=== PATIENT | male | born 1935 | race African-American/Black ===

== ENCOUNTER → 2016-12-06 | Outpatient (CLI) | payer MEDICARE, OTHER ==
[2016-12-06 08:50] LABS: CHOLESTEROL 160.69 mg/dL (0-200); Direct HDL 58 mg/dL (>40); TRIGLYCERIDES 170 mg/dL (<150)
[2016-12-06 08:51] LABS: BILIRUBIN,TOTAL 0.5 mg/dL (0.2-1.3); TOTAL PROTEIN 7.7 g/dL (6.3-8.2)
[2016-12-06 09:01] LABS: DIRECT LDL 70 mg/dL (<100)
== END ==
LOC: OD 07:18
PROVIDERS: ATTEND Urology
DX: Z79.899 Other long term (current) drug therapy (principal); C61 Malignant neoplasm of prostate
CPT/HCPCS: 36415; 80061; 80076; 84153

== ENCOUNTER 2016-12-17 10:16 | Emergency (ER) | payer MEDICARE, OTHER ==
--- NOTE | 2016-12-17 11:17 | ER Document Report ---
ED Medical Screen (RME) - General Stated Complaint: HEADACHE Notes: Was at HD this Am (Friday, , Friday). Headache started on/off for the past months Patient states that he has had intermittent headaches for about 10 months after a visit to the dentist. PCP: Dr Blair DM, HTN, h/o migraine headaches Patient has been evaluated and I have completed a rapid medical examination. A complete history and physical examination along with evaluation of workup will be completed by the provider once a bed is assigned TRAVEL OUTSIDE OF THE [place] IN LAST 30 DAYS: No - Related Data Allergies/Adverse Reactions: PPD Converter Allergy (Uncoded 10/01/16 07:24) Past Medical History - Past Medical History Cardiac Medical History: Reports: Hx Heart Attack - PT STATES " NOT SURE, MAY HAVE BEEN A STROKE", Hx Hypercholesterolemia, Hx Hypertension Denies: Hx Coronary Artery Disease Pulmonary Medical History: Denies: Hx Asthma, Hx Bronchitis, Hx COPD, Hx Pneumonia Neurological Medical History: Denies: Hx Cerebrovascular Accident - "unsure", Hx Seizures Endocrine Medical History: Reports: Hx Diabetes Mellitus Type 2, Hx Hypothyroidism Renal/ Medical History: Reports: Hx End Stage Renal Disease GI Medical History: Reports: Hx Gastroesophageal Reflux Disease Musculoskeltal Medical History: Reports Hx Arthritis - Legs and right shoulder, Reports Hx Gout Past Surgical History: Reports: Hx Abdominal Surgery - hernia repair, Hx Cardiac Surgery - pacemaker, Hx Oral Surgery, Hx Pacemaker, Hx Vascular Surgery - PermCath insertion. Right radiocephalic fistula insertion. Fistula an - Immunizations Hx Diphtheria, Pertussis, Tetanus Vaccination: Yes Physical Exam - Vital signs Vitals: Temp Pulse Resp BP Pulse Ox 97.6 F 60 20 143/110 H 97 12/17/16 10:59 12/17/16 10:59 12/17/16 10:59 12/17/16 10:59 12/17/16 10:59 Course - Vital Signs Vital signs: Temp Pulse Resp BP Pulse Ox 97.6 F 60 20 143/110 H 97 12/17/16 10:59 12/17/16 10:59 12/17/16 10:59 12/17/16 10:59 12/17/16 10:59
[2016-12-17] MEDS ORDERED: DIPHENHYDRAMINE HCL 25 MG CAPSULE PO ONE (11:18)
[2016-12-17] MEDS ORDERED: ACETAMINOPHEN 325 MG TABLET PO ONE (11:18)
[2016-12-17] MEDS ORDERED: PROCHLORPERAZINE EDISYLATE INJ 10 MG/2 ML VIAL IM ONE (11:18)
[2016-12-17 12:06] LABS: ABSOLUTE BASOPHILS # (AUTO) 0.1 10^3/uL (0.0-0.2); ABSOLUTE EOSINOPHILS # (AUTO) 0.1 10^3/uL (0.0-0.6); ABSOLUTE LYMPHOCYTES (AUTO) 1.1 10^3/uL (0.5-4.7); ABSOLUTE MONOCYTES (AUTO) 0.7 10^3/uL (0.1-1.4); ABSOLUTE NEUT (AUTO) 6.4 10^3/uL (1.7-8.2); BASOPHILS % (AUTO) 0.6 % (0-2); EOSINOPHILS % (AUTO) 1.7 % (0-6); LYMPHOCYTES % (AUTO) 13.1 % (13-45); MEAN CORPUSCULAR HEMOGLOBIN 30.5 pg (27.0-33.4); MEAN CORPUSCULAR HGB CONC 32.5 g/dL (32.0-36.0); MEAN CORPUSCULAR VOLUME 94 fl (80-97); MONOCYTES % (AUTO) 8.6 % (3-13); RED BLOOD COUNT 4.59 10^6/uL (4.35-5.55); RED CELL DISTRIBUTION WIDTH 16.1 % (11.5-14.0); WHITE BLOOD COUNT 8.4 10^3/uL (4.0-10.5)
[2016-12-17 12:28] LABS: ALANINE AMINOTRANSFERASE 25 U/L (21-72); ALBUMIN 4.7 g/dL (3.5-5.0); ALKALINE PHOSPHATASE 200 U/L (38-126); ASPARTATE AMINO TRANSFERASE 31 U/L (17-59); BILIRUBIN,TOTAL 0.7 mg/dL (0.2-1.3); BLOOD UREA NITROGEN 49 mg/dL (7-20); CARBON DIOXIDE 24 mmol/L (22-30); CHLORIDE 100 mmol/L (98-107); CREATININE RESULT 7.93 mg/dL (0.52-1.25); GLUCOSE 123 mg/dL (75-110); POTASSIUM 4.9 mmol/L (3.6-5.0); SODIUM 145.3 mmol/L (137-145); TOTAL PROTEIN 8.3 g/dL (6.3-8.2)
[2016-12-17 12:29] LABS: ANION GAP 21 (5-19)
--- NOTE | 2016-12-17 14:04 | ER Document Report ---
ED Headache - General Mode of Arrival: Medic Information source: Patient TRAVEL OUTSIDE OF THE [place] IN LAST 30 DAYS: No - HPI Patient complains to provider of: Headache Onset: Just prior to arrival <ERLINDA CANTU - Last Filed: 12/17/16 14:06> <FANY PHAN - Last Filed: 12/17/16 14:28> - General Chief Complaint: Headache >24 hrs old Stated Complaint: HEADACHE Notes: Patient is an 81-year-old male that presents to emergency department today with complaints of a headache. Patient states he has frequent headaches and usually takes Tylenol for his headaches. Patient states he believes he is prescribed something stronger but he can not remember the name of the medication. Patient states he has also noticed that he has had neck pain as well. (ERLINDA CANTU) This 81-year-old male patient comes emergency room for a right-sided posterior cervical headache. The headache is in the top of the head and the right posterior neck. He has been here in the past a few times for the same problem. He is currently receiving a prescription for Adrian from Dr. Blair, most recently filled 30 tablets on 11/22/2016. He states he has not run out of his medication, but the medicine does help but then the headaches come back. There is no nausea vomiting diarrhea. There is no visual disturbance. There is no mental status changes. There are no balance problems. The patient does go to dialysis on Friday and he did go this morning. (FANY PHAN) - Related Data Allergies/Adverse Reactions: PPD Converter Allergy (Uncoded 12/17/16 11:13) Past Medical History - General Information source: Patient - Social History Smoking Status: Never Smoker Cigarette use (# per day): No Chew tobacco use (# tins/day): No Frequency of alcohol use: None Drug Abuse: None Lives with: Family Family History: Reviewed & Not Pertinent Patient has suicidal ideation: No Patient has homicidal ideation: No - Past Medical History Cardiac Medical History: Reports: Hx Heart Attack - PT STATES " NOT SURE, MAY HAVE BEEN A STROKE", Hx Hypercholesterolemia, Hx Hypertension Endocrine Medical History: Reports: Hx Diabetes Mellitus Type 2, Hx Hypothyroidism Renal/ Medical History: Reports: Hx End Stage Renal Disease GI Medical History: Reports: Hx Gastroesophageal Reflux Disease Musculoskeltal Medical History: Reports Hx Arthritis - Legs and right shoulder, Reports Hx Gout Past Surgical History: Reports: Hx Abdominal Surgery - hernia repair, Hx Cardiac Surgery - pacemaker, Hx Oral Surgery, Hx Pacemaker, Hx Vascular Surgery - PermCath insertion. Right radiocephalic fistula insertion. Fistula an - Immunizations Hx Diphtheria, Pertussis, Tetanus Vaccination: Yes Hx Pneumococcal Vaccination: 11/10/12 <ERLINDA CANTU - Last Filed: 12/17/16 14:06> Review of Systems - Review of Systems Constitutional: No symptoms reported EENT: No symptoms reported Cardiovascular: No symptoms reported Respiratory: No symptoms reported Gastrointestinal: No symptoms reported Genitourinary: No symptoms reported Male Genitourinary: No symptoms reported Musculoskeletal: See HPI, Neck pain Skin: No symptoms reported Hematologic/Lymphatic: No symptoms reported Neurological/Psychological: See HPI, Headaches -: Yes All other systems reviewed and negative <ERLINDA CANTU - Last Filed: 12/17/16 14:06> Physical Exam - General General appearance: Appears well, Alert In distress: None - HEENT Head: Normocephalic, Atraumatic Eyes: Normal Extraocular movements intact: Yes Neck: Other - Right-sided posterior cervical musculature tenderness with palpation - Respiratory Respiratory status: No respiratory distress - Cardiovascular Rhythm: Regular Heart sounds: Normal auscultation Murmur: No - Abdominal Inspection: Normal Distension: No distension - Extremities General upper extremity: Normal inspection, Normal ROM. No: Edema General lower extremity: Normal inspection, Normal ROM. No: Edema - Neurological Neuro grossly intact: Yes Cognition: Normal Speech: Normal - Psychological Associated symptoms: Normal affect, Normal mood - Skin Skin Temperature: Warm Skin Moisture: Dry Skin Color: Normal <ERLINDA CANTU - Last Filed: 12/17/16 14:06> Course - Laboratory Result Diagrams: 12/17/16 11:50 12/17/16 11:50 <ERLINDA CANTU - Last Filed: 12/17/16 14:06> - Laboratory Result Diagrams: 12/17/16 11:50 12/17/16 11:50 <FANY PHAN - Last Filed: 12/17/16 14:28> - Re-evaluation Re-evalutation: 12/17/16 14:22 Review of the [place] database shows the patient has received prescriptions for 30 Adrian in the middle of October and the middle of November. He states he has not run out of medication, but when he takes the medicine the headache improved and then it comes back. 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 He understands this and is agreeable to continuing his present management regimen and to follow up with his primary care provider. (FANY PHAN) - Vital Signs Vital signs: Temp Pulse Resp BP Pulse Ox 97.6 F 60 20 143/110 H 97 12/17/16 10:59 12/17/16 10:59 12/17/16 10:59 12/17/16 10:59 12/17/16 10:59 (ERLINDA CANTU) (FANY PHAN) - Laboratory Laboratory results interpreted by me: 12/17/16 12/17/16 11:50 11:50 RDW 16.1 H Sodium 145.3 H Anion Gap 21 H BUN 49 H Creatinine 7.93 H Est GFR ( Amer) 8 L Est GFR (Non-Af Amer) 7 L Glucose 123 H Alkaline Phosphatase 200 H Total Protein 8.3 H (ERLINDA CANTU) (FANY PHAN) Discharge <ERLINDA CANTU - Last Filed: 12/17/16 14:06> <FANY PHAN - Last Filed: 12/17/16 14:28> - Discharge Clinical Impression: Chronic tension headache Qualifiers: Intractability: not intractable Qualified Code(s): G44.229 - Chronic tension- type headache, not intractable Condition: Stable Disposition: HOME, SELF-CARE Additional Instructions: Tension Headache: Your problem has been diagnosed as muscle tension headache. This very common type of headache occurs because of tightness in the muscles of the head and neck. The cause may be neck or jaw joint problems, and may be due to arthritis in the neck. The headache may last hours or days. The treatment of uncomplicated tension headaches is rest and pain medication. Often, the newer antiinflammatory pain medications are prescribed, as these also decrease the irritability of the painful tissues. Muscle relaxers , cold packs, or warm packs are sometimes helpful. Anti-anxiety medication or narcotics are sometimes needed temporarily, but are best avoided in the long run. Your doctor has evaluated your headache problem, and finds no evidence of a serious health problem as a cause for the headache. If your headache becomes more severe, or if new symptoms develop (such as fever, stiff neck, vomiting, or decreasing alertness) you should be re-examined by the physician. Continue your present medications. Try moist heat to the painful neck areas. Follow-up with Dr. Blair this week if not improving. RETURN TO THE EMERGENCY ROOM IF ANY NEW OR WORSENING SYMPTOMS. Referrals: MO BLAIR MD [ACTIVE STAFF] - Follow up as needed Scribe Attestation: 12/17/16 14:28 I personally performed the services described in the documentation, reviewed and edited the documentation which was dictated to the scribe in my presence, and it accurately records my words and actions. (FANY PHAN) Scribe Documentation - Scribe Written by Parish:: Parish Abreu, [id number] 12/17/2016 acting as scribe for :: Bashir <ERLINDA CANTU - Last Filed: 12/17/16 14:06>
[2016-12-17 15:12] VITALS: BP 148/80
== END 2016-12-17 14:47 | disposition home or self-care (01) ==
LOC: ER 10:16
DX: G44.229 Chronic tension-type headache, not intractable (principal)
CPT/HCPCS: 99284; 36415; 85025; 80053; A9270 ×2

== ENCOUNTER 2016-12-30 08:08 | Day surgery (SDC) | payer MEDICARE, OTHER ==
[2016-12-30] MEDS ORDERED: HEPARIN SOD (PORCINE) 5,000 UNIT/ML 1 ML SYRINGE ONE (09:04)
[2016-12-30] MEDS ORDERED: FENTANYL CITRATE INJ/PF 100 MCG/2 ML AMPUL ONE (09:04)
[2016-12-30] MEDS ORDERED: MIDAZOLAM 2 MG/2 ML INJ ONE (09:04)
[2016-12-30 09:09] LABS: ABSOLUTE BASOPHILS # (AUTO) 0.1 10^3/uL (0.0-0.2); ABSOLUTE EOSINOPHILS # (AUTO) 0.1 10^3/uL (0.0-0.6); ABSOLUTE LYMPHOCYTES (AUTO) 1.1 10^3/uL (0.5-4.7); ABSOLUTE MONOCYTES (AUTO) 0.7 10^3/uL (0.1-1.4); ABSOLUTE NEUT (AUTO) 5.3 10^3/uL (1.7-8.2); BASOPHILS % (AUTO) 1.2 % (0-2); EOSINOPHILS % (AUTO) 1.6 % (0-6); HEMATOCRIT 40.8 % (37.9-51.0); HGB HCT DIFFERENCE -1.8; LYMPHOCYTES % (AUTO) 14.6 % (13-45); MEAN CORPUSCULAR HEMOGLOBIN 30.2 pg (27.0-33.4); MEAN CORPUSCULAR HGB CONC 31.9 g/dL (32.0-36.0); MEAN CORPUSCULAR VOLUME 95 fl (80-97); MONOCYTES % (AUTO) 9.3 % (3-13); RED CELL DISTRIBUTION WIDTH 15.7 % (11.5-14.0); SEGMENTED NEUTROPHILS % (AUTO) 73.3 % (42-78); WHITE BLOOD COUNT 7.3 10^3/uL (4.0-10.5)
[2016-12-30] MEDS ORDERED: LIDOCAINE 0.5% INJ-PF (5 MG/ML) 50 ML SDV ONE (09:17)
[2016-12-30 09:19] LABS: PROTHROMBIN TIME 13.1 SEC (11.4-15.4)
[2016-12-30 09:20] LABS: PARTIAL THROMBOPLASTIN TIME 36.9 SEC (23.5-35.8)
[2016-12-30 09:33] LABS: ANION GAP 17 (5-19); BLOOD UREA NITROGEN 70 mg/dL (7-20); CALCIUM 10.2 mg/dL (8.4-10.2); CARBON DIOXIDE 24 mmol/L (22-30); CHLORIDE 96 mmol/L (98-107); CREATININE RESULT 10.97 mg/dL (0.52-1.25); GLUCOSE 110 mg/dL (75-110); POTASSIUM 5.9 mmol/L (3.6-5.0); SODIUM 136.6 mmol/L (137-145)
--- NOTE | 2016-12-30 10:35 | PDOC DISCHARGE SUMMARY ---
Discharge Summary (SDC) - Discharge Final Diagnosis: #1 malfunctioning AV fistula, right radiocephalic. #2 end-stage renal disease on hemodialysis. #3 history of permanent pacemaker. #4 diabetes mellitus type II. #5 coronary artery disease. #6 hypertension. Date of Surgery: 12/30/16 Discharge Date: 12/30/16 Condition: Fair Treatment or Instructions: #1 discharge patient home after achieving ASU criteria. Give Kayexalate 15 g by mouth before discharge. #2 continue medications per medication reconciliation sheet. #3 follow-up in office by appointment in about 1 week, call for appointment. #4 dressing to be left on until removed and hemodialysis.. #5 continue scheduled hemodialysis. #6 may shower starting in 48 hours. Important to keep dressings clean and dry Discharge Diet: Other (Comments) - Renal Respiratory Treatments at Home: Deep Breathing/Coughing Discharge Activity: Activity As Tolerated Report the Following to Your Physician Immediately: Unusual Bleeding
--- NOTE | 2016-12-30 10:39 | PDOC H&P ---
General Chief Complaint: Reduced flow in AV fistula noted and hemodialysis. Increased pressures also. These suggest fistula malfunction. - Diagnosis (1) Coronary artery disease Is this a Current Diagnosis?: Yes (2) Diabetes mellitus type II, controlled Is this a Current Diagnosis?: Yes (3) ESRD needing dialysis Is this a Current Diagnosis?: Yes (4) History of permanent cardiac pacemaker placement Is this a Current Diagnosis?: Yes (5) Hypertension Is this a Current Diagnosis?: Yes (6) Malfunction of arteriovenous dialysis fistula Is this a Current Diagnosis?: Yes - Current Medications/Allergies Home Medications: Allopurinol [Zyloprim 100 mg Tablet] 100 mg PO DAILY 12/25/11 Aspirin [Aspirin 81 mg Chewable Tablet] 81 mg PO DAILY 12/25/11 Hydralazine HCl [Apresoline 50 mg Tablet] 50 mg PO BID 12/25/11 Levothyroxine Sodium [Synthroid 0.112 mg Tablet] 112 mcg PO DAILY 12/25/11 Simvastatin [Zocor 5 mg Tablet] 5 mg PO QHS 12/25/11 Bicalutamide [Casodex 50 mg Tablet] 50 mg PO DAILY 04/25/14 Nitroglycerin 4.1 gm TL PRN PRN 04/25/14 Esomeprazole Magnesium [Nexium] 40 mg PO DAILY 03/06/16 Colchicine [Colchicine 0.6 mg Tablet] 0.6 mg PO [id number] 03/09/16 Insulin Glargine,Hum.rec.anlog [Lantus Insulin 100 Unit/1 ml 10 ml] 5 units SQ HSP PRN 03/09/16 Linaclotide [Linzess] 290 mcg PO DAILY 10/01/16 Gabapentin 100 mg PO DAILY 10/16/16 Sevelamer HCl [Renagel] 1,600 mg PO 5XD 10/16/16 Allergies/Adverse Reactions: PPD Converter Allergy (Uncoded 12/17/16 11:13) Past Medical History Cardiac Medical History: Reports: Myocardial Infarction - PT STATES " NOT SURE, MAY HAVE BEEN A STROKE", Hyperlipidema, Hypertension Denies: Coronary Artery Disease Pulmonary Medical History: Denies: Asthma, Bronchitis, Chronic Obstructive Pulmonary Disease (COPD), Pneumonia Neurological Medical History: Denies: Seizures Endocrine Medical History: Reports: Diabetes Mellitus Type 2, Hypothyroidism Renal/ Medical History: Reports: End Stage Renal Disease GI Medical History: Reports: Gastroesophageal Reflux Disease Musculoskeltal Medical History: Reports: Arthritis - Legs and right shoulder, Gout Hematology: Denies: Anemia Past Surgical History Past Surgical History: Reports: Pacemaker, Vascular Surgery - PermCath insertion. Right radiocephalic fistula insertion. Fistula an Family History Family History: Reviewed & Not Pertinent Parental Family History Reviewed: No Children Family History Reviewed: No Sibling(s) Family History Reviewed.: No Social History Smoking Status: Former Smoker Physical Exam Vital Signs: Temp Pulse Resp BP Pulse Ox 98.2 F 66 16 124/69 100 12/30/16 08:25 12/30/16 09:49 12/30/16 08:25 12/30/16 08:25 12/30/16 08:25 Intake & Output 12/29/16 12/30/16 12/31/16 06:59 06:59 06:59 Weight 105.687 kg Additional comments: Constitutional: A well-developed well-nourished -[place] gentleman. No acute distress. Eyes: Mucous membranes pink and moist, sclerae anicteric, pupils react normally. Respiratory: No shortness of breath or wheezing. Breath sounds are normal and equal. Cardiac: Heart sounds normal, no murmurs, no increased JVP. Permanent pacemaker in place. Extremities: Upper extremities shows normal range of movement and pulses. The right arm has a transposed radial to cephalic fistula . Bruit normal. Firm to palpation. Psychiatric: judgment, memory, insight seem normal. Mood is normal, appropriate and pleasant. Impression/Plan Impression: #1 malfunctioning AV fistula, right radiocephalic. #2 end-stage renal disease on hemodialysis. #3 history of permanent pacemaker. #4 diabetes mellitus type II. #5 coronary artery disease. #6 hypertension. Plan: In this patient, dependent on his right arm AV fistula for hemodialysis, intervention is warranted. The hope is to improve fistula function so as to prolong its functional life. The procedure of angioplasty, its risks, benefits , expected outcome and alternatives are for Ca to the patient. He wishes to proceed.
[2016-12-30] MEDS ORDERED: SODIUM POLYSTYRENE SULFONATE 15 GM/60 ML ONE (10:45)
[2016-12-30 12:53] VITALS: BP 153/72
--- NOTE | 2016-12-31 14:53 | Operative Report ---
Operative Report DATE OF SURGERY: 12/30/16 PREOPERATIVE DIAGNOSIS: #1 malfunctioning AV fistula, right radiocephalic. #2 end-stage renal disease on hemodialysis. #3 history of permanent pacemaker. # 4 diabetes mellitus type II. #5 coronary artery disease. #6 hypertension. POSTOPERATIVE DIAGNOSIS: #1 malfunctioning AV fistula, right radiocephalic. #2 end-stage renal disease on hemodialysis. #3 history of permanent pacemaker. # 4 diabetes mellitus type II. #5 coronary artery disease. #6 hypertension. OPERATION: #1 needle introduction into fistula. #2 angioplasty in the central subclavian vein. #3 angioplasty in the peripheral arteriovenous fistula. #4 angiogram and interpretation. SURGEON: DANYA GARCIA EMERGENCY COMMUNICATIONS DISPATCHER: none ANESTHESIA: Moderate Sedation TISSUE REMOVED OR ALTERED: Not applicable. COMPLICATIONS: None ESTIMATED BLOOD LOSS: 2 mL. INTRAOPERATIVE FINDINGS: Upper well-founded right radial to cephalic fistula. Rather firm and his first 10 cm. Relatively soft cephalad. Angiogram demonstrated a stenosis at the subclavian innominate junction. Estimated to be about 50% of the adjacent lumen. Not well seen on angiogram but much better demonstrated with a demonstrable waist. This was really nicely corrected with angioplasty up to a 9 mm balloon. A second stenosis noted at about 12 cm from the anastomosis this represents about a 80% stenosis. This was also resolved by angioplasty. The fistula, initially very firm suggestive of cephalad stenosis was quite appropriately softer at the end of the procedure. PROCEDURE: PROCEDURE: After verifying the procedure and having obtained informed consent, the patient's right forearm was prepared with Chlorhexidine and draped out with sterile linen. Local anesthesia infiltrated. Percutaneous access into the fistula ,[ antegrade], obtained about [2 cm] from the arteriovenous anastomosis using a 18-gauge needle. Angiogram demonstrated the aforementioned findings. Angioplasty was elected. A 0.035 [place] wire was inserted, and over this, a 7 Hungarian short introducer was placed, this was followed by a [8] angioplasty balloon . Angioplasty was done at the subclavian innominate junction using an 8 mm balloon. Pressure up to 12 arjun for 2 minutes. Completion angiogram demonstrated improvement. Angioplasty was now done up to 14 arjun for 2 minutes at the 12 cm segment. And then down to the introducer. Completion angiogram satisfactory. A 9 mm balloon was now inserted and the balloon positioned at the subclavian T innominate junction. Inflation now done up to 12 atmospheres for 2 minutes.]. Completion angiogram demonstrated [satisfactory result]. The instrumentation was now withdrawn over pressure for 10 minutes dressings applied, procedure concluded. Exposure time: 0.9 minutes. Radiation: 59 dat per centimeters squared. Contrast: 25 mL of Isovue-M 300, low osmolality. DICTATING PHYSICIAN: DANYA MEDELLIN M.D. cc: DANYA MEDELLIN M.D. ([id number]) >>
== END 2016-12-30 12:00 | disposition home or self-care (01) ==
LOC: CCL 08:08
PROVIDERS: ATTEND Surgery
PROC: 057D3DZ Dilation of Right Cephalic Vein with Intraluminal Device, Percutaneous Approach (ICD-10-PCS; principal; 2016-12-30)
DX: T82.858A Stenosis of other vascular prosthetic devices, implants and grafts, initial encounter (principal); Y83.2 Surgical operation with anastomosis, bypass or graft as the cause of abnormal reaction of the patient, or of later complication, without mention of misadventure at the time of the procedure; I12.0 Hypertensive chronic kidney disease with stage 5 chronic kidney disease or end stage renal disease; N18.6 End stage renal disease; E11.22 Type 2 diabetes mellitus with diabetic chronic kidney disease; I25.10 Atherosclerotic heart disease of native coronary artery without angina pectoris; E03.9 Hypothyroidism, unspecified; E78.5 Hyperlipidemia, unspecified; K21.9 Gastro-esophageal reflux disease without esophagitis; M10.9 Gout, unspecified; M19.011 Primary osteoarthritis, right shoulder; Z99.2 Dependence on renal dialysis; Z79.01 Long term (current) use of anticoagulants; Z79.82 Long term (current) use of aspirin; Z79.899 Other long term (current) drug therapy; Z79.4 Long term (current) use of insulin; I25.2 Old myocardial infarction; Z95.0 Presence of cardiac pacemaker; Z87.891 Personal history of nicotine dependence
CPT/HCPCS: 36415; 85025; 85610; 85730; 80048; 36902; 71010; C1725; C1894; Q9967; C1769; J2250; J1644 ×2; J3010; J3490

== ENCOUNTER → 2017-01-28 | Outpatient (CLI) | payer MEDICARE, OTHER ==
[2017-01-28 12:11] LABS: ABSOLUTE BASOPHILS # (AUTO) 0.1 10^3/uL (0.0-0.2); ABSOLUTE EOSINOPHILS # (AUTO) 0.2 10^3/uL (0.0-0.6); ABSOLUTE LYMPHOCYTES (AUTO) 1.1 10^3/uL (0.5-4.7); ABSOLUTE MONOCYTES (AUTO) 0.8 10^3/uL (0.1-1.4); ABSOLUTE NEUT (AUTO) 6.3 10^3/uL (1.7-8.2); BASOPHILS % (AUTO) 0.7 % (0-2); EOSINOPHILS % (AUTO) 2.2 % (0-6); HEMATOCRIT 42.1 % (37.9-51.0); HEMOGLOBIN 13.6 g/dL (13.5-17.0); HGB HCT DIFFERENCE -1.3; LYMPHOCYTES % (AUTO) 12.9 % (13-45); MEAN CORPUSCULAR HEMOGLOBIN 30.5 pg (27.0-33.4); MEAN CORPUSCULAR HGB CONC 32.4 g/dL (32.0-36.0); MEAN CORPUSCULAR VOLUME 94 fl (80-97); RED BLOOD COUNT 4.46 10^6/uL (4.35-5.55); RED CELL DISTRIBUTION WIDTH 15.2 % (11.5-14.0); SEGMENTED NEUTROPHILS % (AUTO) 75.2 % (42-78); WHITE BLOOD COUNT 8.4 10^3/uL (4.0-10.5)
== END ==
LOC: OD 10:46
PROVIDERS: ATTEND Internal Medicine Cardiovascular Disease
DX: R00.0 Tachycardia, unspecified (principal); E03.9 Hypothyroidism, unspecified; R63.4 Abnormal weight loss
CPT/HCPCS: 36415; 84443; 85025

== ENCOUNTER 2017-03-04 02:45 | Emergency (ER) | payer MEDICARE, OTHER ==
--- NOTE | 2017-03-04 06:04 | ER Document Report ---
ED Medical Screen (RME) - General Chief Complaint: Abdominal Pain Stated Complaint: SHORTNESS OF BREATH,ABDOMINAL PAIN Notes: Patient is an 82-year-old male presents emergency Department complaining of chest pain, shortness of breath and abdominal pain that started last evening. Patient states that he got a coronary stent 1 about 7 days ago. Past medical history significant for end-stage renal disease on dialysis Friday and Friday, diabetes type II, hypertension, gout, hyperlipidemia. TRAVEL OUTSIDE OF THE [place] 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 Denies: Hx Seizures Endocrine Medical History: Reports: Hx Diabetes Mellitus Type 2, Hx Hypothyroidism Renal/ Medical History: Reports: Hx End Stage Renal Disease. Denies: Hx Peritoneal Dialysis GI Medical History: Reports: Hx Gastroesophageal Reflux Disease Musculoskeltal Medical History: Reports Hx Arthritis - Legs and right shoulder, Reports Hx Gout Past Surgical History: Reports: Hx Abdominal Surgery - Hernia, Hx Cardiac Catheterization - Stent placed 02/24/2017 @[facility], Hx Cardiac Surgery - pacemaker , Hx Oral Surgery, Hx Pacemaker, Hx Vascular Surgery - PermCath insertion. Right radiocephalic fistula insertion. Fistula an - Immunizations Hx Diphtheria, Pertussis, Tetanus Vaccination: Yes Physical Exam - Vital signs Vitals: Temp Pulse Resp BP Pulse Ox 98.1 F 66 21 H 167/70 H 95 03/04/17 02:52 03/04/17 02:52 03/04/17 02:52 03/04/17 02:52 03/04/17 02:52 Course - Vital Signs Vital signs: Temp Pulse Resp BP Pulse Ox 98.1 F 66 21 H 167/70 H 95 03/04/17 02:52 03/04/17 02:52 03/04/17 02:52 03/04/17 02:52 03/04/17 02:52
--- NOTE | 2017-03-04 06:37 | ER Document Report ---
ED General - General Mode of Arrival: Ambulatory Information source: Patient TRAVEL OUTSIDE OF THE [place] IN LAST 30 DAYS: No - HPI Patient complains to provider of: Difficulty Breathing Onset: This morning - 0130 Onset/Duration: Sudden, Better Associated symptoms: Other - Abdominal pain, constipation <BLAS LOPEZ - Last Filed: 03/04/17 06:37> <FANY PHAN - Last Filed: 03/04/17 09:30> - General Chief Complaint: Abdominal Pain Stated Complaint: SHORTNESS OF BREATH,ABDOMINAL PAIN Notes: Patient is an 82-year-old male presenting to the emergency department concerned of difficulty breathing onset at approximately 0130 this morning when he woke up. Patient states that he got up to get ready for his dialysis like he normally does, nose to is short of breath. She states his breathing has improved since coming to the emergency department. Patient also is concerned that he may be constipated. Patient states that he is not able to get all of his fecal matter out, and he is experiencing some abdominal cramping. Patient also recently had a stent placed approximately 7 days ago. Patient has end- stage kidney disease and is on dialysis every Friday, , Friday. Patient reports making very little urine. (BLAS LOPEZ) - Related Data Allergies/Adverse Reactions: PPD Converter Allergy (Uncoded 12/17/16 11:13) Past Medical History - General Information source: Patient, [facility] Records - Social History Smoking Status: Unknown if Ever Smoked Chew tobacco use (# tins/day): No Frequency of alcohol use: None Drug Abuse: None Family History: Reviewed & Not Pertinent - Past Medical History Cardiac Medical History: Reports: Hx Heart Attack - PT STATES " NOT SURE, MAY HAVE BEEN A STROKE", Hx Hypercholesterolemia, Hx Hypertension Pulmonary Medical History: Denies: Hx Asthma, Hx Bronchitis, Hx COPD, Hx Pneumonia Neurological Medical History: Reports: Hx Cerebrovascular Accident - LEFT WEAKER THAN RIGHT. Denies: Hx Seizures Endocrine Medical History: Reports: Hx Diabetes Mellitus Type 2, Hx Hypothyroidism Renal/ Medical History: Reports: Hx End Stage Renal Disease, Hx Hemodialysis GI Medical History: Reports: Hx Gastroesophageal Reflux Disease Musculoskeltal Medical History: Reports Hx Arthritis - Legs and right shoulder, Reports Hx Gout Past Surgical History: Reports: Hx Abdominal Surgery - Hernia, Hx Cardiac Catheterization - Stent placed 02/24/2017 @[facility], Hx Cardiac Surgery - pacemaker , Stent, Hx Oral Surgery, Hx Pacemaker, Hx Vascular Surgery - PermCath insertion. Right radiocephalic fistula insertion. - Immunizations Hx Diphtheria, Pertussis, Tetanus Vaccination: Yes Hx Pneumococcal Vaccination: 11/10/12 <BLAS LOPEZ - Last Filed: 03/04/17 06:37> Review of Systems - Review of Systems Constitutional: No symptoms reported EENT: No symptoms reported Cardiovascular: No symptoms reported Respiratory: See HPI, Short of breath Gastrointestinal: See HPI, Abdominal pain, Constipation Genitourinary: No symptoms reported Male Genitourinary: No symptoms reported Musculoskeletal: No symptoms reported Skin: No symptoms reported Hematologic/Lymphatic: No symptoms reported Neurological/Psychological: No symptoms reported -: Yes All other systems reviewed and negative <BLAS LOPEZ - Last Filed: 03/04/17 06:37> Physical Exam - Vital signs Interpretation: Hypertensive - General General appearance: Alert - HEENT Head: Normocephalic, Atraumatic Eyes: Normal Pupils: PERRL - Respiratory Respiratory status: No respiratory distress Chest status: Nontender Breath sounds: Normal Chest palpation: Normal - Cardiovascular Rhythm: Regular Heart sounds: Normal auscultation Murmur: No - Abdominal Inspection: Obese, Other - Umbilical hernia Bowel sounds: Normal - Back Back: Normal, Nontender - Extremities General upper extremity: Nontender, Other - Shunt right forearm General lower extremity: Normal inspection, Nontender, Other - No peripheral edema - Neurological Neuro grossly intact: Yes Cognition: Normal Orientation: AAOx4 Jacque Coma Scale Eye Opening: Spontaneous [place] Coma Scale Verbal: Oriented [place] Coma Scale Motor: Obeys Commands Jacque Coma Scale Total: 15 Speech: Normal - Psychological Associated symptoms: Normal affect, Normal mood - Skin Skin Temperature: Warm Skin Moisture: Dry Skin Color: Normal <BLAS LOPEZ - Last Filed: 03/04/17 06:37> Course <BLAS LOPEZ - Last Filed: 03/04/17 06:37> - Laboratory Result Diagrams: 03/04/17 07:13 03/04/17 07:13 - Diagnostic Test Radiology reviewed: Image reviewed, Reports reviewed - Chest x-ray does not show failure. KUB shows a moderate fecal load. - EKG Interpretation by Pa EKG shows normal: Sinus rhythm, [place], Intervals, ST-T Waves. abnormal: QRS Complexes - Old anterior and inferior MIs Rate: Normal - 60 Rhythm: NSR [place]/QRS: IVCD Voltage: Consistant with LVH <FANY PHAN - Last Filed: 03/04/17 09:30> - Re-evaluation Re-evalutation: 03/04/17 09:28 Patient had a large bowel movement after the enema and feels better. He is complaining about his legs being weak and not sure if he can stand to go to dialysis. The leg weakness is a chronic problem and he is supposed to be having therapist come out to his house to help him with that. We will get transport to take him to dialysis (FANY PHAN) - Vital Signs Vital signs: Temp Pulse Resp BP Pulse Ox 98.1 F 66 18 168/77 H 96 03/04/17 02:52 03/04/17 02:52 03/04/17 06:33 03/04/17 06:33 03/04/17 06:33 - Laboratory Laboratory results interpreted by me: 03/04/17 03/04/17 03/04/17 07:13 07:13 07:13 RBC 4.02 L Hgb 12.5 L Hct 37.7 L RDW 14.3 H Seg Neutrophils % 79.5 H Lymphocytes % 10.0 L Sodium 147.6 H Potassium 6.5 H* Anion Gap 22 H BUN 84 H Creatinine 11.64 H Est GFR ( Amer) 5 L Est GFR (Non-Af Amer) 4 L Glucose 121 H Direct Bilirubin 0.7 H Alkaline Phosphatase 156 H NT-Pro-B Natriuret Pep 31913 H Discharge <BLAS LOPEZ - Last Filed: 03/04/17 06:37> <FANY PHAN - Last Filed: 03/04/17 09:30> - Discharge Clinical Impression: Hyperkalemia Constipation Qualifiers: Constipation type: unspecified constipation type Qualified Code(s): K59.00 - Constipation, unspecified Chronic renal failure Qualifiers: Chronic kidney disease stage: stage 5 Qualified Code(s): N18.5 - Chronic kidney disease, stage 5 Condition: Stable Disposition: DAVITA Additional Instructions: Go to dialysis now. Follow-up with your kidney doctor today if your weakness does not improve. Return to the emergency room if any new or worsening symptoms. Referrals: MO SOUZA MD [Primary Care Provider] - Follow up as needed Scribe Attestation: 03/04/17 09:30 I personally performed the services described in the documentation, reviewed and edited the documentation which was dictated to the scribe in my presence, and it accurately records my words and actions. (FANY PHAN) Scribe Documentation - Scribe Written by Scribe:: Blas Lopez 03/04/2017 0637 acting as scribe for :: Bashir <BLAS LOPEZ - Last Filed: 03/04/17 06:37>
[2017-03-04 07:25] LABS: ABSOLUTE BASOPHILS # (AUTO) 0.1 10^3/uL (0.0-0.2); ABSOLUTE MONOCYTES (AUTO) 0.9 10^3/uL (0.1-1.4); ABSOLUTE NEUT (AUTO) 7.6 10^3/uL (1.7-8.2); BASOPHILS % (AUTO) 0.9 % (0-2); EOSINOPHILS % (AUTO) 0.5 % (0-6); HEMATOCRIT 37.7 % (37.9-51.0); HEMOGLOBIN 12.5 g/dL (13.5-17.0); HGB HCT DIFFERENCE -0.2; MEAN CORPUSCULAR HEMOGLOBIN 31.1 pg (27.0-33.4); MEAN CORPUSCULAR HGB CONC 33.2 g/dL (32.0-36.0); MEAN CORPUSCULAR VOLUME 94 fl (80-97); MONOCYTES % (AUTO) 9.1 % (3-13); RED BLOOD COUNT 4.02 10^6/uL (4.35-5.55); RED CELL DISTRIBUTION WIDTH 14.3 % (11.5-14.0); SEGMENTED NEUTROPHILS % (AUTO) 79.5 % (42-78); WHITE BLOOD COUNT 9.6 10^3/uL (4.0-10.5)
[2017-03-04 07:42] LABS: ALANINE AMINOTRANSFERASE 28 U/L (21-72); ALBUMIN 4.4 g/dL (3.5-5.0); ALKALINE PHOSPHATASE 156 U/L (38-126); ASPARTATE AMINO TRANSFERASE 24 U/L (17-59); BILIRUBIN,DIRECT 0.7 mg/dL (0.0-0.4); BILIRUBIN,TOTAL 0.9 mg/dL (0.2-1.3); BLOOD UREA NITROGEN 84 mg/dL (7-20); CALCIUM 9.9 mg/dL (8.4-10.2); CARBON DIOXIDE 25 mmol/L (22-30); CHLORIDE 101 mmol/L (98-107); CREATINE KINASE 76 U/L (55-170); CREATININE RESULT 11.64 mg/dL (0.52-1.25); GLUCOSE 121 mg/dL (75-110); LIPASE 77.3 U/L (23-300); TOTAL PROTEIN 7.9 g/dL (6.3-8.2)
[2017-03-04] MEDS ORDERED: MINERAL OIL 30 ML UDCUP PR ONE (07:44)
[2017-03-04 07:52] LABS: SODIUM 147.6 mmol/L (137-145)
[2017-03-04 07:54] LABS: CREATINE KINASE MB 1.49 ng/mL (<4.55)
[2017-03-04 07:57] LABS: ANION GAP 22 (5-19)
[2017-03-04 07:58] LABS: POTASSIUM 6.5 mmol/L (3.6-5.0)
[2017-03-04 07:59] LABS: TROPONIN I 0.039 ng/mL
[2017-03-04] MEDS ORDERED: SODIUM POLYSTYRENE SULFONATE 15 GM/60 ML PO ONE (08:04)
[2017-03-04 10:19] VITALS: BP 157/70
--- NOTE | 2017-03-04 11:15 | EKG REPORT ---
SEVERITY:- ABNORMAL ECG - V PACED RHYTHM : Confirmed by: Roz Cantu 04-Mar-2017 11:14:58
== END 2017-03-04 10:11 | disposition home health service (06) ==
LOC: ER 02:45
DX: I12.0 Hypertensive chronic kidney disease with stage 5 chronic kidney disease or end stage renal disease (principal); E11.22 Type 2 diabetes mellitus with diabetic chronic kidney disease; N18.6 End stage renal disease; Z99.2 Dependence on renal dialysis; K59.00 Constipation, unspecified; R53.1 Weakness; E87.5 Hyperkalemia; R06.02 Shortness of breath; Z98.890 Other specified postprocedural states; Z88.7 Allergy status to serum and vaccine; Z98.61 Coronary angioplasty status; Z95.810 Presence of automatic (implantable) cardiac defibrillator
CPT/HCPCS: 93005; 99284; 36415; 82553; 82550; 83690; 85025; 80053; 84484; 83880; 71010; 74000; 93010; J3490

== ENCOUNTER → 2017-03-17 | Outpatient (CLI) | payer MEDICARE, OTHER | LOC: RAD 10:33 | PROVIDERS: ATTEND Urology | DX: N18.6 End stage renal disease (principal); Z99.2 Dependence on renal dialysis | CPT/HCPCS: 76770 ==

== ENCOUNTER 2017-03-24 09:17 | Day surgery (SDC) | payer MEDICARE, OTHER ==
[2017-03-24 10:03] LABS: HEMATOCRIT 34.2 % (37.9-51.0); HEMOGLOBIN 11.1 g/dL (13.5-17.0); HGB HCT DIFFERENCE -0.9; MEAN CORPUSCULAR HEMOGLOBIN 30.4 pg (27.0-33.4); MEAN CORPUSCULAR HGB CONC 32.5 g/dL (32.0-36.0); MEAN CORPUSCULAR VOLUME 93 fl (80-97); RED BLOOD COUNT 3.66 10^6/uL (4.35-5.55); RED CELL DISTRIBUTION WIDTH 13.9 % (11.5-14.0)
[2017-03-24] MEDS ORDERED: LIDOCAINE 0.5% INJ-PF (5 MG/ML) 50 ML SDV ONE (10:20)
[2017-03-24] MEDS ORDERED: HEPARIN SOD (PORCINE) 5,000 UNIT/ML 1 ML SYRINGE ONE (10:20)
[2017-03-24] MEDS ORDERED: FENTANYL CITRATE INJ/PF 100 MCG/2 ML AMPUL ONE (10:20)
[2017-03-24] MEDS ORDERED: MIDAZOLAM 2 MG/2 ML INJ ONE (10:20)
[2017-03-24 10:27] LABS: ANION GAP 15 (5-19); BLOOD UREA NITROGEN 74 mg/dL (7-20); CALCIUM 9.8 mg/dL (8.4-10.2); CARBON DIOXIDE 24 mmol/L (22-30); CHLORIDE 102 mmol/L (98-107); GLUCOSE 89 mg/dL (75-110); POTASSIUM 5.8 mmol/L (3.6-5.0); SODIUM 141.3 mmol/L (137-145)
--- NOTE | 2017-03-24 10:48 | PDOC H&P ---
General Chief Complaint: The patient was referred across from dialysis because of diminished flows detected on evaluation. - Current Medications/Allergies Home Medications: Allopurinol [Zyloprim 100 mg Tablet] 100 mg PO DAILY 03/24/17 Aspirin [Ecotrin 81 mg EC Tablet] 81 mg PO DAILY 03/24/17 Clopidogrel Bisulfate [Clopidogrel] 75 mg PO DAILY 03/24/17 Epoetin Clive [Epogen] 20,000 unit IJ 03/24/17 Ergocalciferol (Vitamin D2) [Vitamin D] 400 unit PO DAILY 03/24/17 Folic Acid/Vitamin B Comp W-C [Renavit Tablet] 0.8 mg PO DAILY 03/24/17 Hydralazine HCl 50 mg PO BID 03/24/17 Insulin Glargine,Hum.rec.anlog [Lantus] 5 units QHS 03/24/17 Leuprolide Acetate [Lupron Depot Inj 7.5 mg Kit] 7.5 mg PO 03/24/17 Metoprolol Succinate 25 mg PO DAILY 03/24/17 Pantoprazole Sodium 40 mg PO DAILY 03/24/17 Vit/Iron Fumarate/FA [ Tablet] 1 tab DAILY 03/24/17 Sevelamer HCl [Renagel] 800 mg PO TID 03/24/17 Simvastatin 20 mg PO QHS 03/24/17 Allergies/Adverse Reactions: PPD Converter Allergy (Uncoded 12/17/16 11:13) Past Medical History Cardiac Medical History: Reports: Myocardial Infarction - PT STATES " NOT SURE, MAY HAVE BEEN A STROKE", Hyperlipidema, Hypertension Denies: Coronary Artery Disease Pulmonary Medical History: Denies: Asthma, Bronchitis, Chronic Obstructive Pulmonary Disease (COPD), Pneumonia Neurological Medical History: Denies: Seizures Endocrine Medical History: Reports: Diabetes Mellitus Type 2, Hypothyroidism Renal/ Medical History: Reports: End Stage Renal Disease GI Medical History: Reports: Gastroesophageal Reflux Disease Musculoskeltal Medical History: Reports: Arthritis - Legs and right shoulder, Gout Hematology: Denies: Anemia Past Surgical History Past Surgical History: Reports: Cardiac Catheterization - Stent placed 2016 @[facility], Pacemaker, Vascular Surgery - PermCath insertion. Right radiocephalic fistula insertion. Family History Family History: Reviewed & Not Pertinent Parental Family History Reviewed: No Children Family History Reviewed: No Sibling(s) Family History Reviewed.: No Social History Smoking Status: Former Smoker Physical Exam Vital Signs: Temp Pulse Resp BP Pulse Ox 98.3 F 62 16 156/89 H 100 03/24/17 10:11 03/24/17 10:11 03/24/17 10:11 03/24/17 10:11 03/24/17 10:11 Intake & Output 03/23/17 03/24/17 03/25/17 06:59 06:59 06:59 Weight 105.687 kg Additional comments: A well-developed well-nourished male. Mildly increased body habitus. No acute distress. Eyes membranes is pink and moist, sclerae anicteric. Respiratory no shortness of breath. Breath sounds are normal and equal bilaterally. Cardiac: Heart sounds 1 and 2 heard, no murmurs. Chest:: PPM in place. Upper extremities show normal range of movement and pulsatile to the radials. Normal capillary refill. A cephalic to radial fistula is appreciated. In therightupper extremity. Somewhat firm, suggesting cephalad stenosis. Psychiatric the patient is alert, oriented, judgment, memory, insight normal Impression/Plan Impression: #1 malfunctioning arteriovenous fistula, right radiocephalic. #2 end-stage renal disease on hemodialysis. #3 diabetes mellitus type II. #[address] #5 history of prostate cancer. #6 hypertension. Plan: The plan is to try to improve fistula function, angiographically.
--- NOTE | 2017-03-24 11:49 | Operative Report ---
Operative Report DATE OF SURGERY: 03/24/17 PREOPERATIVE DIAGNOSIS: #1 malfunctioning AV fistula, right radiocephalic. #2 end-stage renal disease on hemodialysis. #[address] #4 history of prostate cancer. #5 diabetes mellitus type II. #6 hypertension POSTOPERATIVE DIAGNOSIS: #1 malfunctioning AV fistula, right radiocephalic. Post angioplasty. #2 end-stage renal disease on hemodialysis. #[address] #4 history of prostate cancer. #5 diabetes mellitus type II. #6 hypertension OPERATION: #1 needle introduction into fistula. #2 AV fistula angioplasty. #3 angiogram and interpretation. SURGEON: DANYA GARCIA CUSTODIAL FOREMAN: none ANESTHESIA: Moderate Sedation TISSUE REMOVED OR ALTERED: Not applicable. COMPLICATIONS: None ESTIMATED BLOOD LOSS: 5 mL. INTRAOPERATIVE FINDINGS: Of a well-founded right forearm radiocephalic fistula. Hyper pulsatile in the first 3 cm and somewhat softer cephalad. This is concordant with the angiographic findings of essentially normal cephalad flow up to the central vessels. A stenosis estimated to be 70% of the adjacent lumen about 3 cm away from the arteriovenous anastomosis. This waist almost entirely eliminated with a residual about 10%. At about 8 cm a vague area of stenosis. This seems soft and easily accommodated a 6 mm balloon. After angioplasty of the fistula much better, good thrill, somewhat firmer, appropriately than before. Suggesting satisfactory outcome. PROCEDURE: PROCEDURE: After verifying the procedure and having obtained informed consent, the patient's right arm and forearm were prepared with Chlorhexidine and draped out with sterile linen. Local anesthesia infiltrated. Percutaneous access into the fistula ,[retrograde], obtained about [20 cm] from the arteriovenous anastomosis using a micro puncture needle followed by micro puncture wire and then a micro puncture catheter. Cephalad angiograms done up to the heart. The inner micropuncture catheter and cannula replaced with the wire and then the full catheter. A 0.035 [place] wire was inserted, and over this, a 6 Yoruba short introducer was placed, this was followed by a [place] catheter which was used to do antegrade angiogram. Based on the findings angioplasty was elected. A 6 mm angioplasty balloon inserted . Angioplasty was now done using a 3 mL syringe with hand injection. For 1 minute. Completion angiogram demonstrated [satisfactory result]. The instrumentation was now withdrawn over hand-held pressure for 10 minutes.. Dressings applied, procedure concluded. Exposure time: 0.2 minutes Radiation: 25 dat per centimeter squared Contrast: 25 mL of Isovue-M 300 low osmolality. DICTATING PHYSICIAN: DANYA MEDELLIN M.D. cc: DANYA MEDELLIN M.D. ([id number]) >>
--- NOTE | 2017-03-24 11:57 | PDOC DISCHARGE SUMMARY ---
Discharge Summary (SDC) - Discharge Final Diagnosis: #1 malfunctioning AV fistula, right radiocephalic. #2 end-stage renal disease on hemodialysis. #[address] #4 history of prostate cancer. #5 diabetes mellitus type II. #6 hypertension Date of Surgery: 03/24/17 Discharge Date: 03/24/17 Treatment or Instructions: #1 activities within moderation encouraged. #2 follow up in my office by appointment in about 1 month. Call for appointment. #3 the wounds covered clean and dry until office visit. #4 hold off on school/work until evaluation in office. #5 may shower in 48 hours, keep operated area as dry as possible. #6 discharge from ambulatory when ASU criteria met. #7 medications per medication reconciliation sheet. Referrals: MO SOUZA MD [Primary Care Provider] - Discharge Diet: Other (Comments) - ADA Respiratory Treatments at Home: Deep Breathing/Coughing Discharge Activity: Activity As Tolerated Report the Following to Your Physician Immediately: Shortness of Breath, Unusual Bleeding
[2017-03-24 13:18] VITALS: BP 147/87
== END 2017-03-24 13:17 | disposition home or self-care (01) ==
LOC: CCL 09:17
PROVIDERS: ATTEND Surgery
PROC: 057D3DZ Dilation of Right Cephalic Vein with Intraluminal Device, Percutaneous Approach (ICD-10-PCS; principal; 2017-03-24)
DX: T82.858A Stenosis of other vascular prosthetic devices, implants and grafts, initial encounter (principal); Y83.2 Surgical operation with anastomosis, bypass or graft as the cause of abnormal reaction of the patient, or of later complication, without mention of misadventure at the time of the procedure; E11.22 Type 2 diabetes mellitus with diabetic chronic kidney disease; I12.0 Hypertensive chronic kidney disease with stage 5 chronic kidney disease or end stage renal disease; N18.6 End stage renal disease; Z99.2 Dependence on renal dialysis; E03.9 Hypothyroidism, unspecified; K21.9 Gastro-esophageal reflux disease without esophagitis; M10.9 Gout, unspecified; M19.011 Primary osteoarthritis, right shoulder; M19.90 Unspecified osteoarthritis, unspecified site; I25.2 Old myocardial infarction; Z98.61 Coronary angioplasty status; Z95.0 Presence of cardiac pacemaker; Z88.7 Allergy status to serum and vaccine; Z79.82 Long term (current) use of aspirin; Z85.46 Personal history of malignant neoplasm of prostate; Z79.4 Long term (current) use of insulin; Z79.899 Other long term (current) drug therapy
CPT/HCPCS: 36415; 85027; 80048; 36902; C1725; C1887; Q9967; C1769; J2250; J1644 ×2; J3010; J3490

== ENCOUNTER 2017-05-12 10:43 | Day surgery (SDC) | payer MEDICARE, OTHER ==
[~2017-05-12 10:43] MED LIST: LIDOCAINE 2% INJ-PF (20 MG/ML) 10 ML AMPUL ONE
[2017-05-12 11:19] LABS: HEMATOCRIT 36.6 % (37.9-51.0); HEMOGLOBIN 11.5 g/dL (13.5-17.0); HGB HCT DIFFERENCE -2.1; MEAN CORPUSCULAR HEMOGLOBIN 30.1 pg (27.0-33.4); MEAN CORPUSCULAR HGB CONC 31.5 g/dL (32.0-36.0); MEAN CORPUSCULAR VOLUME 96 fl (80-97); RED BLOOD COUNT 3.83 10^6/uL (4.35-5.55); WHITE BLOOD COUNT 6.1 10^3/uL (4.0-10.5)
[2017-05-12 11:38] LABS: ANION GAP 18 (5-19); BLOOD UREA NITROGEN 72 mg/dL (7-20); CALCIUM 9.7 mg/dL (8.4-10.2); CARBON DIOXIDE 24 mmol/L (22-30); CHLORIDE 100 mmol/L (98-107); CREATININE RESULT 10.96 mg/dL (0.52-1.25); GLUCOSE 127 mg/dL (75-110); POTASSIUM 4.8 mmol/L (3.6-5.0); SODIUM 141.7 mmol/L (137-145)
--- NOTE | 2017-05-12 12:34 | PDOC H&P ---
General Chief Complaint: The patient is referred across for evaluation and improvement of fistula. Decreased the flows have been noted. - Current Medications/Allergies Home Medications: Allopurinol [Zyloprim 100 mg Tablet] 100 mg PO DAILY 03/24/17 Aspirin [Ecotrin 81 mg EC Tablet] 81 mg PO DAILY 03/24/17 Clopidogrel Bisulfate [Clopidogrel] 75 mg PO DAILY 03/24/17 Epoetin Clive [Epogen] 20,000 unit IJ 03/24/17 Ergocalciferol (Vitamin D2) [Vitamin D] 400 unit PO DAILY 03/24/17 Folic Acid/Vitamin B Comp W-C [Renavit Tablet] 0.8 mg PO DAILY 03/24/17 Hydralazine HCl 50 mg PO BID 03/24/17 Insulin Glargine,Hum.rec.anlog [Lantus] 5 units QHS 03/24/17 Leuprolide Acetate [Lupron Depot Inj 7.5 mg Kit] 7.5 mg INJ ASDIR 03/24/17 Metoprolol Succinate 25 mg PO DAILY 03/24/17 Pantoprazole Sodium 40 mg PO DAILY 03/24/17 Vit/Iron Fumarate/FA [ Tablet] 1 tab DAILY 03/24/17 Sevelamer HCl [Renagel] 800 mg PO TID 03/24/17 Simvastatin 20 mg PO QHS 03/24/17 Bicalutamide [Casodex 50 mg Tablet] 1 tab PO DAILY 05/12/17 Allergies/Adverse Reactions: PPD Converter Allergy (Uncoded 05/12/17 10:49) Past Medical History Cardiac Medical History: Reports: Myocardial Infarction - PT STATES " NOT SURE, MAY HAVE BEEN A STROKE", Hyperlipidema, Hypertension Denies: Coronary Artery Disease Pulmonary Medical History: Denies: Asthma, Bronchitis, Chronic Obstructive Pulmonary Disease (COPD), Pneumonia Neurological Medical History: Denies: Seizures Endocrine Medical History: Reports: Diabetes Mellitus Type 2, Hypothyroidism Renal/ Medical History: Reports: End Stage Renal Disease GI Medical History: Reports: Gastroesophageal Reflux Disease Musculoskeltal Medical History: Reports: Arthritis - Legs and right shoulder, Gout Hematology: Denies: Anemia Past Surgical History Past Surgical History: Reports: Cardiac Catheterization - Stent placed 2016 @[facility], Pacemaker, Vascular Surgery - PermCath insertion. Right radiocephalic fistula insertion. Family History Family History: Reviewed & Not Pertinent Parental Family History Reviewed: No Children Family History Reviewed: No Sibling(s) Family History Reviewed.: No Social History Smoking Status: Never Smoker Physical Exam Vital Signs: Temp Pulse Resp BP Pulse Ox 98.5 F 71 16 152/80 H 100 05/12/17 10:50 05/12/17 10:50 05/12/17 10:50 05/12/17 10:50 05/12/17 10:50 Intake & Output 05/11/17 05/12/17 05/13/17 06:59 06:59 06:59 Intake Total 1000 Balance 1000 Weight 107.95 kg Additional comments: Constitutional: Well-developed well-nourished -Green[place]ic gentleman. No apparent acute distress. Eyes: Mucous membranes pink and moist, pupils equal and reactive to light. Conjunctiva normal. l. ENT: Hearing grossly normal. External pinna normal to inspection. Teeth mostly intact. Tongue normal to inspection. Cardiac: Heart sounds 1 and 2 normal, no murmurs. Pacemaker in place Respiratory breath sounds are present bilaterally, normal. Normal respiratory effort. Skin: Normal to inspection. No ulcers, normal turgor. Psychiatric: Judgment, memory, insight seem normal. Mood is pleasant and appropriate. Extremities: Upper extremities show normal range of movement. Pulses present noted to the radial arteries. Capillary refill normal. No cyanosis noted. No muscle wasting noted. Right arm radiocephalic fistula noted. Actively firm, suggestive of cephalad stenosis. Impression/Plan Impression: #1 malfunctioning arteriovenous fistula, left radiocephalic. 2. End-stage renal disease on hemodialysis. 3. COPD. 4. Atrial fibrillation. 5. Hypertension. Plan: Angiogram possible angioplasty suggested. The goal is maintaining adequate fistula function.
[2017-05-12] MEDS ORDERED: HEPARIN SOD (PORCINE) 1,000 UNIT/ML 10 ML VIAL ONE (12:44)
[2017-05-12] MEDS ORDERED: BUPIVACAINE HCL 0.25 % INJ/PF (2.5 MG/1 ML) 30 ML VIAL ONE (12:45)
[2017-05-12] MEDS ORDERED: MIDAZOLAM 2 MG/2 ML INJ ONE (12:46)
[2017-05-12] MEDS ORDERED: PROPOFOL INJ 200 MG/20 ML VIAL IV ONE (12:46)
[2017-05-12] MEDS ORDERED: LIDOCAINE 0.5% INJ-PF (5 MG/ML) 50 ML SDV ONE (12:47)
--- NOTE | 2017-05-12 14:30 | PDOC DISCHARGE SUMMARY ---
Discharge Summary (SDC) - Discharge Final Diagnosis: #1 malfunctioning arteriovenous fistula, left radiocephalic. 2. End-stage renal disease on hemodialysis. 3. COPD. 4. Atrial fibrillation. 5. Hypertension. Date of Surgery: 05/12/17 Discharge Date: 05/12/17 Condition: Fair Treatment or Instructions: Discharge home [after recovery per ASU criteria]. Diet , [renal],as tolerated, when fully awake advance as tolerated. Activities within moderation encouraged. Follow up in my office by appointment in about [1 month]. Call for appointment. Leave wounds [covered], [keep clean and dry, until hemodialysis . Hold of on school/work [until evaluation in office]. May shower [in 48 hrs], [try to keep operated area as dry as possible] Medications per medication reconciliation sheet. Referrals: MO SOUZA MD [Primary Care Provider] - Discharge Diet: Other (Comments) - Renal Respiratory Treatments at Home: Deep Breathing/Coughing Discharge Activity: Activity As Tolerated Report the Following to Your Physician Immediately: Shortness of Breath, Unusual Bleeding
--- NOTE | 2017-05-12 14:35 | Operative Report ---
Operative Report DATE OF SURGERY: 05/12/17 PREOPERATIVE DIAGNOSIS: #1 malfunctioning arteriovenous fistula, left radiocephalic. 2. End-stage renal disease on hemodialysis. 3. COPD. 4. Atrial fibrillation. 5. Hypertension. POSTOPERATIVE DIAGNOSIS: #1 malfunctioning arteriovenous fistula, left radiocephalic. 2. End-stage renal disease on hemodialysis. 3. COPD. 4. Atrial fibrillation. 5. Hypertension. OPERATION: 1 needle access in the fistula. 2. Angioplasty. 3. Angiogram interpretation. SURGEON: DANYA MEDELLIN 1ST FEEDER/FOLDER: None ANESTHESIA: LMAC TISSUE REMOVED OR ALTERED: Not applicable COMPLICATIONS: None ESTIMATED BLOOD LOSS: 5 mL. INTRAOPERATIVE FINDINGS: A well founded right arm radiocephalic fistula in this patient with a left-sided pacemaker. The fistula somewhat firm. Angiogram showed multiple areas of stenoses in the fistula from forearm to chest which avoid 30-70% adjacent lumen. Resolved by angioplasty. An area in the superior vena cava which seemed to be stenotic with actually quite widely open PROCEDURE: PROCEDURE: After verifying the procedure and having obtained informed consent, the patient's left arm was prepared with Chlorhexidine and draped out with sterile linen. Local anesthesia infiltrated. Percutaneous access into the fistula ,[ antegrade], obtained about [4 cm] from the arteriovenous anastomosis using a micro puncture needle followed by micro puncture wire and then a micro puncture catheter. Angiogram demonstrated the aforementioned findings. Angioplasty was elected. A 0.035 [place] wire was inserted, and over this, a 7 Lao short introducer was placed, this was followed by a [7-mm ] angioplasty balloon . Angioplasty was serially done centrally then from the upper fistula down to the introducer. Inflating up to 18 atmospheres for a minute at a time.]. Completion angiogram demonstrated [satisfactory result]. The instrumentation was now withdrawn over time the pressure for 3 minutes . Dressings applied, procedure concluded. Exposure time:4.4 Radiation: 8 8 mcg/cm Contrast: [place] of Isovue-300, low osmolality. DICTATING PHYSICIAN: DANYA MEDELLIN M.D. cc: DANYA MEDELLIN M.D. ([id number]) >>
--- NOTE | 2017-05-12 14:47 | RADIOLOGY REPORT (SQ) ---
EXAM DESCRIPTION: NO CHG FLUORO; FOREARM LEFT COMPLETED DATE/TIME: 05/12/2017 2:37 pm REASON FOR STUDY: T82.858A T82.858A STENOSIS OF OTHER VASCULAR PROSTH DEV/GRFT, INIT COMPARISON: None. FLUOROSCOPY TIME: 4.4 minutes 22 images saved to PACS. TECHNIQUE: Intra-operative images acquired during surgical procedure to evaluate progress. NUMBER OF IMAGES: 22 LIMITATIONS: None. FINDINGS: Angioplasty intervention of upper extremity dialysis graft. IMPRESSION: IMAGE(S) OBTAINED DURING PROCEDURE. COMMENT: Quality ID [id number]: Final reports for procedures using fluoroscopy that document radiation exp osure indices, or exposure time and number of fluorographic images (if radiation exposure indices are not available) Please consult full operative report of the attending physician for description of the procedure. TECHNICAL DOCUMENTATION: JOB ID: [id number] [employer]- All Rights Reserved
--- NOTE | 2017-05-12 14:47 | RADIOLOGY REPORT (SQ) ---
EXAM DESCRIPTION: NO CHG FLUORO; FOREARM LEFT COMPLETED DATE/TIME: 05/12/2017 2:37 pm REASON FOR STUDY: T82.858A T82.858A STENOSIS OF OTHER VASCULAR PROSTH DEV/GRFT, INIT COMPARISON: None. FLUOROSCOPY TIME: 4.4 minutes 22 images saved to PACS. TECHNIQUE: Intra-operative images acquired during surgical procedure to evaluate progress. NUMBER OF IMAGES: 22 LIMITATIONS: None. FINDINGS: Angioplasty intervention of upper extremity dialysis graft. IMPRESSION: IMAGE(S) OBTAINED DURING PROCEDURE. COMMENT: Quality ID [id number]: Final reports for procedures using fluoroscopy that document radiation exp osure indices, or exposure time and number of fluorographic images (if radiation exposure indices are not available) Please consult full operative report of the attending physician for description of the procedure. TECHNICAL DOCUMENTATION: JOB ID: [id number] [employer]- All Rights Reserved
[2017-05-12 15:39] VITALS: BP 138/84
== END 2017-05-12 16:05 | disposition home or self-care (01) ==
LOC: OROUT 10:43
PROVIDERS: ATTEND Surgery
PROC: 057D3DZ Dilation of Right Cephalic Vein with Intraluminal Device, Percutaneous Approach (ICD-10-PCS; principal; 2017-05-12 12:30)
DX: T82.858A Stenosis of other vascular prosthetic devices, implants and grafts, initial encounter (principal); Y83.2 Surgical operation with anastomosis, bypass or graft as the cause of abnormal reaction of the patient, or of later complication, without mention of misadventure at the time of the procedure; I12.0 Hypertensive chronic kidney disease with stage 5 chronic kidney disease or end stage renal disease; E11.22 Type 2 diabetes mellitus with diabetic chronic kidney disease; N18.6 End stage renal disease; Z99.2 Dependence on renal dialysis; J44.9 Chronic obstructive pulmonary disease, unspecified; I48.91 Unspecified atrial fibrillation; E78.5 Hyperlipidemia, unspecified; E03.9 Hypothyroidism, unspecified; K21.9 Gastro-esophageal reflux disease without esophagitis; M10.9 Gout, unspecified; M19.011 Primary osteoarthritis, right shoulder; Z79.82 Long term (current) use of aspirin; Z79.899 Other long term (current) drug therapy; Z79.4 Long term (current) use of insulin
CPT/HCPCS: 36415; 85027; 80048; 73090; 36902; C1725; C1752; C1894; Q9967; C1769; J2250; J1644 ×2; J3490 ×2; J2704; 01844

== ENCOUNTER 2017-05-13 19:07 | Emergency (ER) | payer MEDICARE, OTHER ==
[2017-05-13] MEDS ORDERED: ACETAMINOPHEN 325 MG TABLET PO ONE (19:37)
--- NOTE | 2017-05-13 19:41 | ER Document Report ---
ED Head/Face/Scalp Injury - General Chief Complaint: Head Injury Stated Complaint: FALL/HEAD INJURY Time Seen by Provider: 05/13/17 19:37 Notes: The patient is an 82-year-old male, past medical history ESRD (MWF), CAD s/p stents (on ASA and Plavix), OA, presents with posterior head pain and left shoulder pain after he slipped off one step and landed backwards 7 days ago. He is having a mild headache at the site where he landed. He denies LOC, syncope, chest pain, shortness of breath, nausea, vomiting, neck pain, numbness , tingling, blurry vision or increased difficulty walking. TRAVEL OUTSIDE OF THE [place] IN LAST 30 DAYS: No - Related Data Allergies/Adverse Reactions: PPD Converter Allergy (Uncoded 05/12/17 10:49) Past Medical History - General Information source: Patient - Social History Smoking Status: Unknown if Ever Smoked Family History: Reviewed & Not Pertinent Patient has suicidal ideation: No Patient has homicidal ideation: No - Past Medical History Cardiac Medical History: Reports: Hx Heart Attack - PT STATES " NOT SURE, MAY HAVE BEEN A STROKE", Hx Hypercholesterolemia, Hx Hypertension Denies: Hx Coronary Artery Disease Pulmonary Medical History: Denies: Hx Asthma, Hx Bronchitis, Hx COPD, Hx Pneumonia Neurological Medical History: Reports: Hx Cerebrovascular Accident - LEFT WEAKER THAN RIGHT. Denies: Hx Seizures Endocrine Medical History: Reports: Hx Diabetes Mellitus Type 2, Hx Hypothyroidism Renal/ Medical History: Reports: Hx End Stage Renal Disease, Hx Hemodialysis. Denies: Hx Peritoneal Dialysis GI Medical History: Reports: Hx Gastroesophageal Reflux Disease Musculoskeltal Medical History: Reports Hx Arthritis - Legs and right shoulder, Reports Hx Gout Past Surgical History: Reports: Hx Abdominal Surgery - Hernia, Hx Cardiac Catheterization - Stent placed 02/24/2017 @[facility], Hx Cardiac Surgery - pacemaker , Stent, Hx Oral Surgery, Hx Pacemaker, Hx Vascular Surgery - PermCath insertion. Right radiocephalic fistula insertion. - Immunizations Hx Diphtheria, Pertussis, Tetanus Vaccination: Yes Hx Pneumococcal Vaccination: 11/10/12 Review of Systems - Review of Systems Notes: REVIEW OF SYSTEMS: CONSTITUTIONAL: -fevers, -chills EENT: -eye pain, -difficulty swallowing, -nasal congestion CARDIOVASCULAR:-chest pain, -syncope. RESPIRATORY: -cough, -SOB GASTROINTESTINAL: -abdominal pain, - nausea, -vomiting, -diarrhea GENITOURINARY: -dysuria, -hematuria MUSCULOSKELETAL: +left shoulder pain, -back pain, -neck pain SKIN: -rash or skin lesions. HEMATOLOGIC: -easy bruising or bleeding. LYMPHATIC: -swollen, enlarged glands. NEUROLOGICAL: -altered mental status or loss of consciousness, +headache, - neurologic symptoms PSYCHIATRIC: -anxiety, -depression. ALL OTHER SYSTEMS REVIEWED AND NEGATIVE. Physical Exam - Notes Notes: PHYSICAL EXAMINATION: GENERAL: Well-appearing, well-nourished and in no acute distress. HEAD: Atraumatic, normocephalic. Mild tenderness over posterior scalp. EYES: Pupils equal round and reactive to light, extraocular movements intact, sclera anicteric, conjunctiva are normal. ENT: nares patent, oropharynx clear without exudates. Moist mucous membranes. NECK: Normal range of motion, supple without lymphadenopathy LUNGS: Breath sounds clear to auscultation bilaterally and equal. No wheezes rales or rhonchi. HEART: Regular rate and rhythm without murmurs ABDOMEN: Soft, nontender, normoactive bowel sounds. No guarding, no rebound. No masses appreciated. EXTREMITIES: Left shoulder tenderness and painful ROM. No pitting or edema. No cyanosis. NEUROLOGICAL: Cranial nerves grossly intact. Normal speech, normal gait. Normal sensory and motor exams. PSYCH: Normal mood, normal affect. SKIN: Warm, Dry, normal turgor, no rashes or lesions noted. Course - Re-evaluation Re-evalutation: Patient's fall was strictly mechanical in nature and occurred 7 days ago. His head CT does not show any bleeds or fractures and his left shoulder x-ray does not show any acute fractures or dislocations. Will instructed him to continue Tylenol and ice packs for any pain control. Discharge - Discharge Clinical Impression: Contusion of head Qualifiers: Encounter type: initial encounter Contusion of head detail: scalp Qualified Code(s): S00.03XA - Contusion of scalp, initial encounter Shoulder pain, left Qualifiers: Chronicity: unspecified Qualified Code(s): M25.512 - Pain in left shoulder Condition: Stable Disposition: HOME, SELF-CARE Additional Instructions: Tylenol and ice packs for pain control. Contusion Your injury has resulted in a contusion -- a crushing of the deep tissues. No injury to important structures was detected during the physician's exam. Contusions vary in the amount of pain they cause, and in the length of time required for healing. Typically, the area will become bruised, and will remain painful to touch for two or three weeks. However, most patients are back to working and playing within a few days. After the initial period of rest and cold-packs, your symptoms (together with the doctor's recommendations) will determine how rapidly you can get back to full activity. Usually this means "do what feels okay, but don't do things that hurt." If re-examination was recommended, it's important to follow up as instructed. Call the doctor or return any time if pain increases, if swelling becomes severe, if you develop numbness or weakness in an injured extremity, or if any other alarming symptoms occur.
--- NOTE | 2017-05-13 20:03 | RADIOLOGY REPORT (SQ) ---
EXAM DESCRIPTION: CT HEAD WITHOUT COMPLETED DATE/TIME: 05/13/2017 7:53 pm REASON FOR STUDY: head injury COMPARISON: June 2016 TECHNIQUE: Axial images acquired through the brain without intravenous contrast. Images reviewed wi th bone, brain and subdural windows. Images stored on PACS. All CT scanners at this facility use dose modulation, iterative reconstruction, and/or weight based d osing when appropriate to reduce radiation dose to as low as reasonably achievable (ALARA). [facility]: Dose Right [facility]: CareDose [facility]: Dose Right [facility]: Teradose 4D [facility]: [employer] RADIATION DOSE: Up-to-date CT equipment and radiation dose reduction techniques were employed. CTDIv ol: 64.6 mGy. DLP: 1034 mGy-cm. mGy. LIMITATIONS: None. FINDINGS: VENTRICLES: Prominent. CEREBRUM: No masses. No hemorrhage. No midline shift. Areas of low density in the white matter mos t likely due to chronic micro-vascular ischemic change. No evidence for acute infarction. CEREBELLUM: No masses. No hemorrhage. No alteration of density. No evidence for acute infarction. EXTRAAXIAL SPACES: Mild age-related involutional change. No fluid collections. No masses. ORBITS AND GLOBE: No intra- or extraconal masses. Normal contour of globe without masses. CALVARIUM: No fracture. PARANASAL SINUSES: No fluid or mucosal thickening. SOFT TISSUES: No mass or hematoma. OTHER: No other significant finding. IMPRESSION: MILD CHRONIC CHANGES OF ATROPHY AND MICROVASCULAR ISCHEMIA. NO ACUTE PROCESS. TECHNICAL DOCUMENTATION: JOB ID: [id number] Quality ID # [id number]: Final reports with documentation of one or more dose reduction techniques (e.g., Au tomated exposure control, adjustment of the mA and/or kV according to patient size, use of iterative reconstruction technique) 2010 [employer]- All Rights Reserved
--- NOTE | 2017-05-13 20:23 | RADIOLOGY REPORT (SQ) ---
EXAM DESCRIPTION: SHOULDER LEFT 2 OR MORE VIEWS COMPLETED DATE/TIME: 05/13/2017 8:12 pm REASON FOR STUDY: left shoulder pain COMPARISON: None. NUMBER OF VIEWS: Three views. TECHNIQUE: Internal rotation, external rotation, and Y view images acquired of the left shoulder. LIMITATIONS: None. FINDINGS: MINERALIZATION: Normal. BONES: No acute fracture dislocation is seen. There is bony deformity of the humeral head with scler otic and cystic changes being identified. The appearance is consistent with extensive degenerative c hanges. I cannot exclude a component of avascular necrosis. JOINTS: Extensive degenerative changes are identified at the level of the glenohumeral joint. VISUALIZED LUNGS AND RIBS: No pneumothorax. No rib fracture. SOFT TISSUES: No radiopaque foreign body. OTHER: No other significant finding. IMPRESSION: Extensive degenerative changes at the level of the glenohumeral joint as noted above. N o acute fractures. TECHNICAL DOCUMENTATION: JOB ID: [id number]- All Rights Reserved
[2017-05-13 20:25] VITALS: BP 117/52
== END 2017-05-13 20:30 | disposition home or self-care (01) ==
LOC: ER 19:07
DX: S00.03XA Contusion of scalp, initial encounter (principal); M25.512 Pain in left shoulder; R51 Headache; W10.9XXA Fall (on) (from) unspecified stairs and steps, initial encounter; I12.0 Hypertensive chronic kidney disease with stage 5 chronic kidney disease or end stage renal disease; E11.22 Type 2 diabetes mellitus with diabetic chronic kidney disease; N18.6 End stage renal disease; Z99.2 Dependence on renal dialysis; Z88.7 Allergy status to serum and vaccine; Z86.73 Personal history of transient ischemic attack (TIA), and cerebral infarction without residual deficits; Z98.61 Coronary angioplasty status
CPT/HCPCS: 99284; 73030; 70450; A9270

== ENCOUNTER 2017-05-27 09:50 | Emergency (ER) | payer MEDICARE, OTHER ==
--- NOTE | 2017-05-27 10:24 | ER Document Report ---
ED Neuro Symptoms/Deficit - General Chief Complaint: Altered Mental Status Stated Complaint: ALTERED MENTAL STATUS Time Seen by Provider: 05/27/17 10:01 Mode of Arrival: Stretcher Information source: Patient Notes: 82-year-old male history of end-stage renal dialysis, distant CVA, cardiac disease including pacemaker presents with 2 episodes of aphasia today lasting approximately 3 minutes. This occurred at the initiation of dialysis resolved after about 3 minutes. Patient deferred transfer at that point. Another episode happened about assisted through his dialysis and he was sent for further evaluation and treatment. Again this lasted 2-3 minutes. There was no associated hypotension with it. He denies any pain. Specifically no current chest pain but does have intermittent angina. He had no focal weakness numbness or tingling. He states he had no difficulty understanding but was unable to get his words out but knew what he wanted to say. Patient denies any purulent cough but has had some dry cough for a couple of weeks today slightly white and frothy. No specific orthopnea. No visual changes. TRAVEL OUTSIDE OF THE [place] IN LAST 30 DAYS: No - Related Data Allergies/Adverse Reactions: PPD Converter Allergy (Uncoded 05/12/17 10:49) Past Medical History - Social History Smoking Status: Never Smoker Chew tobacco use (# tins/day): No Frequency of alcohol use: None Drug Abuse: None Family History: Reviewed & Not Pertinent - Past Medical History Cardiac Medical History: Reports: Hx Heart Attack - PT STATES " NOT SURE, MAY HAVE BEEN A STROKE", Hx Hypercholesterolemia, Hx Hypertension Denies: Hx Coronary Artery Disease Pulmonary Medical History: Denies: Hx Asthma, Hx Bronchitis, Hx COPD, Hx Pneumonia Neurological Medical History: Reports: Hx Cerebrovascular Accident - LEFT WEAKER THAN RIGHT. Denies: Hx Seizures Endocrine Medical History: Reports: Hx Diabetes Mellitus Type 2, Hx Hypothyroidism Renal/ Medical History: Reports: Hx End Stage Renal Disease, Hx Hemodialysis. Denies: Hx Peritoneal Dialysis GI Medical History: Reports: Hx Gastroesophageal Reflux Disease Musculoskeltal Medical History: Reports Hx Arthritis - Legs and right shoulder, Reports Hx Gout Past Surgical History: Reports: Hx Abdominal Surgery - Hernia, Hx Cardiac Catheterization - Stent placed 02/24/2017 @[facility], Hx Cardiac Surgery - pacemaker , Stent, Hx Oral Surgery, Hx Pacemaker, Hx Vascular Surgery - PermCath insertion. Right radiocephalic fistula insertion. - Immunizations Hx Diphtheria, Pertussis, Tetanus Vaccination: Yes Hx Pneumococcal Vaccination: 11/10/12 Review of Systems - Review of Systems -: Yes All other systems reviewed and negative Physical Exam - Vital signs Vitals: Resp Pulse Ox 15 100 05/27/17 10:02 05/27/17 10:02 - Notes Notes: GENERAL: VS as per nursing doc., chronically ill appearing, well-nourished and in no acute distress. HEAD: Atraumatic, normocephalic. EYES: Pupils equal round and reactive to light, extraocular movements intact, sclera anicteric slightly cloudy, minimal conjunctival injection but no discharge. ENT: Nares patent, oropharynx clear without exudates. Moist mucous membranes. NECK: Normal range of motion, supple, no carotid bruits. LUNGS: Breath sounds equal, slightly coarse bibasilar rales bilaterally HEART: Normal S1S2. Regular rate and rhythm without murmurs. Equal peripheral pulses. Right vascular access shows good thrill ABDOMEN: Soft, non-tender EXTREMITIES: Normal range of motion. NEUROLOGICAL: GCS 15, Cranial nerves II-XII intact. Normal visual coughlin. Normal speech without aphasia. No pronator drift. 5/5 RUE strength, 5/5 RLE strength, 5/5 LUE strength, 5/5 LLE strength. No cerebellar abnormalities including normal finger-nose testing. Negative Babinski, 2+= DTR refelexes. PSYCH: Normal mood, normal affect. SKIN: Warm, Dry, no cyanosis, Cap refill < 2 sec. Course - Re-evaluation Re-evalutation: 05/27/17 11:21 I spoke with the radiologist. The patient at this point does not want further inpatient evaluation. Unfortunately due to prior shrapnel as well as pacemaker , we are unable to perform a MRI. She recommended a carotid ultrasound. 05/27/17 14:02 Discussed findings with the patient and family. The carotid ultrasound showed no significant stenosis. Discussed with the patient seems consistent with TIAs and understand he will some point complete one. He will continue his Plavix which he reports he is on. Family is comfortable with the patient's request for discharge as well. - Vital Signs Vital signs: Temp Pulse Resp BP Pulse Ox 12 156/80 H 100 05/27/17 13:00 05/27/17 10:04 05/27/17 13:00 - Laboratory Result Diagrams: 05/27/17 11:01 05/27/17 11:01 Laboratory results interpreted by me: 05/27/17 05/27/17 11:01 11:01 RBC 4.10 L Hgb 12.5 L MCHC 31.9 L RDW 16.3 H Lymphocytes % 11.6 L BUN 55 H Creatinine 8.61 H Est GFR ( Amer) 7 L Est GFR (Non-Af Amer) 6 L Glucose 139 H Direct Bilirubin 0.6 H ALT 19 L Alkaline Phosphatase 259 H - EKG Interpretation by Me Rate: Normal - Rate 62, I suspect ventricular paced rhythm with PVC noted. No significant change compared to March 04, 2017. Discharge - Discharge Clinical Impression: TIA (transient ischemic attack) Condition: Fair Disposition: HOME, SELF-CARE Instructions: Transient Ischemic Attack ([facility]) Additional Instructions: Follow-up with your primary care physician or custom harvester in the next 48 hours. Continue your blood thinner. Return if you are worsening or for other concerns. Referrals: MO SOUZA MD [Primary Care Provider] - Follow up in 3-5 days
--- NOTE | 2017-05-27 11:08 | RADIOLOGY REPORT (SQ) ---
EXAM DESCRIPTION: CT HEAD WITHOUT COMPLETED DATE/TIME: 05/27/2017 10:42 am REASON FOR STUDY: Aphasia 2 episodes of transient aphasia within the last 24 hours COMPARISON: CT brain 05/13/2017, 06/18/2016, 03/09/2016, 08/23/2008 TECHNIQUE: Axial images acquired through the brain without intravenous contrast. Images reviewed wi th bone, brain and subdural windows. Images stored on PACS. All CT scanners at this facility use dose modulation, iterative reconstruction, and/or weight based d osing when appropriate to reduce radiation dose to as low as reasonably achievable (ALARA). [facility]: Dose Right [facility]: CareDose [facility]: Dose Right [facility]: Teradose 4D [facility]: [employer] RADIATION DOSE: Up-to-date CT equipment and radiation dose reduction techniques were employed. CTDIv ol: 64.6 mGy. DLP: 1163 mGy-cm. mGy. LIMITATIONS: Mild motion artifact FINDINGS: VENTRICLES: Normal size and contour. CEREBRUM: No CT evidence of acute large territory ischemic change, acute intracranial hemorrhage, mas s effect, or midline shift. Moderate chronic bifrontal and biparietal small vessel ischemic change with low attenuation in the he mispheric white matter. Old lacunar infarct left thalamus. CEREBELLUM: No masses. No hemorrhage. No alteration of density. No evidence for acute infarction. EXTRAAXIAL SPACES: No fluid collections. No masses. ORBITS AND GLOBE: No intra- or extraconal masses. Normal contour of globe without masses. CALVARIUM: No fracture. PARANASAL SINUSES: No fluid or mucosal thickening. SOFT TISSUES: Shrapnel in the right temporal soft tissues. OTHER: Report discussed with Dr. Sanders, 1050 hours 05/27/2017 IMPRESSION: Motion artifact. No acute findings. TECHNICAL DOCUMENTATION: JOB ID: [id number] Quality ID # [id number]: Final reports with documentation of one or more dose reduction techniques (e.g., Au tomated exposure control, adjustment of the mA and/or kV according to patient size, use of iterative reconstruction technique) 2010 [employer] All Rights Reserved
[2017-05-27 11:15] LABS: PROTHROMBIN TIME 12.7 SEC (11.4-15.4)
--- NOTE | 2017-05-27 11:20 | RADIOLOGY REPORT (SQ) ---
EXAM DESCRIPTION: CHEST SINGLE VIEW COMPLETED DATE/TIME: 05/27/2017 11:02 am REASON FOR STUDY: ESRD, Aphasia (CVA) COMPARISON: Chest films 07/20/2012, 10/16/2016, 01/07/2017, 03/04/2017 EXAM PARAMETERS: NUMBER OF VIEWS: One view. TECHNIQUE: Single frontal radiographic view of the chest acquired. RADIATION DOSE: NA LIMITATIONS: None. FINDINGS: LUNGS AND PLEURA: No opacities, masses or pneumothorax. No pleural effusion. MEDIASTINUM AND HILAR STRUCTURES: No masses. Contour normal. HEART AND VASCULAR STRUCTURES: Stable moderate cardiomegaly BONES: Advanced arthritis both shoulders HARDWARE: Left-sided dual lead pacemaker. Old shrapnel over the right clavicle OTHER: No other significant finding. IMPRESSION: NO ACUTE RADIOGRAPHIC FINDING IN THE CHEST. TECHNICAL DOCUMENTATION: JOB ID: [id number]
[2017-05-27 11:29] LABS: ABSOLUTE BASOPHILS # (AUTO) 0.1 10^3/uL (0.0-0.2); ABSOLUTE EOSINOPHILS # (AUTO) 0.2 10^3/uL (0.0-0.6); ABSOLUTE MONOCYTES (AUTO) 0.8 10^3/uL (0.1-1.4); ABSOLUTE NEUT (AUTO) 6.8 10^3/uL (1.7-8.2); BASOPHILS % (AUTO) 0.6 % (0-2); EOSINOPHILS % (AUTO) 1.9 % (0-6); HEMOGLOBIN 12.5 g/dL (13.5-17.0); HGB HCT DIFFERENCE -1.5; LYMPHOCYTES % (AUTO) 11.6 % (13-45); MEAN CORPUSCULAR HEMOGLOBIN 30.4 pg (27.0-33.4); MEAN CORPUSCULAR HGB CONC 31.9 g/dL (32.0-36.0); MEAN CORPUSCULAR VOLUME 95 fl (80-97); MONOCYTES % (AUTO) 8.7 % (3-13); RED CELL DISTRIBUTION WIDTH 16.3 % (11.5-14.0); SEGMENTED NEUTROPHILS % (AUTO) 77.2 % (42-78); WHITE BLOOD COUNT 8.8 10^3/uL (4.0-10.5)
[2017-05-27 11:34] LABS: ALANINE AMINOTRANSFERASE 19 U/L (21-72); ALBUMIN 4.1 g/dL (3.5-5.0); ALKALINE PHOSPHATASE 259 U/L (38-126); ANION GAP 18 (5-19); ASPARTATE AMINO TRANSFERASE 23 U/L (17-59); BILIRUBIN,DIRECT 0.6 mg/dL (0.0-0.4); BILIRUBIN,TOTAL 0.6 mg/dL (0.2-1.3); BLOOD UREA NITROGEN 55 mg/dL (7-20); CALCIUM 9.2 mg/dL (8.4-10.2); CARBON DIOXIDE 26 mmol/L (22-30); CHLORIDE 101 mmol/L (98-107); CREATININE RESULT 8.61 mg/dL (0.52-1.25); GLUCOSE 139 mg/dL (75-110); POTASSIUM 4.4 mmol/L (3.6-5.0); SODIUM 144.7 mmol/L (137-145); TOTAL PROTEIN 7.6 g/dL (6.3-8.2)
--- NOTE | 2017-05-27 13:18 | RADIOLOGY REPORT (SQ) ---
EXAM DESCRIPTION: CAROTID DOPPLER COMPLETED DATE/TIME: 05/27/2017 12:35 pm REASON FOR STUDY: er 8 COMPARISON: None. TECHNIQUE: Grayscale ultrasound, Doppler velocity and spectra, and color Doppler images acquired of the extra-cranial carotid and vertebral arteries. Images stored on PACS. LIMITATIONS: Technically difficult due to high bifurcations. FINDINGS: RIGHT CAROTID CCA Velocities: Within normal limits. ICA Velocities Peak systolic 0.74 m/s. End diastolic 0.15 m/s. Proximal ICA/CCA peak systolic ratio 1.4. Mild plaquing. No significant stenosis. LEFT CAROTID CCA Velocities: Within normal limits. ICA Velocities Peak systolic 0.78 m/s. End diastolic 0.15 m/s. Proximal ICA/CCA peak systolic ratio 1.4. Mild plaquing. No significant stenosis. VERTEBRAL ARTERIES: Antegrade flow. Normal waveforms. SUBCLAVIAN ARTERIES: No finding. OTHER: No other significant finding. IMPRESSION: NO HEMODYNAMICALLY SIGNIFICANT STENOSIS. COMMENT: Quality ID #[id number]: Velocity criteria are extrapolated from the diameter data as defined by t he Society of Radiologists in Ultrasound Consensus Conference. Radiology 2003: 229; 340-346. TECHNICAL DOCUMENTATION: JOB ID: [id number] [employer]- All Rights Reserved
[2017-05-27 14:41] VITALS: BP 161/79
--- NOTE | 2017-05-27 19:52 | EKG REPORT ---
SEVERITY:- ABNORMAL ECG - PROBABLE SINUS RHYTHM CAN NOT R/O ATRIAL FIBRILLATION VENTRICULAR PREMATURE COMPLEX NONSPECIFIC IVCD WITH LAD LVH WITH SECONDARY REPOLARIZATION ABNORMALITY : Confirmed by: Roz Cantu 27-May-2017 19:51:27
== END 2017-05-27 14:42 | disposition home or self-care (01) ==
LOC: ER 09:50
DX: G45.9 Transient cerebral ischemic attack, unspecified (principal); I12.0 Hypertensive chronic kidney disease with stage 5 chronic kidney disease or end stage renal disease; E11.22 Type 2 diabetes mellitus with diabetic chronic kidney disease; N18.6 End stage renal disease; Z99.2 Dependence on renal dialysis; Z86.73 Personal history of transient ischemic attack (TIA), and cerebral infarction without residual deficits; R05 Cough; Z95.0 Presence of cardiac pacemaker; Z98.61 Coronary angioplasty status; Z79.02 Long term (current) use of antithrombotics/antiplatelets
CPT/HCPCS: 36415; 70450; 71010; 80053; 85025; 85610; 93005; 93010; 93880; 99285

== ENCOUNTER → 2017-06-20 | Outpatient (CLI) | payer MEDICARE, OTHER ==
[2017-06-20 11:38] LABS: ALANINE AMINOTRANSFERASE 22 U/L (21-72); ALBUMIN 4.1 g/dL (3.5-5.0); ALKALINE PHOSPHATASE 197 U/L (38-126); ASPARTATE AMINO TRANSFERASE 21 U/L (17-59); BILIRUBIN,DIRECT 0.6 mg/dL (0.0-0.4); BILIRUBIN,TOTAL 0.6 mg/dL (0.2-1.3); CHOLESTEROL 140.54 mg/dL (0-200); Direct HDL 46 mg/dL (>40); TOTAL PROTEIN 7.3 g/dL (6.3-8.2); TRIGLYCERIDES 118 mg/dL (<150)
[2017-06-20 11:49] LABS: DIRECT LDL 57 mg/dL (<100)
== END ==
LOC: OD 09:30
PROVIDERS: ATTEND Internal Medicine Cardiovascular Disease
DX: E78.2 Mixed hyperlipidemia (principal); Z79.899 Other long term (current) drug therapy
CPT/HCPCS: 36415; 80061; 80076

== ENCOUNTER → 2017-07-23 | Outpatient (CLI) | payer MEDICARE, OTHER ==
--- NOTE | 2017-07-25 10:01 | XCELERA REPORT ---
[address] [address] Transthoracic Echocardiogram Report Name: DARIELA RILEY Age: 82 yrs Gender: Male : 1935 Patient Status: Outpatient Patient Location: Study Date: 07/23/2017 10:39 AM Height: 71 in Weight: 239 lb BSA: 2.3 m2 Reason For Study: AORTIC ECTASIA Ordering Physician: MONROE ANGLIN Performed By: Ssuy Chadwick Interpretation Summary ,Small post pericardial effusion. AV sclerosis, 3 cusps, no , mild/mod AR with PHT 786ms Mild mitral annular calcification, no MS, no mild MR with mod LA enlargement. LV shows multiple segmental disease with hypokinesis IVS, PW, inferior wall. with normal LVEF, LVEF 50-55% visual , and LV diastolic dysfunction stage I.and mild LV enlargement. RV normal, RV pacer lead in place. TR mild no pulm hypertension. MMode/2D Measurements & Calculations RVDd: 3.9 cm LVIDd: 5.7 cm FS: 29.2 % Ao root diam: 3.5 cm IVSd: 1.2 cm LVIDs: 4.0 cm EDV(Teich): 160.4 ml LVPWd: 1.2 cm ESV(Teich): 71.6 ml Ao root area: 9.4 cm2 EF(Teich): 55.4 % Doppler Measurements & Calculations MV E max aditya: MV dec slope: Ao V2 max: AI max aditya: 76.2 cm/sec 124.9 cm/sec 274.0 cm/sec MV A max aditya: 382.5 cm/sec2 Ao max PG: AI max P.1 cm/sec MV dec time: 6.2 mmHg 30.0 mmHg MV E/A: 0.78 0.20 sec AI dec slope: 101.1 cm/sec2 AI P1/2t: 793.6 msec LV V1 max PG: PA V2 max: PI end-d aditya: TR max aditya: 4.0 mmHg 96.5 cm/sec 134.4 cm/sec 168.6 cm/sec LV V1 max: PA max P.7 mmHg TR max P.6 cm/sec 11.4 mmHg Left Ventricle The left ventricle is mildly dilated. There is mild concentric left ventricular hypertrophy. The left ventricular ejection fraction is within normal limits. Doppler measurements suggest impaired left ventricular relaxation, which is associated with grade I/IV or mild diastolic dysfunction. There is septal wall moderate hypokinesis. There is posterior wall moderate hypokinesis. There is inferior wall moderate hypokinesis. There is no thrombus. Right Ventricle There is a pacemaker lead in the right ventricle. The right ventricle is normal size. Atria The right atrium is normal in size. The left atrium is moderately dilated. The interatrial septum is intact with no evidence for an atrial septal defect. Mitral Valve The mitral valve is normal in structure and function. There is no evidence of mitral valve prolapse. There is no mitral valve stenosis. There is a mild amount of mitral regurgitation. Aortic Valve The aortic valve opens well. The aortic valve is sclerotic and shows some degree of functional abnormality. The aortic valve is trileaflet. There is no aortic valvular vegetation. There is no aortic valve stenosis. There is a mild to moderate amount of aortic regurgitation. Tricuspid Valve The tricuspid valve is not well visualized secondary to technical limitations. There is a trace or physiologic amount of tricuspid regurgitation. Pulmonic Valve The pulmonic valve is not well visualized. There is a trace or physiologic amount of pulmonic regurgitation. Great Vessels The aortic root is normal size. Effusions Minimal pericardial effusion. I WMSI = 1.63 % Normal = 38 Segments Size X - Cannot 2 - 4 - 1-2 small Interpret 1 - Normal Hypokinetic 3 - AkineticDyskinetic 3-5 moderate 5 - 6-14 large Aneurysmal 15-16 diffuse : MONROE ANGLIN > Monroe Anglin
== END ==
LOC: SP 10:22
PROVIDERS: ATTEND Internal Medicine Cardiovascular Disease
DX: I77.819 Aortic ectasia, unspecified site (principal)
CPT/HCPCS: 93306

== ENCOUNTER 2017-08-04 08:48 | Day surgery (SDC) | payer MEDICARE, OTHER ==
[2017-08-04 08:46] LABS: HEMATOCRIT 42.4 % (37.9-51.0); HEMOGLOBIN 14.1 g/dL (13.5-17.0); HGB HCT DIFFERENCE -0.1; MEAN CORPUSCULAR HEMOGLOBIN 30.6 pg (27.0-33.4); MEAN CORPUSCULAR HGB CONC 33.1 g/dL (32.0-36.0); MEAN CORPUSCULAR VOLUME 92 fl (80-97); RED BLOOD COUNT 4.59 10^6/uL (4.35-5.55); RED CELL DISTRIBUTION WIDTH 15.5 % (11.5-14.0); WHITE BLOOD COUNT 9.1 10^3/uL (4.0-10.5)
[2017-08-04 09:07] LABS: BLOOD UREA NITROGEN 90 mg/dL (7-20); CARBON DIOXIDE 21 mmol/L (22-30); CHLORIDE 96 mmol/L (98-107); GLUCOSE 127 mg/dL (75-110); POTASSIUM 5.3 mmol/L (3.6-5.0)
[2017-08-04 09:21] LABS: SODIUM 139.9 mmol/L (137-145)
[2017-08-04 09:22] LABS: ANION GAP 23 (5-19)
[2017-08-04] MEDS ORDERED: OXYCODONE-ACETAMINOPHEN 5-325 MG TABLET ONE (09:43)
[2017-08-04] MEDS ORDERED: DIAZEPAM 5 MG TABLET ONE (09:43)
--- NOTE | 2017-08-04 10:42 | PDOC H&P ---
General Chief Complaint: The patient is referred across because of decreased flows in his arteriovenous fistula. We will do angioplasty today. The goal is seeking intervention that should increase the longevity of his fistula. - Current Medications/Allergies Home Medications: Allopurinol [Zyloprim 100 mg Tablet] 100 mg PO DAILY 03/24/17 Aspirin [Ecotrin 81 mg EC Tablet] 81 mg PO DAILY 03/24/17 Clopidogrel Bisulfate [Clopidogrel] 75 mg PO DAILY 03/24/17 Epoetin Clive [Epogen] 20,000 unit IJ 03/24/17 Ergocalciferol (Vitamin D2) [Vitamin D] 400 unit PO DAILY 03/24/17 Folic Acid/Vitamin B Comp W-C [Renavit Tablet] 0.8 mg PO DAILY 03/24/17 Hydralazine HCl 50 mg PO BID 03/24/17 Insulin Glargine,Hum.rec.anlog [Lantus] 5 units QHS 03/24/17 Leuprolide Acetate [Lupron Depot Inj 7.5 mg Kit] 7.5 mg INJ ASDIR 03/24/17 Metoprolol Succinate 25 mg PO DAILY 03/24/17 Pantoprazole Sodium 40 mg PO DAILY 03/24/17 Vit/Iron Fum/Folic AC [ Tablet] 1 tab DAILY 03/24/17 Sevelamer HCl [Renagel] 800 mg PO TID 03/24/17 Simvastatin 20 mg PO QHS 03/24/17 Bicalutamide [Casodex 50 mg Tablet] 1 tab PO DAILY 05/12/17 Ergocalciferol (Vitamin D2) [Drisdol 50,000 Unit (1.25MG) Capsule] 1 cap PO [id number] 08/04/17 Nitroglycerin 4.1 gm TL PRN PRN 08/04/17 Allergies/Adverse Reactions: PPD Converter Allergy (Uncoded 08/04/17 10:32) Past Medical History Cardiac Medical History: Reports: Myocardial Infarction - PT STATES " NOT SURE, MAY HAVE BEEN A STROKE", Hyperlipidema, Hypertension Denies: Coronary Artery Disease Pulmonary Medical History: Denies: Asthma, Bronchitis, Chronic Obstructive Pulmonary Disease (COPD), Pneumonia Neurological Medical History: Reports: Seizures - POSSIBLE TIA Endocrine Medical History: Reports: Diabetes Mellitus Type 2, Hypothyroidism Renal/ Medical History: Reports: End Stage Renal Disease GI Medical History: Reports: Gastroesophageal Reflux Disease Musculoskeltal Medical History: Reports: Arthritis - Legs and right shoulder, Gout Hematology: Denies: Anemia Past Surgical History Past Surgical History: Reports: Cardiac Catheterization - Stent placed 2016 @[facility], Pacemaker, Vascular Surgery - PermCath insertion. Right radiocephalic fistula insertion. Family History Family History: Reviewed & Not Pertinent Parental Family History Reviewed: No Children Family History Reviewed: No Sibling(s) Family History Reviewed.: No Social History Smoking Status: Never Smoker Physical Exam Vital Signs: Temp Pulse Resp BP Pulse Ox 97.7 F 64 20 138/63 H 100 08/04/17 10:26 08/04/17 10:26 08/04/17 10:26 08/04/17 10:26 08/04/17 10:26 Intake & Output 08/03/17 08/04/17 08/05/17 06:59 06:59 06:59 Weight 106.6 kg Additional comments: Constitutional: Well-developed well-nourished -[place] gentleman. No apparent acute distress. Eyes: Mucous membranes pink and moist, pupils equal and reactive to light. Conjunctiva normal. Arcus senilis noted. Wears spectacles ENT: Hearing grossly normal. External pinna normal to inspection. Teeth mostly intact. Tongue normal to inspection. Cardiac: Heart sounds 1 and 2 normal. Respiratory breath sounds are present bilaterally, normal. Normal respiratory effort. Psychiatric: Judgment, memory, insight seem normal. Mood is pleasant and appropriate. Extremities: Upper extremities show normal range of movement. Pulses present noted to the radial arteries. Capillary refill normal. No cyanosis noted. No muscle wasting noted. Right arm brachiocephalic fistula noted. Somewhat firm suggestive of cephalad stenosis. Impression/Plan Impression: In this patient who has required frequent interventions for a string of stenosis in the upper arm, angiogram angioplasty and possible use of a drug- eluting balloon is well indicated today. The procedure, its risks, benefits, expected outcome and alternatives are familiar to the patient and he wishes to proceed.
[2017-08-04] MEDS ORDERED: HEPARIN SOD (PORCINE) 5,000 UNIT/ML 1 ML SYRINGE ONE (11:41)
[2017-08-04] MEDS ORDERED: FENTANYL CITRATE INJ/PF 100 MCG/2 ML AMPUL ONE (11:41)
[2017-08-04] MEDS ORDERED: MIDAZOLAM 2 MG/2 ML INJ ONE (11:41)
[2017-08-04] MEDS ORDERED: LIDOCAINE 0.5% INJ-PF (5 MG/ML) 50 ML SDV ONE (11:41)
--- NOTE | 2017-08-04 13:01 | PDOC DISCHARGE SUMMARY ---
Discharge Summary (SDC) - Discharge Final Diagnosis: #1 malfunctioning AV fistula. 2. End-stage renal disease requiring hemodialysis. 3. Coronary artery disease. 4. Pacemaker in place. 5. Hypertension. Date of Surgery: 08/04/17 Discharge Date: 08/04/17 Condition: Good Treatment or Instructions: Discharge home [after recovery per ASU criteria]. Diet , [renal],as tolerated, when fully awake advance as tolerated. Activities within moderation encouraged. Follow up in my office by appointment in about 1 month. Call for appointment. Leave wounds [covered], [keep clean and dry, until hemodialysis. Meds per med rec May shower [in 48 hrs], [try to keep operated area as dry as possible]. Referrals: MO SOUZA MD [Primary Care Provider] - Discharge Diet: Other (Comments) - Renal Respiratory Treatments at Home: Deep Breathing/Coughing Discharge Activity: Activity As Tolerated Report the Following to Your Physician Immediately: Shortness of Breath, Unusual Bleeding
--- NOTE | 2017-08-04 13:43 | Operative Report ---
Operative Report DATE OF SURGERY: 08/04/17 PREOPERATIVE DIAGNOSIS: #1 malfunctioning AV fistula. 2. End-stage renal disease requiring hemodialysis. 3. Coronary artery disease. 4. Pacemaker in place. 5. Hypertension. POSTOPERATIVE DIAGNOSIS: #1 malfunctioning AV fistula. Post angioplasty and drug-eluting balloon. 2. End-stage renal disease requiring hemodialysis. 3. Coronary artery disease. 4. Pacemaker in place. 5. Hypertension. OPERATION: 1. Needle access into fistula. 2. Distal angioplasty. 3. Drug eluting balloon deployment. 4. Angiogram and interpretation. SURGEON: DANYA GARCIA CAMPAIGN FUNDRAISER: None. ANESTHESIA: Moderate Sedation TISSUE REMOVED OR ALTERED: Not applicable. COMPLICATIONS: None. ESTIMATED BLOOD LOSS: 5 mL. INTRAOPERATIVE FINDINGS: Well-established right forearm radiocephalic fistula. Hyper pulsatile segment of the first 3 cm. Angiogram demonstrates a 70-80% stenosis at about 11 cm 13 cm for about 2 cm. This was completely resolved by angioplasty and treated with a 8 mm drug-eluting balloon. This lesion has been recurrent. 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 Palpation of the fistula was much more normal at the end of the procedure with a good robust inflow. PROCEDURE: PROCEDURE: After verifying the procedure and having obtained informed consent, the patient's right arm was prepared with Chlorhexidine and draped out with sterile linen. Local anesthesia infiltrated. Percutaneous access into the fistula ,[ antegrade], obtained about [2 cm] from the arteriovenous anastomosis using a micro puncture needle followed by micro puncture wire and then a micro puncture catheter. Angiogram demonstrated the aforementioned findings. Angioplasty was elected. A 0.035 [place] wire was inserted, and over this, a 7 Japanese short introducer was placed, this was followed by a [8-mm ] angioplasty balloon . Angioplasty was serially done and the culprit area between 10 and 13 cm. Inflating up to 20 atmospheres for 2 minutes. Completion angiogram demonstrated resolution of the stenosis perhaps 5% remaining stenosis. A drug-eluting balloon was now inserted 8 mm in diameter and 6 mm long. It was centered over the segment. It was inserted per accounting tutor's instructions. It was inflated to 10 arjun just maintained for 3 minutes. It was then deflated. The segment immediately cephalad to the introducer was now addressed with an 8 mm balloon using a 3 mils syringe for installation. The results was of eradication of the area of stenosis there. Palpation of the fistula was quite normal after. It is to be noted that the patient received 2500 units of heparin on introduction of the introducer.]. Completion angiogram demonstrated [satisfactory result]. The instrumentation was now withdrawn over and pressure for 10 minutes. Dressings applied, procedure concluded. DICTATING PHYSICIAN: DANYA MEDELLIN M.D. cc: DANYA MEDELLIN M.D. ([id number]) >>
[2017-08-04 14:12] VITALS: BP 150/76
== END 2017-08-04 14:00 | disposition home or self-care (01) ==
LOC: SC 08:48
PROVIDERS: ATTEND Surgery
DX: T82.858A Stenosis of other vascular prosthetic devices, implants and grafts, initial encounter (principal); Y83.2 Surgical operation with anastomosis, bypass or graft as the cause of abnormal reaction of the patient, or of later complication, without mention of misadventure at the time of the procedure; I13.2 Hypertensive heart and chronic kidney disease with heart failure and with stage 5 chronic kidney disease, or end stage renal disease; E11.22 Type 2 diabetes mellitus with diabetic chronic kidney disease; I50.9 Heart failure, unspecified; N18.6 End stage renal disease; Z99.2 Dependence on renal dialysis; I25.10 Atherosclerotic heart disease of native coronary artery without angina pectoris; I25.2 Old myocardial infarction; Z79.899 Other long term (current) drug therapy; Z79.82 Long term (current) use of aspirin; Z95.0 Presence of cardiac pacemaker
CPT/HCPCS: 36415; 85027; 80048; J2250; J1644 ×2; A9270 ×2; J3010; J3490

== ENCOUNTER 2017-08-09 10:29 | Emergency (ER) | payer MEDICARE, OTHER ==
--- NOTE | 2017-08-09 10:48 | ER Document Report ---
ED Medical Screen (RME) - General Chief Complaint: Dizziness Stated Complaint: DIZZINESS Time Seen by Provider: 08/09/17 10:41 Mode of Arrival: Wheelchair Information source: Patient TRAVEL OUTSIDE OF THE [place] IN LAST 30 DAYS: No - HPI Patient complains to provider of: Dizziness, hypotension Notes: 08/09/17 10:47 Patient is an 82-year-old male presenting to the emergency room today complaining of dizziness, states he was at his dialysis treatment this morning, had an episode where his blood pressure dropped to 70 systolic, he completed his dialysis and was telling his friend that was giving him a ride home about his symptoms who recommended he come to the emergency room, he states he continues to have some dizziness, he denies any chest pain or shortness of breath, no headache, blood pressure is within normal limits in triage area - Related Data Allergies/Adverse Reactions: PPD Converter Allergy (Uncoded 08/04/17 10:32) Past Medical History - Past Medical History Cardiac Medical History: Reports: Hx Heart Attack - PT STATES " NOT SURE, MAY HAVE BEEN A STROKE", Hx Hypercholesterolemia, Hx Hypertension Denies: Hx Coronary Artery Disease Pulmonary Medical History: Denies: Hx Asthma, Hx Bronchitis, Hx COPD, Hx Pneumonia Neurological Medical History: Reports: Hx Cerebrovascular Accident - LEFT WEAKER THAN RIGHT, Hx Seizures - POSSIBLE TIA Endocrine Medical History: Reports: Hx Diabetes Mellitus Type 2, Hx Hypothyroidism Renal/ Medical History: Reports: Hx End Stage Renal Disease, Hx Hemodialysis. Denies: Hx Peritoneal Dialysis GI Medical History: Reports: Hx Gastroesophageal Reflux Disease Musculoskeltal Medical History: Reports Hx Arthritis - Legs and right shoulder, Reports Hx Gout Past Surgical History: Reports: Hx Abdominal Surgery - Hernia, Hx Cardiac Catheterization - Stent placed 02/24/2017 @[facility], Hx Cardiac Surgery - pacemaker , Stent, Hx Oral Surgery, Hx Pacemaker, Hx Vascular Surgery - PermCath insertion. Right radiocephalic fistula insertion. - Immunizations Hx Diphtheria, Pertussis, Tetanus Vaccination: Yes Physical Exam - Vital signs Vitals: Temp Pulse Resp BP Pulse Ox 97.6 F 61 18 117/54 L 100 08/09/17 10:36 08/09/17 10:36 08/09/17 10:36 08/09/17 10:36 08/09/17 10:36 Course - Vital Signs Vital signs: Temp Pulse Resp BP Pulse Ox 97.6 F 61 18 117/54 L 100 08/09/17 10:36 08/09/17 10:36 08/09/17 10:36 08/09/17 10:36 08/09/17 10:36
--- NOTE | 2017-08-09 11:49 | EKG REPORT ---
SEVERITY:- ABNORMAL ECG - A SENSE VENTRICULAR-PACED COMPLEXES : Confirmed by: Roz Cantu 09-Aug-2017 11:49:04
--- NOTE | 2017-08-09 12:08 | RADIOLOGY REPORT (SQ) ---
EXAM DESCRIPTION: CT HEAD WITHOUT COMPLETED DATE/TIME: 08/09/2017 11:10 am REASON FOR STUDY: dizziness COMPARISON: [address] brain exams since 2007, most recently 05/27/2017 TECHNIQUE: Axial images acquired through the brain without intravenous contrast. Images reviewed wi th bone, brain and subdural windows. Images stored on PACS. All CT scanners at this facility use dose modulation, iterative reconstruction, and/or weight based d osing when appropriate to reduce radiation dose to as low as reasonably achievable (ALARA). [facility]: Dose Right [facility]: CareDose [facility]: Dose Right [facility]: Teradose 4D [facility]: Smart Technologies RADIATION DOSE: Up-to-date CT equipment and radiation dose reduction techniques were employed. CTDIv ol: 64.6 mGy. DLP: 1163 mGy-cm. mGy. LIMITATIONS: None. FINDINGS: VENTRICLES: Normal size and contour. CEREBRUM: Bifrontal and biparietal small vessel ischemic change, chronic. Since prior scan 05/27/2017 , patient has developed a lacunar infarct in the left thalamus, chronic in appearance on today's stud y. No CT evidence of acute large territory ischemic change, acute intracranial hemorrhage, mass effec t, or midline shift CEREBELLUM: No masses. No hemorrhage. No alteration of density. No evidence for acute infarction. EXTRAAXIAL SPACES: No fluid collections. No masses. ORBITS AND GLOBE: No intra- or extraconal masses. Normal contour of globe without masses. CALVARIUM: No fracture. PARANASAL SINUSES: No fluid or mucosal thickening. SOFT TISSUES: No mass or hematoma. OTHER: No other significant finding. IMPRESSION: No acute findings. Chronic white matter disease, nonacute lacunar infarct left thalamus EVIDENCE OF ACUTE STROKE: NO. COMMENT: Quality ID # [id number]: Final reports with documentation of one or more dose reduction techniques (e.g., Automated exposure control, adjustment of the mA and/or kV according to patient size, use of iterative reconstruction technique) TECHNICAL DOCUMENTATION: JOB ID: [id number] All Rights Reserved
[2017-08-09 12:09] LABS: ABSOLUTE BASOPHILS # (AUTO) 0.1 10^3/uL (0.0-0.2); ABSOLUTE EOSINOPHILS # (AUTO) 0.2 10^3/uL (0.0-0.6); ABSOLUTE MONOCYTES (AUTO) 0.8 10^3/uL (0.1-1.4); ABSOLUTE NEUT (AUTO) 5.3 10^3/uL (1.7-8.2); BASOPHILS % (AUTO) 0.7 % (0-2); EOSINOPHILS % (AUTO) 2.6 % (0-6); HEMATOCRIT 37.4 % (37.9-51.0); HEMOGLOBIN 12.4 g/dL (13.5-17.0); HGB HCT DIFFERENCE -0.2; MEAN CORPUSCULAR HEMOGLOBIN 30.7 pg (27.0-33.4); MEAN CORPUSCULAR VOLUME 93 fl (80-97); MONOCYTES % (AUTO) 11.3 % (3-13); RED BLOOD COUNT 4.02 10^6/uL (4.35-5.55); RED CELL DISTRIBUTION WIDTH 15.9 % (11.5-14.0); SEGMENTED NEUTROPHILS % (AUTO) 71.4 % (42-78); WHITE BLOOD COUNT 7.5 10^3/uL (4.0-10.5)
--- NOTE | 2017-08-09 12:11 | ER Document Report ---
ED General - General Chief Complaint: Dizziness Stated Complaint: DIZZINESS Time Seen by Provider: 08/09/17 10:41 Mode of Arrival: Wheelchair Information source: Patient Notes: 82 yr old male who received dialysis this morning presents with complaints of dizzinyess and lightheadedness after having dialysis. Pt notes this happens often, he denies any chest pain, sob. Pt states the reason is that his blood pressure will drop and when he stands it goes lower. TRAVEL OUTSIDE OF THE [place] IN LAST 30 DAYS: No - HPI Onset: Just prior to arrival Onset/Duration: Sudden Quality of pain: No pain Severity: Mild Pain Level: Denies Associated symptoms: Weakness Exacerbated by: Standing Relieved by: Denies Similar symptoms previously: Yes Recently seen / treated by doctor: Yes - Related Data Allergies/Adverse Reactions: PPD Converter Allergy (Uncoded 08/04/17 10:32) Past Medical History - General Information source: Patient - Social History Smoking Status: Never Smoker Cigarette use (# per day): No Chew tobacco use (# tins/day): No Smoking Education Provided: No Frequency of alcohol use: None Drug Abuse: None Family History: Reviewed & Not Pertinent - Past Medical History Cardiac Medical History: Reports: Hx Heart Attack - PT STATES " NOT SURE, MAY HAVE BEEN A STROKE", Hx Hypercholesterolemia, Hx Hypertension Denies: Hx Coronary Artery Disease Pulmonary Medical History: Denies: Hx Asthma, Hx Bronchitis, Hx COPD, Hx Pneumonia Neurological Medical History: Reports: Hx Cerebrovascular Accident - LEFT WEAKER THAN RIGHT, Hx Seizures - POSSIBLE TIA Endocrine Medical History: Reports: Hx Diabetes Mellitus Type 2, Hx Hypothyroidism Renal/ Medical History: Reports: Hx End Stage Renal Disease, Hx Hemodialysis. Denies: Hx Peritoneal Dialysis GI Medical History: Reports: Hx Gastroesophageal Reflux Disease Musculoskeltal Medical History: Reports Hx Arthritis - Legs and right shoulder, Reports Hx Gout Past Surgical History: Reports: Hx Abdominal Surgery - Hernia, Hx Cardiac Catheterization - Stent placed 02/24/2017 @[facility], Hx Cardiac Surgery - pacemaker , Stent, Hx Oral Surgery, Hx Pacemaker, Hx Vascular Surgery - PermCath insertion. Right radiocephalic fistula insertion. - Immunizations Hx Diphtheria, Pertussis, Tetanus Vaccination: Yes Hx Pneumococcal Vaccination: 11/10/12 Review of Systems - Review of Systems Notes: REVIEW OF SYSTEMS: CONSTITUTIONAL : Denies fever, chills, or sweats. Denies recent illness. EENT: Denies eye, ear, throat, or mouth pain or symptoms. Denies nasal or sinus congestion or discharge. Denies throat, tongue, or mouth swelling or difficulty swallowing. CARDIOVASCULAR: Denies chest pain. Denies palpitations or racing or irregular heart beat. Denies ankle edema. RESPIRATORY: Denies cough, cold, or chest congestion. Denies shortness of breath, difficulty breathing, or wheezing. GASTROINTESTINAL: Denies abdominal pain or distention. Denies nausea, vomiting , or diarrhea. Denies blood in vomitus, stools, or per rectum. Denies black, tarry stools. Denies constipation. GENITOURINARY: Denies difficulty urinating, painful urination, burning, frequency, blood in urine, or discharge. MUSCULOSKELETAL: Denies back or neck pain or stiffness. Denies joint pain or swelling. SKIN: Denies rash, lesions or sores. HEMATOLOGIC : Denies easy bruising or bleeding. LYMPHATIC: Denies swollen, enlarged glands. NEUROLOGICAL: Admits to lightheadedness PSYCHIATRIC: Denies anxiety or stress. Denies depression, suicidal ideation, or homicidal ideation. ALL OTHER SYSTEMS REVIEWED AND NEGATIVE. Dictation was performed using [employer] voice recognition software PHYSICAL EXAMINATION: GENERAL: Well-appearing, well-nourished and in no acute distress. HEAD: Atraumatic, normocephalic. EYES: Pupils equal round and reactive to light, extraocular movements intact, sclera anicteric, conjunctiva are normal. ENT: Nares patent, oropharynx clear without exudates. Moist mucous membranes. NECK: Normal range of motion, supple without lymphadenopathy LUNGS: Breath sounds clear to auscultation bilaterally and equal. No wheezes rales or rhonchi. HEART: Regular rate and rhythm without murmurs ABDOMEN: Soft, nontender, nondistended abdomen. No guarding, no rebound. No masses appreciated. Musculoskeletal: Normal range of motion, no pitting or edema. No cyanosis. NEUROLOGICAL: Cranial nerves grossly intact. Normal speech, normal gait. Normal sensory, motor exams PSYCH: Normal mood, normal affect. SKIN: Dialysis access noted Physical Exam - Vital signs Vitals: Temp Pulse Resp BP Pulse Ox 97.6 F 61 18 117/54 L 100 08/09/17 10:36 08/09/17 10:36 08/09/17 10:36 08/09/17 10:36 08/09/17 10:36 Course - Re-evaluation Re-evalutation: 08/09/17 12:39 Patient's vital signs are stable, he is not lightheaded at this time he notes his symptoms have since resolved. Given that patient states he feels this way after dialysis often I have very low suspicion for any life-threatening issues After performing a Medical Screening Examination, I estimate there is LOW risk for INTRACRANIAL HEMORRHAGE, ISCHEMIC CVA, MALIGNANT DYSRHYTHMIA, ACUTE CORONARY SYNDROME, MENINGITIS, PULMONARY EMBOLISM, or SEPSIS thus I consider the discharge disposition reasonable. I have reevaluated this patient multiple times and no significant life threatening changes are noted. The patient and I have discussed the diagnosis and risks, and we agree with discharging home with close follow-up with the understanding that symptoms and presentations can change. We also discussed returning to the Emergency Department immediately if new or worsening symptoms occur. We have discussed the symptoms which are most concerning (e.g., changing or worsening pain, weakness, vomiting, fever) that necessitate immediate return. - Vital Signs Vital signs: Temp Pulse Resp BP Pulse Ox 97.6 F 61 21 H 119/63 100 08/09/17 10:36 08/09/17 10:36 08/09/17 11:42 08/09/17 11:42 08/09/17 11:42 - Laboratory Result Diagrams: 08/09/17 11:55 08/09/17 11:55 Laboratory results interpreted by me: 08/09/17 08/09/17 11:55 11:55 RBC 4.02 L Hgb 12.4 L Hct 37.4 L RDW 15.9 H Plt Count 139 L Chloride 97 L BUN 40 H Creatinine 7.75 H Est GFR ( Amer) 8 L Est GFR (Non-Af Amer) 7 L Glucose 158 H ALT 20 L Alkaline Phosphatase 207 H Discharge - Discharge Clinical Impression: Hypotension of hemodialysis, Dizzy Condition: Stable Disposition: HOME, SELF-CARE Instructions: Dizziness ([facility]) Referrals: MO SOUZA MD [Primary Care Provider] - Follow up tomorrow
[2017-08-09 12:29] LABS: ALANINE AMINOTRANSFERASE 20 U/L (21-72); ALBUMIN 4.2 g/dL (3.5-5.0); ALKALINE PHOSPHATASE 207 U/L (38-126); ANION GAP 15 (5-19); ASPARTATE AMINO TRANSFERASE 20 U/L (17-59); BILIRUBIN,DIRECT 0.4 mg/dL (0.0-0.4); BILIRUBIN,TOTAL 0.4 mg/dL (0.2-1.3); BLOOD UREA NITROGEN 40 mg/dL (7-20); CALCIUM 9.2 mg/dL (8.4-10.2); CARBON DIOXIDE 27 mmol/L (22-30); CHLORIDE 97 mmol/L (98-107); CREATININE RESULT 7.75 mg/dL (0.52-1.25); GLUCOSE 158 mg/dL (75-110); POTASSIUM 4.6 mmol/L (3.6-5.0); SODIUM 138.9 mmol/L (137-145); TOTAL PROTEIN 7.8 g/dL (6.3-8.2)
[2017-08-09 12:50] VITALS: BP 143/66
== END 2017-08-09 12:50 | disposition home or self-care (01) ==
LOC: ER 10:29
DX: I95.3 Hypotension of hemodialysis (principal); R42 Dizziness and giddiness; Z79.4 Long term (current) use of insulin; I25.2 Old myocardial infarction
CPT/HCPCS: 36415; 70450; 80053; 85025; 93005; 93010; 99284

== ENCOUNTER 2017-10-15 09:21 | Day surgery (SDC) | payer MEDICARE, OTHER ==
[2017-10-15 09:55] LABS: HEMATOCRIT 39.6 % (37.9-51.0); HEMOGLOBIN 12.9 g/dL (13.5-17.0); HGB HCT DIFFERENCE -0.9; MEAN CORPUSCULAR HEMOGLOBIN 30.8 pg (27.0-33.4); MEAN CORPUSCULAR HGB CONC 32.5 g/dL (32.0-36.0); MEAN CORPUSCULAR VOLUME 95 fl (80-97); RED BLOOD COUNT 4.18 10^6/uL (4.35-5.55); RED CELL DISTRIBUTION WIDTH 14.9 % (11.5-14.0); WHITE BLOOD COUNT 7.3 10^3/uL (4.0-10.5)
[2017-10-15 10:13] LABS: ANION GAP 19 (5-19); BLOOD UREA NITROGEN 68 mg/dL (7-20); CALCIUM 9.7 mg/dL (8.4-10.2); CARBON DIOXIDE 24 mmol/L (22-30); CHLORIDE 98 mmol/L (98-107); CREATININE RESULT 10.95 mg/dL (0.52-1.25); GLUCOSE 135 mg/dL (75-110); SODIUM 140.5 mmol/L (137-145)
--- NOTE | 2017-10-15 10:35 | PDOC H&P ---
General Chief Complaint: The patient is referred in by hemodialysis for angiogram evaluation of malfunctioning AV fistula. - Current Medications/Allergies Home Medications: Allopurinol [Zyloprim 100 mg Tablet] 100 mg PO DAILY 03/24/17 Clopidogrel Bisulfate [Clopidogrel] 75 mg PO DAILY 03/24/17 Folic Acid/Vitamin B Comp W-C [Renavit Tablet] 1 tab PO DAILY 03/24/17 Insulin Glargine,Hum.rec.anlog [Lantus] 5 units SUBCUT QHS 03/24/17 Metoprolol Succinate 25 mg PO DAILY 03/24/17 Pantoprazole Sodium 40 mg PO DAILY 03/24/17 Sevelamer HCl [Renagel] 800 mg PO TID 03/24/17 Simvastatin 20 mg PO QHS 03/24/17 Ergocalciferol (Vitamin D2) [Drisdol 50,000 unit (1.25MG) Capsule] 1 cap PO ASDIR PRN 08/04/17 Nitroglycerin 4.1 gm TL PRN PRN 08/04/17 Levothyroxine Sodium [Synthroid] 112 mcg PO DAILY 08/09/17 Ferric Citrate [Auryxia] 2 tab PO ASDIR PRN 10/15/17 Allergies/Adverse Reactions: PPD Converter Allergy (Uncoded 10/15/17 09:52) Past Medical History Cardiac Medical History: Reports: Coronary Artery Disease, Myocardial Infarction - PT STATES " NOT SURE, MAY HAVE BEEN A STROKE", Hyperlipidema, Hypertension Pulmonary Medical History: Denies: Asthma, Bronchitis, Chronic Obstructive Pulmonary Disease (COPD), Pneumonia Neurological Medical History: Denies: Seizures Endocrine Medical History: Reports: Diabetes Mellitus Type 2, Hypothyroidism Renal/ Medical History: Reports: End Stage Renal Disease GI Medical History: Reports: Gastroesophageal Reflux Disease Musculoskeltal Medical History: Reports: Arthritis - Legs and right shoulder, Gout Hematology: Denies: Anemia Past Surgical History Past Surgical History: Reports: Cardiac Catheterization - Stent placed 2016 @[facility], Pacemaker, Vascular Surgery - PermCath insertion. Right radiocephalic fistula insertion. Family History Family History: Reviewed & Not Pertinent Parental Family History Reviewed: No Children Family History Reviewed: No Sibling(s) Family History Reviewed.: No Social History Smoking Status: Never Smoker Physical Exam Vital Signs: Temp Pulse Resp BP Pulse Ox 98.1 F 65 16 158/78 H 100 10/15/17 10:14 10/15/17 10:14 10/15/17 10:14 10/15/17 10:14 10/15/17 10:14 Intake & Output 10/14/17 10/15/17 10/16/17 06:59 06:59 06:59 Weight 107.048 kg Additional comments: Constitutional: Well-developed well-nourished -[place] gentleman. No apparent acute distress. Eyes: Mucous membranes pink and moist, pupils equal and reactive to light. Conjunctiva normal. Cornea normal. ENT: Hearing grossly normal. External pinna normal to inspection. Teeth missing. Tongue normal to inspection. Cardiac: Heart sounds 1 and 2 normal. Respiratory breath sounds are present bilaterally, normal. Normal respiratory effort. Psychiatric: Judgment, memory, insight seem normal. Mood is pleasant and appropriate. Extremities: Upper extremities show normal range of movement. Pulses present noted to the radial arteries. Capillary refill normal. No cyanosis noted. No muscle wasting noted.Right upper extremity radiocephalic fistula in place. Firm proximally suggesting mid fistula stenosis. Impression/Plan Plan: Angiogram and possible angioplasty recommended in this patient with recurrent fistula malfunction. >>
[2017-10-15] MEDS ORDERED: LIDOCAINE 0.5% INJ-PF (5 MG/ML) 50 ML SDV ONE (10:43)
[2017-10-15] MEDS ORDERED: HEPARIN SOD (PORCINE) 5,000 UNIT/ML 1 ML SYRINGE ONE (10:44)
[2017-10-15] MEDS ORDERED: MIDAZOLAM 2 MG/2 ML INJ ONE (10:44)
[2017-10-15] MEDS ORDERED: FENTANYL CITRATE INJ/PF 100 MCG/2 ML AMPUL ONE (10:44)
[2017-10-15] MEDS ORDERED: DIAZEPAM 5 MG TABLET ONE (11:03)
[2017-10-15] MEDS ORDERED: OXYCODONE-ACETAMINOPHEN 5-325 MG TABLET ONE (11:03)
[2017-10-15] MEDS ORDERED: DIAZEPAM 5 MG TABLET PO ONE (11:15)
[2017-10-15] MEDS ORDERED: OXYCODONE-ACETAMINOPHEN 5-325 MG TABLET PO ONE (11:15)
--- NOTE | 2017-10-15 12:14 | PDOC DISCHARGE SUMMARY ---
Discharge Summary (SDC) - Discharge Final Diagnosis: #1 malfunctioning arteriovenous fistula, right radiocephalic. 2. End-stage renal disease on hemodialysis. 3. Diabetes mellitus type 2 4. Coronary artery disease. 5. Hypertension. Date of Surgery: 10/15/17 Discharge Date: 10/15/17 Condition: Good Treatment or Instructions: Discharge home [after recovery per ASU criteria]. Diet , [renal],as tolerated, when fully awake advance as tolerated. Activities within moderation encouraged. Follow up in my office by appointment in about 1 month. Call for appointment. Leave wounds [covered], [keep clean and dry, until hemodialysis]. Continue meds per med rec. Hold of on school/work [until evaluation in office]. May shower [in 48 hrs], [try to keep operated area as dry as possible]. Referrals: MO SOUZA MD [Primary Care Provider] - Discharge Diet: Other (Comments) - Renal Respiratory Treatments at Home: Deep Breathing/Coughing Report the Following to Your Physician Immediately: Shortness of Breath, Unusual Bleeding
--- NOTE | 2017-10-15 12:17 | Operative Report ---
Operative Report DATE OF SURGERY: 10/15/17 PREOPERATIVE DIAGNOSIS: #1 malfunctioning arteriovenous fistula, right radiocephalic. 2. End-stage renal disease on hemodialysis. 3. Diabetes mellitus type 2. 4. Coronary artery disease. 5. Hypertension. POSTOPERATIVE DIAGNOSIS: #1 malfunctioning arteriovenous fistula, right radiocephalic. 2. End-stage renal disease on hemodialysis. 3. Diabetes mellitus type 2. 4. Coronary artery disease. 5. Hypertension. OPERATION: 1. Needle access into arteriovenous fistula, right radiocephalic. 2. Angioplasty. 3. Angiogram and interpretation. SURGEON: DANYA AGRCIA SENIOR SVP: None ANESTHESIA: Moderate Sedation TISSUE REMOVED OR ALTERED: Not applicable. COMPLICATIONS: None ESTIMATED BLOOD LOSS: 2 mL. INTRAOPERATIVE FINDINGS: Of a relatively bounding pulse in the proximal 3 cm or so. Cephalad slightly left less so suggesting area of stenosis. This was seen on angiogram as an area of relative narrowing. No actual tight stenosis this is angioplasty with a 6 mm balloon with improvement in fistula quality. Outflow was excellent to both the cephalic and basilic distributions. PROCEDURE: PROCEDURE: After verifying the procedure and having obtained informed consent, the patient's left arm was prepared with Chlorhexidine and draped out with sterile linen. Local anesthesia infiltrated. Percutaneous access into the fistula ,[ antegrade], obtained about [2 cm] from the arteriovenous anastomosis using a micro puncture needle followed by micro puncture wire and then a micro puncture catheter. A 0.035 [place] wire was inserted, and over this, a 7 Croatian short introducer was placed, this was followed by a [6-mm ] angioplasty balloon . Angioplasty was Done in the culprit region using a 6 mm balloon . Inflating with a 3 mils syringe for 2 minutes .]. Completion angiogram demonstrated [satisfactory result]. The instrumentation was now withdrawn over hand pressure for 10 minutes. Dressings applied, procedure concluded. Exposure time: 0.2 minutes. Radiation: 4.89 fernandes per centimeter. Contrast: 25 mL. DICTATING PHYSICIAN: DANYA MEDELLIN M.D. cc: DANYA MEDELLIN M.D. ([id number]) >>
--- NOTE | 2017-10-15 13:48 | RADIOLOGY REPORT (SQ) ---
EXAM DESCRIPTION: FISTULAGRAM W/PLASTY COMPLETED DATE/TIME: 10/15/2017 12:37 pm REASON FOR STUDY: T82.858A STENOSIS OF OTHER VASCULAR PROSTH DEV/GRF T82.858A STENOSIS OF OTHER VAS CULAR PROSTH DEV/GRFT, INIT COMPARISON: None. FLUOROSCOPY TIME: 0.2 minutes. 14 images saved to PACS. TECHNIQUE: Intra-operative images acquired during surgical procedure to evaluate progress. NUMBER OF IMAGES: 14 LIMITATIONS: None. FINDINGS: Imaging in fluoroscopy during right upper extremity dialysis access evaluation and plasty by Dr. Tubbs . Please refer to the operative report for further details. IMPRESSION: INTRA PROCEDURAL IMAGING ABOVE . COMMENT: Quality ID 145: Final reports for procedures using fluoroscopy that document radiation exp osure indices, or exposure time and number of fluorographic images (if radiation exposure indices are not available) Please consult full operative report of the attending physician for description of the procedure. TECHNICAL DOCUMENTATION: JOB ID: [id number] [employer]- All Rights Reserved
[2017-10-15 14:30] VITALS: BP 132/66
== END 2017-10-15 13:55 | disposition home or self-care (01) ==
LOC: CCL 09:21
PROVIDERS: ATTEND Surgery
PROC: 057D3DZ Dilation of Right Cephalic Vein with Intraluminal Device, Percutaneous Approach (ICD-10-PCS; principal; 2017-10-15)
DX: T82.858A Stenosis of other vascular prosthetic devices, implants and grafts, initial encounter (principal); Y83.2 Surgical operation with anastomosis, bypass or graft as the cause of abnormal reaction of the patient, or of later complication, without mention of misadventure at the time of the procedure; I12.0 Hypertensive chronic kidney disease with stage 5 chronic kidney disease or end stage renal disease; N18.6 End stage renal disease; Z99.2 Dependence on renal dialysis; E11.22 Type 2 diabetes mellitus with diabetic chronic kidney disease; I25.10 Atherosclerotic heart disease of native coronary artery without angina pectoris; E78.5 Hyperlipidemia, unspecified; E03.9 Hypothyroidism, unspecified; K21.9 Gastro-esophageal reflux disease without esophagitis; M10.9 Gout, unspecified; M19.011 Primary osteoarthritis, right shoulder; Z79.899 Other long term (current) drug therapy; Z79.4 Long term (current) use of insulin; Z95.0 Presence of cardiac pacemaker
CPT/HCPCS: 36415; 85027; 80048; 36902; C1725; C1752; C1894; Q9967; C1769; J2250; J1644 ×2; A9270 ×2; J3010; J3490

== ENCOUNTER 2017-12-15 08:41 | Day surgery (SDC) | payer MEDICARE, OTHER ==
[2017-12-15] MEDS ORDERED: MIDAZOLAM 2 MG/2 ML INJ ONE (09:35)
[2017-12-15] MEDS ORDERED: HEPARIN SOD (PORCINE) 5,000 UNIT/ML 1 ML SYRINGE ONE (09:36)
[2017-12-15] MEDS ORDERED: FENTANYL CITRATE INJ/PF 100 MCG/2 ML AMPUL ONE (09:36)
[2017-12-15] MEDS ORDERED: LIDOCAINE 0.5% INJ-PF (5 MG/ML) 50 ML SDV ONE (09:56)
--- NOTE | 2017-12-15 10:59 | PDOC H&P ---
General Chief Complaint: The patient was referred because of malfunctioning AV fistula, decreased access flows. - Current Medications/Allergies Home Medications: Allopurinol [Zyloprim 100 mg Tablet] 100 mg PO DAILY 03/24/17 Clopidogrel Bisulfate [Clopidogrel] 75 mg PO DAILY 03/24/17 Folic Acid/Vitamin B Comp W-C [Renavit Tablet] 1 tab PO DAILY 03/24/17 Insulin Glargine,Hum.rec.anlog [Lantus] 5 units SUBCUT QHS 03/24/17 Metoprolol Succinate 25 mg PO DAILY 03/24/17 Pantoprazole Sodium 40 mg PO DAILY 03/24/17 Sevelamer HCl [Renagel] 800 mg PO TID 03/24/17 Simvastatin 20 mg PO QHS 03/24/17 Ergocalciferol (Vitamin D2) [Drisdol 50,000 unit (1.25MG) Capsule] 1 cap PO ASDIR PRN 08/04/17 Nitroglycerin 4.1 gm TL PRN PRN 08/04/17 Levothyroxine Sodium [Synthroid] 112 mcg PO DAILY 08/09/17 Ferric Citrate [Auryxia] 2 tab PO ASDIR PRN 10/15/17 Hydralazine HCl 50 mg PO BID 12/15/17 Linaclotide [Linzess] 290 mcg PO ASDIR PRN 12/15/17 Allergies/Adverse Reactions: PPD Converter Allergy (Uncoded 10/15/17 09:52) Past Medical History Cardiac Medical History: Reports: Coronary Artery Disease, Myocardial Infarction - PT STATES " NOT SURE, MAY HAVE BEEN A STROKE", Hyperlipidema, Hypertension Pulmonary Medical History: Denies: Asthma, Bronchitis, Chronic Obstructive Pulmonary Disease (COPD), Pneumonia Neurological Medical History: Denies: Seizures Endocrine Medical History: Reports: Diabetes Mellitus Type 2, Hypothyroidism Renal/ Medical History: Reports: End Stage Renal Disease GI Medical History: Reports: Gastroesophageal Reflux Disease Denies: Hepatitis, Hiatal Hernia Musculoskeltal Medical History: Reports: Arthritis - Legs and right shoulder, Gout Hematology: Denies: Anemia, Sickle Cell Disease Past Surgical History Past Surgical History: Reports: Cardiac Catheterization - Stent placed 2016 @[facility], Pacemaker - 3 YEARS AGO, Vascular Surgery - PermCath insertion. Right radiocephalic fistula insertion. Family History Family History: Reviewed & Not Pertinent Parental Family History Reviewed: No Children Family History Reviewed: No Sibling(s) Family History Reviewed.: No Social History Smoking Status: Never Smoker Physical Exam Additional comments: Constitutional: Well-developed well-nourished -Swedish gentleman. No apparent acute distress. Eyes: Mucous membranes pink and moist, pupils equal and reactive to light. Conjunctiva normal. Cornea normal. ENT: Hearing grossly normal. External pinna normal to inspection. Teeth mostly intact. Tongue normal to inspection. Cardiac: Heart sounds normal. Respiratory breath sounds are present bilaterally, normal. Normal respiratory effort. Psychiatric: Judgment, memory, insight seem normal. Mood is pleasant and appropriate. Extremities: Upper extremities show normal range of movement. Pulses present noted to the radial arteries. Capillary refill normal. No cyanosis noted. No muscle wasting noted. Right arm radiocephalic fistula noted. Somewhat hyper pulsatile in the first 6 cm. Relatively soft superior to that. Impression/Plan Plan: Fistula evaluation and history from dialysis suggests mid fistula stenosis. Angiogram and possible angioplasty recommended. The risks benefits expected outcome and alternatives are familiar to the patient and he wishes to proceed.
--- NOTE | 2017-12-15 11:04 | PDOC DISCHARGE SUMMARY ---
Discharge Summary (SDC) - Discharge Final Diagnosis: #1 malfunctioning arteriovenous fistula. 2. End-stage renal disease on hemodialysis. 3. Coronary artery disease. 4. Diabetes mellitus type 2. 5. Hypertension. Date of Surgery: 12/15/17 Discharge Date: 12/15/17 Condition: Fair Treatment or Instructions: Discharge home [after recovery per ASU criteria]. Diet , [renal],as tolerated, when fully awake advance as tolerated. Activities within moderation encouraged. Follow up in my office by appointment in about [1 week]. Call for appointment. Leave wounds [covered], [keep clean and dry, until hemodialysis]. Meds per med rec. Hold of on school/work [until evaluation in office]. May shower [in 48 hrs], [try to keep operated area as dry as possible]. Referrals: MO SOUZA MD [Primary Care Provider] - Discharge Diet: Other (Comments) - Renal, diabetic. Discharge Activity: Activity As Tolerated Report the Following to Your Physician Immediately: Shortness of Breath, Unusual Bleeding
--- NOTE | 2017-12-15 11:10 | Operative Report ---
Operative Report DATE OF SURGERY: 12/15/17 PREOPERATIVE DIAGNOSIS: #1 malfunctioning arteriovenous fistula. 2. End-stage renal disease on hemodialysis. 3. Coronary artery disease. 4. Diabetes mellitus type 2. 5. Hypertension. POSTOPERATIVE DIAGNOSIS: #1 malfunctioning arteriovenous fistula. 2. End- stage renal disease on hemodialysis. 3. Coronary artery disease. 4. Diabetes mellitus type 2. 5. Hypertension. OPERATION: 1. Needle introduction of the fistula. 2. Angioplasty. 3. Angiogram and interpretation. SURGEON: DANYA GARCIA GREEN CHAIN WORKER: None ANESTHESIA: Moderate Sedation TISSUE REMOVED OR ALTERED: None. COMPLICATIONS: None. ESTIMATED BLOOD LOSS: 2 mL. INTRAOPERATIVE FINDINGS: Of a well founded right forearm radiocephalic fistula. Relatively firm in the first 6 cm, relatively soft cephalad. With retrograde access and angiogram to distinct area of stenosis noted one between 4 and 6 cm the other centimeters. These are all within the frequently accessed zones. These represent 70% of the adjacent lumen. Angioplasty with a 7 mm balloon completely these stenoses. The patient will be given copies of the before and after. PROCEDURE: PROCEDURE: After verifying the procedure and having obtained informed consent, the patient's right arm and forearm were prepared with Chlorhexidine and draped out with sterile linen. Local anesthesia infiltrated. Percutaneous access into the fistula ,[retrograde], obtained about [20 cm] from the arteriovenous anastomosis using a micro puncture needle followed by micro puncture wire and then a micro puncture catheter. A 0.035 [place] wire was inserted, and over this, a 7 Occitan short introducer was placed, this was followed by a [place] catheter which showed low antegrade evaluation of just above the anastomosis. Angioplasty was now elected on a 7 mm balloon slumped over the Glidewire. Done at the distal radial artery just before the anastomosis. Inflated using 3 mils syringe at the culprit areas sustained for 2 minutes. Angiogram demonstrated successful outcome.. The instrumentation was now withdrawn over hand pressure. Dressings applied, procedure concluded. Exposure time: 0.4 minutes Radiation: 3 Graciela fernandes. Contrast: 25 mL of Isovue-M 300 low osmolality. DICTATING PHYSICIAN: DANYA MEDELLIN M.D. cc: DANYA MEDELLIN M.D. ([id number]) >>
--- NOTE | 2017-12-15 11:30 | RADIOLOGY REPORT (SQ) ---
EXAM DESCRIPTION: FISTULAGRAM W/PLASTY COMPLETED DATE/TIME: 12/15/2017 11:04 am REASON FOR STUDY: T82.858A T82.858A STENOSIS OF OTHER VASCULAR PROSTH DEV/GRFT, INIT COMPARISON: 10/15/2017 FLUOROSCOPY TIME: 0.4 minutes 10 series of digital images saved to PACS. TECHNIQUE: Intra-operative images acquired during surgical procedure to evaluate progress. NUMBER OF IMAGES: 10 series of digital images saved to pac's LIMITATIONS: None. FINDINGS: Imaging and fluoroscopy during right upper extremity dialysis access evaluation and plasty by Dr. Tubbs . Please refer to the operative report for further details. IMPRESSION: INTRA PROCEDURAL IMAGING AND FLUORO ABOVE . COMMENT: Quality ID 145: Final reports for procedures using fluoroscopy that document radiation exp osure indices, or exposure time and number of fluorographic images (if radiation exposure indices are not available) Please consult full operative report of the attending physician for description of the procedure. TECHNICAL DOCUMENTATION: JOB ID: [id number] [employer]- All Rights Reserved
[2017-12-15 12:14] VITALS: BP 144/79
== END 2017-12-15 12:00 | disposition home or self-care (01) ==
LOC: CCL 08:41
PROVIDERS: ATTEND Surgery
PROC: 057D3DZ Dilation of Right Cephalic Vein with Intraluminal Device, Percutaneous Approach (ICD-10-PCS; principal; 2017-12-15)
DX: T82.858A Stenosis of other vascular prosthetic devices, implants and grafts, initial encounter (principal); Y83.2 Surgical operation with anastomosis, bypass or graft as the cause of abnormal reaction of the patient, or of later complication, without mention of misadventure at the time of the procedure; I12.0 Hypertensive chronic kidney disease with stage 5 chronic kidney disease or end stage renal disease; E11.22 Type 2 diabetes mellitus with diabetic chronic kidney disease; N18.6 End stage renal disease; Z99.2 Dependence on renal dialysis; I25.10 Atherosclerotic heart disease of native coronary artery without angina pectoris; Z79.899 Other long term (current) drug therapy; Z79.4 Long term (current) use of insulin; Z88.8 Allergy status to other drugs, medicaments and biological substances; I25.2 Old myocardial infarction; E78.5 Hyperlipidemia, unspecified; E03.9 Hypothyroidism, unspecified; K21.9 Gastro-esophageal reflux disease without esophagitis; M19.90 Unspecified osteoarthritis, unspecified site; Z95.0 Presence of cardiac pacemaker; M10.9 Gout, unspecified
CPT/HCPCS: 36902; C1725; C1887; Q9967; J2250; J1644 ×2; J3010; J3490

== ENCOUNTER → 2018-01-11 | Outpatient (CLI) | payer MEDICARE, OTHER ==
--- NOTE | 2018-01-12 09:28 | RADIOLOGY REPORT (SQ) ---
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 RADIONUCLIDE AND DOSE: 10.0 mCi F18 FDG The route of agent administration: Intravenous FASTING BLOOD SUGAR: 94 mg/dl CONTRAST TYPE AND DOSE: No CT contrast given. TECHNIQUE: Blood glucose level was verified. Above dose of FDG was injected intravenously. 2-D seg mented attenuation correction images were obtained from the base of the skull to the midthighs. Nonc ontrast CT images were obtained for attenuation correction and fusion with emission images. CT image s were performed without oral or intravenous contrast and are not sensitive for parenchymal lesions. A series of overlapping emission PET images were obtained. Images reviewed and manipulated at indep [employer] work station by the radiologist. Images stored on PACS. LIMITATIONS: None. FINDINGS: HEAD AND NECK: No areas of abnormal metabolic activity in the soft tissues of the head and neck. There are areas of activity in the vocal cords related to speaking. CHEST: No areas of abnormal metabolic activity in the chest. ABDOMEN AND PELVIS: No areas of abnormal metabolic activity in the abdomen or pelvis. Expected physi ologic activity is present in the genitourinary system and bowel. PROXIMAL LOWER EXTREMITIES: No areas of abnormal metabolic activity in the soft tissues of the lower extremities. BONES: Activity in the right and left shoulder and right and left hip. Corresponding CT images demon strate typical degenerative changes, particularly in the shoulders. No worrisome bony lesions. Othe rwise no abnormal metabolic activity in the visualized skeleton. ADDITIONAL CT FINDINGS: Large mixed density lesion in the posterior soft tissues of the lower neck an d upper chest, left of midline. Mixed fatty and soft tissue density with a few calcifications. Maxi mum transverse measurement 6 x 10 cm. No abnormal activity on PET imaging. Bilateral gynecomastia. Umbilical hernia containing fat with no involvement of bowel. Atrophic kidneys with probable small cortical cysts. OTHER: No other significant findings. IMPRESSION: 1. ESSENTIALLY UNREMARKABLE PET SCAN. INCIDENTAL AREAS OF ACTIVITY DESCRIBED ABOVE. 2. LARGE MIXED SOFT TISSUE LESION IN THE POSTERIOR LOWER NECK/UPPER CHEST WITH MIXED SOFT TISSUE AND FATTY COMPONENTS. DIFFERENTIAL INCLUDES LIPOMA VERSUS LIPOSARCOMA. THE PATIENT HAS A PACEMAKER WHIC H WOULD PREVENT FURTHER EVALUATION WITH MRI. WOULD RECOMMEND CT OF THE SOFT TISSUES WITHOUT AND WITH IV CONTRAST. 3. OTHER INCIDENTAL CT FINDINGS ABOVE. TECHNICAL DOCUMENTATION: JOB ID: [id number] [employer]- All Rights Reserved Reading location - IP/workstation name: [email or web address]
== END ==
LOC: RAD 15:33
PROVIDERS: ATTEND Internal Medicine Medical Oncology
DX: C61 Malignant neoplasm of prostate (principal)
CPT/HCPCS: 78815; A9552

== ENCOUNTER → 2018-01-14 | Outpatient (CLI) | payer MEDICARE, OTHER ==
--- NOTE | 2018-01-14 15:23 | RADIOLOGY REPORT (SQ) ---
EXAM DESCRIPTION: NM WHOLE BODY BONE SCAN COMPLETED DATE/TIME: 01/14/2018 1:36 pm REASON FOR STUDY: PROSTATE CA (C61 C61 MALIGNANT NEOPLASM OF PROSTATE COMPARISON: 05/17/2013 PET-CT 01/11/2018 RADIONUCLIDE AND DOSE: 20 millicuries Tc99m HDP. The route of agent administration: Intravenous. ADDITIONAL DRUGS AND DOSES: None. TECHNIQUE: Routine delayed images at 3 hour post radionuclide injection acquired of the bony skeleto n including anterior and posterior whole-body projections and additional focused images as needed. LIMITATIONS: None. FINDINGS: BONES: There is what appears to be degenerative uptake in the shoulders, wrists, and right hip. There is focal uptake in the right side of the mandible near the midline. This is a new findi ng. KIDNEYS: Minimal renal uptake is seen. OTHER: No other significant finding. IMPRESSION: There is an area of focal uptake in the right side of the mandible. This may represent dental disease, but an isolated metastasis cannot be excluded. COMMENT: Quality measure 147: Current bone scan is compared with any available plain radiographs, p rior bone scans, and CT/MRI. TECHNICAL DOCUMENTATION: JOB ID: [id number] [employer]- All Rights Reserved Reading location - IP/workstation name: [email or web address]
== END ==
LOC: RAD 08:14
PROVIDERS: ATTEND Internal Medicine Medical Oncology
DX: C61 Malignant neoplasm of prostate (principal)
CPT/HCPCS: 78306; A9561; Q9969

== ENCOUNTER → 2018-01-19 | Outpatient (CLI) | payer MEDICARE, OTHER ==
--- NOTE | 2018-01-19 20:24 | XCELERA REPORT ---
[address] [address] Transthoracic Echocardiogram Report Name: DARIELA RILEY Age: 82 yrs Gender: Male : 1935 Patient Status: Outpatient Patient Location: Study Date: 01/19/2018 09:19 AM Height: 71 in Weight: 236 lb BSA: 2.3 m2 Reason For Study: HYPERTENSION Ordering Physician: MONROE ANGLIN Performed By: Alexandra Durbin Interpretation Summary Very poor study, very poor endocardial definition david in the apical views, R heart not well visualized. 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 3 cusps AV with AV sclerosis and no , no AR. No MS, MVP, no MR, normal LA size. LV very poorly visualised. LVEF is mild impaired, 47% with mild LV enlargement, with stage I LV diastolic dysfunction. Unable to visualise all the LV segments. RH poorly visualised RVSP not derived. non- cor sinus aneurysm MMode/2D Measurements & Calculations RVDd: 3.5 cm LVIDd: 5.5 cm FS: 26.0 % Ao root diam: IVSd: 1.2 cm LVIDs: 4.1 cm EDV(Teich): 3.2 cm LVPWd: 1.2 cm 149.5 ml Ao root area: ESV(Teich): 74.0 ml 7.8 cm2 EF(Teich): LA dimension: 50.5 % 4.3 cm LVLd ap4: 9.0 cm SV(MOD-sp4): 63.0 ml LA A2Cs: LA A4Cs: 21.3 cm2 EDV(MOD-sp4): 25.6 cm2 138.0 ml LVLs ap4: 7.9 cm ESV(MOD-sp4): 75.0 ml EF(MOD-sp4): 45.7 % LA length: 5.9 cm LA Vol Index (BP): LA Volume: 35.0 ml/m2 79.1 ml Doppler Measurements & Calculations MV E max aditya: MV P1/2t max aditya: Ao V2 max: LV V1 max P.5 cm/sec 81.7 cm/sec 114.7 cm/sec 3.9 mmHg MV A max aditya: MV P1/2t: 48.4 msec Ao max PG: LV V1 max: 89.4 cm/sec 5.3 mmHg 99.3 cm/sec MV E/A: 0.89 MVA(P1/2t): 4.5 cm2 MV dec slope: 494.3 cm/sec2 PA V2 max: 110.2 cm/sec PA max P.9 mmHg Left Ventricle The left ventricle is mildly to moderately dilated. LV EF is <50%. LV diastolic function not assessed. Regional wall motion abnormalities cannot be excluded due to limited visualization. Thrombus can not be excluded. Right Ventricle The right ventricle is not well visualized secondary to technical limitations. Atria Right atrium not well visualized secondary to technical limitations. The left atrial size is normal. ANTONIO 33ml/m2. The interatrial septum is intact with no evidence for an atrial septal defect. Mitral Valve The mitral valve is grossly normal. There is mild mitral annular calcification. There is no evidence of mitral valve prolapse. There is no mitral valve stenosis. There is no mitral regurgitation noted. Great Vessels The aortic root is normal size. Sinus of Valsalva aneurysm. Effusions Minimal pericardial effusion. I WMSI = 3.00 % Normal = 14 Segments Size X - Cannot 2 - 4 - 1-2 small Interpret 1 - Normal Hypokinetic 3 - AkineticDyskinetic 3-5 moderate 5 - 6-14 large Aneurysmal 15-16 diffuse : MONROE ANGLIN > Monroe Anglin
== END ==
LOC: SP 09:02
PROVIDERS: ATTEND Internal Medicine Cardiovascular Disease
DX: I25.10 Atherosclerotic heart disease of native coronary artery without angina pectoris (principal); I10 Essential (primary) hypertension
CPT/HCPCS: 93306

== ENCOUNTER → 2018-02-05 | Outpatient (CLI) | payer MEDICARE, OTHER ==
[2018-02-05 12:45] LABS: ALANINE AMINOTRANSFERASE 27 U/L (21-72); ALBUMIN 4.4 g/dL (3.5-5.0); ALKALINE PHOSPHATASE 255 U/L (38-126); ASPARTATE AMINO TRANSFERASE 25 U/L (17-59); BILIRUBIN,DIRECT 0.4 mg/dL (0.0-0.4); BILIRUBIN,TOTAL 0.5 mg/dL (0.2-1.3); CHOLESTEROL 144.74 mg/dL (0-200); TOTAL PROTEIN 7.7 g/dL (6.3-8.2); TRIGLYCERIDES 111 mg/dL (<150)
[2018-02-05 12:57] LABS: DIRECT LDL 60 mg/dL (<100)
== END ==
LOC: OD 10:33
PROVIDERS: ATTEND Internal Medicine Cardiovascular Disease
DX: E78.2 Mixed hyperlipidemia (principal); Z79.899 Other long term (current) drug therapy
CPT/HCPCS: 36415; 80061; 80076

== ENCOUNTER 2018-03-09 06:31 | Day surgery (SDC) | payer MEDICARE, OTHER ==
[2018-03-09 07:10] LABS: HEMATOCRIT 39.5 % (37.9-51.0); MEAN CORPUSCULAR HGB CONC 32.8 g/dL (32.0-36.0); MEAN CORPUSCULAR VOLUME 95 fl (80-97); PLATELET COUNT 137 10^3/uL (150-450); RED BLOOD COUNT 4.17 10^6/uL (4.35-5.55); RED CELL DISTRIBUTION WIDTH 14.3 % (11.5-14.0); WHITE BLOOD COUNT 7.2 10^3/uL (4.0-10.5)
[2018-03-09 07:27] LABS: ANION GAP 17 (5-19); BLOOD UREA NITROGEN 80 mg/dL (7-20); CALCIUM 9.8 mg/dL (8.4-10.2); CARBON DIOXIDE 28 mmol/L (22-30); CHLORIDE 102 mmol/L (98-107); GLUCOSE 109 mg/dL (75-110); POTASSIUM 4.7 mmol/L (3.6-5.0); SODIUM 147.2 mmol/L (137-145)
[2018-03-09 07:42] LABS: ABSOLUTE LYMPHOCYTES# (MANUAL) 1.7 10^3/uL (0.5-4.7); ABSOLUTE MONOCYTES # (MANUAL) 0.6 10^3/uL (0.1-1.4); ABSOLUTE NEUTROPHILS# (MANUAL) 4.5 10^3/uL (1.7-8.2); BASOPHILS % (MANUAL) 0 % (0-2); BURR CELLS SLIGHT; EOSINOPHILS % (MANUAL) 7 % (0-6); HYPOCHROMASIA 1+; LYMPHOCYTES % (MANUAL) 18 % (13-45); MONOCYTES % (MANUAL) 8 % (3-13); OVALOCYTES 1+; POIKILOCYTOSIS 1+; POLYCHROMASIA SLIGHT; SCHISTOCYTES SLIGHT; SEGMENTED NEUTROPHILS % (MAN) 62 % (42-78); TOTAL CELLS COUNTED 100; TOXIC GRANULATION SLIGHT
[2018-03-09] MEDS ORDERED: LIDOCAINE 0.5% INJ-PF (5 MG/ML) 50 ML SDV ONE (08:02)
[2018-03-09] MEDS ORDERED: HEPARIN SOD (PORCINE) 5,000 UNIT/ML 1 ML SYRINGE ONE (08:10)
[2018-03-09] MEDS ORDERED: MIDAZOLAM 2 MG/2 ML INJ ONE (08:10)
[2018-03-09] MEDS ORDERED: FENTANYL CITRATE INJ/PF 100 MCG/2 ML AMPUL ONE (08:10)
[2018-03-09 08:22] LABS: PLATELET COMMENT ADEQUATE
[2018-03-09 08:25] LABS: INTERNATIONAL RATION (INR) 1.11; PROTHROMBIN TIME 14.9 SEC (11.4-15.4)
--- NOTE | 2018-03-09 08:28 | RADIOLOGY REPORT (SQ) ---
EXAM DESCRIPTION: CHEST SINGLE VIEW COMPLETED DATE/TIME: 03/09/2018 7:19 am REASON FOR STUDY: surgery COMPARISON: 05/27/2017 EXAM PARAMETERS: NUMBER OF VIEWS: One view. TECHNIQUE: Single frontal radiographic view of the chest acquired. RADIATION DOSE: NA LIMITATIONS: None. FINDINGS: LUNGS AND PLEURA: Shrapnel overlying right apex. No evidence of pulmonary edema or pneumo alan. MEDIASTINUM AND HILAR STRUCTURES: Stable. HEART AND VASCULAR STRUCTURES: Stable heart size. BONES: No acute findings. HARDWARE: Stable position of pacemaker. OTHER: No other significant finding. IMPRESSION: NO ACUTE RADIOGRAPHIC FINDING IN THE CHEST. TECHNICAL DOCUMENTATION: JOB ID: [id number] [employer]- All Rights Reserved Reading location - IP/workstation name: [email or web address]
[2018-03-09 08:32] LABS: PARTIAL THROMBOPLASTIN TIME 37.9 SEC (23.5-35.8)
--- NOTE | 2018-03-09 09:25 | PDOC H&P ---
General Chief Complaint: Decreased access flows by up to 50% have been noticed recently. Apparently an ultrasound also showed a stenosis. The patient is referred across for angioplasty. - Current Medications/Allergies Home Medications: Allopurinol [Zyloprim 100 mg Tablet] 100 mg PO DAILY 03/24/17 Clopidogrel Bisulfate [Clopidogrel] 75 mg PO DAILY 03/24/17 Folic Acid/Vitamin B Comp W-C [Renavit Tablet] 1 tab PO DAILY 03/24/17 Insulin Glargine,Hum.rec.anlog [Lantus] 5 units SUBCUT QHS 03/24/17 Metoprolol Succinate 25 mg PO DAILY 03/24/17 Pantoprazole Sodium 40 mg PO DAILY 03/24/17 Sevelamer HCl [Renagel] 800 mg PO TID 03/24/17 Simvastatin 20 mg PO QHS 03/24/17 Ergocalciferol (Vitamin D2) [Drisdol 50,000 unit (1.25MG) Capsule] 1 cap PO ASDIR PRN 08/04/17 Nitroglycerin 4.1 gm TL PRN PRN 08/04/17 Levothyroxine Sodium [Synthroid] 112 mcg PO DAILY 08/09/17 Ferric Citrate [Auryxia] 2 tab PO ASDIR PRN 10/15/17 Hydralazine HCl 50 mg PO BID 12/15/17 Linaclotide [Linzess] 290 mcg PO ASDIR PRN 12/15/17 Allergies/Adverse Reactions: PPD Converter Allergy (Uncoded 03/06/18 10:48) Past Medical History Cardiac Medical History: Reports: Coronary Artery Disease - CARDIAC STENTS, Myocardial Infarction, Hyperlipidema, Hypertension Pulmonary Medical History: Denies: Asthma, Bronchitis, Chronic Obstructive Pulmonary Disease (COPD), Pneumonia Neurological Medical History: Denies: Seizures Endocrine Medical History: Reports: Diabetes Mellitus Type 2, Hypothyroidism Renal/ Medical History: Reports: End Stage Renal Disease GI Medical History: Reports: Gastroesophageal Reflux Disease Denies: Hepatitis, Hiatal Hernia Musculoskeltal Medical History: Reports: Gout Denies: Arthritis Hematology: Denies: Anemia, Sickle Cell Disease Past Surgical History Past Surgical History: Reports: Cardiac Catheterization - Stent placed 2016 @[facility], Pacemaker - 3 YEARS AGO, Vascular Surgery - PermCath insertion. Right radiocephalic fistula insertion. Family History Family History: Reviewed & Not Pertinent Parental Family History Reviewed: No Children Family History Reviewed: No Sibling(s) Family History Reviewed.: No Social History Smoking Status: Never Smoker Physical Exam Vital Signs: Temp Pulse Resp BP Pulse Ox 97.8 F 67 14 155/79 H 99 03/09/18 06:30 03/09/18 06:30 03/09/18 06:30 03/09/18 06:30 03/09/18 06:30 Intake & Output 03/08/18 03/09/18 03/10/18 06:59 06:59 06:59 Weight 106.594 kg Additional comments: Constitutional: Well-developed well-nourished -Swedish gentleman. No apparent acute distress. Eyes: Mucous membranes pink and moist, pupils equal and reactive to light. Conjunctiva normal. Cornea normal. ENT: Hearing grossly normal. External pinna normal to inspection. Teeth some intact. Tongue normal to inspection. Chest: Pacemaker in place. Cardiac: Heart sounds 1 and 2 normal. Respiratory breath sounds are present bilaterally, normal. Normal respiratory effort. Psychiatric: Judgment, memory, insight seem normal. Mood is pleasant and appropriate. Extremities: Upper extremities show normal range of movement. Pulses present noted to the radial arteries. Capillary refill normal. No cyanosis noted. No muscle wasting noted. Right-sided radiocephalic fistula noted. Softer after the first 7 cm Impression/Plan Plan: The patient is admitted for angiogram and possibly angioplasty in the right forearm AV fistula.
--- NOTE | 2018-03-09 09:27 | Discharge Summary ---
Discharge Summary (SDC) - Discharge Final Diagnosis: #1 malfunctioning AV fistula, right radiocephalic. 2. End-stage renal disease on hemodialysis. 3. Pacemaker in place. 4. Diabetes mellitus type 2. 5. Hypertension. Date of Surgery: 03/09/18 Discharge Date: 03/09/18 Condition: Fair Treatment or Instructions: Discharge home [after recovery per ASU criteria]. Diet , [renal],as tolerated, when fully awake advance as tolerated. Activities within moderation encouraged. Follow up in my office by appointment in about [1 week]. Call for appointment. Leave wounds [covered], [keep clean and dry, until office visit in 1 month]. Meds per med rec. Hold of on school/work [until evaluation in office]. May shower [in 48 hrs], [try to keep operated area as dry as possible]. Referrals: MO SOUZA MD [Primary Care Provider] - Discharge Diet: Other (Comments) - Renal. Respiratory Treatments at Home: Deep Breathing/Coughing Discharge Activity: Activity As Tolerated Report the Following to Your Physician Immediately: Shortness of Breath, Unusual Bleeding
--- NOTE | 2018-03-09 09:33 | Operative Report ---
Operative Report DATE OF SURGERY: 03/09/18 PREOPERATIVE DIAGNOSIS: #1 malfunctioning AV fistula, right radiocephalic. 2. End-stage renal disease on hemodialysis. 3. Pacemaker in place. 4. Diabetes mellitus type 2. 5. Hypertension. POSTOPERATIVE DIAGNOSIS: #1 malfunctioning AV fistula, right radiocephalic. 2. End-stage renal disease on hemodialysis. 3. Pacemaker in place. 4. Diabetes mellitus type 2. 5. Hypertension. OPERATION: 1. Needle access into arteriovenous fistula, right radiocephalic. 2. Angioplasty. 3. Angiogram and interpretation. SURGEON: DANYA GARCIA ELECTRIC CELL TENDER: None. ANESTHESIA: Moderate Sedation TISSUE REMOVED OR ALTERED: Not applicable. COMPLICATIONS: None. ESTIMATED BLOOD LOSS: 2 mL. INTRAOPERATIVE FINDINGS: Of a well founded and much used right arm radiocephalic fistula. Angiogram demonstrates tight stenosis approximately 70% of the adjacent lumen situated from about 7-10 cm for about 3 cm. There is another one at about 10 cm about a centimeter long for about 70%. Both of these stenoses were completely eliminated by angioplasty with a 7 mm balloon. Before and after pictures are given to the patient. The fistula hyper pulsatile proximally, softer distally, this was resolved by angioplasty. PROCEDURE: PROCEDURE: After verifying the procedure and having obtained informed consent, the patient's right forearm was prepared with Chlorhexidine and draped out with sterile linen. Local anesthesia infiltrated. Percutaneous access into the fistula ,[retrograde], obtained about [20 cm] from the arteriovenous anastomosis using a micro puncture needle followed by micro puncture wire and then a micro puncture catheter. Angioplasty was elected. A 0.035 [place] wire was inserted, and over this, a 6 Luxembourgish short introducer was placed, this was followed by a [ Kumpe catheter which allowed for appropriate angiogram. Culprit lesions were addressed. This was done using a 3 mils syringe and sustained for 2 minutes. The second culprit lesion was addressed identically. Angiogram demonstrated successful outcome. The instrumentation was now withdrawn over a short piece of catheter and Hand pressure for 10 minutes. Dressings applied, procedure concluded. Exposure time: 0.1 minutes Radiation: 1.68 Graciela fernandes. Contrast: 25 mL of Isovue-M 300 low osmolality. DICTATING PHYSICIAN: DANYA MEDELLIN M.D. cc: DANYA MEDELLIN M.D. ([id number]) >>
[2018-03-09 11:32] VITALS: BP 154/78
--- NOTE | 2018-03-09 12:59 | EKG REPORT ---
SEVERITY:- ABNORMAL ECG - ATRIAL-SENSED VENTRICULAR-PACED COMPLEXES : Confirmed by: Roz Cantu 09-Mar-2018 12:58:54
--- NOTE | 2018-03-10 15:49 | RADIOLOGY REPORT (SQ) ---
EXAM DESCRIPTION: FISTULAGRAM W/PLASTY COMPLETED DATE/TIME: 03/10/2018 1:53 pm REASON FOR STUDY: T82.858A T82.858A STENOSIS OF OTHER VASCULAR PROSTH DEV/GRFT, INIT Z79.01 LONG T ERM (CURRENT) USE OF ANTICOAGULANTS COMPARISON: 12/15/2017 FLUOROSCOPY TIME: 10 SECONDS TOTAL FLUORO TIME 24 series of digital images saved to PACS. TECHNIQUE: Intra-operative images acquired during surgical procedure to evaluate progress. NUMBER OF IMAGES: 24 series of digital images LIMITATIONS: None. FINDINGS: Intra procedural imaging and fluoro during evaluation and plasty of a upper extremity dial ysis access by Dr. Tubbs. Please see the operative report for further details IMPRESSION: Intra procedural imaging and fluoro COMMENT: Quality ID [id number]: Final reports for procedures using fluoroscopy that document radiation exp osure indices, or exposure time and number of fluorographic images (if radiation exposure indices are not available) Please consult full operative report of the attending physician for description of the procedure. TECHNICAL DOCUMENTATION: JOB ID: [id number] [employer]- All Rights Reserved Reading location - IP/workstation name: [email or web address]
== END 2018-03-09 10:30 | disposition home or self-care (01) ==
LOC: CCL 06:31
PROVIDERS: ATTEND Surgery
DX: T82.858A Stenosis of other vascular prosthetic devices, implants and grafts, initial encounter (principal); Y83.2 Surgical operation with anastomosis, bypass or graft as the cause of abnormal reaction of the patient, or of later complication, without mention of misadventure at the time of the procedure; I12.0 Hypertensive chronic kidney disease with stage 5 chronic kidney disease or end stage renal disease; N18.6 End stage renal disease; E11.22 Type 2 diabetes mellitus with diabetic chronic kidney disease; Z99.2 Dependence on renal dialysis; I25.10 Atherosclerotic heart disease of native coronary artery without angina pectoris; E78.5 Hyperlipidemia, unspecified; E03.9 Hypothyroidism, unspecified; K21.9 Gastro-esophageal reflux disease without esophagitis; M10.9 Gout, unspecified; Z79.899 Other long term (current) drug therapy; I25.2 Old myocardial infarction; Z79.4 Long term (current) use of insulin; Z85.46 Personal history of malignant neoplasm of prostate; Z79.02 Long term (current) use of antithrombotics/antiplatelets
CPT/HCPCS: 36415; 85025; 85610; 85730; 80048; 36902; 71045; 93005; 93010; C1752; C1725; C1887; Q9967; J2250; J1644 ×2; J3010; J3490

== ENCOUNTER 2018-03-13 10:45 | Emergency (ER) | payer MEDICARE, OTHER ==
[2018-03-13] MEDS ORDERED: ASPIRIN 81 MG TABLET, CHEWABLE PO ONE (11:27)
[2018-03-13 11:55] LABS: ABSOLUTE EOSINOPHILS # (AUTO) 0.1 10^3/uL (0.0-0.6); ABSOLUTE LYMPHOCYTES (AUTO) 1.1 10^3/uL (0.5-4.7); ABSOLUTE MONOCYTES (AUTO) 0.6 10^3/uL (0.1-1.4); ABSOLUTE NEUT (AUTO) 4.1 10^3/uL (1.7-8.2); BASOPHILS % (AUTO) 0.6 % (0-2); EOSINOPHILS % (AUTO) 2.1 % (0-6); HEMATOCRIT 36.7 % (37.9-51.0); HEMOGLOBIN 11.7 g/dL (13.5-17.0); LYMPHOCYTES % (AUTO) 18.7 % (13-45); MEAN CORPUSCULAR HEMOGLOBIN 30.7 pg (27.0-33.4); MEAN CORPUSCULAR VOLUME 96 fl (80-97); MONOCYTES % (AUTO) 10.2 % (3-13); PLATELET COUNT 142 10^3/uL (150-450); RED BLOOD COUNT 3.83 10^6/uL (4.35-5.55); RED CELL DISTRIBUTION WIDTH 14.2 % (11.5-14.0); SEGMENTED NEUTROPHILS % (AUTO) 68.4 % (42-78); TOTAL CELLS COUNTED % (AUTO) 100 %
--- NOTE | 2018-03-13 12:06 | RADIOLOGY REPORT (SQ) ---
EXAM DESCRIPTION: CHEST SINGLE VIEW COMPLETED DATE/TIME: 03/13/2018 11:48 am REASON FOR STUDY: chest pain COMPARISON: AP chest 03/09/2018, 05/27/2017 EXAM PARAMETERS: NUMBER OF VIEWS: One view. TECHNIQUE: Single frontal radiographic view of the chest acquired. RADIATION DOSE: NA LIMITATIONS: None. FINDINGS: LUNGS AND PLEURA: No opacities, masses or pneumothorax. No pleural effusion. MEDIASTINUM AND HILAR STRUCTURES: No masses. Contour normal. HEART AND VASCULAR STRUCTURES: Moderate stable cardiomegaly. Faintly radiopaque coronary stents. BONES: No acute findings. HARDWARE: Left-sided dual lead pacemaker OTHER: Shrapnel in the right upper chest near the right clavicular head IMPRESSION: Stable cardiomegaly. Coronary stents. Pacemaker TECHNICAL DOCUMENTATION: JOB ID: [id number] [employer]- All Rights Reserved Reading location - IP/workstation name: [email or web address]
[2018-03-13 12:24] LABS: CREATINE KINASE MB 1.07 ng/mL (<4.55)
[2018-03-13 12:27] LABS: ALANINE AMINOTRANSFERASE 19 U/L (21-72); ALBUMIN 4.1 g/dL (3.5-5.0); ALKALINE PHOSPHATASE 236 U/L (38-126); ANION GAP 16 (5-19); ASPARTATE AMINO TRANSFERASE 25 U/L (17-59); BILIRUBIN,TOTAL 0.5 mg/dL (0.2-1.3); BLOOD UREA NITROGEN 60 mg/dL (7-20); CALCIUM 9.5 mg/dL (8.4-10.2); CARBON DIOXIDE 28 mmol/L (22-30); CHLORIDE 100 mmol/L (98-107); CREATINE KINASE 74 U/L (55-170); GLUCOSE 182 mg/dL (75-110); POTASSIUM 4.6 mmol/L (3.6-5.0); SODIUM 144.4 mmol/L (137-145); TOTAL PROTEIN 7.6 g/dL (6.3-8.2); TROPONIN I 0.034 ng/mL
--- NOTE | 2018-03-13 14:43 | ER Document Report ---
ED General - General Chief Complaint: Chest Pain Stated Complaint: CHEST PAIN Time Seen by Provider: 03/13/18 11:01 Mode of Arrival: Ambulatory Information source: Patient, Relative Notes: 83-year-old male history of dialysis who had a heart catheterization last year with a stent placement presents with complaints of sudden right-sided sharp chest pain that lasts only a few seconds. Patient called his customer experience intern's office Dr. Khan and encouraged the patient to be seen in the emergency department. Patient notes the pain has been intermittent last only a few seconds at a time and is sharp lightninglike pain. He denies any left-sided pain denies any shortness of breath difficulty breathing, currently denies having any pain at all. Patient had dialysis performed yesterday TRAVEL OUTSIDE OF THE [place] IN LAST 30 DAYS: No - HPI Onset: Just prior to arrival Onset/Duration: Sudden Quality of pain: Sharp Severity: Mild Pain Level: 1 Associated symptoms: Chest pain Exacerbated by: Movement Relieved by: Denies, Other - Patient took a nitroglycerin with no improvement of symptoms Similar symptoms previously: No Recently seen / treated by doctor: Yes - Related Data Allergies/Adverse Reactions: PPD Converter Allergy (Uncoded 03/06/18 10:48) Past Medical History - Social History Smoking Status: Former Smoker Cigarette use (# per day): No Chew tobacco use (# tins/day): No Smoking Education Provided: No Family History: Reviewed & Not Pertinent Patient has suicidal ideation: No Patient has homicidal ideation: No - Past Medical History Cardiac Medical History: Reports: Hx Coronary Artery Disease - CARDIAC STENTS, Hx Heart Attack, Hx Hypercholesterolemia, Hx Hypertension Pulmonary Medical History: Denies: Hx Asthma, Hx Bronchitis, Hx COPD, Hx Pneumonia Neurological Medical History: Reports: Hx Cerebrovascular Accident. Denies: Hx Seizures Endocrine Medical History: Reports: Hx Diabetes Mellitus Type 2, Hx Hypothyroidism Renal/ Medical History: Reports: Hx End Stage Renal Disease, Hx Hemodialysis. Denies: Hx Peritoneal Dialysis GI Medical History: Reports: Hx Gastroesophageal Reflux Disease. Denies: Hx Hepatitis, Hx Hiatal Hernia, Hx Ulcer Musculoskeltal Medical History: Denies Hx Arthritis, Reports Hx Gout Infectious Medical History: Denies: Hx Hepatitis Past Surgical History: Reports: Hx Abdominal Surgery - Hernia, Hx Cardiac Catheterization - Stent placed 02/24/2017 @[facility], Hx Cardiac Surgery - pacemaker , Stent, Hx Oral Surgery, Hx Pacemaker - 3 YEARS AGO, Hx Vascular Surgery - PermCath insertion. Right radiocephalic fistula insertion.. Denies: Hx Open Heart Surgery - STENT LAST YEAR FEBRUARY - Immunizations Hx Diphtheria, Pertussis, Tetanus Vaccination: No Hx Pneumococcal Vaccination: 11/10/12 Review of Systems - Review of Systems Notes: REVIEW OF SYSTEMS: CONSTITUTIONAL : Denies fever, chills, or sweats. Denies recent illness. EENT: Denies eye, ear, throat, or mouth pain or symptoms. Denies nasal or sinus congestion or discharge. Denies throat, tongue, or mouth swelling or difficulty swallowing. CARDIOVASCULAR: Admits left-sided chest pain RESPIRATORY: Denies cough, cold, or chest congestion. Denies shortness of breath, difficulty breathing, or wheezing. GASTROINTESTINAL: Denies abdominal pain or distention. Denies nausea, vomiting , or diarrhea. Denies blood in vomitus, stools, or per rectum. Denies black, tarry stools. Denies constipation. GENITOURINARY: Denies difficulty urinating, painful urination, burning, frequency, blood in urine, or discharge. MUSCULOSKELETAL: Denies back or neck pain or stiffness. Denies joint pain or swelling. SKIN: Denies rash, lesions or sores. HEMATOLOGIC : Denies easy bruising or bleeding. LYMPHATIC: Denies swollen, enlarged glands. NEUROLOGICAL: Denies confusion or altered mental status. Denies passing out or loss of consciousness. Denies dizziness or lightheadedness. Denies headache. Denies weakness or paralysis or loss of use of either side. Denies problems with gait or speech. Denies sensory loss, numbness, or tingling. Denies seizures. PSYCHIATRIC: Denies anxiety or stress. Denies depression, suicidal ideation, or homicidal ideation. ALL OTHER SYSTEMS REVIEWED AND NEGATIVE. Dictation was performed using [employer] voice recognition software PHYSICAL EXAMINATION: GENERAL: Well-appearing, well-nourished and in no acute distress. HEAD: Atraumatic, normocephalic. EYES: Pupils equal round and reactive to light, extraocular movements intact, sclera anicteric, conjunctiva are normal. ENT: Nares patent, oropharynx clear without exudates. Moist mucous membranes. NECK: Normal range of motion, supple without lymphadenopathy LUNGS: Breath sounds clear to auscultation bilaterally and equal. No wheezes rales or rhonchi. HEART: Regular rate and rhythm without murmurs ABDOMEN: Large hernia noted Musculoskeletal: Normal range of motion, no pitting or edema. No cyanosis. NEUROLOGICAL: Cranial nerves grossly intact. Normal speech, normal gait. Normal sensory, motor exams PSYCH: Normal mood, normal affect. SKIN: Warm, Dry, normal turgor, no rashes or lesions noted. Physical Exam - Vital signs Vitals: Temp Pulse Resp BP Pulse Ox 98.3 F 78 20 120/53 L 98 03/13/18 10:52 03/13/18 10:52 03/13/18 10:52 03/13/18 10:52 03/13/18 10:52 Course - Re-evaluation Re-evalutation: 03/13/18 14:[address] i[address] Dr Abdi [place] Lad stent 2017 , notes no other obstruction, he wishes for patietn to be discharged cardiac workup was performed no acute abnormality was noted, I did offer the patient and family member admission, he preferred to be discharged, I explained to them that if symptoms do worsen that they must promise to come back immediately, they state they will do so. Otherwise since the patient looks well is in no distress has very atypical sounding chest pain I do believe he is stable for discharge 03/14/18 12:02 After performing a Medical Screening Examination, I estimate there is LOW risk for RUPTURED ESOPHAGUS, PNEUMOTHORAX, PULMONARY EMBOLISM, ACUTE CORONARY SYNDROME, OR THORACIC AORTIC DISSECTION, thus I consider the discharge disposition reasonable. I have reevaluated this patient multiple times and no significant life threatening changes are noted. The patient and I have discussed the diagnosis and risks, and we agree with discharging home with close follow-up. We also discussed returning to the Emergency Department immediately if new or worsening symptoms occur. We have discussed the symptoms which are most concerning (e.g., bloody sputum, worsening pain or shortness of breath) that necessitate immediate return. - Vital Signs Vital signs: Temp Pulse Resp BP Pulse Ox 98.3 F 78 19 143/68 H 98 03/13/18 10:52 03/13/18 10:52 03/13/18 15:00 03/13/18 15:00 03/13/18 15:00 - Laboratory Result Diagrams: 03/13/18 11:15 03/13/18 11:15 Laboratory results interpreted by me: 03/13/18 03/13/18 11:15 11:15 RBC 3.83 L Hgb 11.7 L Hct 36.7 L RDW 14.2 H Plt Count 142 L BUN 60 H Creatinine 8.96 H Est GFR ( Amer) 7 L Est GFR (Non-Af Amer) 6 L Glucose 182 H ALT 19 L Alkaline Phosphatase 236 H - Diagnostic Test Radiology reviewed: Image reviewed - Cardiomegaly, Reports reviewed - EKG Interpretation by Me EKG shows normal: Sinus rhythm, [place], Intervals, QRS Complexes Discharge - Discharge Clinical Impression: ESRD needing dialysis Chest pain Qualifiers: Chest pain type: unspecified Qualified Code(s): R07.9 - Chest pain, unspecified Condition: Stable Disposition: HOME, SELF-CARE Instructions: Chest Pain of Unclear Cause (OM) Referrals: MONROE ABDI MD [EMERITUS] - Follow up as needed
[2018-03-13 15:02] VITALS: BP 143/68
--- NOTE | 2018-03-13 21:22 | EKG REPORT ---
SEVERITY:- ABNORMAL ECG - A-V DUAL-PACED COMPLEXES W/ SOME INHIBITION VPC : Confirmed by: Roz Cantu 13-Mar-2018 21:21:54
== END 2018-03-13 15:12 | disposition home or self-care (01) ==
LOC: ER 10:45
DX: R07.9 Chest pain, unspecified (principal); I12.0 Hypertensive chronic kidney disease with stage 5 chronic kidney disease or end stage renal disease; E11.22 Type 2 diabetes mellitus with diabetic chronic kidney disease; N18.6 End stage renal disease; Z99.2 Dependence on renal dialysis; I51.7 Cardiomegaly; K46.9 Unspecified abdominal hernia without obstruction or gangrene; I25.10 Atherosclerotic heart disease of native coronary artery without angina pectoris; I25.2 Old myocardial infarction; Z95.5 Presence of coronary angioplasty implant and graft; Z87.891 Personal history of nicotine dependence
CPT/HCPCS: 36415; 71045; 80053; 82550; 82553; 84484; 85025; 93005; 93010; 99285

== ENCOUNTER 2018-07-06 06:37 | Day surgery (SDC) | payer MEDICARE, OTHER ==
--- NOTE | 2018-07-06 07:09 | RADIOLOGY REPORT (SQ) ---
EXAM DESCRIPTION: X-ray single view chest CLINICAL HISTORY: 83 years Male, preop COMPARISON: Prior portable chest performed on 03/13/2018. TECHNIQUE: Single portable view of the chest FINDINGS: The lungs are well expanded and are clear. There is no evidence of a pneumothorax. The cardiac silhouette is stable and mildly prominent. Coronary artery stents are again noted. The mediastinal contours are normal. No acute osseous abnormality is identified. There are advanced arthritic changes of the shoulders. No focal soft tissue abnormalities are seen. There is a stable left subclavian bipolar pacemaker. Shrapnel is again noted projecting over the right upper chest. IMPRESSION: No evidence of acute intrathoracic disease. No significant change when compared to the prior study.
[2018-07-06] MEDS ORDERED: LIDOCAINE 0.5% INJ-PF (5 MG/ML) 50 ML SDV ONE (07:38)
--- NOTE | 2018-07-06 07:50 | EKG REPORT ---
SEVERITY:- ABNORMAL ECG - AFIB/FLUTTER AND VENTRICULAR-PACED RHYTHM : Confirmed by: Santo Anglin MD 06-Jul-2018 07:50:06
[2018-07-06 07:52] LABS: ABSOLUTE BASOPHILS # (AUTO) 0.1 10^3/uL (0.0-0.2); ABSOLUTE EOSINOPHILS # (AUTO) 0.1 10^3/uL (0.0-0.6); ABSOLUTE LYMPHOCYTES (AUTO) 0.9 10^3/uL (0.5-4.7); ABSOLUTE MONOCYTES (AUTO) 0.7 10^3/uL (0.1-1.4); ABSOLUTE NEUT (AUTO) 4.5 10^3/uL (1.7-8.2); BASOPHILS % (AUTO) 0.9 % (0-2); HEMATOCRIT 36.2 % (37.9-51.0); HEMOGLOBIN 11.8 g/dL (13.5-17.0); LYMPHOCYTES % (AUTO) 14.2 % (13-45); MEAN CORPUSCULAR HEMOGLOBIN 32.7 pg (27.0-33.4); MEAN CORPUSCULAR HGB CONC 32.5 g/dL (32.0-36.0); MEAN CORPUSCULAR VOLUME 100 fl (80-97); MONOCYTES % (AUTO) 11.1 % (3-13); PLATELET COUNT 118 10^3/uL (150-450); RED BLOOD COUNT 3.61 10^6/uL (4.35-5.55); RED CELL DISTRIBUTION WIDTH 14.2 % (11.5-14.0); SEGMENTED NEUTROPHILS % (AUTO) 71.8 % (42-78); TOTAL CELLS COUNTED % (AUTO) 100 %; WHITE BLOOD COUNT 6.3 10^3/uL (4.0-10.5)
[2018-07-06] MEDS ORDERED: MIDAZOLAM 2 MG/2 ML INJ ONE (07:59)
[2018-07-06] MEDS ORDERED: FENTANYL CITRATE INJ/PF 100 MCG/2 ML AMPUL ONE (07:59)
[2018-07-06 08:00] LABS: PROTHROMBIN TIME 13.7 SEC (11.4-15.4)
[2018-07-06] MEDS ORDERED: HEPARIN SOD (PORCINE) 5,000 UNIT/ML 1 ML SYRINGE ONE (08:00)
[2018-07-06 08:01] LABS: PARTIAL THROMBOPLASTIN TIME 41.2 SEC (23.5-35.8)
[2018-07-06 08:15] LABS: ANION GAP 17 (5-19); BLOOD UREA NITROGEN 73 mg/dL (7-20); CALCIUM 9.7 mg/dL (8.4-10.2); CARBON DIOXIDE 26 mmol/L (22-30); CHLORIDE 105 mmol/L (98-107); GLUCOSE 114 mg/dL (75-110); POTASSIUM 4.8 mmol/L (3.6-5.0); SODIUM 148.2 mmol/L (137-145)
--- NOTE | 2018-07-06 10:04 | PDOC H&P ---
General Chief Complaint: The patient is admitted for evaluation and hopefully correction of malfunctioning AV fistula. - Current Medications/Allergies Home Medications: Allopurinol [Zyloprim 100 mg Tablet] 100 mg PO DAILY 03/24/17 Folic Acid/Vitamin B Comp W-C [Renavit Tablet] 1 tab PO DAILY 03/24/17 Insulin Glargine,Hum.rec.anlog [Lantus] 5 units SUBCUT QHS 03/24/17 Metoprolol Succinate 25 mg PO DAILY 03/24/17 Pantoprazole Sodium 40 mg PO DAILY 03/24/17 Sevelamer HCl [Renagel] 800 mg PO TID 03/24/17 Simvastatin 20 mg PO QHS 03/24/17 Ergocalciferol (Vitamin D2) [Drisdol 50,000 unit (1.25MG) Capsule] 1 cap PO ASDIR PRN 08/04/17 Nitroglycerin 4.1 gm TL PRN PRN 08/04/17 Levothyroxine Sodium [Synthroid] 112 mcg PO DAILY 08/09/17 Ferric Citrate [Auryxia] 2 tab PO ASDIR PRN 10/15/17 Hydralazine HCl 50 mg PO BID 12/15/17 Linaclotide [Linzess] 290 mcg PO ASDIR PRN 12/15/17 Allergies/Adverse Reactions: PPD Converter Allergy (Uncoded 07/06/18 07:21) Past Medical History Cardiac Medical History: Reports: Coronary Artery Disease - CARDIAC STENTS Pacer, Myocardial Infarction, Hyperlipidema, Hypertension Pulmonary Medical History: Denies: Asthma, Bronchitis, Chronic Obstructive Pulmonary Disease (COPD), Pneumonia Neurological Medical History: Denies: Seizures Endocrine Medical History: Reports: Diabetes Mellitus Type 2, Hypothyroidism Renal/ Medical History: Reports: End Stage Renal Disease GI Medical History: Reports: Gastroesophageal Reflux Disease Denies: Hepatitis, Hiatal Hernia Musculoskeltal Medical History: Reports: Gout Denies: Arthritis Hematology: Denies: Anemia, Sickle Cell Disease Past Surgical History Past Surgical History: Reports: Cardiac Catheterization - Stent placed 2016 @[facility], Pacemaker - 3 YEARS AGO, Vascular Surgery - PermCath insertion. Right radiocephalic fistula insertion. Family History Family History: Reviewed & Not Pertinent Parental Family History Reviewed: No Children Family History Reviewed: No Sibling(s) Family History Reviewed.: No Social History Smoking Status: Never Smoker Physical Exam Vital Signs: Temp Pulse Resp BP Pulse Ox 98.2 F 73 18 170/95 H 99 07/06/18 06:30 07/06/18 06:30 07/06/18 06:30 07/06/18 06:30 07/06/18 06:30 Intake & Output 07/05/18 07/06/18 07/07/18 06:59 06:59 06:59 Weight 106.5 kg Additional comments: Constitutional: Well-developed well-nourished -[place] gentleman. No apparent acute distress. Eyes: Mucous membranes pink and moist, pupils equal and reactive to light. Conjunctiva normal. Cornea normal. ENT: Hearing grossly normal. External pinna normal to inspection. Teeth mostly intact. Tongue normal to inspection. Cardiac: Heart sounds 1 and 2 normal. Respiratory breath sounds are present bilaterally, normal. Normal respiratory effort. T. Psychiatric: Judgment, memory, insight seem normal. Mood is pleasant and appropriate. Extremities: Upper extremities show normal range of movement. Pulses present noted to the radial arteries. Capillary refill normal. No cyanosis noted. No muscle wasting noted. Right forearm radiocephalic fistula present. Somewhat firm suggestive of cephalad stenosis . Impression/Plan Plan: The patient's malfunctioning AV fistula is to be addressed by angiogram and possibly angioplasty. The risks, benefits, expected outcome, and alternatives are familiar to the patient.
--- NOTE | 2018-07-06 10:06 | Discharge Summary ---
Discharge Summary (SDC) - Discharge Final Diagnosis: #1 malfunctioning AV fistula, right radiocephalic. 2. End-stage renal disease on hemodialysis. 3. Coronary artery disease. 4. Diabetes mellitus type 2. 5. Hypertension. Date of Surgery: 07/06/18 Discharge Date: 07/06/18 Condition: Fair Treatment or Instructions: Discharge home [after recovery per ASU criteria]. Diet , [renal],as tolerated, when fully awake advance as tolerated. Activities within moderation encouraged. Follow up in my office by appointment in about [1 month. Call for appointment. Leave wounds [covered], [keep clean and dry, until hemodialysis]. Hold of on school/work [until evaluation in office]. May shower [in 48 hrs], [try to keep operated area as dry as possible]. Referrals: MO SOUZA MD [Primary Care Provider] - Discharge Diet: Other (Comments) - Renal. Respiratory Treatments at Home: Deep Breathing/Coughing Discharge Activity: Activity As Tolerated Report the Following to Your Physician Immediately: Shortness of Breath, Unusual Bleeding
--- NOTE | 2018-07-06 10:11 | Operative Report ---
Operative Report DATE OF SURGERY: 07/06/18 PREOPERATIVE DIAGNOSIS: #1 malfunctioning AV fistula, right radiocephalic. 2. End-stage renal disease on hemodialysis. 3. Coronary artery disease. 4. Diabetes mellitus type 2. 5. Hypertension. POSTOPERATIVE DIAGNOSIS: #1 malfunctioning AV fistula, right radiocephalic. 2. End-stage renal disease on hemodialysis. 3. Coronary artery disease. 4. Diabetes mellitus type 2. 5. Hypertension. OPERATION: 1. Needle [place] and arteriovenous fistula. 2. Second needle access and arteriovenous fistula. 3. Multiple angioplasties and AV fistula. 4. Drug -eluting balloon angioplasty and AV fistula. 5. Angiogram and interpretation. SURGEON: DANYA GARCIA OFFICE RN: None. ANESTHESIA: Moderate Sedation TISSUE REMOVED OR ALTERED: Not applicable. COMPLICATIONS: None. ESTIMATED BLOOD LOSS: 2 mils. INTRAOPERATIVE FINDINGS: Of a well founded right radiocephalic fistula. Somewhat firm with an area of palpable deficiency at about 5-8 cm. Angiogram demonstrates the predictable area of stenosis between 5 and 8 cm and another at about 15-17 cm. Each estimated to be about 80% of the adjacent lumen. Completely corrected by angioplasty. PROCEDURE: PROCEDURE: After verifying the procedure and having obtained informed consent, the patient's l right forearm was prepared with Chlorhexidine and draped out with sterile linen. Local anesthesia infiltrated. Percutaneous access in the fistula was obtained at about 20 cm from the anastomosis using a micropuncture needle. The inner cannula of a micropuncture catheter was now introduced and used to perform angioplasty. The angioplasty demonstrated the aforementioned findings and therefore an antegrade approach was selected and done. Percutaneous access into the fistula ,[ antegrade], obtained about [2 cm] from the arteriovenous anastomosis using a micro puncture needle followed by micro puncture wire and then a micro puncture catheter. Angiogram demonstrated the aforementioned findings. Angioplasty was elected. A 0.035 [place] wire was inserted, and over this, a 7 Urdu short introducer was placed, this was followed by a [7-mm ] angioplasty balloon . Angioplasty was s at each of the 2 culprit.. Inflating up to 10 arjun for up to 3 minutes.]. Completion angiogram demonstrated [satisfactory result]. There was some residual stenosis at the 17 cm lesion. An 8 mm drug-eluting balloon was now inserted and inflated per commanding officer garage's instructions at the proximal that is 5-7 cm lesion. This was sustained 4 minutes. It was then deflated and it was advanced to the 17 cm lesion which was inflated up to 12 arjun for 2 minutes. Completion angiogram was very satisfactory. The instrumentation was now hand-held pressure for 10 minutes. Dressings applied, procedure concluded. Exposure time: 0.5 minutes Radiation: 6.93 Graciela fernandes. Contrast: 25 mils of Isovue-300, low osmolality. DICTATING PHYSICIAN: DANYA MEDELLIN M.D. cc: DANYA MEDELLIN M.D. ([id number]) >>
[2018-07-06 11:13] VITALS: BP 169/95
--- NOTE | 2018-07-06 12:16 | RADIOLOGY REPORT (SQ) ---
EXAM DESCRIPTION: FISTULAGRAM W/PLASTY COMPLETED DATE/TIME: 07/06/2018 9:36 am REASON FOR STUDY: T82.858A T82.858A STENOSIS OF OTHER VASCULAR PROSTH DEV/GRFT, INIT Z79.899 OTHER [facility] (CURRENT) DRUG THERAPY Z79.01 TECHNICAL STENOGRAPHER (CURRENT) USE OF ANTICOAGULANTS COMPARISON: None. FLUOROSCOPY TIME: 0.5 minutes 95 images saved to PACS. TECHNIQUE: Intra-operative images acquired during surgical procedure to evaluate progress. NUMBER OF IMAGES: 95 LIMITATIONS: None. FINDINGS: Selected images from arteriography and angioplasty of upper extremity graft performed by Yang Tubbs. IMPRESSION: IMAGE(S) OBTAINED DURING PROCEDURE. COMMENT: Quality ID [id number]: Final reports for procedures using fluoroscopy that document radiation exp osure indices, or exposure time and number of fluorographic images (if radiation exposure indices are not available) Please consult full operative report of the attending physician for description of the procedure. TECHNICAL DOCUMENTATION: JOB ID: [id number] [employer]- All Rights Reserved Reading location - IP/workstation name: [email or web address]
== END 2018-07-06 10:50 | disposition home or self-care (01) ==
LOC: CCL 06:37
PROVIDERS: ATTEND Surgery
DX: T82.858A Stenosis of other vascular prosthetic devices, implants and grafts, initial encounter (principal); Y83.2 Surgical operation with anastomosis, bypass or graft as the cause of abnormal reaction of the patient, or of later complication, without mention of misadventure at the time of the procedure; I12.0 Hypertensive chronic kidney disease with stage 5 chronic kidney disease or end stage renal disease; E11.22 Type 2 diabetes mellitus with diabetic chronic kidney disease; N18.6 End stage renal disease; Z99.2 Dependence on renal dialysis; I25.10 Atherosclerotic heart disease of native coronary artery without angina pectoris; E78.5 Hyperlipidemia, unspecified; I10 Essential (primary) hypertension; K21.9 Gastro-esophageal reflux disease without esophagitis; Z79.899 Other long term (current) drug therapy; Z79.4 Long term (current) use of insulin; Z79.82 Long term (current) use of aspirin; Z95.0 Presence of cardiac pacemaker
CPT/HCPCS: 36415; 85025; 85610; 85730; 80048; 36902; 71045; 93005; 93010; C2623; C1752; C1725; C1894; Q9967; C1769; J2250; J1644 ×2; J3010; J3490

== ENCOUNTER 2018-07-28 15:23 | Emergency (ER) | payer MEDICARE, OTHER ==
--- NOTE | 2018-07-28 17:31 | ER Document Report ---
ED Medical Screen (RME) - General Chief Complaint: Chest Pain Stated Complaint: CHEST/LEG PAIN Time Seen by Provider: 07/28/18 17:27 Mode of Arrival: Medic Information source: Patient Notes: Patient presents complaining of chest pain that started sometime after 1 PM today. Patient denies any nausea vomiting or shortness of breath. Patient does complain of lower extremity weakness. Patient also complains of increased lower extremity edema. Pt was given aspirin per EMS. hx: Diabetes, hypertension, CVA, hypothyroidism, dialysis Friday, last dialysis yesterday I have greeted and performed a rapid initial assessment of this patient. A comprehensive ED assessment and evaluation of the patient, analysis of test results and completion of the medical decision making process will be conducted by additional ED providers. TRAVEL OUTSIDE OF THE [place] IN LAST 30 DAYS: No - Related Data Allergies/Adverse Reactions: PPD Converter Allergy (Uncoded 07/28/18 15:35) Past Medical History - Past Medical History Cardiac Medical History: Reports: Hx Coronary Artery Disease - CARDIAC STENTS Pacer, Hx Heart Attack, Hx Hypercholesterolemia, Hx Hypertension Pulmonary Medical History: Denies: Hx Asthma, Hx Bronchitis, Hx COPD, Hx Pneumonia Neurological Medical History: Reports: Hx Cerebrovascular Accident. Denies: Hx Seizures Endocrine Medical History: Reports: Hx Diabetes Mellitus Type 2, Hx Hypothyroidism Renal/ Medical History: Reports: Hx End Stage Renal Disease, Hx Hemodialysis. Denies: Hx Peritoneal Dialysis GI Medical History: Reports: Hx Gastroesophageal Reflux Disease. Denies: Hx Hepatitis, Hx Hiatal Hernia, Hx Ulcer Musculoskeltal Medical History: Denies Hx Arthritis, Reports Hx Gout Infectious Medical History: Denies: Hx Hepatitis Past Surgical History: Reports: Hx Abdominal Surgery - Hernia, Hx Cardiac Catheterization - Stent placed 02/24/2017 @[facility], Hx Cardiac Surgery - pacemaker , Stent, Hx Oral Surgery, Hx Pacemaker - 3 YEARS AGO, Hx Vascular Surgery - PermCath insertion. Right radiocephalic fistula insertion.. Denies: Hx Open Heart Surgery - STENT LAST YEAR FEBRUARY - Immunizations Hx Diphtheria, Pertussis, Tetanus Vaccination: No History of Influenza Vaccine for 08/2017 - 01/2018 Season: Yes Influenza Administration Date for 08/2017 - 01/2018 Season: 07/11/17 Physical Exam - Vital signs Vitals: Temp Pulse Resp BP Pulse Ox 97.9 F 73 22 H 106/57 L 96 07/28/18 15:56 07/28/18 15:56 07/28/18 15:56 07/28/18 15:56 07/28/18 15:56 - Cardiovascular Rhythm: Regular Heart sounds: S1 appreciated, S2 appreciated Course - Vital Signs Vital signs: Temp Pulse Resp BP Pulse Ox 97.9 F 73 22 H 106/57 L 96 07/28/18 15:56 07/28/18 15:56 07/28/18 15:56 07/28/18 15:56 07/28/18 15:56 Doctor's Discharge - Discharge Referrals: MO SOUZA MD [Primary Care Provider] - Follow up as needed
[2018-07-28 18:32] LABS: ABSOLUTE EOSINOPHILS # (AUTO) 0.1 10^3/uL (0.0-0.6); ABSOLUTE LYMPHOCYTES (AUTO) 0.9 10^3/uL (0.5-4.7); ABSOLUTE MONOCYTES (AUTO) 0.6 10^3/uL (0.1-1.4); ABSOLUTE NEUT (AUTO) 4.7 10^3/uL (1.7-8.2); BASOPHILS % (AUTO) 0.7 % (0-2); EOSINOPHILS % (AUTO) 2.1 % (0-6); HEMATOCRIT 38.4 % (37.9-51.0); HEMOGLOBIN 12.5 g/dL (13.5-17.0); LYMPHOCYTES % (AUTO) 14.9 % (13-45); MEAN CORPUSCULAR HEMOGLOBIN 32.1 pg (27.0-33.4); MEAN CORPUSCULAR HGB CONC 32.5 g/dL (32.0-36.0); MEAN CORPUSCULAR VOLUME 99 fl (80-97); MONOCYTES % (AUTO) 9.5 % (3-13); PLATELET COUNT 114 10^3/uL (150-450); RED BLOOD COUNT 3.89 10^6/uL (4.35-5.55); RED CELL DISTRIBUTION WIDTH 14.6 % (11.5-14.0); SEGMENTED NEUTROPHILS % (AUTO) 72.8 % (42-78); TOTAL CELLS COUNTED % (AUTO) 100 %; WHITE BLOOD COUNT 6.4 10^3/uL (4.0-10.5)
--- NOTE | 2018-07-28 18:36 | RADIOLOGY REPORT (SQ) ---
EXAM DESCRIPTION: CHEST 2 VIEWS COMPLETED DATE/TIME: 07/28/2018 6:23 pm REASON FOR STUDY: cp COMPARISON: 10/16/2016 EXAM PARAMETERS: NUMBER OF VIEWS: two views TECHNIQUE: Digital Frontal and Lateral radiographic views of the chest acquired. RADIATION DOSE: NA LIMITATIONS: none FINDINGS: LUNGS AND PLEURA: No opacities, masses or pneumothorax. No pleural effusion. MEDIASTINUM AND HILAR STRUCTURES: No masses or contour abnormalities. HEART AND VASCULAR STRUCTURES: Cardiomegaly. No pulmonary edema. BONES: No acute findings. HARDWARE: Pacemaker. OTHER: No other significant finding. IMPRESSION: Cardiomegaly without CHF. TECHNICAL DOCUMENTATION: JOB ID: [id number] [employer]- All Rights Reserved Reading location - IP/workstation name: [email or web address]
[2018-07-28 18:53] LABS: ALANINE AMINOTRANSFERASE 27 U/L (21-72); ALBUMIN 4.2 g/dL (3.5-5.0); ALKALINE PHOSPHATASE 282 U/L (38-126); ANION GAP 16 (5-19); ASPARTATE AMINO TRANSFERASE 22 U/L (17-59); BLOOD UREA NITROGEN 89 mg/dL (7-20); CALCIUM 9.4 mg/dL (8.4-10.2); CARBON DIOXIDE 25 mmol/L (22-30); CHLORIDE 100 mmol/L (98-107); CREATINE KINASE 87 U/L (55-170); GLUCOSE 135 mg/dL (75-110); POTASSIUM 5.4 mmol/L (3.6-5.0); SODIUM 141.3 mmol/L (137-145); TOTAL PROTEIN 7.6 g/dL (6.3-8.2)
[2018-07-28 19:08] LABS: CREATINE KINASE MB 1.78 ng/mL (<4.55); TROPONIN I 0.028 ng/mL
[2018-07-28 19:38] LABS: BILIRUBIN,TOTAL 0.6 mg/dL (0.2-1.3)
[2018-07-28] MEDS ORDERED: SODIUM POLYSTYRENE SULFONATE 15 GM/60 ML PO ONE (20:01)
[2018-07-28] MEDS ORDERED: FUROSEMIDE INJ/PF 40 MG/4 ML SDV IV ONE (20:02)
--- NOTE | 2018-07-28 20:32 | ER Document Report ---
ED General - General Chief Complaint: Chest Pain Stated Complaint: chest pain leg pain Time Seen by Provider: 07/28/18 17:27 Mode of Arrival: Medic Notes: Patient is a pleasant 83-year-old male with history of end-stage renal disease on dialysis, and CAD that presents to the emergency department for chief complaint of chest pain earlier today. Patient reports that he had a brief episode of left-sided dull chest pain, that lasted only a minute, while he was sitting down, he did not have any further episodes since then. He denies noting any associated shortness of breath, diaphoresis, nausea or vomiting. He does have a history of CAD with a stent, he also has a pacemaker. He is on dialysis, and just resumed his sessions yesterday, he is on a Friday schedule. He is scheduled for an appointment at 11 AM tomorrow. His other concern today was that he had increased swelling in his left foot, which she always has chronic edema, but it seemed to be worse today so he went to have it evaluated. He states he was sitting on the toilet for an extended period of time today and thinks that may have contributed to it. At this time he denies having any chest pain. Past Medical History: Hypertension, CAD, end-stage renal disease on dialysis, Past Surgical History: Dialysis fistula, pacemaker, PCI with stenting remotely Social History: Denies tobacco, alcohol or drug use. Family History: Reviewed and noncontributory for presenting illness Allergies: Reviewed, see documented allergy list. REVIEW OF SYSTEMS: Unless otherwise stated in this report the patient's positive and negative responses for review of systems for constitutional, eyes, ENT, cardiovascular, respiratory, gastrointestinal, neurological, genitourinary, musculoskeletal, and integumentary systems and related systems to the presenting problem are either as stated in the HPI or were not pertinent or were negative for the symptoms and/or complaints related to the presenting medical problem. PHYSICAL EXAMINATION: Vital signs reviewed, nursing noted reviewed. GENERAL: Elderly male, well-appearing, well-nourished and in no acute distress. HEAD: Atraumatic, normocephalic. EYES: Eyes appear normal, extraocular movements intact, sclera anicteric, conjunctiva are normal. ENT: nares patent, oropharynx clear without exudates. Moist mucous membranes. NECK: Normal range of motion, supple without lymphadenopathy LUNGS: Breath sounds clear to auscultation bilaterally and equal. No wheezes rales or rhonchi. HEART: Regular rate and rhythm without murmurs ABDOMEN: Soft, nontender, normoactive bowel sounds. No rebound, guarding, or rigidity. No masses appreciated. EXTREMITIES: Bilateral lower extremity edema, appears to be the same bilaterally , no calf tenderness, no erythema, 3+ pitting edema to the proximal tibias. This is chronic per patient. Right forearm dialysis fistula present, positive bruit, positive thrill NEUROLOGICAL: No focal neurological deficits. Moves all extremities spontaneously Motor and sensory grossly intact on exam. PSYCH: Normal mood, normal affect. SKIN: Warm, Dry, normal turgor, no rashes or lesions noted on exposed skin TRAVEL OUTSIDE OF THE [place] IN LAST 30 DAYS: No - Related Data Allergies/Adverse Reactions: PPD Converter Allergy (Uncoded 07/28/18 15:35) Past Medical History - General Information source: Patient - Social History Smoking Status: Unknown if Ever Smoked Chew tobacco use (# tins/day): Yes Frequency of alcohol use: None Drug Abuse: None Family History: Reviewed & Not Pertinent Patient has suicidal ideation: No Patient has homicidal ideation: No - Past Medical History Cardiac Medical History: Reports: Hx Coronary Artery Disease - CARDIAC STENTS Pacer, Hx Heart Attack, Hx Hypercholesterolemia, Hx Hypertension Pulmonary Medical History: Denies: Hx Asthma, Hx Bronchitis, Hx COPD, Hx Pneumonia Neurological Medical History: Reports: Hx Cerebrovascular Accident. Denies: Hx Seizures Endocrine Medical History: Reports: Hx Diabetes Mellitus Type 2, Hx Hypothyroidism Renal/ Medical History: Reports: Hx End Stage Renal Disease, Hx Hemodialysis. Denies: Hx Peritoneal Dialysis - had dialysiis friday GI Medical History: Reports: Hx Gastroesophageal Reflux Disease. Denies: Hx Hepatitis, Hx Hiatal Hernia, Hx Ulcer Musculoskeletal Medical History: Denies Hx Arthritis, Reports Hx Gout Infectious Medical History: Denies: Hx Hepatitis Past Surgical History: Reports: Hx Abdominal Surgery - Hernia, Hx Cardiac Catheterization - Stent placed 02/24/2017 @[facility], Hx Cardiac Surgery - pacemaker , Stent, Hx Oral Surgery, Hx Pacemaker - 3 YEARS AGO, Hx Vascular Surgery - PermCath insertion. Right radiocephalic fistula insertion.. Denies: Hx Open Heart Surgery - STENT LAST YEAR FEBRUARY - Immunizations Hx Diphtheria, Pertussis, Tetanus Vaccination: No Hx Pneumococcal Vaccination: 11/10/12 Physical Exam - Vital signs Vitals: Temp Pulse Resp BP Pulse Ox 97.9 F 73 22 H 106/57 L 96 07/28/18 15:56 07/28/18 15:56 07/28/18 15:56 07/28/18 15:56 07/28/18 15:56 Course - Re-evaluation Re-evalutation: Patient seen and examined vital signs reviewed. Laboratory data and imaging were ordered as appropriate for the patient's presenting symptoms and complaint, with consideration of any critical or life threatening conditions that may be associated with their obtained history and exam as noted above. Patient was treated with aspirin Results were reviewed when available and demonstrated negative duplex imaging of the left lower extremity, patient noted to have elevated BUN/creatinine, however he has end-stage renal disease on dialysis, due for dialysis tomorrow, mild hyperkalemia 5.4, which was treated with Kayexalate, and IV Lasix The patient was re-evaluated and was stable, no complaints, will plan to do a total of 3 troponin sets, and if negative we will discharge the patient home so he will not miss his dialysis. He is agreeable to this plan of care. He does have a [employer] that he will call tomorrow as well, his daughter was at bedside, and will help follow-up with this. Patient had 2 negative troponins, and were unchanged, a third troponin was sent to the lab for analysis, however the machine went down and was not able to analyze his third troponin. I feel at this time it is more important for the patient be discharged to get to his dialysis appointment at 11 AM, then to wait for this third troponin which I anticipate will be negative, the patient has been chest pain-free this entire ED course, we will follow-up on the third troponin, and if it does change or elevate we will call and notify the patient, he is made aware of this, and understands and agrees with this plan of care. Evaluation was most consistent with nonspecific, and unlikely cardiac chest pain , left lower extremity edema Results were discussed with the patient at this point, after careful consideration I feel that that patient can be discharged from the emergency department, the patient was educated treatments and reasons to return to the emergency department based on their presumed diagnosis as noted above, they were advised to followup with a primary care physician in 2-3 days. Patient was agreeable to plan of care. *Note is created using voice recognition software and may contain spelling, syntax or grammatical errors. 07/29/18 03:00 - Vital Signs Vital signs: Temp Pulse Resp BP Pulse Ox 98 F 64 24 H 143/100 H 97 07/28/18 19:53 07/28/18 19:53 07/28/18 19:53 07/28/18 19:53 07/28/18 19:53 - Laboratory Result Diagrams: 07/28/18 18:20 07/28/18 18:20 Laboratory results interpreted by me: 07/28/18 07/28/18 18:20 18:20 RBC 3.89 L Hgb 12.5 L MCV 99 H RDW 14.6 H Plt Count 114 L Potassium 5.4 H BUN 89 H Creatinine 12.99 H Est GFR ( Amer) 4 L Est GFR (Non-Af Amer) 4 L Glucose 135 H Alkaline Phosphatase 282 H Discharge - Discharge Clinical Impression: Hyperkalemia, Lower extremity edema Chest pain Qualifiers: Chest pain type: unspecified Qualified Code(s): R07.9 - Chest pain, unspecified Condition: Stable Disposition: HOME, SELF-CARE Instructions: Chest Pain of Unclear Cause ([facility]), Edema, Peripheral ([facility]) Additional Instructions: Please return to the emergency department if you have any worsening, or concern of your symptoms. Please return to the emergency department if you develop chest pain, difficulty breathing, severe abdominal pain, or ongoing vomiting. Please follow-up with your primary care physician in 2-3 days and any other recommended physicians. If prescribed, take all medications as directed. If you have any questions or concerns do not hesitate to return the emergency department for evaluation. Please follow-up with your [employer], call for an appointment tomorrow or the following day, please go to your dialysis session today at 11 AM as scheduled. Referrals: MO SOUZA MD [Primary Care Provider] - Follow up in 3-5 days CHRISTINA ZAMORA MD [NO LOCAL MD] - Follow up as needed
--- NOTE | 2018-07-28 23:31 | EKG REPORT ---
SEVERITY:- ABNORMAL ECG - ATRIAL-SENSED VENTRICULAR-PACED COMPLEXES NONSPECIFIC IVCD WITH LAD LVH WITH SECONDARY REPOLARIZATION ABNORMALITY : Confirmed by: Urszula Sutton MD 28-Jul-2018 23:30:29
[2018-07-29 03:12] VITALS: BP 166/88
--- NOTE | 2018-07-29 08:05 | RADIOLOGY REPORT (SQ) ---
EXAM DESCRIPTION: VENOUS UNILATERAL LOWER COMPLETED DATE/TIME: 07/28/2018 9:26 pm REASON FOR STUDY: left lower extremity edema, worse than right COMPARISON: None. TECHNIQUE: Dynamic and static fernandes scale and color images acquired of the left leg venous system. Se lected spectral images acquired with additional compression and augmentation maneuvers. The contralat eral common femoral vein and saphenofemoral junction were also imaged. Images stored on PACS. LIMITATIONS: None. FINDINGS: COMMON FEMORAL: Normal phasicity, compression and augmentation. No visualized echogenic ma terial on fernandes scale. No defects on color images. FEMORAL: Normal compression and augmentation. No visualized echogenic material on fernandes scale. No defe cts on color images. POPLITEAL: Normal compression, augmentation. No visualized echogenic material on fernandes scale. No defec ts on color images. CALF VESSELS: Normal compression, augmentation. No visualized echogenic material on fernandes scale. No de fects on color images. GSV and SSV: Normal compression, augmentation. No visualized echogenic material on fernandes scale. No def ects on color images. ANY DEEP VENOUS INSUFFICIENCY: Not evaluated. ANY EVIDENCE OF POPLITEAL CYST: No. OTHER: No other significant finding. CONTRALATERAL COMMON FEMORAL VEIN AND SAPHENOFEMORAL JUNCTION: Normal phasicity, compression and augmentation. No visualized echogenic material on fernandes scale. No de fects on color images. IMPRESSION: NO EVIDENCE DVT OR SVT IN THE LEFT LEG. TECHNICAL DOCUMENTATION: JOB ID: [id number] [employer]- All Rights Reserved Reading location - IP/workstation name: [email or web address]
== END 2018-07-29 03:32 | disposition home or self-care (01) ==
LOC: ER 15:23
DX: R07.9 Chest pain, unspecified (principal); I12.0 Hypertensive chronic kidney disease with stage 5 chronic kidney disease or end stage renal disease; E11.22 Type 2 diabetes mellitus with diabetic chronic kidney disease; N18.6 End stage renal disease; Z99.2 Dependence on renal dialysis; E87.5 Hyperkalemia; R60.0 Localized edema; I25.10 Atherosclerotic heart disease of native coronary artery without angina pectoris; I25.2 Old myocardial infarction; Z95.5 Presence of coronary angioplasty implant and graft; Z72.0 Tobacco use; Z88.7 Allergy status to serum and vaccine
CPT/HCPCS: 93005; 99285; 96374; 36415; 82553; 82550; 83735; 85025; 80053; 84484; 93971; 71046; 93010; J1940

== ENCOUNTER 2018-08-03 16:27 | Emergency (ER) | payer MEDICARE, OTHER ==
--- NOTE | 2018-08-03 17:47 | ER Document Report ---
ED Medical Screen (RME) - General Chief Complaint: Abdominal Pain >50 Stated Complaint: ABDOMINAL PAIN Time Seen by Provider: 08/03/18 17:42 TRAVEL OUTSIDE OF THE [place] IN LAST 30 DAYS: No - HPI Notes: 08/03/18 17:46 Bilateral leg swelling shortness of breath ongoing for the last 24 hours hypertensive state is compliant with his hypertensive medication regimen - Related Data Allergies/Adverse Reactions: PPD Converter Allergy (Uncoded 08/03/18 16:29) Past Medical History - Social History Frequency of alcohol use: Quite 5 years ago Drug Abuse: None - Past Medical History Cardiac Medical History: Reports: Hx Coronary Artery Disease - CARDIAC STENTS Pacer, Hx Heart Attack, Hx Hypercholesterolemia, Hx Hypertension Pulmonary Medical History: Denies: Hx Asthma, Hx Bronchitis, Hx COPD, Hx Pneumonia Neurological Medical History: Reports: Hx Cerebrovascular Accident. Denies: Hx Seizures Endocrine Medical History: Reports: Hx Diabetes Mellitus Type 2, Hx Hypothyroidism Renal/ Medical History: Reports: Hx End Stage Renal Disease, Hx Hemodialysis. Denies: Hx Peritoneal Dialysis GI Medical History: Reports: Hx Gastroesophageal Reflux Disease. Denies: Hx Hepatitis, Hx Hiatal Hernia, Hx Ulcer Musculoskeltal Medical History: Denies Hx Arthritis, Reports Hx Gout Infectious Medical History: Denies: Hx Hepatitis Past Surgical History: Reports: Hx Abdominal Surgery - Hernia, Hx Cardiac Catheterization - Stent placed 02/24/2017 @[facility], Hx Cardiac Surgery - pacemaker , Stent, Hx Oral Surgery, Hx Pacemaker - 3 YEARS AGO, Hx Vascular Surgery - PermCath insertion. Right radiocephalic fistula insertion.. Denies: Hx Open Heart Surgery - STENT LAST YEAR FEBRUARY - Immunizations Hx Diphtheria, Pertussis, Tetanus Vaccination: No History of Influenza Vaccine for 08/2017 - 01/2018 Season: Yes Influenza Administration Date for 08/2017 - 01/2018 Season: 07/11/17 Review of Systems - Review of Systems Respiratory: Short of breath, Wheezing -: Yes All other systems reviewed and negative Physical Exam - Vital signs Vitals: Temp Pulse Resp BP Pulse Ox 98.1 F 65 14 129/59 H 95 08/03/18 16:38 08/03/18 16:38 08/03/18 16:38 08/03/18 16:38 08/03/18 16:38 - Extremities General lower extremity: Edema - 2+ pitting edema bilateral Course - Vital Signs Vital signs: Temp Pulse Resp BP Pulse Ox 98.1 F 65 14 129/59 H 95 08/03/18 16:38 08/03/18 16:38 08/03/18 16:38 08/03/18 16:38 08/03/18 16:38 Doctor's Discharge - Discharge Referrals: MO SOUZA MD [Primary Care Provider] - Follow up as needed
--- NOTE | 2018-08-03 18:09 | RADIOLOGY REPORT (SQ) ---
EXAM DESCRIPTION: ACUTE ABDOMEN SERIES COMPLETED DATE/TIME: 08/03/2018 5:59 pm REASON FOR STUDY: constipation COMPARISON: None. NUMBER OF VIEWS: Three views. TECHNIQUE: Frontal chest, supine abdomen and upright/decubitus abdomen radiographic images acquired. LIMITATIONS: None. FINDINGS: CHEST: Borderline heart size with no pulmonary edema. FREE AIR: None. No abnormal gas collections. BOWEL GAS PATTERN: Nonobstructive pattern. No dilated loops or air fluid levels. CALCIFICATIONS: No suspicious calcifications. HARDWARE: None in the abdomen. SOFT TISSUES: No gross mass or suggestion of organomegaly. BONES: No acute fracture. No worrisome bone lesions. OTHER: No other significant finding. IMPRESSION: Borderline heart size with no pulmonary edema. No significant findings in the abdomen. TECHNICAL DOCUMENTATION: JOB ID: [id number] [employer]- All Rights Reserved Reading location - IP/workstation name: [email or web address]
[2018-08-03] MEDS ORDERED: MAGNESIUM CITRATE 296 ML BOTTLE PO ONE (20:53)
--- NOTE | 2018-08-03 20:54 | ER Document Report ---
ED General - General Chief Complaint: Abdominal Pain >50 Stated Complaint: ABDOMINAL PAIN Time Seen by Provider: 08/03/18 17:42 Mode of Arrival: Ambulatory Information source: Patient Notes: This is an 83-year-old man with end-stage renal disease (on dialysis) that presents to the emergency room with constipation. Patient denies any abdominal pain, fever, nausea or vomiting. TRAVEL OUTSIDE OF THE [place] IN LAST 30 DAYS: No - HPI Onset: Last week Onset/Duration: Gradual Quality of pain: No pain Severity: None Pain Level: Denies Associated symptoms: denies: Chest pain, Nausea, Vomiting, Shortness of breath Exacerbated by: Denies Relieved by: Denies Similar symptoms previously: No Recently seen / treated by doctor: No - Related Data Allergies/Adverse Reactions: PPD Converter Allergy (Uncoded 08/03/18 16:29) Past Medical History - General Information source: Patient - Social History Smoking Status: Never Smoker Cigarette use (# per day): No Chew tobacco use (# tins/day): No Frequency of alcohol use: Quite 5 years ago Drug Abuse: None Lives with: Family Family History: Reviewed & Not Pertinent Patient has suicidal ideation: No Patient has homicidal ideation: No - Past Medical History Cardiac Medical History: Reports: Hx Coronary Artery Disease - CARDIAC STENTS Pacer, Hx Heart Attack, Hx Hypercholesterolemia, Hx Hypertension Pulmonary Medical History: Denies: Hx Asthma, Hx Bronchitis, Hx COPD, Hx Pneumonia Neurological Medical History: Reports: Hx Cerebrovascular Accident. Denies: Hx Seizures Endocrine Medical History: Reports: Hx Diabetes Mellitus Type 2, Hx Hypothyroidism Renal/ Medical History: Reports: Hx End Stage Renal Disease, Hx Hemodialysis. Denies: Hx Peritoneal Dialysis GI Medical History: Reports: Hx Gastroesophageal Reflux Disease. Denies: Hx Hepatitis, Hx Hiatal Hernia, Hx Ulcer Musculoskeletal Medical History: Denies Hx Arthritis, Reports Hx Gout Infectious Medical History: Denies: Hx Hepatitis Past Surgical History: Reports: Hx Abdominal Surgery - Hernia, Hx Cardiac Catheterization - Stent placed 02/24/2017 @[facility], Hx Cardiac Surgery - pacemaker , Stent, Hx Oral Surgery, Hx Pacemaker - 3 YEARS AGO, Hx Vascular Surgery - PermCath insertion. Right radiocephalic fistula insertion.. Denies: Hx Open Heart Surgery - STENT LAST YEAR FEBRUARY - Immunizations Hx Diphtheria, Pertussis, Tetanus Vaccination: No Hx Pneumococcal Vaccination: 01/01/13 Review of Systems - Review of Systems Constitutional: denies: Chills, Fever EENT: No symptoms reported Cardiovascular: No symptoms reported Respiratory: No symptoms reported Gastrointestinal: See HPI Genitourinary: No symptoms reported Male Genitourinary: No symptoms reported Musculoskeletal: No symptoms reported Skin: No symptoms reported Hematologic/Lymphatic: No symptoms reported Neurological/Psychological: No symptoms reported Physical Exam - Vital signs Vitals: Temp Pulse Resp BP Pulse Ox 98.1 F 65 14 129/59 H 95 08/03/18 16:38 08/03/18 16:38 08/03/18 16:38 08/03/18 16:38 08/03/18 16:38 Notes: Physical exam: GENERAL: A 3-year-old man, alert and oriented 3, no acute distress. HEAD: Atraumatic, normocephalic. EYES: Pupils equal round and reactive to light, extraocular movements intact, sclera anicteric, conjunctiva are normal. ENT: nares patent, oropharynx clear without exudates. Moist mucous membranes. NECK: Normal range of motion, supple without obvious mass. LUNGS: Breath sounds clear to auscultation bilaterally and equal. No wheezes rales or rhonchi. HEART: Regular rate and rhythm without murmurs, rubs or gallops. ABDOMEN: Soft, normoactive bowel sounds. No tenderness to palpation. No guarding, no rebound. No masses appreciated. Rectal: No hard stool in vault, no masses, stool brown. EXTREMITIES: Normal range of motion, no pitting or edema. No clubbing or cyanosis. NEUROLOGICAL: Cranial nerves II through XII grossly intact. Normal speech, moving all extremities. PSYCH: Normal mood, normal affect. SKIN: Warm, Dry, normal turgor, no rashes or lesions noted. Course - Vital Signs Vital signs: Temp Pulse Resp BP Pulse Ox 98.1 F 65 14 129/59 H 95 08/03/18 16:38 08/03/18 16:38 08/03/18 16:38 08/03/18 16:38 08/03/18 16:38 Discharge - Discharge Clinical Impression: Constipation Condition: Stable Disposition: HOME, SELF-CARE Additional Instructions: As we discussed: I would like you to drink the bottle of mag citrate at home slowly after dialysis. Continue current medicines. Follow-up with Dr. Souza. Start taking MiraLAX for the next week. Prescriptions: Polyethylene Glycol 3350 [Miralax Powder 17 gm/Packet] 1 packet PO DAILY 7 Days #1 pkg Referrals: MO SOUZA MD [Primary Care Provider] - Follow up in 3-5 days
[2018-08-03 21:23] VITALS: BP 158/75
== END 2018-08-03 21:27 | disposition home or self-care (01) ==
LOC: ER 16:27
DX: K59.00 Constipation, unspecified (principal); E11.22 Type 2 diabetes mellitus with diabetic chronic kidney disease; I12.0 Hypertensive chronic kidney disease with stage 5 chronic kidney disease or end stage renal disease; N18.6 End stage renal disease; Z99.2 Dependence on renal dialysis; I25.2 Old myocardial infarction; I25.10 Atherosclerotic heart disease of native coronary artery without angina pectoris; E78.00 Pure hypercholesterolemia, unspecified; Z86.73 Personal history of transient ischemic attack (TIA), and cerebral infarction without residual deficits
CPT/HCPCS: 99284; 74022; J3490

== ENCOUNTER 2018-08-31 06:39 | Day surgery (SDC) | payer MEDICARE, OTHER ==
[2018-08-31] MEDS ORDERED: LIDOCAINE 0.5% INJ-PF (5 MG/ML) 50 ML SDV ONE (07:43)
[2018-08-31] MEDS ORDERED: FENTANYL CITRATE INJ/PF 100 MCG/2 ML AMPUL ONE (08:07)
[2018-08-31] MEDS ORDERED: HEPARIN SOD (PORCINE) 5,000 UNIT/ML 1 ML SYRINGE ONE (08:07)
[2018-08-31] MEDS ORDERED: MIDAZOLAM 2 MG/2 ML INJ ONE (08:07)
[2018-08-31] MEDS ORDERED: ALTEPLASE INJ 2 MG VIAL (CATH CLEARANCE) ONE (08:56)
[2018-08-31 10:36] VITALS: BP 157/88
--- NOTE | 2018-08-31 13:08 | RADIOLOGY REPORT (SQ) ---
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 FLUOROSCOPY TIME: 0.1 minute 36 images saved to PACS. TECHNIQUE: Intra-operative images acquired during surgical procedure to evaluate progress. NUMBER OF IMAGES: 36 LIMITATIONS: None. FINDINGS: Selected images from arteriography and angioplasty upper extremity dialysis graft performe d by Dr. Tubbs. IMPRESSION: IMAGE(S) OBTAINED DURING PROCEDURE. COMMENT: Quality ID [id number]: Final reports for procedures using fluoroscopy that document radiation exp osure indices, or exposure time and number of fluorographic images (if radiation exposure indices are not available) Please consult full operative report of the attending physician for description of the procedure. TECHNICAL DOCUMENTATION: JOB ID: [id number] [employer]- All Rights Reserved Reading location - IP/workstation name: [email or web address]
--- NOTE | 2018-09-20 12:01 | DISCHARGE SUMMARY E ---
Discharge Summary NAME: DARIELA RILEY : 1935 AGE: 83Y ADMITTED: 08/31/2018 DISCHARGED: 08/31/2018 ADMITTING DIAGNOSES: 1. Malfunctioning AV fistula, right radiocephalic. 2. End-stage renal disease, on hemodialysis. 3. Coronary artery disease. 4. Permanent pacemaker. 5. Diabetes mellitus, type 2. 6. Hypertension. DISCHARGE DIAGNOSES: 1. Malfunctioning AV fistula, right radiocephalic. 2. End-stage renal disease, on hemodialysis. 3. Coronary artery disease. 4. Permanent pacemaker. 5. Diabetes mellitus, type 2. 6. Hypertension. 7. Status post improvement of fistula with angioplasty. HISTORY AND PHYSICAL: Please see admission H and P. HOSPITAL COURSE: The patient was admitted and underwent alteration of fistula, angiogram, and angioplasty. Post procedure the patient was recovered and was discharged. Detailed discharge instructions are to be found in the discharge order set. Followup is to be with Dr. Danya Tubbs by appointment in about 1 month. DICTATING PHYSICIAN: DANYA TUBBS M.D. [id number] PHY#: [id number] ID: [id number] JOB#: [id number] ACCT: [id number] cc:DANYA TUBBS M.D. >
--- NOTE | 2018-09-22 11:20 | OPERATIVE REPORT E ---
Operative Report NAME: DARIELA RILEY : 1935 AGE: 83Y DATE OF SURGERY: 08/31/2018 ROOM: PREOPERATIVE DIAGNOSIS: 1. MALFUNCTIONING AV FISTULA, RIGHT RADIOCEPHALIC. 2. END-STAGE RENAL DISEASE ON HEMODIALYSIS. 3. DIABETES MELLITUS TYPE 2. 4. CORONARY ARTERY DISEASE. 5. PERMANENT PACEMAKER. 6. HYPERTENSION. POSTOPERATIVE DIAGNOSIS: 1. MALFUNCTIONING AV FISTULA, RIGHT RADIOCEPHALIC. 2. END-STAGE RENAL DISEASE ON HEMODIALYSIS. 3. DIABETES MELLITUS TYPE 2. 4. CORONARY ARTERY DISEASE. 5. PERMANENT PACEMAKER. 6. HYPERTENSION. 7. STATUS POST IMPROVEMENT IN AV FISTULA. OPERATION: 1. Needle access into fistula, antegrade. 2. Angiogram and angioplasty. 3. Angiogram interpretation. SURGEON: DANYA MEDELLIN M.D. ANESTHESIA: Monitored sedation. OPERATIVE FINDINGS: Consisted of a well-sounded right radiocephalic fistula. Somewhat firm, suggesting cephalad stenosis. This was confirmed on angiogram when several stenoses with an of about 70% stenosis noted at about 14 cm from the anastomosis, extending for about 3 cm. by angioplasty with eradication of the stenosis. An 8 mm angioplasty balloon was employed. COMPLICATIONS: None. INDICATION: This procedure was done because of question of malfunction and inadequate dialysis noted by the hemodialysis staff. The patient was referred for correction of the stenosis found for optimization of fistula use. OPERATIVE PROCEDURE: After going over the procedure with the patient, he was taken to the labor specialist and positioned supine. The patient's right upper extremity was prepared with chlorhexidine and draped out with sterile linen. Local anesthesia was infiltrated in the access skin through the fistula using a micropuncture needle followed by a micropuncture wire and a micropuncture catheter. This was followed by 0.035 Glidewire. This allowed introduction of a 7-Haitian introducer. Angiogram was obtained with the findings as above. Based on these findings, an 8 mm high-pressure balloon was now inserted and positioned optimally across the culprit area. Inflation was now done using hand injection using a 3 mL syringe. This was done for 2 minutes. This was repeated as necessary. Completion angiogram demonstrated eradication of the stenosis and was accepted. Instrumentation was then removed and gentle pressure held for 10 minutes, allowing for hemostasis at the access site. Dressings applied and the procedure concluded. DICTATING PHYSICIAN: DANYA MEDELLIN M.D. [id number] PHY#: [id number] ID: [id number] JOB#: [id number] ACCT: [id number] cc:DANYA MEDELLIN M.D. >
--- NOTE | 2018-10-23 01:02 | HISTORY AND PHYSICAL E ---
History and Physical NAME: DARIELA RILEY : 1935 AGE: 83Y ADMITTED: 08/31/2018 ROOM: ADMITTING DIAGNOSES: 1. MALFUNCTIONING AV FISTULA, RIGHT RADIOCEPHALIC. 2. END-STAGE RENAL DISEASE ON HEMODIALYSIS. 3. CORONARY ARTERY DISEASE. 4. PERMANENT PACEMAKER. 5. DIABETES MELLITUS TYPE 2. 6. HYPERTENSION. HISTORY OF THE PRESENTING COMPLAINT: This patient was referred from the dialysis unit because of inadequate flows in his arteriovenous fistula. PAST MEDICAL HISTORY: End-stage renal disease, coronary artery disease, diabetes mellitus, and hypertension. PRIOR SURGERIES: Are numerous and do include a permanent pacemaker on the left. He has had an AV fistula in the right forearm, which has served him for years. Numerous revisions. ALLERGIES: Unknown. REVIEW OF SYSTEMS: Unremarkable otherwise. PHYSICAL EXAMINATION: GENERAL: A pleasant 83-year-old -[place] male. Alert, oriented, judgment, memory, and insight are normal. EYES: Mucous membranes pink and moist. Sclerae anicteric. OROPHARYNX: Shows partial dentition. RESPIRATORY: No shortness of breath, no wheezing. Breath sounds are normal and equal. CHEST: Pertinent for a left-sided pacemaker. EXTREMITIES: Show normal range of movements and pulses down to the radials. On the right side the patient has a mature radiocephalic fistula which is easily palpable. Somewhat soft suggesting inflow stenosis. PLAN: The plan is to admit the patient for fistula angiogram and angioplasty if needed. The procedure, its risks, benefits, expected outcome, and alternatives are familiar to the patient. DICTATING PHYSICIAN: DANYA MEDELLIN M.D. [id number] PHY#: [id number] ID: [id number] JOB#: [id number] ACCT: [id number] cc:DANYA MEDELLIN M.D. >
== END 2018-08-31 10:45 | disposition home or self-care (01) ==
LOC: CCL 06:39
PROVIDERS: ATTEND Surgery
DX: T82.858A Stenosis of other vascular prosthetic devices, implants and grafts, initial encounter (principal); Y83.2 Surgical operation with anastomosis, bypass or graft as the cause of abnormal reaction of the patient, or of later complication, without mention of misadventure at the time of the procedure; I12.0 Hypertensive chronic kidney disease with stage 5 chronic kidney disease or end stage renal disease; E11.22 Type 2 diabetes mellitus with diabetic chronic kidney disease; N18.6 End stage renal disease; Z99.2 Dependence on renal dialysis; I25.10 Atherosclerotic heart disease of native coronary artery without angina pectoris; Z95.0 Presence of cardiac pacemaker; Z01.818 Encounter for other preprocedural examination
CPT/HCPCS: 36902; 76937; C1725; C1752; C1887; C1894; Q9967; C1769; J2997; J2250; J1644 ×2; J3010; J3490

== ENCOUNTER 2018-10-26 09:10 | Day surgery (SDC) | payer MEDICARE, OTHER ==
[~2018-10-26 09:10] MED LIST changes: +DIAZEPAM 5 MG TABLET PO PRN; -LIDOCAINE 2% INJ-PF (20 MG/ML) 10 ML AMPUL ONE; +OXYCODONE-ACETAMINOPHEN 5-325 MG TABLET PO PRN
[2018-10-26] MEDS ORDERED: OXYCODONE-ACETAMINOPHEN 5-325 MG TABLET ONE (09:21)
[2018-10-26] MEDS ORDERED: DIAZEPAM 5 MG TABLET ONE (09:21)
[2018-10-26 09:47] LABS: HEMATOCRIT 35.8 % (37.9-51.0); HEMOGLOBIN 11.7 g/dL (13.5-17.0); MEAN CORPUSCULAR HEMOGLOBIN 33.1 pg (27.0-33.4); MEAN CORPUSCULAR HGB CONC 32.6 g/dL (32.0-36.0); MEAN CORPUSCULAR VOLUME 101 fl (80-97); PLATELET COUNT 135 10^3/uL (150-450); RED BLOOD COUNT 3.53 10^6/uL (4.35-5.55); RED CELL DISTRIBUTION WIDTH 14.7 % (11.5-14.0); WHITE BLOOD COUNT 8.2 10^3/uL (4.0-10.5)
[2018-10-26 10:14] LABS: ANION GAP 13 (5-19); BLOOD UREA NITROGEN 70 mg/dL (7-20); CALCIUM 8.8 mg/dL (8.4-10.2); CARBON DIOXIDE 27 mmol/L (22-30); CHLORIDE 103 mmol/L (98-107); GLUCOSE 111 mg/dL (75-110); POTASSIUM 5.2 mmol/L (3.6-5.0); SODIUM 143.4 mmol/L (137-145)
[2018-10-26] MEDS ORDERED: FENTANYL CITRATE INJ/PF 100 MCG/2 ML AMPUL ONE (12:11)
[2018-10-26] MEDS ORDERED: MIDAZOLAM 2 MG/2 ML INJ ONE (12:11)
[2018-10-26] MEDS ORDERED: HEPARIN SOD (PORCINE) 5,000 UNIT/ML 1 ML SYRINGE ONE (12:11)
[2018-10-26] MEDS ORDERED: LIDOCAINE 0.5% INJ-PF (5 MG/ML) 50 ML SDV ONE (12:11)
--- NOTE | 2018-10-26 14:25 | PDOC H&P ---
General Chief Complaint: The patient was referred across because of high pressures in the AV fistula. - Diagnosis (1) Malfunction of arteriovenous dialysis fistula Is this a Current Diagnosis?: Yes (2) Coronary artery disease Is this a Current Diagnosis?: Yes - Current Medications/Allergies Home Medications: Allopurinol [Zyloprim 100 mg Tablet] 100 mg PO DAILY 03/24/17 Folic Acid/Vitamin B Comp W-C [Renavit Tablet] 1 tab PO DAILY 03/24/17 Insulin Glargine,Hum.rec.anlog [Lantus] 5 units SUBCUT QHS 03/24/17 Metoprolol Succinate 25 mg PO DAILY 03/24/17 Pantoprazole Sodium 40 mg PO DAILY 03/24/17 Simvastatin 20 mg PO QHS 03/24/17 Ergocalciferol (Vitamin D2) [Drisdol 50,000 unit (1.25MG) Capsule] 1 cap PO ASDIR PRN 08/04/17 Nitroglycerin 4.1 gm TL PRN PRN 08/04/17 Levothyroxine Sodium [Synthroid] 112 mcg PO DAILY 08/09/17 Ferric Citrate [Auryxia] 2 tab PO ASDIR PRN 10/15/17 Hydralazine HCl 50 mg PO BID 12/15/17 Aspirin [Aspirin 81 mg Chewable Tablet] 81 mg PO DAILY 08/21/18 Allergies/Adverse Reactions: tuberculin, purified protein deriva Allergy (Severe, Verified 10/26/18 07:16) PPD CONVERTER Past Medical History Cardiac Medical History: Reports: Hyperlipidema, Hypertension Denies: Coronary Artery Disease, Myocardial Infarction Pulmonary Medical History: Denies: Asthma, Bronchitis, Chronic Obstructive Pulmonary Disease (COPD), Pneumonia Neurological Medical History: Reports: Seizures Endocrine Medical History: Reports: Diabetes Mellitus Type 2, Hypothyroidism Renal/ Medical History: Reports: End Stage Renal Disease GI Medical History: Reports: Gastroesophageal Reflux Disease Denies: Hepatitis, Hiatal Hernia Musculoskeltal Medical History: Reports: Gout Denies: Arthritis Hematology: Reports: Anemia Denies: Sickle Cell Disease Past Surgical History Past Surgical History: Reports: Cardiac Catheterization - Stent placed 2016 @[facility], Pacemaker - 3 YEARS AGO, Vascular Surgery - PermCath insertion. Right radiocephalic fistula insertion. Family History Family History: Reviewed & Not Pertinent Parental Family History Reviewed: No Children Family History Reviewed: No Sibling(s) Family History Reviewed.: No Social History Smoking Status: Never Smoker Physical Exam Vital Signs: Temp Pulse Resp BP Pulse Ox 98.2 F 66 16 150/71 H 99 10/26/18 09:15 10/26/18 14:02 10/26/18 14:02 10/26/18 14:02 10/26/18 14:02 Intake & Output 10/25/18 10/26/18 10/27/18 06:59 06:59 06:59 Weight 107.955 kg Additional comments: Constitutional: Well-developed well-nourished -[place]ov[place] gentleman. No apparent acute distress. Eyes: Mucous membranes pink and moist, pupils equal and reactive to light. Conjunctiva normal. Cornea normal. ENT: Hearing grossly normal. External pinna normal to inspection. Teeth mostly intact. Tongue normal to inspection. Cardiac: Heart sounds 1 and 2 normal. Left-sided permanent pacemaker in place. Respiratory breath sounds are present bilaterally, normal. Normal respiratory effort. Psychiatric: Judgment, memory, insight seem normal. Mood is pleasant and appropriate. Extremities: Upper extremities show normal range of movement. Pulses present noted to the radial arteries. Capillary refill normal. No cyanosis noted. No muscle wasting noted. Right-sided radiocephalic fistula, well-established. Considerable scarring from numerous interventions. Somewhat firm proximally suggesting a cephalad to mid fistula stenosis. Impression/Plan Plan: In this patient with high pressures noted in the proximal fistula angiogram is indicated to evaluate and possibly do angioplasty. The risks, benefits, expected outcome and alternatives are familiar to the patient. He wishes to proceed.
--- NOTE | 2018-10-26 14:27 | Discharge Summary ---
Discharge Summary (SDC) - Discharge Final Diagnosis: #1 malfunctioning AV fistula, right radiocephalic. 2. End-stage renal disease on hemodialysis. 3. Permanent pacemaker in place. 4. Diabetes mellitus type 2. 5. Hypertension. Date of Surgery: 10/26/18 Discharge Date: 10/26/18 Condition: Fair Forms: Sedation D/C Instructions, Discharge POC-Surgical Service Treatment or Instructions: Discharge home [after recovery per ASU criteria]. Diet , [renal],as tolerated, when fully awake advance as tolerated. Activities within moderation encouraged. Follow up in my office by appointment in about [1 week]. Call for appointment. Leave wounds [covered], [keep clean and dry, until hemodialysis. Follow-up in office by appointment in about 1 month. Meds per med rec. May shower [in 48 hrs], [try to keep operated area as dry as possible]. Referrals: MO SOUZA MD [Primary Care Provider] - DANYA MEDELLIN MD [ACTIVE STAFF] - Respiratory Treatments at Home: Deep Breathing/Coughing Discharge Activity: Activity As Tolerated, No Driving, No Lifting Over 10 Pounds , No Lifting/Push/Pulling, Slowly Increase Activity, No tub bath Home Care Assistance: None Needed Report the Following to Your Physician Immediately: Shortness of Breath, Vomiting, Increase in Pain, Fever over 101 Degrees, Unusual Bleeding, Redness, Swelling, Warmth, Increased Soreness, Drainage-Yellow, Drainage-Strong, Drainage- Green, Drainage-Foul Smelling, Wheezing, IV Site Infection Signs
--- NOTE | 2018-10-26 14:32 | Operative Report ---
Operative Report DATE OF SURGERY: 10/26/18 PREOPERATIVE DIAGNOSIS: #1 malfunctioning AV fistula, right radiocephalic. 2. End-stage renal disease on hemodialysis. 3. Permanent pacemaker in place. 4. Diabetes mellitus type 2. 5. Hypertension. POSTOPERATIVE DIAGNOSIS: #1 malfunctioning AV fistula, right radiocephalic. 2. End-stage renal disease on hemodialysis. 3. Permanent pacemaker in place. 4. Diabetes mellitus type 2. 5. Hypertension. OPERATION: 1. Knee left and treat AV fistula right radiocephalic. 2. Angioplasty and AV fistula. 3. Drug-eluting balloon and AV fistula. 4. Angiogram and interpretation. SURGEON: DANYA GARCIA LINE PILOT: None. ANESTHESIA: Moderate Sedation TISSUE REMOVED OR ALTERED: Not applicable. COMPLICATIONS: None. ESTIMATED BLOOD LOSS: 2 mL. INTRAOPERATIVE FINDINGS: Of a well founded right forearm radiocephalic fistula. Somewhat firm in the proximal 14 cm, softer cephalad. Concordant finding of stenosis at about 14 cm estimated to be 80% of the adjacent lumen. Satisfactory resolution by angioplasty. Findings to but patient post procedure quite satisfactory. PROCEDURE: PROCEDURE: After verifying the procedure and having obtained informed consent, the patient's right arm and forearm were prepared with Chlorhexidine and draped out with sterile linen. Local anesthesia infiltrated. Percutaneous access into the fistula ,[ antegrade], obtained about [4 cm] from the arteriovenous anastomosis using a micro puncture needle followed by micro puncture wire and then a micro puncture catheter. A 0.035 [place] wire was inserted, and over this, a 7 Albanian short introducer was placed, this was followed by a [8 -mm ] angioplasty balloon . Angioplasty was done at the culprit area 14 cm covering an adjacent subclinical stenosis.. Inflating up to 14 atmospheres for a minute at a time.]. Completion angiogram demonstrated [satisfactory result]. A drug-eluting balloons, 6 cm long was now placed over the segment over the Glidewire. It was inflated up to 11 arjun and sustained for 4 minutes. Completion angiogram was satisfactory with elimination of the stenosed area. Also much improved findings on palpation. The instrumentation was now withdrawn over a short piece of catheter and a 5-0 Prolene suture. Dressings applied, procedure concluded. DICTATING PHYSICIAN: DANYA MEDLELIN M.D. cc: DANYA MEDELLIN M.D. ([id number]) >>
[2018-10-26 15:10] VITALS: BP 157/78
--- NOTE | 2018-10-26 15:21 | RADIOLOGY REPORT (SQ) ---
EXAM DESCRIPTION: FISTULAGRAM W/PLASTY COMPLETED DATE/TIME: 10/26/2018 1:32 pm REASON FOR STUDY: T82.858A T82.858A STENOSIS OF OTHER VASCULAR PROSTH DEV/GRFT, INIT FLUOROSCOPY TIME: 0.2 minutes 40 digital Images saved to PACS TECHNIQUE: Intra-operative images acquired during surgical procedure to evaluate progress. NUMBER OF IMAGES: 40 digital radiographic images saved to pac's LIMITATIONS: None. FINDINGS: Intra procedural imaging and fluoro during evaluation and plasty of right upper extremity dialysis access by Dr. Tubbs. Please see his operative report IMPRESSION: Intra procedural imaging and fluoro COMMENT: Quality ID [id number]: Final reports for procedures using fluoroscopy that document radiation exp osure indices, or exposure time and number of fluorographic images (if radiation exposure indices are not available) Please consult full operative report of the attending physician for description of the procedure. TECHNICAL DOCUMENTATION: JOB ID: [id number] [employer]- All Rights Reserved COMPARISON: None. 08/31/2018 Reading location - IP/workstation name: [email or web address]
== END 2018-10-26 15:05 | disposition home or self-care (01) ==
LOC: CCL 09:10
PROVIDERS: ATTEND Surgery
DX: T82.858A Stenosis of other vascular prosthetic devices, implants and grafts, initial encounter (principal); Y83.2 Surgical operation with anastomosis, bypass or graft as the cause of abnormal reaction of the patient, or of later complication, without mention of misadventure at the time of the procedure; I12.0 Hypertensive chronic kidney disease with stage 5 chronic kidney disease or end stage renal disease; E78.5 Hyperlipidemia, unspecified; I25.10 Atherosclerotic heart disease of native coronary artery without angina pectoris; Z79.899 Other long term (current) drug therapy; Z79.4 Long term (current) use of insulin; Z79.82 Long term (current) use of aspirin; E03.9 Hypothyroidism, unspecified; D64.9 Anemia, unspecified; M10.9 Gout, unspecified
CPT/HCPCS: 36415; 85027; 80048; 36902; 76937; C1725; C1752; C1894; C1769; J2250; J1644 ×2; A9270 ×2; J3010; J3490

== ENCOUNTER 2018-11-26 08:28 | Emergency (ER) | payer MEDICARE, OTHER ==
[2018-11-26 08:34] VITALS: BP 139/58
--- NOTE | 2018-11-26 09:26 | ER Document Report ---
ED Medical Screen (RME) - General Chief Complaint: Leg Pain Stated Complaint: LEG PAIN Time Seen by Provider: 11/26/18 09:22 Mode of Arrival: Wheelchair Information source: Patient Notes: This is an 83-year-old man with history of arthritis and end-stage renal disease (hemodialysis) who presents to the emergency room with atraumatic right hip pain. Patient states he did have outpatient x-rays and that his primary care doctor told them that they did not "show anything". He was given medicine which she has not taken. He presents with persistent pain of the right hip. There are no recent x-rays in the [facility]. TRAVEL OUTSIDE OF THE [place] IN LAST 30 DAYS: No - Related Data Allergies/Adverse Reactions: tuberculin, purified protein deriva Allergy (Severe, Verified 10/26/18 07:16) PPD CONVERTER Past Medical History - Past Medical History Cardiac Medical History: Reports: Hx Hypercholesterolemia, Hx Hypertension Denies: Hx Coronary Artery Disease, Hx Heart Attack Pulmonary Medical History: Denies: Hx Asthma, Hx Bronchitis, Hx COPD, Hx Pneumonia Neurological Medical History: Reports: Hx Seizures. Denies: Hx Cerebrovascular Accident Endocrine Medical History: Reports: Hx Diabetes Mellitus Type 2, Hx Hypothyroidism Renal/ Medical History: Reports: Hx End Stage Renal Disease, Hx Hemodialysis. Denies: Hx Peritoneal Dialysis GI Medical History: Reports: Hx Gastroesophageal Reflux Disease. Denies: Hx Hepatitis, Hx Hiatal Hernia, Hx Ulcer Musculoskeltal Medical History: Denies Hx Arthritis, Reports Hx Gout Infectious Medical History: Denies: Hx Hepatitis Past Surgical History: Reports: Hx Abdominal Surgery - Hernia, Hx Cardiac C atheterization - Stent placed 02/24/2017 @[facility], Hx Cardiac Surgery - pacemaker, Stent, Hx Oral Surgery, Hx Pacemaker - 3 YEARS AGO, Hx Vascular Surgery - PermCath insertion. Right radiocephalic fistula insertion.. Denies: Hx Open Heart Surgery - STENT LAST YEAR FEBRUARY - Immunizations Hx Diphtheria, Pertussis, Tetanus Vaccination: Yes History of Influenza Vaccine for 08/2017 - 01/2018 Season: No Influenza Administration Date for 08/2017 - 01/2018 Season: 07/11/17 Physical Exam - Vital signs Vitals: Temp Pulse Resp BP Pulse Ox 98.1 F 63 18 139/58 H 99 11/26/18 08:33 11/26/18 08:33 11/26/18 08:33 11/26/18 08:33 11/26/18 08:33 Course - Vital Signs Vital signs: Temp Pulse Resp BP Pulse Ox 98.1 F 63 18 139/58 H 99 11/26/18 08:33 11/26/18 08:33 11/26/18 08:33 11/26/18 08:33 11/26/18 08:33 Doctor's Discharge - Discharge Referrals: MO SOUZA MD [Primary Care Provider] - Follow up as needed
--- NOTE | 2018-11-26 10:30 | RADIOLOGY REPORT (SQ) ---
EXAM DESCRIPTION: HIP RIGHT AP/LATERAL COMPLETED DATE/TIME: 11/26/2018 10:18 am REASON FOR STUDY: atraumatic right hip pain COMPARISON: None. NUMBER OF VIEWS: Two views. TECHNIQUE: AP pelvis and additional frog-leg view of the right hip. LIMITATIONS: None. FINDINGS: MINERALIZATION: Normal. RIGHT HIP: No fracture or dislocation. Slightly sclerotic appearance of the femoral head. No worris ome bone lesions. No contour deformity. No joint space narrowing. LEFT HIP: No fracture or dislocation. Slightly sclerotic appearance of the femoral head. No worriso me bone lesions. PUBIS AND ISCHIUM: No fracture. PELVIS: No fracture. SACRUM: No fracture or dislocation. No worrisome bone lesions. LOWER LUMBAR SPINE: No fracture or dislocation. No worrisome bone lesions. Degenerative disc disease . SOFT TISSUES: No findings. OTHER: No other significant finding. IMPRESSION: CHRONIC DEGENERATIVE CHANGES. NO ACUTE FINDINGS. TECHNICAL DOCUMENTATION: JOB ID: [id number] [employer]- All Rights Reserved Reading location - IP/workstation name: [facility]
--- NOTE | 2018-11-26 11:02 | ER Document Report ---
ED Extremity Problem, Lower - General Chief Complaint: Leg Pain Stated Complaint: LEG PAIN Time Seen by Provider: 11/26/18 09:22 Mode of Arrival: Wheelchair Notes: 83-year-old male to emergency department for evaluation of right hip pain. Patient states that this pain is been going on for quite some time. Has told his regular doctor about it but has not gotten any answers. Came here to see if there is anything else we can do. Denies any fever, chills, sweats. Denies any trauma. TRAVEL OUTSIDE OF THE [place] IN LAST 30 DAYS: No - HPI Patient complains to provider of: Pain Location: Hip - Related Data Allergies/Adverse Reactions: tuberculin, purified protein deriva Allergy (Severe, Verified 10/26/18 07:16) PPD CONVERTER Past Medical History - General Information source: Patient - Social History Smoking Status: Never Smoker Chew tobacco use (# tins/day): No Frequency of alcohol use: None Drug Abuse: None Lives with: Alone Family History: Reviewed & Not Pertinent Patient has suicidal ideation: No Patient has homicidal ideation: No - Past Medical History Cardiac Medical History: Reports: Hx Hypercholesterolemia, Hx Hypertension Denies: Hx Coronary Artery Disease, Hx Heart Attack Pulmonary Medical History: Denies: Hx Asthma, Hx Bronchitis, Hx COPD, Hx Pneumonia Neurological Medical History: Reports: Hx Seizures. Denies: Hx Cerebrovascular Accident Endocrine Medical History: Reports: Hx Diabetes Mellitus Type 2, Hx Hypothyroidism Renal/ Medical History: Reports: Hx End Stage Renal Disease, Hx Hemodialysis. Denies: Hx Peritoneal Dialysis GI Medical History: Reports: Hx Gastroesophageal Reflux Disease. Denies: Hx Hepatitis, Hx Hiatal Hernia, Hx Ulcer Musculoskeletal Medical History: Denies Hx Arthritis, Reports Hx Gout Infectious Medical History: Denies: Hx Hepatitis Past Surgical History: Reports: Hx Abdominal Surgery - Hernia, Hx Cardiac Catheterization - Stent placed 02/24/2017 @[facility], Hx Cardiac Surgery - pacemaker, Stent, Hx Oral Surgery, Hx Pacemaker - 3 YEARS AGO, Hx Vascular Surgery - PermCath insertion. Right radiocephalic fistula insertion.. Denies: Hx Open Heart Surgery - STENT LAST YEAR FEBRUARY - Immunizations Hx Diphtheria, Pertussis, Tetanus Vaccination: Yes Hx Pneumococcal Vaccination: 11/10/12 Review of Systems - Review of Systems Constitutional: denies: Fever, Malaise, Weakness Cardiovascular: denies: Chest pain, Dizziness, Lightheaded Respiratory: denies: Cough, Short of breath, Wheezing Gastrointestinal: denies: Abdominal pain, Diarrhea, Nausea Genitourinary: denies: Discharge, Hematuria Male Genitourinary: denies: Penile discharge Musculoskeletal: Joint pain. denies: Back pain, Neck pain Skin: denies: Dryness, Lesions, Lumps, Rash Neurological/Psychological: denies: Weakness, Numbness, Tingling Physical Exam - Vital signs Vitals: Temp Pulse Resp BP Pulse Ox 98.1 F 63 18 139/58 H 99 11/26/18 08:33 11/26/18 08:33 11/26/18 08:33 11/26/18 08:33 11/26/18 08:33 Interpretation: Normal - General General appearance: Appears well, Alert - HEENT Head: Normocephalic, Atraumatic Eyes: Normal Pupils: PERRL - Respiratory Respiratory status: No respiratory distress Chest status: Nontender Breath sounds: Normal Chest palpation: Normal - Cardiovascular Rhythm: Regular Heart sounds: Normal auscultation Murmur: No - Abdominal Inspection: Normal Distension: No distension Bowel sounds: Normal Tenderness: Nontender Organomegaly: No organomegaly - Back Back: Normal, Nontender - Extremities General upper extremity: Normal inspection, Nontender, Normal color, Normal ROM, Normal temperature General lower extremity: Normal inspection, Nontender, Normal color, Normal ROM, Normal temperature, Normal weight bearing. No: Jono's sign - Neurological Neuro grossly intact: Yes Cognition: Normal Orientation: AAOx4 Jacque Coma Scale Eye Opening: Spontaneous Jacque Coma Scale Verbal: Oriented [place] Coma Scale Motor: Obeys Commands Jacque Coma Scale Total: 15 Speech: Normal Motor strength normal: LUE, RUE, LLE, RLE Sensory: Normal - Psychological Associated symptoms: Normal affect, Normal mood - Skin Skin Temperature: Warm Skin Moisture: Dry Skin Color: Normal Course - Re-evaluation Re-evalutation: 11/26/18 20:02 Well-appearing male. Does have some pain in the right hip reportedly. X-ray and CT scan performed. CT was performed based on the fact the patient had a history of prostate cancer with this abnormal pain in the hip making sure there was no metastatic lesions are tumors. This does not appear to be the case. Patient did not want any pain medications. Patient was discharged in stable condition. Hip/Pelvis X-Ray 11/26/18 09:25 IMPRESSION: CHRONIC DEGENERATIVE CHANGES. NO ACUTE FINDINGS. Pelvis CT 11/26/18 11:20 IMPRESSION: DEGENERATIVE CHANGES IN THE SPINE AND HIPS. NO FRACTURE OR OTHER ACUTE FINDINGS. - Vital Signs Vital signs: Temp Pulse Resp BP Pulse Ox 98.1 F 63 18 139/58 H 99 11/26/18 08:33 11/26/18 08:33 11/26/18 08:33 11/26/18 08:33 11/26/18 08:33 Discharge - Discharge Clinical Impression: Right hip pain Condition: Good Disposition: HOME, SELF-CARE Instructions: Arthralgia ([facility]), Arthritis ([facility]) Referrals: MO SOUZA MD [Primary Care Provider] - Follow up as needed
--- NOTE | 2018-11-26 12:18 | RADIOLOGY REPORT (SQ) ---
EXAM DESCRIPTION: CT PELVIS WITHOUT COMPLETED DATE/TIME: 11/26/2018 11:42 am REASON FOR STUDY: right pelvis pain and right hip pain, hx prost CA COMPARISON: None. TECHNIQUE: CT scan of the pelvis performed without intravenous or oral contrast. Images reviewed wi th soft tissue and bone windows. Reconstructed coronal and sagittal MPR images reviewed. All images stored on PACS. All CT scanners at this facility use dose modulation, iterative reconstruction, and/or weight based d osing when appropriate to reduce radiation dose to as low as reasonably achievable (ALARA). [facility]: Dose Right [facility]: CareDose [facility]: Dose Right [facility]: Teradose 4D [facility]: Mediasurface RADIATION DOSE: CT Rad equipment meets quality standard of care and radiation dose reduction techniq ues were employed. CTDIvol: 39.2 mGy. DLP: 1103 mGy-cm. mGy. LIMITATIONS: None. FINDINGS: PELVIC BONES: No acute fracture. No worrisome bone lesions. VISUALIZED SPINE: Degenerative changes. No acute findings. HIP(S): No acute fracture or dislocation. Degenerative changes with multiple subchondral cysts. No worrisome bone lesions. PELVIC SOFT TISSUES: No significant findings. EXTRAPELVIC SOFT TISSUES: No significant findings. OTHER: No other significant finding. IMPRESSION: DEGENERATIVE CHANGES IN THE SPINE AND HIPS. NO FRACTURE OR OTHER ACUTE FINDINGS. TECHNICAL DOCUMENTATION: JOB ID: [id number] Quality ID # [id number]: Final reports with documentation of one or more dose reduction techniques (e.g., Au tomated exposure control, adjustment of the mA and/or kV according to patient size, use of iterative reconstruction technique) 2010 [employer]- All Rights Reserved Reading location - IP/workstation name: [email or web address]
== END 2018-11-26 13:39 | disposition home or self-care (01) ==
LOC: ER 08:28
DX: M25.551 Pain in right hip (principal); E78.00 Pure hypercholesterolemia, unspecified; I12.0 Hypertensive chronic kidney disease with stage 5 chronic kidney disease or end stage renal disease; E11.22 Type 2 diabetes mellitus with diabetic chronic kidney disease; N18.6 End stage renal disease; Z99.2 Dependence on renal dialysis; Z95.0 Presence of cardiac pacemaker; Z85.46 Personal history of malignant neoplasm of prostate
CPT/HCPCS: 72192; 99284

== ENCOUNTER → 2019-01-04 | Outpatient (CLI) | payer MEDICARE, OTHER ==
[2019-01-04 10:40] LABS: ALANINE AMINOTRANSFERASE 28 U/L (21-72); ALBUMIN 4.1 g/dL (3.5-5.0); ALKALINE PHOSPHATASE 328 U/L (38-126); ASPARTATE AMINO TRANSFERASE 34 U/L (17-59); CHOLESTEROL 105.43 mg/dL (0-200); TOTAL PROTEIN 7.1 g/dL (6.3-8.2); TRIGLYCERIDES 131 mg/dL (<150)
[2019-01-04 10:52] LABS: DIRECT LDL 47 mg/dL (<100)
[2019-01-04 11:01] LABS: BILIRUBIN,TOTAL 0.5 mg/dL (0.2-1.3)
== END ==
LOC: OD 09:07
PROVIDERS: ATTEND Physician Assistant
DX: E78.2 Mixed hyperlipidemia (principal); Z79.899 Other long term (current) drug therapy
CPT/HCPCS: 36415; 80061; 80076

== ENCOUNTER 2019-03-13 16:46 | Emergency (ER) | payer MEDICARE, OTHER ==
--- NOTE | 2019-03-13 17:35 | ER Document Report ---
ED Medical Screen (RME) - General Chief Complaint: Weakness Stated Complaint: LEG WEAKNESS Time Seen by Provider: 03/13/19 17:28 Primary Care Provider: Lauren RALPH MD [Primary Care Provider] - Follow up as needed Mode of Arrival: Wheelchair Information source: Patient TRAVEL OUTSIDE OF THE [place] IN LAST 30 DAYS: No - HPI Patient complains to provider of: WEAKNESS Notes: 03/13/19 17:33 Patient here with complaints of leg weakness. The patient has some chronic weakness, but today he was trying to get off of his toilet and was unable to due to his legs being weak. Complains of both legs being weak. No fever or injury. No chest pain or shortness of breath. No unilateral numbness, tingling, weakness. Exam Nontoxic-appearing, no distress. Fine crackles throughout. Heart sounds normal. Bilateral pitting edema to lower extremities. Equal strength to the bilateral lower extremities with generalized weakness. Nonfocal neuro exam. Plan CBC, CMP, mag, TSH, troponin, urine, EKG, chest x-ray An initial examination was made on the patient as part of the triage process, and it was determined a more comprehensive evaluation was necessary. Initial labs were ordered and patient was transferred to another provider in the ED who assumed care and finished evaluation and plan. - Related Data Allergies/Adverse Reactions: tuberculin, purified protein deriva Allergy (Severe, Verified 03/13/19 16:47) PPD CONVERTER Past Medical History - Past Medical History Cardiac Medical History: Reports: Hx Hypercholesterolemia, Hx Hypertension Denies: Hx Coronary Artery Disease, Hx Heart Attack Pulmonary Medical History: Denies: Hx Asthma, Hx Bronchitis, Hx COPD, Hx Pneumonia Neurological Medical History: Reports: Hx Seizures. Denies: Hx Cerebrovascular Accident Endocrine Medical History: Reports: Hx Diabetes Mellitus Type 2, Hx Hypothyroidism Renal/ Medical History: Reports: Hx End Stage Renal Disease, Hx Hemodialysis. Denies: Hx Peritoneal Dialysis GI Medical History: Reports: Hx Gastroesophageal Reflux Disease. Denies: Hx Hepatitis, Hx Hiatal Hernia, Hx Ulcer Musculoskeltal Medical History: Denies Hx Arthritis, Reports Hx Gout Infectious Medical History: Denies: Hx Hepatitis Past Surgical History: Reports: Hx Abdominal Surgery - Hernia, Hx Cardiac Catheterization - Stent placed 02/24/2017 @[facility], Hx Cardiac Surgery - pacemaker, Stent, Hx Oral Surgery, Hx Pacemaker - 3 YEARS AGO, Hx Vascular Surgery - PermCath insertion. Right radiocephalic fistula insertion.. Denies: Hx Open Heart Surgery - STENT LAST YEAR FEBRUARY - Immunizations Hx Diphtheria, Pertussis, Tetanus Vaccination: Yes History of Influenza Vaccine for 08/2017 - 01/2018 Season: No Influenza Administration Date for 08/2017 - 01/2018 Season: 07/11/17 Physical Exam - Vital signs Vitals: Temp Pulse Resp BP Pulse Ox 98.3 F 72 16 105/50 L 100 03/13/19 17:06 03/13/19 17:06 03/13/19 17:06 03/13/19 17:06 03/13/19 17:06 Course - Vital Signs Vital signs: Temp Pulse Resp BP Pulse Ox 98.3 F 72 16 105/50 L 100 03/13/19 17:06 03/13/19 17:06 03/13/19 17:06 03/13/19 17:06 03/13/19 17:06 Doctor's Discharge - Discharge Referrals: Lauren RALPH MD [Primary Care Provider] - Follow up as needed
--- NOTE | 2019-03-13 18:02 | RADIOLOGY REPORT (SQ) ---
EXAM DESCRIPTION: CHEST SINGLE VIEW COMPLETED DATE/TIME: 03/13/2019 5:45 pm REASON FOR STUDY: WEAKNESS COMPARISON: 07/28/2018 TECHNIQUE: Single frontal radiographic view of the chest acquired. NUMBER OF VIEWS: One view. LIMITATIONS: None. FINDINGS: LUNGS AND PLEURA: No pneumothorax. No consolidation or pleural effusion. MEDIASTINUM AND HILAR STRUCTURES: Stable. HEART AND VASCULAR STRUCTURES: Stable. BONES: No acute findings. HARDWARE: Cardiac pacer. OTHER: Metallic foreign body in the upper right chest wall similar to the prior study. IMPRESSION: NO ACUTE FINDINGS. TECHNICAL DOCUMENTATION: JOB ID: [id number] [place]-72 2010 [employer]- All Rights Reserved Reading location - IP/workstation name: [email or web address]
[2019-03-13 18:30] LABS: ABSOLUTE EOSINOPHILS # (AUTO) 0.2 10^3/uL (0.0-0.6); ABSOLUTE LYMPHOCYTES (AUTO) 0.8 10^3/uL (0.5-4.7); ABSOLUTE MONOCYTES (AUTO) 0.9 10^3/uL (0.1-1.4); ABSOLUTE NEUT (AUTO) 5.9 10^3/uL (1.7-8.2); BASOPHILS % (AUTO) 0.5 % (0-2); EOSINOPHILS % (AUTO) 2.8 % (0-6); HEMATOCRIT 35.1 % (37.9-51.0); HEMOGLOBIN 11.3 g/dL (13.5-17.0); LYMPHOCYTES % (AUTO) 10.4 % (13-45); MEAN CORPUSCULAR HEMOGLOBIN 32.8 pg (27.0-33.4); MEAN CORPUSCULAR HGB CONC 32.1 g/dL (32.0-36.0); MEAN CORPUSCULAR VOLUME 102 fl (80-97); MONOCYTES % (AUTO) 11.8 % (3-13); PLATELET COUNT 158 10^3/uL (150-450); RED BLOOD COUNT 3.44 10^6/uL (4.35-5.55); RED CELL DISTRIBUTION WIDTH 15.7 % (11.5-14.0); SEGMENTED NEUTROPHILS % (AUTO) 74.5 % (42-78); TOTAL CELLS COUNTED % (AUTO) 100 %; WHITE BLOOD COUNT 7.9 10^3/uL (4.0-10.5)
[2019-03-13 18:36] LABS: ALANINE AMINOTRANSFERASE 31 U/L (21-72); ALBUMIN 4.1 g/dL (3.5-5.0); ALKALINE PHOSPHATASE 282 U/L (38-126); ANION GAP 13 (5-19); ASPARTATE AMINO TRANSFERASE 33 U/L (17-59); BILIRUBIN,TOTAL 0.5 mg/dL (0.2-1.3); BLOOD UREA NITROGEN 27 mg/dL (7-20); CALCIUM 8.6 mg/dL (8.4-10.2); CARBON DIOXIDE 30 mmol/L (22-30); CHLORIDE 96 mmol/L (98-107); GLUCOSE 112 mg/dL (75-110); SODIUM 139.3 mmol/L (137-145); TOTAL PROTEIN 7.8 g/dL (6.3-8.2)
--- NOTE | 2019-03-13 18:46 | ER Document Report ---
ED General - General Chief Complaint: Weakness Stated Complaint: LEG WEAKNESS Time Seen by Provider: 03/13/19 17:28 Primary Care Provider: Lauren RALPH MD [ACTIVE STAFF] - Follow up as needed Mode of Arrival: Wheelchair Notes: 84-year-old male with end-stage renal disease on dialysis and CAD with a dual- lead PCM presents to the emergency room for chief complaint of leg weakness. Patient has underlying chronic weakness but today he was trying to get off the toilet and was unable due to his legs being weak. It was bilateral. He states he is not sure how long he was sitting on the toilet and did in fact say that he may have fallen asleep while sitting on it. He was unable to get to his bed and was laying in bed and then slowly started gaining strength. He denies any fevers or falls, no shortness of breath or chest pain, no unilateral numbness paresthesias, weakness, or paralysis. No other complaints. TRAVEL OUTSIDE OF THE [place] IN LAST 30 DAYS: No - Related Data Allergies/Adverse Reactions: tuberculin, purified protein deriva Allergy (Severe, Verified 03/13/19 16:47) PPD CONVERTER Past Medical History - General Information source: Patient - Social History Smoking Status: Unknown if Ever Smoked Chew tobacco use (# tins/day): No Frequency of alcohol use: None Drug Abuse: None Family History: Reviewed & Not Pertinent Patient has suicidal ideation: No Patient has homicidal ideation: No - Past Medical History Cardiac Medical History: Reports: Hx Hypercholesterolemia, Hx Hypertension Denies: Hx Coronary Artery Disease, Hx Heart Attack Pulmonary Medical History: Denies: Hx Asthma, Hx Bronchitis, Hx COPD, Hx Pneumonia Neurological Medical History: Reports: Hx Seizures. Denies: Hx Cerebrovascular Accident Endocrine Medical History: Reports: Hx Diabetes Mellitus Type 2, Hx Hypothyroidism Renal/ Medical History: Reports: Hx End Stage Renal Disease, Hx Hemodialysis. Denies: Hx Peritoneal Dialysis GI Medical History: Reports: Hx Gastroesophageal Reflux Disease. Denies: Hx Hepatitis, Hx Hiatal Hernia, Hx Ulcer Musculoskeletal Medical History: Denies Hx Arthritis, Reports Hx Gout Infectious Medical History: Denies: Hx Hepatitis Past Surgical History: Reports: Hx Abdominal Surgery - Hernia, Hx Cardiac Catheterization - Stent placed 02/24/2017 @[facility], Hx Cardiac Surgery - pacemaker, Stent, Hx Oral Surgery, Hx Pacemaker - 3 YEARS AGO, Hx Vascular Surgery - PermCath insertion. Right radiocephalic fistula insertion.. Denies: Hx Open Heart Surgery - STENT LAST YEAR FEBRUARY - Immunizations Hx Diphtheria, Pertussis, Tetanus Vaccination: Yes Hx Pneumococcal Vaccination: 11/10/12 Review of Systems - Review of Systems Constitutional: See HPI Cardiovascular: See HPI Respiratory: See HPI Neurological/Psychological: See HPI Physical Exam - Vital signs Vitals: Temp Pulse Resp BP Pulse Ox 98.3 F 72 16 105/50 L 100 03/13/19 17:06 03/13/19 17:06 03/13/19 17:06 03/13/19 17:06 03/13/19 17:06 - Notes Notes: PHYSICAL EXAMINATION: Reviewed vital signs and charting by RN GENERAL: Alert, interacts well. No acute distress. HEAD: Normocephalic, atraumatic. EYES: Pupils equal and round. Extraocular movements intact. ENT: Oral mucosa moist, tongue midline. NECK: Full range of motion. Supple. Trachea midline. LUNGS: Clear to auscultation bilaterally, no wheezes, rales, or rhonchi. No respiratory distress. HEART: Regular rate and rhythm. No murmur ABDOMEN: soft, non-tender. Non-distended. Bowel sounds present. no McBurney's point tenderness, no Lucero sign. EXTREMITIES: Moves all 4 extremities spontaneously. 1+ bilateral lower extremity edema, No cyanosis. Normal distal neurovascular exam, strength 5/5 in all 4 extremities, no weakness noted on exam, decreased sensory to light touch left leg worse than right leg NEUROLOGIC: Oriented and appropriate. Normal speech. PSYCH: Normal affect, normal mood. SKIN: Warm, dry, normal turgor. No rashes or lesions noted. Course - Re-evaluation Re-evalutation: 03/13/19 18:45 So pleasant 84-year-old male with poor hygiene presenting for bilateral lower extremity weakness. Lab work initiated and he had good full strength on physical exam. 03/13/19 19:24 All lab work returned normal, magnesium 1.9, TSH 1.0. At this time there is no evidence of electrolyte abnormalities that could cause the weakness, is most likely due to the patient sitting on the toilet for too long causing the paresthesias. Again, he has full strength and has a normal physical exam in his lower extremities and has sensation and a normal distal neurovascular exam in his lower extremities. At this time patient is safe and stable for discharge. - Vital Signs Vital signs: Temp Pulse Resp BP Pulse Ox 98.3 F 72 16 105/50 L 100 03/13/19 17:06 03/13/19 17:06 03/13/19 17:06 03/13/19 17:06 03/13/19 17:06 - Laboratory Result Diagrams: 03/13/19 18:00 03/13/19 18:00 Laboratory results interpreted by me: 03/13/19 03/13/19 18:00 18:00 RBC 3.44 L Hgb 11.3 L Hct 35.1 L MCV 102 H RDW 15.7 H Lymphocytes % 10.4 L Chloride 96 L BUN 27 H Creatinine 4.49 H Est GFR ( Amer) 15 L Est GFR (Non-Af Amer) 13 L Glucose 112 H Alkaline Phosphatase 282 H Discharge - Discharge Clinical Impression: Leg weakness, bilateral Condition: Good Disposition: HOME, SELF-CARE Additional Instructions: You were seen in the emergency department this afternoon for bilateral lower leg weakness. All of your lab work was within normal limits and very reassuring. Your physical exam was also reassuring and you were very strong. It is most likely from sitting on the toilet for too long causing your legs to go numb just from positioning. It is very important to not sit on the toilet for too long as these types of things can happen and it can also cause hemorrhoids. If you develop paralysis, numbness in one or more of your extremities, you do have severe chest pain, severe acute shortness of breath, you have bowel incontinence, you have numbness in your sit bones please immediately return to the emergency department for reevaluation. Referrals: Lauren RALPH MD [ACTIVE STAFF] - Follow up as needed
[2019-03-13 19:48] VITALS: BP 132/55
== END 2019-03-13 19:46 | disposition home or self-care (01) ==
LOC: ER 16:46
DX: R53.1 Weakness (principal); I25.10 Atherosclerotic heart disease of native coronary artery without angina pectoris; I12.0 Hypertensive chronic kidney disease with stage 5 chronic kidney disease or end stage renal disease; N18.6 End stage renal disease; E11.22 Type 2 diabetes mellitus with diabetic chronic kidney disease; Z99.2 Dependence on renal dialysis; R60.0 Localized edema; Z88.7 Allergy status to serum and vaccine; Z95.5 Presence of coronary angioplasty implant and graft
CPT/HCPCS: 36415; 71045; 80053; 83735; 84443; 84484; 85025; 99285

== ENCOUNTER → 2019-05-07 | Outpatient (CLI) | payer MEDICARE, OTHER ==
[2019-05-07 10:33] LABS: ALANINE AMINOTRANSFERASE 28 U/L (21-72); ALBUMIN 4.1 g/dL (3.5-5.0); ALKALINE PHOSPHATASE 395 U/L (38-126); ASPARTATE AMINO TRANSFERASE 30 U/L (17-59); BILIRUBIN,TOTAL 0.4 mg/dL (0.2-1.3); CHOLESTEROL 109.77 mg/dL (0-200); TRIGLYCERIDES 107 mg/dL (<150)
[2019-05-07 10:44] LABS: DIRECT LDL 50 mg/dL (<100)
== END ==
LOC: OD 07:27
PROVIDERS: ATTEND Physician Assistant
DX: E78.2 Mixed hyperlipidemia (principal); Z79.899 Other long term (current) drug therapy
CPT/HCPCS: 36415; 80061; 80076

== ENCOUNTER 2019-06-06 14:15 | Emergency (ER) | payer MEDICARE, OTHER ==
[2019-06-06] MEDS ORDERED: ASPIRIN 81 MG TABLET, CHEWABLE PO ONE (14:56)
--- NOTE | 2019-06-06 14:59 | ER Document Report ---
ED Medical Screen (RME) - General Chief Complaint: Sore Throat Stated Complaint: SORE THROAT Time Seen by Provider: 06/06/19 14:52 Primary Care Provider: CRIS DISLA PA-C [Primary Care Provider] - Follow up as needed Notes: Patient is a 84-year-old male dialysis patient presents to the emergency department for generalized sore throat, cough, congestion, shortness of breath and chest tightness that started on Friday. Patient states he missed dialysis yesterday due to these complaints. States he was unable to make an appointment with his primary care provider which is why he presents to the emergency de partment. Patient also notes bilateral lower extremities are "more swollen than normal." GENERAL: Alert, interacts well. No acute distress. LUNGS: Diminished to auscultation bilaterally, patient is not taking deep breaths. No respiratory distress. I have greeted and performed a rapid initial assessment of this patient. A comprehensive ED assessment and evaluation of the patient, analysis of test results and completion of the medical decision making process will be conducted by additional ED providers. I have specifically instructed the patient or family members with the patient to immediately return to any nursing staff should anything change in the patient's condition or with their chief complaint. This medical record was dictated with voice recognizing software. There may be grammatical, syntax errors that are unintended. TRAVEL OUTSIDE OF THE [place] IN LAST 30 DAYS: No - Related Data Allergies/Adverse Reactions: tuberculin, purified protein deriva Allergy (Severe, Verified 06/06/19 14:27) PPD CONVERTER Past Medical History - Past Medical History Cardiac Medical History: Reports: Hx Hypercholesterolemia, Hx Hypertension Denies: Hx Coronary Artery Disease, Hx Heart Attack Pulmonary Medical History: Denies: Hx Asthma, Hx Bronchitis, Hx COPD, Hx Pneumonia Neurological Medical History: Reports: Hx Seizures. Denies: Hx Cerebrovascular Accident Endocrine Medical History: Reports: Hx Diabetes Mellitus Type 2, Hx Hypothyroidism Renal/ Medical History: Reports: Hx End Stage Renal Disease, Hx Hemodialysis. Denies: Hx Peritoneal Dialysis GI Medical History: Reports: Hx Gastroesophageal Reflux Disease. Denies: Hx Hepatitis, Hx Hiatal Hernia, Hx Ulcer Musculoskeltal Medical History: Denies Hx Arthritis, Reports Hx Gout Infectious Medical History: Denies: Hx Hepatitis Past Surgical History: Reports: Hx Abdominal Surgery - Hernia, Hx Cardiac Catheterization - Stent placed 02/24/2017 @[facility], Hx Cardiac Surgery - pacemaker, Stent, Hx Oral Surgery, Hx Pacemaker - 3 YEARS AGO, Hx Vascular Surgery - PermCath insertion. Right radiocephalic fistula insertion.. Denies: Hx Open Heart Surgery - STENT LAST YEAR FEBRUARY - Immunizations Hx Diphtheria, Pertussis, Tetanus Vaccination: Yes History of Influenza Vaccine for 08/2017 - 01/2018 Season: No Influenza Administration Date for 08/2017 - 01/2018 Season: 07/11/17 Physical Exam - Vital signs Vitals: Temp Pulse Resp BP Pulse Ox 98.3 F 74 20 152/58 H 94 06/06/19 14:38 06/06/19 14:38 06/06/19 14:38 06/06/19 14:38 06/06/19 14:38 Course - Vital Signs Vital signs: Temp Pulse Resp BP Pulse Ox 98.3 F 74 20 152/58 H 94 06/06/19 14:38 06/06/19 14:38 06/06/19 14:38 06/06/19 14:38 06/06/19 14:38 Doctor's Discharge - Discharge Referrals: CRIS DISLA PAFelicianoC [Primary Care Provider] - Follow up as needed
--- NOTE | 2019-06-06 15:38 | RADIOLOGY REPORT (SQ) ---
EXAM DESCRIPTION: CHEST SINGLE VIEW COMPLETED DATE/TIME: 06/06/2019 3:31 pm REASON FOR STUDY: SOB COMPARISON: 03/13/2019 NUMBER OF VIEWS: One view. TECHNIQUE: Single frontal radiographic view of the chest acquired. LIMITATIONS: None. FINDINGS: LUNGS AND PLEURA: Central vascular congestion. Mild opacity over the cardiac apex is prob ably chronic and related to cardiomegaly. MEDIASTINUM AND HILAR STRUCTURES: Stable contours. HEART AND VASCULAR STRUCTURES: Cardiomegaly. BONES: No acute findings. HARDWARE: Left pacer with leads grossly intact. OTHER: No other significant finding. IMPRESSION: Cardiomegaly and mild vascular congestion. TECHNICAL DOCUMENTATION: JOB ID: [id number] [employer]- All Rights Reserved Reading location - IP/workstation name: [email or web address]
[2019-06-06 15:49] LABS: ABSOLUTE EOSINOPHILS # (AUTO) 0.2 10^3/uL (0.0-0.6); ABSOLUTE LYMPHOCYTES (AUTO) 0.8 10^3/uL (0.5-4.7); ABSOLUTE MONOCYTES (AUTO) 0.8 10^3/uL (0.1-1.4); ABSOLUTE NEUT (AUTO) 5.6 10^3/uL (1.7-8.2); BASOPHILS % (AUTO) 0.6 % (0-2); EOSINOPHILS % (AUTO) 2.4 % (0-6); HEMATOCRIT 31.5 % (37.9-51.0); HEMOGLOBIN 10.2 g/dL (13.5-17.0); LYMPHOCYTES % (AUTO) 11.2 % (13-45); MEAN CORPUSCULAR HEMOGLOBIN 31.6 pg (27.0-33.4); MEAN CORPUSCULAR HGB CONC 32.2 g/dL (32.0-36.0); MEAN CORPUSCULAR VOLUME 98 fl (80-97); MONOCYTES % (AUTO) 11.1 % (3-13); PLATELET COUNT 156 10^3/uL (150-450); RED BLOOD COUNT 3.21 10^6/uL (4.35-5.55); RED CELL DISTRIBUTION WIDTH 14.6 % (11.5-14.0); SEGMENTED NEUTROPHILS % (AUTO) 74.7 % (42-78); TOTAL CELLS COUNTED % (AUTO) 100 %; WHITE BLOOD COUNT 7.4 10^3/uL (4.0-10.5)
[2019-06-06 15:52] LABS: INTERNATIONAL RATION (INR) 1.17; PROTHROMBIN TIME 14.9 SEC (11.4-15.4)
[2019-06-06 16:02] LABS: ALANINE AMINOTRANSFERASE 19 U/L (21-72); ALBUMIN 3.9 g/dL (3.5-5.0); ALKALINE PHOSPHATASE 291 U/L (38-126); ANION GAP 16 (5-19); ASPARTATE AMINO TRANSFERASE 25 U/L (17-59); BILIRUBIN,TOTAL 0.4 mg/dL (0.2-1.3); BLOOD UREA NITROGEN 96 mg/dL (7-20); CALCIUM 8.9 mg/dL (8.4-10.2); CARBON DIOXIDE 22 mmol/L (22-30); CHLORIDE 103 mmol/L (98-107); CREATINE KINASE 121 U/L (55-170); GLUCOSE 105 mg/dL (75-110); POTASSIUM 4.3 mmol/L (3.6-5.0); TOTAL PROTEIN 7.2 g/dL (6.3-8.2)
[2019-06-06 16:14] LABS: CREATINE KINASE MB 1.14 ng/mL (<4.55); TROPONIN I 0.022 ng/mL
--- NOTE | 2019-06-06 16:59 | ER Document Report ---
ED Cardiac - General Chief Complaint: Sore Throat Stated Complaint: SORE THROAT Time Seen by Provider: 06/06/19 14:52 Primary Care Provider: CRIS DISLA PA-C [PHYSICIAN BUGGY LOADER] - Follow up as needed Information source: Patient Notes: HPI: Patient is an 84-year-old male that presents today stating 3 days ago he started to develop some nasal congestion, sore throat, and a cough. He states on Friday he had some anterior chest discomfort only with coughing. He denies any pain since then. He denies any fevers, calf pain, or leg swelling above baseline. Patient states that he did miss his dialysis session on Friday because he was not feeling well with the cough. He receives dialysis on Tuesdays, , and Friday. He already called the dialysis coordinator who is aware that he missed the dialysis session and has it scheduled upcoming. ROS: See HPI All other review of systems reviewed and otherwise negative Reviewed vital signs and nursing note as charted by RN. PHYSICAL EXAM: CONSTITUTIONAL: Alert and oriented and responds appropriately to questions. Well-appearing; well-nourished HEAD: Normocephalic; atraumatic EYES: PERRL; Conjunctivae clear, sclerae non-icteric ENT: Normal nose; bilateral nonpurulent nasal rhinorrhea; moist mucous membranes; pharynx without lesions noted NECK: Supple without meningismus; non-tender; no cervical lymphadenopathy, no masses CARD: Regular rate and rhythm; no murmurs; symmetric distal pulses RESP: Normal chest excursion without splinting or tachypnea; breath sounds clear and equal bilaterally; no rhonchi with minimal scant rales ABD/GI: Normal bowel sounds; non-distended; soft, non-tender; no palpable organomegaly or masses BACK: The back appears normal and is non-tender to palpation EXT: Normal ROM in all joints; non-tender to palpation; 1+ edema to bilateral shins with no calf pain or leg swelling SKIN: No acute lesions noted NEURO: CN 2-12 intact; 5/5 bilateral upper and lower extremity strength with sensation intact to light touch PSYCH: The patient's mood and manner are appropriate. Grooming and personal hygiene are appropriate. TRAVEL OUTSIDE OF THE [place] IN LAST 30 DAYS: No - Related Data Allergies/Adverse Reactions: tuberculin, purified protein deriva Allergy (Severe, Verified 06/06/19 14:27) PPD CONVERTER Past Medical History - Social History Smoking Status: Never Smoker Chew tobacco use (# tins/day): No Frequency of alcohol use: None Drug Abuse: None Family History: Reviewed & Not Pertinent Patient has suicidal ideation: No Patient has homicidal ideation: No - Past Medical History Cardiac Medical History: Reports: Hx Hypercholesterolemia, Hx Hypertension Denies: Hx Coronary Artery Disease, Hx Heart Attack Pulmonary Medical History: Denies: Hx Asthma, Hx Bronchitis, Hx COPD, Hx Pneumonia Neurological Medical History: Reports: Hx Seizures. Denies: Hx Cerebrovascular Accident Endocrine Medical History: Reports: Hx Diabetes Mellitus Type 2, Hx Hypothyroidism Renal/ Medical History: Reports: Hx End Stage Renal Disease, Hx Hemodialysis. Denies: Hx Peritoneal Dialysis GI Medical History: Reports: Hx Gastroesophageal Reflux Disease. Denies: Hx Hepatitis, Hx Hiatal Hernia, Hx Ulcer Musculoskeletal Medical History: Denies Hx Arthritis, Reports Hx Gout Infectious Medical History: Denies: Hx Hepatitis Past Surgical History: Reports: Hx Abdominal Surgery - Hernia, Hx Cardiac Catheterization - Stent placed 02/24/2017 @[facility], Hx Cardiac Surgery - pacemaker, Stent, Hx Oral Surgery, Hx Pacemaker - 3 YEARS AGO, Hx Vascular Surgery - Pe rmCath insertion. Right radiocephalic fistula insertion.Comment Only: Hx Open Heart Surgery - STENT LAST YEAR FEBRUARY - Immunizations Hx Diphtheria, Pertussis, Tetanus Vaccination: Yes Hx Pneumococcal Vaccination: 11/10/12 Physical Exam - Vital signs Vitals: Temp Pulse Resp BP Pulse Ox 98.3 F 74 20 152/58 H 94 06/06/19 14:38 06/06/19 14:38 06/06/19 14:38 06/06/19 14:38 06/06/19 14:38 Course - Re-evaluation Re-evalutation: Given the history and physical examination, we will order basic labs, cardiac labs, x-ray of the chest, and reassess. In triage they ordered a BNP. I do not believe this is useful given the patient's dialysis. Patient has been afebrile. No posterior pharyngeal erythema, uvula swelling, or peritonsillar swelling. Neck is soft and supple. Patient has been afebrile without headache or vomiting. Chest pain only with coughing and the last time the patient had pain was on Friday. No calf pain or leg swelling above baseline. EKG shows a heart rate of about 65, atrial paced ventricular paced complexes with PVCs present 06/06/19 16:54 Labs as recorded. Normal white count. Potassium as recorded. Negative strep. X-ray of the chest shows some persistent cardiomegaly. No obvious infiltrates. Given the above history and physical I do believe that the patient most likely is suffering a viral type infection. I do not believe antibiotics are necessary at this moment. Given the patient's chest pain only with coughing, I do believe pulmonary embolism and aortic dissection to be unlikely. We will order repeat troponin III hours after the initial troponin and if there is no rise, patient will be discharged home. - Vital Signs Vital signs: Temp Pulse Resp BP Pulse Ox 98.3 F 74 20 152/58 H 94 06/06/19 14:38 06/06/19 14:38 06/06/19 14:38 06/06/19 14:38 06/06/19 14:38 - Laboratory Result Diagrams: 06/06/19 15:30 06/06/19 15:30 Laboratory results interpreted by me: 06/06/19 06/06/19 06/06/19 15:30 15:30 15:30 RBC 3.21 L Hgb 10.2 L Hct 31.5 L MCV 98 H RDW 14.6 H Lymphocytes % 11.2 L BUN 96 H Creatinine 11.21 H Est GFR ( Amer) 5 L Est GFR (Non-Af Amer) 4 L ALT 19 L Alkaline Phosphatase 291 H NT-Pro-B Natriuret Pep 25302 H Discharge - Discharge Clinical Impression: Nasal congestion, Sore throat (viral), Atypical chest pain Condition: Good Disposition: HOME, SELF-CARE Additional Instructions: Come back immediately with any worsening cough, difficulty breathing or swallowing, fevers or vomiting, increased leg swelling, or any other acute problems. Please make sure that you follow-up with your scheduled dialysis session. Referrals: CRIS DISLA PA-C [PHYSICIAN BUGGY LOADER] - Follow up as needed
[2019-06-06 19:23] VITALS: BP 162/76
--- NOTE | 2019-06-06 21:50 | EKG REPORT ---
SEVERITY:- ABNORMAL ECG - PACEMAKER SPIKES OR ARTIFACTS PROBABLE SINUS RHYTHM WITH LBBB VS V PACED BEATS : Confirmed by: Roz Cantu 06-Jun-2019 21:50:06
== END 2019-06-06 19:23 | disposition home or self-care (01) ==
LOC: ER 14:15
DX: J02.9 Acute pharyngitis, unspecified (principal); R09.81 Nasal congestion; R07.89 Other chest pain; E78.00 Pure hypercholesterolemia, unspecified; E11.22 Type 2 diabetes mellitus with diabetic chronic kidney disease; I12.0 Hypertensive chronic kidney disease with stage 5 chronic kidney disease or end stage renal disease; N18.6 End stage renal disease; Z99.2 Dependence on renal dialysis
CPT/HCPCS: 93005; 99284; 36415; 87070; 82553; 87880; 82550; 85025; 85610; 80053; 84484; 83880; 71045; 93010; A9270

== ENCOUNTER 2019-06-10 15:57 | Emergency (ER) | payer MEDICARE, OTHER ==
--- NOTE | 2019-06-10 17:05 | ER Document Report ---
ED Medical Screen (RME) - General Chief Complaint: Cough Stated Complaint: HEAD PAIN Time Seen by Provider: 06/10/19 16:53 Primary Care Provider: MO SOUZA MD [Primary Care Provider] - Follow up as needed TRAVEL OUTSIDE OF THE [place] IN LAST 30 DAYS: No - HPI Notes: 06/10/19 17:03 Patient is an 84-year-old male with a history of hypertension, insulin-dependent diabetes, CKD (on dialysis every Friday, , Friday) who presents complaining of dry semi-productive cough over the past week. He was evaluated a few days ago and was diagnosed with a viral illness at that time. Patient states that his dialysis provider did place him on an antibiotic which she has been on going on 3 days now. Patient states that he is still not feeling any better from his cough. He completed 2 hours of his dialysis today, but had to leave because he was not feeling well from the cough. Patient states that he has a little more shortness of breath than normal, but no chest pain. He is able to eat and drink without difficulty. He is having normal bowel movements. He has not noticed any more swelling in his lower extremities than normal. Denies ZELAYA, fever, neck pain, URI, CP, Abd pain, dysuria, or rash. I have treated and performed a rapid initial assessment of this patient. A comprehensive ED assessment and evaluation of the patient, analysis of test results and completion of medical decision making process will be conducted by additional ED providers. PHYSICAL EXAMINATION: GENERAL: Well-appearing, well-nourished and in no acute distress. A&Ox3. Answers questions appropriately. LUNGS: Diminished bilateral base. No retractions. HEART: Regular rate and rhythm without murmurs, rubs, gallops. Extremities: 2+ pitting edema b/l LE's - Related Data Allergies/Adverse Reactions: tuberculin, purified protein deriva Allergy (Severe, Verified 06/10/19 16:28) PPD CONVERTER Past Medical History - Past Medical History Cardiac Medical History: Reports: Hx Hypercholesterolemia, Hx Hypertension Denies: Hx Coronary Artery Disease, Hx Heart Attack Pulmonary Medical History: Denies: Hx Asthma, Hx Bronchitis, Hx COPD, Hx Pneumonia Neurological Medical History: Reports: Hx Seizures. Denies: Hx Cerebrovascular Accident Endocrine Medical History: Reports: Hx Diabetes Mellitus Type 2, Hx Hypothyroidism Renal/ Medical History: Reports: Hx End Stage Renal Disease, Hx Hemodialysis. Denies: Hx Peritoneal Dialysis GI Medical History: Reports: Hx Gastroesophageal Reflux Disease. Denies: Hx Hepatitis, Hx Hiatal Hernia, Hx Ulcer Musculoskeltal Medical History: Denies Hx Arthritis, Reports Hx Gout Infectious Medical History: Denies: Hx Hepatitis Past Surgical History: Reports: Hx Abdominal Surgery - Hernia, Hx Cardiac Catheterization - Stent placed 02/24/2017 @[facility], Hx Cardiac Surgery - pacemaker, Stent, Hx Oral Surgery, Hx Pacemaker - 3 YEARS AGO, Hx Vascular Surgery - PermCath insertion. Right radiocephalic fistula insertion.Comment Only: Hx Open Heart Surgery - STENT LAST YEAR FEBRUARY - Immunizations Hx Diphtheria, Pertussis, Tetanus Vaccination: Yes History of Influenza Vaccine for 08/2017 - 01/2018 Season: No Influenza Administration Date for 08/2017 - 01/2018 Season: 07/11/17 Physical Exam - Vital signs Vitals: Temp Pulse Resp BP Pulse Ox 97.4 F 85 19 116/49 L 95 06/10/19 16:32 06/10/19 16:32 06/10/19 16:32 06/10/19 16:32 06/10/19 16:32 Course - Vital Signs Vital signs: Temp Pulse Resp BP Pulse Ox 97.4 F 85 19 116/49 L 95 06/10/19 16:32 06/10/19 16:32 06/10/19 16:32 06/10/19 16:32 06/10/19 16:32 Doctor's Discharge - Discharge Referrals: MO SOUZA MD [Primary Care Provider] - Follow up as needed
[2019-06-10] MEDS ORDERED: ALBUTEROL SULFATE 0.083% NEB 2.5 MG/3 ML AMPUL NEB ONE (17:06)
[2019-06-10 17:51] LABS: ALANINE AMINOTRANSFERASE 26 U/L (21-72); ALBUMIN 3.8 g/dL (3.5-5.0); ALKALINE PHOSPHATASE 260 U/L (38-126); ANION GAP 16 (5-19); ASPARTATE AMINO TRANSFERASE 39 U/L (17-59); BILIRUBIN,TOTAL 0.5 mg/dL (0.2-1.3); BLOOD UREA NITROGEN 47 mg/dL (7-20); CALCIUM 7.9 mg/dL (8.4-10.2); CARBON DIOXIDE 23 mmol/L (22-30); CHLORIDE 98 mmol/L (98-107); GLUCOSE 100 mg/dL (75-110); TOTAL PROTEIN 7.2 g/dL (6.3-8.2)
--- NOTE | 2019-06-10 18:07 | RADIOLOGY REPORT (SQ) ---
EXAM DESCRIPTION: CHEST SINGLE VIEW COMPLETED DATE/TIME: 06/10/2019 5:57 pm REASON FOR STUDY: cough COMPARISON: 06/06/2019 TECHNIQUE: Single frontal radiographic view of the chest acquired. NUMBER OF VIEWS: One view. LIMITATIONS: None. FINDINGS: LUNGS AND PLEURA: No pneumothorax. No consolidation or pleural effusion. MEDIASTINUM AND HILAR STRUCTURES: Stable. HEART AND VASCULAR STRUCTURES: Stable. BONES: No acute findings. HARDWARE: Cardiac pacer. OTHER: Metallic foreign body in the right upper chest wall, stable. IMPRESSION: NO ACUTE FINDINGS. TECHNICAL DOCUMENTATION: JOB ID: [id number] [place]-72 2010 [employer]- All Rights Reserved Reading location - IP/workstation name: [email or web address]
[2019-06-10 18:33] LABS: ABSOLUTE BASOPHILS # (AUTO) 0.1 10^3/uL (0.0-0.2); ABSOLUTE EOSINOPHILS # (AUTO) 0.2 10^3/uL (0.0-0.6); ABSOLUTE LYMPHOCYTES (AUTO) 0.7 10^3/uL (0.5-4.7); ABSOLUTE MONOCYTES (AUTO) 0.9 10^3/uL (0.1-1.4); ABSOLUTE NEUT (AUTO) 6.1 10^3/uL (1.7-8.2); BASOPHILS % (AUTO) 0.7 % (0-2); EOSINOPHILS % (AUTO) 2.4 % (0-6); HEMATOCRIT 29.4 % (37.9-51.0); HEMOGLOBIN 9.5 g/dL (13.5-17.0); LYMPHOCYTES % (AUTO) 9.1 % (13-45); MEAN CORPUSCULAR HEMOGLOBIN 31.5 pg (27.0-33.4); MEAN CORPUSCULAR HGB CONC 32.4 g/dL (32.0-36.0); MEAN CORPUSCULAR VOLUME 97 fl (80-97); MONOCYTES % (AUTO) 11.1 % (3-13); PLATELET COUNT 146 10^3/uL (150-450); RED BLOOD COUNT 3.02 10^6/uL (4.35-5.55); RED CELL DISTRIBUTION WIDTH 14.2 % (11.5-14.0); SEGMENTED NEUTROPHILS % (AUTO) 76.7 % (42-78); TOTAL CELLS COUNTED % (AUTO) 100 %; WHITE BLOOD COUNT 7.9 10^3/uL (4.0-10.5)
--- NOTE | 2019-06-10 20:02 | ER Document Report ---
ED General - General Chief Complaint: Cough Stated Complaint: HEAD PAIN Time Seen by Provider: 06/10/19 16:53 Primary Care Provider: MO SOUZA MD [Primary Care Provider] - Follow up tomorrow Notes: Patient is a 84-year-old male with end-stage renal disease on dialysis that presents to the emergency department for chief complaint of cough and generalized weakness. Patient states that he had dialysis today when he got home he is feeling generally weak, which is not common for him after dialysis, but he states that he was having cough with mucus production, that was concerning him as well, and he complains of a minor headache, that has since resolved as well. He states he was started on azithromycin by his clerical adjudicator, and the cough seems to be improving to a degree. His symptoms of the cough have been going on for about for 5 days now. He admits to having some orthopnea, which seem to be improved after receiving dialysis today as well. Denies having any fevers, chills, night sweats, nausea, vomiting, abdominal pain, diarrhea, chest pain or shortness of breath at this time. He states overall he is feeling a lot better from when he came into the emergency department. Past Medical History: Hypertension, end-stage renal disease on dialysis Past Surgical History: AV fistula placement Social History: Denies tobacco, alcohol or drug use. Family History: Reviewed and noncontributory for presenting illness Allergies: Reviewed, see documented allergy list. REVIEW OF SYSTEMS: Other than noted above, the 12 point review of systems was reviewed with the patient and were negative, all pertinent findings are included in the HPI. PHYSICAL EXAMINATION: Vital signs reviewed, nursing noted reviewed. GENERAL: Elderly, obese male, no acute distress HEAD: Atraumatic, normocephalic. EYES: Eyes appear normal, extraocular movements intact, sclera anicteric, conjunctiva are normal. ENT: nares patent, oropharynx clear without exudates. Moist mucous membranes. NECK: Normal range of motion, supple without lymphadenopathy LUNGS: Breath sounds clear to auscultation bilaterally and equal. No wheezes rales or rhonchi. HEART: Regular rate and rhythm without murmurs ABDOMEN: Soft, nontender, normoactive bowel sounds. No rebound, guarding, or rigidity. No masses appreciated. EXTREMITIES: Nontender, good range of motion, trace bilateral lower extremity edema, equal. Right forearm AV fistula noted, positive bruit, positive thrill NEUROLOGICAL: No focal neurological deficits. Moves all extremities spontaneously Motor and sensory grossly intact on exam. PSYCH: Normal mood, normal affect. SKIN: Warm, Dry, normal turgor, no rashes or lesions noted on exposed skin TRAVEL OUTSIDE OF THE [place] IN LAST 30 DAYS: No - Related Data Allergies/Adverse Reactions: tuberculin, purified protein deriva Allergy (Severe, Verified 06/10/19 16:28) PPD CONVERTER Past Medical History - Social History Smoking Status: Never Smoker Frequency of alcohol use: None Drug Abuse: None Family History: Reviewed & Not Pertinent Patient has suicidal ideation: No Patient has homicidal ideation: No - Past Medical History Cardiac Medical History: Reports: Hx Hypercholesterolemia, Hx Hypertension Denies: Hx Coronary Artery Disease, Hx Heart Attack Pulmonary Medical History: Denies: Hx Asthma, Hx Bronchitis, Hx COPD, Hx Pneumonia Neurological Medical History: Reports: Hx Seizures. Denies: Hx Cerebrovascular Accident Endocrine Medical History: Reports: Hx Diabetes Mellitus Type 2, Hx Hypothyroidism Renal/ Medical History: Reports: Hx End Stage Renal Disease, Hx Hemodialysis. Denies: Hx Peritoneal Dialysis GI Medical History: Reports: Hx Gastroesophageal Reflux Disease. Denies: Hx Hepatitis, Hx Hiatal Hernia, Hx Ulcer Musculoskeletal Medical History: Denies Hx Arthritis, Reports Hx Gout Infectious Medical History: Denies: Hx Hepatitis Past Surgical History: Reports: Hx Abdominal Surgery - Hernia, Hx Cardiac Catheterization - Stent placed 02/24/2017 @[facility], Hx Cardiac Surgery - pacemaker, Stent, Hx Oral Surgery, Hx Pacemaker - 3 YEARS AGO, Hx Vascular Surgery - PermCath insertion. Right radiocephalic fistula insertion.Comment Only: Hx Open Heart Surgery - STENT LAST YEAR FEBRUARY - Immunizations Hx Diphtheria, Pertussis, Tetanus Vaccination: Yes Hx Pneumococcal Vaccination: 11/10/12 Physical Exam - Vital signs Vitals: Temp Pulse Resp BP Pulse Ox 97.4 F 85 19 116/49 L 95 06/10/19 16:32 06/10/19 16:32 06/10/19 16:32 06/10/19 16:32 06/10/19 16:32 Course - Re-evaluation Re-evalutation: Patient seen and examined vital signs reviewed. Laboratory data and/or imaging were ordered as appropriate for the patient's presenting symptoms and complaint, with consideration of any critical or life threatening conditions that may be associated with their obtained history and exam as noted above. Results were reviewed when available and demonstrated chronic anemia, unchanged from prior, at baseline, elevated BUN/creatinine again unchanged, and at baseline for patient with end-stage renal disease on dialysis, chest x-ray is negative for signs of pneumonia The patient was re-evaluated and was stable, and seemingly improved from presentation. Evaluation was most consistent with cough, possible bronchitis, he was started on azithromycin by his clerical adjudicator, would not add any medications at this time, advised him to continue and finish the course of antibiotics, and to follow-up with his primary care which the patient was agreeable to, he states he has an appointment tomorrow. Results were discussed with the patient at this point, after careful consi deration I feel that that patient can be discharged from the emergency department, the patient was educated treatments and reasons to return to the emergency department based on their presumed diagnosis as noted above, they were advised to followup with a primary care physician in 2-3 days. Patient was agreeable to plan of care. *Note is created using voice recognition software and may contain spelling, syntax or grammatical errors. Laboratory 06/10/19 06/10/19 06/10/19 17:25 17:25 18:17 WBC Cancelled 7.9 RBC Cancelled 3.02 L Hgb Cancelled 9.5 L Hct Cancelled 29.4 L MCV Cancelled 97 MCH Cancelled 31.5 MCHC Cancelled 32.4 RDW Cancelled 14.2 H Plt Count Cancelled 146 L Seg Neutrophils % Cancelled 76.7 Lymphocytes % Cancelled 9.1 L Monocytes % Cancelled 11.1 Eosinophils % Cancelled 2.4 Basophils % Cancelled 0.7 Absolute Neutrophils Cancelled 6.1 Absolute Lymphocytes Cancelled 0.7 Absolute Monocytes Cancelled 0.9 Absolute Eosinophils Cancelled 0.2 Absolute Basophils Cancelled 0.1 Platelet Estimate Cancelled Sodium 136.6 L Potassium 4.0 Chloride 98 Carbon Dioxide 23 Anion Gap 16 BUN 47 H Creatinine 7.19 H Est GFR ( Amer) 9 L Est GFR (Non-Af Amer) 7 L Glucose 100 Calcium 7.9 L Total Bilirubin 0.5 Direct Bilirubin Neonat Total Bilirubin Not Reportable Neonat Direct Bilirubin Not Reportable Neonat Indirect Bili Not Reportable AST 39 ALT 26 Alkaline Phosphatase 260 H Total Protein 7.2 Albumin 3.8 Slides for Path Review Cancelled Chest X-Ray 06/10/19 17:05 IMPRESSION: NO ACUTE FINDINGS. - Vital Signs Vital signs: Temp Pulse Resp BP Pulse Ox 98.4 F 73 22 H 149/70 H 95 06/10/19 20:06 06/10/19 20:06 06/10/19 20:06 06/10/19 20:06 06/10/19 16:32 - Laboratory Result Diagrams: 06/10/19 18:17 06/10/19 17:25 Laboratory results interpreted by me: 06/10/19 06/10/19 17:25 18:17 RBC 3.02 L Hgb 9.5 L Hct 29.4 L RDW 14.2 H Plt Count 146 L Lymphocytes % 9.1 L Sodium 136.6 L BUN 47 H Creatinine 7.19 H Est GFR ( Amer) 9 L Est GFR (Non-Af Amer) 7 L Calcium 7.9 L Alkaline Phosphatase 260 H Discharge - Discharge Clinical Impression: Cough, End-stage renal disease on hemodialysis Condition: Stable Disposition: HOME, SELF-CARE Instructions: Bronchitis ([facility]) Additional Instructions: Continue taking the prescribed antibiotic, that was given by your kidney doctor, and please continue to follow-up with dialysis as previously scheduled. Your blood work otherwise looked good today, if you have any further concerns, develop fever, or worsening shortness of breath, do not hesitate to return to the emergency department. Referrals: MO SOUZA MD [Primary Care Provider] - Follow up tomorrow
[2019-06-10 20:14] VITALS: BP 149/70
== END 2019-06-10 20:47 | disposition home or self-care (01) ==
LOC: ER 15:57
DX: I12.0 Hypertensive chronic kidney disease with stage 5 chronic kidney disease or end stage renal disease (principal); R53.1 Weakness; R05 Cough; R51 Headache; E11.22 Type 2 diabetes mellitus with diabetic chronic kidney disease; N18.6 End stage renal disease; Z99.2 Dependence on renal dialysis; E78.00 Pure hypercholesterolemia, unspecified; Z95.0 Presence of cardiac pacemaker
CPT/HCPCS: 94640; 99283; 36415; 82962; 85025; 80053; 71045; A9270

== ENCOUNTER 2019-07-10 20:10 | Emergency (ER) | payer MEDICARE, OTHER ==
--- NOTE | 2019-07-10 20:35 | ER Document Report ---
ED Medical Screen (RME) - General Chief Complaint: Chest Pain Stated Complaint: CHEST PAIN Time Seen by Provider: 07/10/19 20:25 Primary Care Provider: MO SOUZA MD [Primary Care Provider] - Follow up as needed Mode of Arrival: Wheelchair Information source: Patient, Relative Notes: Patient presents complaining of chest pain off and on since yesterday. Patient states that he had a cold but this cold seems to be getting better at this time. Patient denies any nausea or vomiting. Patient denies shortness of breath. Patient has had decrease in hearing, and family states they have been using drops but are concerned that he may have excess cerumen in addition to needing hearing aids. hx: Hypertension, diabetes, prostate cancer, dialysis Friday I have greeted and performed a rapid initial assessment of this patient. A comprehensive ED assessment and evaluation of the patient, analysis of test results and completion of the medical decision making process will be conducted by additional ED providers. TRAVEL OUTSIDE OF THE [place] IN LAST 30 DAYS: No - Related Data Allergies/Adverse Reactions: tuberculin, purified protein deriva Allergy (Severe, Verified 06/10/19 16:28) PPD CONVERTER Past Medical History - Past Medical History Cardiac Medical History: Reports: Hx Hypercholesterolemia, Hx Hypertension Denies: Hx Coronary Artery Disease, Hx Heart Attack Pulmonary Medical History: Denies: Hx Asthma, Hx Bronchitis, Hx COPD, Hx Pneumonia Neurological Medical History: Reports: Hx Seizures. Denies: Hx Cerebrovascular Accident Endocrine Medical History: Reports: Hx Diabetes Mellitus Type 2, Hx Hypothyroidism Renal/ Medical History: Reports: Hx End Stage Renal Disease, Hx Hemodialysis. Denies: Hx Peritoneal Dialysis GI Medical History: Reports: Hx Gastroesophageal Reflux Disease. Denies: Hx Hepatitis, Hx Hiatal Hernia, Hx Ulcer Musculoskeltal Medical History: Denies Hx Arthritis, Reports Hx Gout Infectious Medical History: Denies: Hx Hepatitis Past Surgical History: Reports: Hx Abdominal Surgery - Hernia, Hx Cardiac Catheterization - Stent placed 02/24/2017 @[facility], Hx Cardiac Surgery - pacemaker, Stent, Hx Oral Surgery, Hx Pacemaker - 3 YEARS AGO, Hx Vascular Surgery - PermCa th insertion. Right radiocephalic fistula insertion.Comment Only: Hx Open Heart Surgery - STENT LAST YEAR FEBRUARY - Immunizations Hx Diphtheria, Pertussis, Tetanus Vaccination: Yes History of Influenza Vaccine for 08/2017 - 01/2018 Season: No Influenza Administration Date for 08/2017 - 01/2018 Season: 07/11/17 Physical Exam - Vital signs Vitals: Temp Pulse Resp BP Pulse Ox 98.5 F 62 16 114/47 L 100 07/10/19 20:21 07/10/19 20:21 07/10/19 20:21 07/10/19 20:21 07/10/19 20:21 - Respiratory Respiratory status: No respiratory distress - Cardiovascular Rhythm: Regular Heart sounds: S1 appreciated, S2 appreciated Course - Vital Signs Vital signs: Temp Pulse Resp BP Pulse Ox 98.5 F 62 16 114/47 L 100 07/10/19 20:21 07/10/19 20:21 07/10/19 20:21 07/10/19 20:21 07/10/19 20:21 Doctor's Discharge - Discharge Referrals: MO SOUZA MD [Primary Care Provider] - Follow up as needed
[2019-07-10 21:31] LABS: ABSOLUTE BASOPHILS # (AUTO) 0.1 10^3/uL (0.0-0.2); ABSOLUTE EOSINOPHILS # (AUTO) 0.2 10^3/uL (0.0-0.6); ABSOLUTE LYMPHOCYTES (AUTO) 0.8 10^3/uL (0.5-4.7); ABSOLUTE MONOCYTES (AUTO) 0.7 10^3/uL (0.1-1.4); ABSOLUTE NEUT (AUTO) 5.5 10^3/uL (1.7-8.2); BASOPHILS % (AUTO) 0.8 % (0-2); EOSINOPHILS % (AUTO) 2.8 % (0-6); HEMATOCRIT 28.3 % (37.9-51.0); HEMOGLOBIN 9.1 g/dL (13.5-17.0); LYMPHOCYTES % (AUTO) 10.5 % (13-45); MEAN CORPUSCULAR HEMOGLOBIN 32.5 pg (27.0-33.4); MEAN CORPUSCULAR HGB CONC 32.1 g/dL (32.0-36.0); MEAN CORPUSCULAR VOLUME 101 fl (80-97); MONOCYTES % (AUTO) 9.8 % (3-13); PLATELET COUNT 142 10^3/uL (150-450); RED CELL DISTRIBUTION WIDTH 15.9 % (11.5-14.0); SEGMENTED NEUTROPHILS % (AUTO) 76.1 % (42-78); TOTAL CELLS COUNTED % (AUTO) 100 %; WHITE BLOOD COUNT 7.2 10^3/uL (4.0-10.5)
--- NOTE | 2019-07-10 21:33 | RADIOLOGY REPORT (SQ) ---
EXAM DESCRIPTION: XR CHEST 2 VIEWS COMPLETED DATE/TME: 07/10/2019 20:34 CLINICAL HISTORY: 84 years, Male, cp COMPARISON: Multiple priors NUMBER OF VIEWS: Two TECHNIQUE: Frontal and lateral radiograph of the chest were obtained LIMITATIONS: None. FINDINGS: Left groin approach dual lead cardiac pacer is unchanged in position. Cardiopericardial silhouette is enlarged. Mediastinal contours are stable. Bilateral perihilar opacity with vascular indistinctness is noted. No pleural effusion or pneumothorax. Focal metallic density projects over the right upper lung zone, unchanged from the previous examination and presumably corresponding to a retained foreign body. IMPRESSION: Findings suggest mild pulmonary edema. copyright 2010 [employer]- All Rights Reserved
[2019-07-10 21:52] LABS: ALBUMIN 4.1 g/dL (3.5-5.0); ALKALINE PHOSPHATASE 350 U/L (38-126); ANION GAP 11 (5-19); ASPARTATE AMINO TRANSFERASE 52 U/L (17-59); BILIRUBIN,TOTAL 0.3 mg/dL (0.2-1.3); BLOOD UREA NITROGEN 40 mg/dL (7-20); CALCIUM 8.1 mg/dL (8.4-10.2); CARBON DIOXIDE 30 mmol/L (22-30); CHLORIDE 100 mmol/L (98-107); GLUCOSE 133 mg/dL (75-110); POTASSIUM 3.9 mmol/L (3.6-5.0); TOTAL PROTEIN 7.4 g/dL (6.3-8.2)
[2019-07-10 22:03] LABS: TROPONIN I 0.019 ng/mL
--- NOTE | 2019-07-10 22:28 | ER Document Report ---
ED General - General Chief Complaint: Chest Pain Stated Complaint: CHEST PAIN Time Seen by Provider: 07/10/19 20:25 Primary Care Provider: MO SOUZA MD [Primary Care Provider] - Follow up in 3-5 days Mode of Arrival: Wheelchair Notes: Patient is a 84-year-old male that presents to the emergency department for chief complaint of chest pain. Patient apparently was having chest pain yest erday, those on the right side of the chest he states that it was a sharp very brief, lasting about a second or 2, episode, he had a few of them throughout the day, but denies any today, did not having any chest pain while in the emergency department. He denied any associated shortness of breath, nausea, vomiting or abdominal pain. Denies any diaphoresis, or pain that was worse with exertion. He does have a history of a stent, and a pacemaker and he is end-stage renal on dialysis. At this time he feels well, and has no complaints. Past Medical History: End-stage renal disease on dialysis, CAD, sick sinus syndrome Past Surgical History: Pacemaker, dialysis fistula Social History: Denies current tobacco, alcohol or drug use. Primary care physician is Dr. Souza Family History: Reviewed and noncontributory for presenting illness Allergies: Reviewed, see documented allergy list. REVIEW OF SYSTEMS: Other than noted above, the 12 point review of systems was reviewed with the patient and were negative, all pertinent findings are included in the HPI. PHYSICAL EXAMINATION: Vital signs reviewed, nursing noted reviewed. GENERAL: Elderly male, hard of hearing, but no acute distress HEAD: Atraumatic, normocephalic. EYES: Eyes appear normal, extraocular movements intact, sclera anicteric, conjunctiva are normal. ENT: nares patent, oropharynx clear without exudates. Moist mucous membranes. NECK: Normal range of motion, supple without lymphadenopathy LUNGS: Breath sounds clear to auscultation bilaterally and equal. No wheezes rales or rhonchi. HEART: Regular rate and rhythm without murmurs ABDOMEN: Soft, nontender, normoactive bowel sounds. No rebound, guarding, or rigidity. No masses appreciated. Noted is a reducible umbilical hernia. EXTREMITIES: Nontender, good range of motion, no pitting or edema. Right arm AV fistula, positive bruit and thrill NEUROLOGICAL: No focal neurological deficits. Moves all extremities spontaneously Motor and sensory grossly intact on exam. PSYCH: Normal mood, normal affect. SKIN: Warm, Dry, normal turgor, no rashes or lesions noted on exposed skin TRAVEL OUTSIDE OF THE [place] IN LAST 30 DAYS: No - Related Data Allergies/Adverse Reactions: tuberculin, purified protein deriva Allergy (Severe, Verified 06/10/19 16:28) PPD CONVERTER Past Medical History - General Information source: Patient, Relative - Social History Smoking Status: Unknown if Ever Smoked Family History: Reviewed & Not Pertinent Patient has suicidal ideation: No Patient has homicidal ideation: No - Past Medical History Cardiac Medical History: Reports: Hx Hypercholesterolemia, Hx Hypertension Denies: Hx Coronary Artery Disease, Hx Heart Attack Pulmonary Medical History: Denies: Hx Asthma, Hx Bronchitis, Hx COPD, Hx Pneumonia Neurological Medical History: Reports: Hx Seizures. Denies: Hx Cerebrovascular Accident Endocrine Medical History: Reports: Hx Diabetes Mellitus Type 2, Hx Hypothyroidism Renal/ Medical History: Reports: Hx End Stage Renal Disease, Hx Hemodialysis. Denies: Hx Peritoneal Dialysis GI Medical History: Reports: Hx Gastroesophageal Reflux Disease. Denies: Hx Hepatitis, Hx Hiatal Hernia, Hx Ulcer Musculoskeletal Medical History: Denies Hx Arthritis, Reports Hx Gout Infectious Medical History: Denies: Hx Hepatitis Past Surgical History: Reports: Hx Abdominal Surgery - Hernia, Hx Cardiac Catheterization - Stent placed 02/24/2017 @[facility], Hx Cardiac Surgery - pacemaker, Stent, Hx Oral Surgery, Hx Pacemaker - 3 YEARS AGO, Hx Vascular Surgery - PermCath insertion. Right radiocephalic fistula insertion.Comment Only: Hx Open Heart Surgery - STENT LAST YEAR FEBRUARY - Immunizations Hx Diphtheria, Pertussis, Tetanus Vaccination: Yes Hx Pneumococcal Vaccination: 11/10/12 Physical Exam - Vital signs Vitals: Temp Pulse Resp BP Pulse Ox 98.5 F 62 16 114/47 L 100 07/10/19 20:21 07/10/19 20:21 07/10/19 20:21 07/10/19 20:21 07/10/19 20:21 Course - Re-evaluation Re-evalutation: Patient seen and examined vital signs reviewed. Laboratory data and/or imaging were ordered as appropriate for the patient's p resenting symptoms and complaint, with consideration of any critical or life threatening conditions that may be associated with their obtained history and exam as noted above. Results were reviewed when available and demonstrated troponin, actually less than the patient's baseline, EKG demonstrated no STEMI, nonischemic pattern, blood work otherwise was stable from the patient's baseline renal function, and anemia The patient was re-evaluated and was stable, no complaints, no chest pain Evaluation was most consistent with chest pain, nonspecific, unlikely cardiac etiology, given history, with a negative troponin, he did not have any chest pain today either. Patient appears well, I discussed the case with his primary care physician, Dr. Souza, who stated he could see him in the office on Friday and did not think he needed to be admitted for this chest pain, which I agreed with. Results were discussed with the patient at this point, after careful consideration I feel that that patient can be discharged from the emergency department, the patient was educated treatments and reasons to return to the emergency department based on their presumed diagnosis as noted above, they were advised to followup with a primary care physician in 2-3 days. Patient was agreeable to plan of care. *Note is created using voice recognition software and may contain spelling, syntax or grammatical errors. Laboratory 07/10/19 07/10/19 07/10/19 20:59 20:59 20:59 WBC 7.2 RBC 2.80 L Hgb 9.1 L Hct 28.3 L MCV 101 H MCH 32.5 MCHC 32.1 RDW 15.9 H Plt Count 142 L Lymph % (Auto) 10.5 L [place] % (Auto) 9.8 Eos % (Auto) 2.8 Baso % (Auto) 0.8 Absolute Neuts (auto) 5.5 Absolute Lymphs (auto) 0.8 Absolute Monos (auto) 0.7 Absolute Eos (auto) 0.2 Absolute Basos (auto) 0.1 Seg Neutrophils % 76.1 Sodium 141.2 Potassium 3.9 Chloride 100 Carbon Dioxide 30 Anion Gap 11 BUN 40 H Creatinine 5.13 H Est GFR ( Amer) 13 L Est GFR (MDRD) Non-Af 11 L Glucose 133 H Calcium 8.1 L Total Bilirubin 0.3 Direct Bilirubin Not Reportable Neonat Total Bilirubin Not Reportable Neonat Direct Bilirubin Not Reportable Neonat Indirect Bili Not Reportable AST 52 ALT 41 Alkaline Phosphatase 350 H Troponin I 0.019 NT-Pro-B Natriuret Pep 47166 H Total Protein 7.4 Albumin 4.1 Lipase 117.0 Chest X-Ray 08/31/19 20:34 IMPRESSION: Findings suggest mild pulmonary edema. copyright 2010 [employer]- All Rights Reserved - Vital Signs Vital signs: Temp Pulse Resp BP Pulse Ox 98.5 F 62 14 144/73 H 100 07/10/19 20:21 07/10/19 20:21 07/10/19 23:01 07/10/19 23:01 07/10/19 23:01 - Laboratory Result Diagrams: 07/10/19 20:59 07/10/19 20:59 Laboratory results interpreted by me: 07/10/19 07/10/19 07/10/19 20:59 20:59 20:59 RBC 2.80 L Hgb 9.1 L Hct 28.3 L MCV 101 H RDW 15.9 H Plt Count 142 L Lymph % (Auto) 10.5 L BUN 40 H Creatinine 5.13 H Est GFR ( Amer) 13 L Est GFR (MDRD) Non-Af 11 L Glucose 133 H Calcium 8.1 L Alkaline Phosphatase 350 H NT-Pro-B Natriuret Pep 34945 H - EKG Interpretation by Me Additional EKG results interpreted by me: EKG demonstrates ventricular paced rhythm with a ventricular rate of 61 bpm, left axis deviation, QTC prolonged at 536 ms, T wave inversions in leads I and aVL, no ST elevation. Discharge - Discharge Clinical Impression: Chest pain Qualifiers: Chest pain type: unspecified Qualified Code(s): R07.9 - Chest pain, unspecified Condition: Stable Disposition: HOME, SELF-CARE Instructions: Chest Pain of Unclear Cause ([facility]) Additional Instructions: Please follow-up with Dr. Souza on Friday, if you have any worsening of your symptoms, or further concerns, do not hesitate to return to the emergency department to be reevaluated. Referrals: MO SOUZA MD [Primary Care Provider] - Follow up in 3-5 days
[2019-07-10 23:07] VITALS: BP 144/73
--- NOTE | 2019-07-11 09:37 | EKG REPORT ---
SEVERITY:- ABNORMAL ECG - VENTRICULAR-PACED COMPLEXES : Confirmed by: Santo Anglin MD 11-Jul-2019 09:36:37
== END 2019-07-10 23:15 | disposition home or self-care (01) ==
LOC: ER 20:10
DX: R07.9 Chest pain, unspecified (principal); I12.0 Hypertensive chronic kidney disease with stage 5 chronic kidney disease or end stage renal disease; E11.22 Type 2 diabetes mellitus with diabetic chronic kidney disease; N18.6 End stage renal disease; Z99.2 Dependence on renal dialysis
CPT/HCPCS: 36415; 71046; 80053; 83690; 83880; 84484; 85025; 93005; 93010; 99285

== ENCOUNTER 2019-07-15 05:26 | Emergency (ER) | payer MEDICARE, OTHER ==
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
[2019-07-15 07:46] VITALS: BP 140/60
== END 2019-07-15 07:40 | disposition home or self-care (01) ==
LOC: ER 05:26
DX: K59.00 Constipation, unspecified (principal); R42 Dizziness and giddiness; I10 Essential (primary) hypertension; E11.9 Type 2 diabetes mellitus without complications
CPT/HCPCS: 99283

== ENCOUNTER 2019-07-17 20:41 | Emergency (ER) | payer MEDICARE, OTHER ==
[2019-07-17] MEDS ORDERED: MINERAL OIL 30 ML UDCUP PR ONE (21:45)
--- NOTE | 2019-07-17 21:45 | ER Document Report ---
ED Medical Screen (RME) - General Chief Complaint: Constipation Stated Complaint: CONSTIPATED Time Seen by Provider: 07/17/19 21:41 Primary Care Provider: MO SOUZA MD [Primary Care Provider] - Follow up as needed Mode of Arrival: Wheelchair Information source: Patient, Relative Notes: 84-year-old male presented to ED for complaint of constipation with no bowel movement since he was here last. He was here last on the . He states he takes a medication for his constipation but he cannot get it to Friday and he is not having a bowel movement since his last time in the emergency room. He is alert his granddaughter is talking for him. He knew full he has a history of kidney failure he is on dialysis the coronary artery disease blood pressure cholesterol constipation coronary artery disease stents and prostate cancer. He does not smoke drink or use any drugs. He did have dialysis today. I have greeted and performed a rapid initial assessment of this patient. A comprehensive ED assessment and evaluation of the patient, analysis of test results and completion of medical decision making process will be conducted by an additional ED providers. TRAVEL OUTSIDE OF THE [place] IN LAST 30 DAYS: No - Related Data Allergies/Adverse Reactions: tuberculin, purified protein deriva Allergy (Severe, Verified 07/15/19 07:20) PPD CONVERTER Past Medical History - Past Medical History Cardiac Medical History: Reports: Hx Hypercholesterolemia, Hx Hypertension Denies: Hx Coronary Artery Disease, Hx Heart Attack Pulmonary Medical History: Denies: Hx Asthma, Hx Bronchitis, Hx COPD, Hx Pneumonia Neurological Medical History: Reports: Hx Seizures. Denies: Hx Cerebrovascular Accident Endocrine Medical History: Reports: Hx Diabetes Mellitus Type 2, Hx Hypothyroidism Renal/ Medical History: Reports: Hx End Stage Renal Disease, Hx Hemodialysis. Denies: Hx Peritoneal Dialysis GI Medical History: Reports: Hx Gastroesophageal Reflux Disease. Denies: Hx Hepatitis, Hx Hiatal Hernia, Hx Ulcer Musculoskeltal Medical History: Denies Hx Arthritis, Reports Hx Gout Infectious Medical History: Denies: Hx Hepatitis Past Surgical History: Reports: Hx Abdominal Surgery - Hernia, Hx Cardiac Catheterization - Stent placed 02/24/2017 @[facility], Hx Cardiac Surgery - pacemaker, Stent, Hx Oral Surgery, Hx Pacemaker - 3 YEARS AGO, Hx Vascular Surgery - PermCath insertion. Right radiocephalic fistula insertion.Comment Only: Hx Open Heart Surgery - STENT LAST YEAR FEBRUARY - Immunizations Hx Diphtheria, Pertussis, Tetanus Vaccination: Yes History of Influenza Vaccine for 08/2017 - 01/2018 Season: No Influenza Administration Date for 08/2017 - 01/2018 Season: 07/11/17 Physical Exam - Vital signs Vitals: Temp Pulse Resp BP Pulse Ox 98.7 F 71 18 121/48 L 94 07/17/19 20:57 07/17/19 20:57 07/17/19 20:57 07/17/19 20:57 07/17/19 20:57 Course - Vital Signs Vital signs: Temp Pulse Resp BP Pulse Ox 98.7 F 71 18 121/48 L 94 07/17/19 20:57 07/17/19 20:57 07/17/19 20:57 07/17/19 20:57 07/17/19 20:57 Doctor's Discharge - Discharge Referrals: MO SOUZA MD [Primary Care Provider] - Follow up as needed
--- NOTE | 2019-07-17 22:36 | RADIOLOGY REPORT (SQ) ---
EXAM DESCRIPTION: XR ABDOMEN 1 VIEW (KUB) COMPLETED DATE/TME: 07/17/2019 21:42 CLINICAL HISTORY: 84 years, Male, States he is constipated COMPARISON: Prior study from 11/26/2018 NUMBER OF VIEWS: Two TECHNIQUE: Two frontal radiographs of the abdomen were obtained. LIMITATIONS: None. FINDINGS: Gas and a large amount of stool are noted throughout the large bowel. Scattered nondilated loops of small bowel are visible throughout the abdomen. 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 There is arterial calcinosis. Otherwise, no other suspicious soft tissue calcifications are appreciated. No definitive evidence of subdiaphragmatic free air. IMPRESSION: Nonobstructive bowel gas pattern. Large colonic stool load. copyright 2010 [employer]- All Rights Reserved
[2019-07-18] MEDS ORDERED: MINERAL OIL 30 ML UDCUP ONE (02:36)
--- NOTE | 2019-07-18 05:39 | ER Document Report ---
ED GI/ - General Chief Complaint: Constipation Stated Complaint: CONSTIPATED Time Seen by Provider: 07/17/19 21:41 Primary Care Provider: MO SOUZA MD [Primary Care Provider] - Follow up as needed Mode of Arrival: Wheelchair Notes: Patient is an 84-year-old male that comes emergency department for chief complaint of not having a bowel movement since he was here last. This was on 07/15/2019. He states he does have a stool softener that his primary care provider gave him, he states he did have a bowel movement when he was here last but he still feels bloated. He denies abdominal pain, nausea or vomiting, fever/chills, blood in his stool. Past medical history of end-stage renal disease on dialysis, had dialysis today. Patient already received an enema after having an x-ray showing large stool load, patient states he had a very large bowel movement, nonbloody, and now his bloating is gone and he feels great. He has no other complaints and is immediately asking to leave when I walked into the room. TRAVEL OUTSIDE OF THE [place] IN LAST 30 DAYS: No - Related Data Allergies/Adverse Reactions: tuberculin, purified protein deriva Allergy (Severe, Verified 07/15/19 07:20) PPD CONVERTER Past Medical History - General Information source: Patient, Relative - Social History Smoking Status: Former Smoker Chew tobacco use (# tins/day): No Frequency of alcohol use: None Drug Abuse: None Lives with: Family Family History: Reviewed & Not Pertinent Patient has suicidal ideation: No Patient has homicidal ideation: No - Past Medical History Cardiac Medical History: Reports: Hx Hypercholesterolemia, Hx Hypertension Denies: Hx Coronary Artery Disease, Hx Heart Attack Pulmonary Medical History: Denies: Hx Asthma, Hx Bronchitis, Hx COPD, Hx Pneumonia Neurological Medical History: Reports: Hx Seizures. Denies: Hx Cerebrovascular Accident Endocrine Medical History: Reports: Hx Diabetes Mellitus Type 2, Hx Hypot hyroidism Renal/ Medical History: Reports: Hx End Stage Renal Disease, Hx Hemodialysis. Denies: Hx Peritoneal Dialysis GI Medical History: Reports: Hx Gastroesophageal Reflux Disease. Denies: Hx Hepatitis, Hx Hiatal Hernia, Hx Ulcer Musculoskeletal Medical History: Denies Hx Arthritis, Reports Hx Gout Infectious Medical History: Denies: Hx Hepatitis Past Surgical History: Reports: Hx Abdominal Surgery - Hernia, Hx Cardiac Catheterization - Stent placed 02/24/2017 @[facility], Hx Cardiac Surgery - pacemaker, Stent, Hx Oral Surgery, Hx Pacemaker - 3 YEARS AGO, Hx Vascular Surgery - PermCath insertion. Right radiocephalic fistula insertion.Comment Only: Hx Open Heart Surgery - STENT LAST YEAR FEBRUARY - Immunizations Hx Diphtheria, Pertussis, Tetanus Vaccination: Yes Hx Pneumococcal Vaccination: 11/10/12 Review of Systems - Review of Systems Constitutional: No symptoms reported EENT: No symptoms reported Cardiovascular: No symptoms reported Respiratory: No symptoms reported Gastrointestinal: See HPI Genitourinary: No symptoms reported Male Genitourinary: No symptoms reported Musculoskeletal: No symptoms reported Skin: No symptoms reported Hematologic/Lymphatic: No symptoms reported Neurological/Psychological: No symptoms reported Physical Exam - Vital signs Vitals: Temp Pulse Resp BP Pulse Ox 98.7 F 71 18 121/48 L 94 07/17/19 20:57 07/17/19 20:57 07/17/19 20:57 07/17/19 20:57 07/17/19 20:57 - Notes Notes: GENERAL: Alert, interacts well. No acute distress. HEAD: Normocephalic, atraumatic. EYES: Pupils equal, round, and reactive to light. Extraocular movements intact. ENT: Oral mucosa moist, tongue midline. Oropharynx unremarkable. Airway patent. LUNGS: Clear to auscultation bilaterally, no wheezes, rales, or rhonchi. No respiratory distress. HEART: Regular rate and rhythm. ABDOMEN: Soft, non-tender. There is a moderately large umbilical hernia present but this is soft and reducible. Remaining abdomen is unremarkable. GENITOURINARY: Deferred EXTREMITIES: Moves all 4 extremities spontaneously. No edema, normal radial and dorsalis pedis pulses bilaterally. No cyanosis. BACK: no cervical, thoracic, lumbar midline tenderness. No saddle anesthesia, normal distal neurovascular exam. Moves all extremities in full range of motion. NEUROLOGICAL: Alert and oriented x3. Normal speech. Cranial nerves II through XII grossly intact. PSYCH: Normal affect, normal mood. SKIN: Warm, dry, normal turgor. No rashes or lesions noted. Course - Re-evaluation Re-evalutation: Patient is smiling, very talkative, well-appearing. He does have an umbilical hernia which is large but this is soft and reducible. He has no abdominal tenderness now, patient did have a very large nonbloody bowel movement after the enema. I did review x-ray and this shows only large stool load with no acute findings. Vital signs unremarkable. Patient with no complaints on my evaluation and is specifically asking to leave. He is going home with his family member. He has already completed dialysis earlier today. Patient states he already has a stool softener prescribed by his primary care that he will begin taking. Stable at time of discharge. - Vital Signs Vital signs: Temp Pulse Resp BP Pulse Ox 97.5 F 59 L 18 143/64 H 97 07/18/19 06:16 07/18/19 06:16 07/18/19 06:16 07/18/19 06:16 07/18/19 06:16 Discharge - Discharge Clinical Impression: Abdominal swelling Constipation Qualifiers: Constipation type: unspecified constipation type Qualified Code(s): K59.00 - Constipation, unspecified Condition: Stable Disposition: HOME, SELF-CARE Additional Instructions: Take your stool softener provided by your primary care provider. Follow closely with your primary care provider. Return if you worsen including abdominal pain, vomiting, or something is not right. Referrals: MO SOUZA MD [Primary Care Provider] - Follow up as needed
[2019-07-18 06:18] VITALS: BP 143/64
== END 2019-07-18 06:21 | disposition home or self-care (01) ==
LOC: ER 20:41
DX: K59.00 Constipation, unspecified (principal); K42.9 Umbilical hernia without obstruction or gangrene; I12.0 Hypertensive chronic kidney disease with stage 5 chronic kidney disease or end stage renal disease; N18.6 End stage renal disease; E11.22 Type 2 diabetes mellitus with diabetic chronic kidney disease; Z99.2 Dependence on renal dialysis; R19.00 Intra-abdominal and pelvic swelling, mass and lump, unspecified site; Z87.891 Personal history of nicotine dependence; Z88.7 Allergy status to serum and vaccine; Z95.5 Presence of coronary angioplasty implant and graft
CPT/HCPCS: 74018; J3490; 99283

== ENCOUNTER → 2019-08-20 | Outpatient (CLI) | payer MEDICARE, OTHER ==
[2019-08-20 12:16] LABS: ALBUMIN 4.2 g/dL (3.5-5.0); ALKALINE PHOSPHATASE 291 U/L (38-126); ASPARTATE AMINO TRANSFERASE 30 U/L (17-59); BILIRUBIN,TOTAL 0.5 mg/dL (0.2-1.3); CHOLESTEROL 111.02 mg/dL (0-200); TOTAL PROTEIN 7.6 g/dL (6.3-8.2); TRIGLYCERIDES 122 mg/dL (<150)
[2019-08-20 12:27] LABS: DIRECT LDL 45 mg/dL (<100)
== END ==
LOC: OD 10:32
PROVIDERS: ATTEND Physician Assistant
DX: E78.2 Mixed hyperlipidemia (principal); Z79.899 Other long term (current) drug therapy
CPT/HCPCS: 36415; 80061; 80076

== ENCOUNTER 2019-10-18 07:30 | Day surgery (SDC) | payer MEDICARE, OTHER ==
[~2019-10-18 07:30] MED LIST changes: -OXYCODONE-ACETAMINOPHEN 5-325 MG TABLET PO PRN
[2019-10-18 08:45] LABS: HEMATOCRIT 39.7 % (37.9-51.0); HEMOGLOBIN 12.8 g/dL (13.5-17.0); MEAN CORPUSCULAR HEMOGLOBIN 32.7 pg (27.0-33.4); MEAN CORPUSCULAR HGB CONC 32.2 g/dL (32.0-36.0); MEAN CORPUSCULAR VOLUME 102 fl (80-97); PLATELET COUNT 118 10^3/uL (150-450); RED BLOOD COUNT 3.91 10^6/uL (4.35-5.55); RED CELL DISTRIBUTION WIDTH 15.3 % (11.5-14.0)
[2019-10-18] MEDS ORDERED: DIAZEPAM 5 MG TABLET ONE (08:52)
[2019-10-18 09:02] LABS: BLOOD UREA NITROGEN 106 mg/dL (7-20); CALCIUM 9.1 mg/dL (8.4-10.2); GLUCOSE 165 mg/dL (75-110); POTASSIUM 5.6 mmol/L (3.6-5.0)
[2019-10-18 09:09] LABS: ANION GAP 19 (5-19); CARBON DIOXIDE 19 mmol/L (22-30); CHLORIDE 105 mmol/L (98-107)
[2019-10-18] MEDS ORDERED: LIDOCAINE 0.5% INJ-PF (5 MG/ML) 50 ML SDV ONE (09:35)
[2019-10-18] MEDS ORDERED: MIDAZOLAM 2 MG/2 ML INJ ONE (09:41)
[2019-10-18] MEDS ORDERED: FENTANYL CITRATE INJ/PF 100 MCG/2 ML AMPUL ONE (09:42)
[2019-10-18] MEDS ORDERED: HEPARIN SOD (PORCINE) 5,000 UNIT/ML 1 ML VIAL ONE (09:42)
[2019-10-18] MEDS ORDERED: BACITRACIN INJ 50,000 UNIT VIAL ONE (10:00)
[2019-10-18] MEDS ORDERED: CEFAZOLIN INJ 1 GM VIAL ONE (10:02)
--- NOTE | 2019-10-18 10:58 | RADIOLOGY REPORT (SQ) ---
EXAM DESCRIPTION: TUNNELED CENTRAL LINE COMPLETED DATE/TIME: 10/18/2019 10:49 am REASON FOR STUDY: T82.858A T82.858A STENOSIS OF OTHER VASCULAR PROSTH DEV/GRFT, INIT Z79.899 OTHER JAIL (CURRENT) DRUG THERAPY COMPARISON: None. FLUOROSCOPY TIME: 0.8 minutes 67 images saved to PACS. TECHNIQUE: Intra-operative images acquired during surgical procedure to evaluate progress. NUMBER OF IMAGES: 67 LIMITATIONS: None. FINDINGS: Fluoroscopic images demonstrating a right-sided central line tip overlying SVC. Dual lead left transvenous pacemaker. IMPRESSION: IMAGE(S) OBTAINED DURING PROCEDURE. COMMENT: Quality ID [id number]: Final reports for procedures using fluoroscopy that document radiation exp osure indices, or exposure time and number of fluorographic images (if radiation exposure indices are not available) Please consult full operative report of the attending physician for description of the procedure. TECHNICAL DOCUMENTATION: JOB ID: [id number] [employer]- All Rights Reserved Reading location - IP/workstation name: [email or web address]
--- NOTE | 2019-10-18 11:12 | PDOC H&P ---
General Chief Complaint: The patient presents for fistula angiogram gram based on decreased ability to utilize. He apparently presented and did not have dialysis on Friday last. Several attempts at fistula angiogram over the last several months have been forwarded as the patient has been unable to present because of severe diarrhea. - Current Medications/Allergies Home Medications: Allopurinol [Zyloprim 100 mg Tablet] 100 mg PO DAILY 03/24/17 Folic Acid/Vitamin B Comp W-C [Renavit Tablet] 1 tab PO DAILY 03/24/17 Insulin Glargine,Hum.rec.anlog [Lantus] 5 units SUBCUT QHS 03/24/17 Metoprolol Succinate 25 mg PO DAILY 03/24/17 Pantoprazole Sodium 40 mg PO DAILY 03/24/17 Simvastatin 20 mg PO QHS 03/24/17 Ergocalciferol (Vitamin D2) [Drisdol 50,000 unit (1.25MG) Capsule] 1 cap PO ASDIR PRN 08/04/17 Nitroglycerin 4.1 gm TL PRN PRN 08/04/17 Levothyroxine Sodium [Synthroid] 112 mcg PO DAILY 08/09/17 Ferric Citrate [Auryxia] 2 tab PO ASDIR PRN 10/15/17 Hydralazine HCl 50 mg PO BID 12/15/17 Aspirin [Aspirin 81 mg Chewable Tablet] 81 mg PO DAILY 08/21/18 Clonidine HCl [Clonidine HCl ER] 0.1 mg PO BID 10/18/19 Allergies/Adverse Reactions: tuberculin, purified protein deriva Allergy (Severe, Verified 10/18/19 10:36) PPD CONVERTER Past Medical History Cardiac Medical History: Reports: Coronary Artery Disease - STENTS AND PACEMAKER, Myocardial Infarction, Hyperlipidema, Hypertension Pulmonary Medical History: Denies: Asthma, Bronchitis, Chronic Obstructive Pulmonary Disease (COPD), Pneumonia Neurological Medical History: Reports: Seizures - MORE THAN 2YRS AGO Endocrine Medical History: Reports: Diabetes Mellitus Type 2, Hypothyroidism Renal/ Medical History: Reports: End Stage Renal Disease GI Medical History: Reports: Gastroesophageal Reflux Disease Denies: Hepatitis, Hiatal Hernia Musculoskeltal Medical History: Reports: Gout Denies: Arthritis Hematology: Denies: Anemia, Sickle Cell Disease Past Surgical History Past Surgical History: Reports: Cardiac Catheterization - Stent placed 02/24/2017 @[facility], Pacemaker - 3 YEARS AGO, Vascular Surgery - PermCath insertion. Right radiocephalic fistula insertion. Family History Family History: Reviewed & Not Pertinent Parental Family History Reviewed: No Children Family History Reviewed: No Sibling(s) Family History Reviewed.: No Social History Smoking Status: Unknown if Ever Smoked Physical Exam Vital Signs: Temp Pulse Resp BP Pulse Ox 97.4 F 63 16 148/76 H 97 10/18/19 08:00 10/18/19 08:00 10/18/19 08:00 10/18/19 08:00 10/18/19 08:00 Additional comments: Constitutional: Well-developed well-nourished -Stateless gentleman. No apparent acute distress. Eyes: Mucous membranes pink and moist, pupils equal and reactive to light. Conjunctiva normal. Cornea normal. ENT: Hearing grossly normal. External pinna normal to inspection. Teeth mostly intact. Tongue normal to inspection. Cardiac: Heart sounds 1 and 2 normal, no murmurs. Chest: Left-sided dual chamber pacemaker in place. Respiratory: Normal respiratory effort. Psychiatric: Judgment, memory, insight seem normal. Mood is pleasant and appropriate. Extremities: Upper extremities show normal range of movement. Pulses present noted to the radial arteries. Capillary refill normal. No cyanosis noted. No muscle wasting noted. Right forearm radiocephalic fistula in place. No thrill or bruit, firm suggesting occlusion of the fistula. 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 The procedure, its risks, benefits, expected outcome of are understood by the patient and he wishes to proceed.
--- NOTE | 2019-10-18 11:14 | Discharge Summary ---
Discharge Summary (SDC) - Discharge Final Diagnosis: #1 clotted AV fistula right radiocephalic. 2. End-stage renal disease on hemodialysis. 3 diabetes mellitus type 2. [address] 5. Hypertension. Date of Surgery: 10/18/19 Discharge Date: 10/18/19 Condition: Fair Treatment or Instructions: Discharge home [after recovery per ASU criteria]. Diet , [renal],as tolerated, when fully awake advance as tolerated. Activities within moderation encouraged. Follow up in my office by appointment in about [1 week]. Call for appointment. Leave wounds [covered], [keep clean and dry, until office visit on Friday of this week for vein mapping. Meds per med rec. May shower [in 48 hrs], [try to keep operated area as dry as possible]. Referrals: MO SOUZA MD [Primary Care Provider] - Discharge Diet: Other (Comments) - Renal, diabetic. Respiratory Treatments at Home: Deep Breathing/Coughing Discharge Activity: Activity As Tolerated
--- NOTE | 2019-10-18 11:16 | Operative Report ---
Operative Report DATE OF SURGERY: 10/18/19 PREOPERATIVE DIAGNOSIS: #1 clotted AV fistula right radiocephalic. 2. End-sta ge renal disease on hemodialysis. 3 diabetes mellitus type 2. [address] 5. Hypertension. POSTOPERATIVE DIAGNOSIS: #1 clotted AV fistula right radiocephalic. 2. End- stage renal disease on hemodialysis. 3 diabetes mellitus type 2. [address] 5. Hypertension. OPERATION: 1. Ultrasound evaluation of the right internal jugular vein. 2. Insertion of permacatheter via real-time access of the right internal jugular vein. 3. Angiogram and interpretation. SURGEON: DANYA GARCIA MOTOR VEHICLE REPRESENTATIVE: None. ANESTHESIA: Moderate Sedation TISSUE REMOVED OR ALTERED: Not applicable. COMPLICATIONS: None. ESTIMATED BLOOD LOSS: 5 mL. INTRAOPERATIVE FINDINGS: Of a satisfactory right internal jugular vein about 1.5 cm in diameter. Satisfactory access. Satisfactory positioning with the tip of the catheter well down in the right atrial pool, adjacent to the inferior vena cava. Easy egress of blood and ingress of heparinized solution to both ports. Cath angiogram demonstrates smooth flow of contrast through the right atrium, ventricle and pulmonary outflow tract. Postprocedure chest x-ray shows hardware in satisfactory position.
[2019-10-18 13:40] VITALS: BP 138/68
== END 2019-10-18 12:20 | disposition home or self-care (01) ==
LOC: CCL 07:30
PROVIDERS: ATTEND Surgery
DX: T82.858A Stenosis of other vascular prosthetic devices, implants and grafts, initial encounter (principal); Y83.2 Surgical operation with anastomosis, bypass or graft as the cause of abnormal reaction of the patient, or of later complication, without mention of misadventure at the time of the procedure; E11.22 Type 2 diabetes mellitus with diabetic chronic kidney disease; I12.0 Hypertensive chronic kidney disease with stage 5 chronic kidney disease or end stage renal disease; N18.6 End stage renal disease; Z99.2 Dependence on renal dialysis; I25.10 Atherosclerotic heart disease of native coronary artery without angina pectoris; I25.2 Old myocardial infarction; E78.5 Hyperlipidemia, unspecified; E03.9 Hypothyroidism, unspecified; Z79.4 Long term (current) use of insulin; Z79.899 Other long term (current) drug therapy; Z79.82 Long term (current) use of aspirin; Z88.8 Allergy status to other drugs, medicaments and biological substances; Z95.0 Presence of cardiac pacemaker
CPT/HCPCS: 36415; 85027; 80048; 36558; 76937; 77001; C1752; Q9967; C1769; J2250; J3490 ×2; J1644 ×2; J0690; A9270; J3010

== ENCOUNTER 2019-10-19 08:25 | Emergency (ER) | payer MEDICARE, OTHER ==
[2019-10-19 09:01] LABS: ABSOLUTE EOSINOPHILS # (AUTO) 0.1 10^3/uL (0.0-0.6); ABSOLUTE MONOCYTES (AUTO) 0.7 10^3/uL (0.1-1.4); ABSOLUTE NEUT (AUTO) 10.5 10^3/uL (1.7-8.2); BASOPHILS % (AUTO) 0.4 % (0-2); EOSINOPHILS % (AUTO) 0.9 % (0-6); HEMATOCRIT 37.9 % (37.9-51.0); HEMOGLOBIN 11.9 g/dL (13.5-17.0); LYMPHOCYTES % (AUTO) 8.3 % (13-45); MEAN CORPUSCULAR HEMOGLOBIN 32.4 pg (27.0-33.4); MEAN CORPUSCULAR HGB CONC 31.5 g/dL (32.0-36.0); MEAN CORPUSCULAR VOLUME 103 fl (80-97); MONOCYTES % (AUTO) 5.8 % (3-13); PLATELET COUNT 113 10^3/uL (150-450); RED BLOOD COUNT 3.68 10^6/uL (4.35-5.55); RED CELL DISTRIBUTION WIDTH 15.5 % (11.5-14.0); SEGMENTED NEUTROPHILS % (AUTO) 84.6 % (42-78); TOTAL CELLS COUNTED % (AUTO) 100 %; WHITE BLOOD COUNT 12.4 10^3/uL (4.0-10.5)
[2019-10-19 09:16] LABS: ALBUMIN 4.3 g/dL (3.5-5.0); ALKALINE PHOSPHATASE 529 U/L (38-126); ASPARTATE AMINO TRANSFERASE 29 U/L (17-59); BILIRUBIN,TOTAL 0.6 mg/dL (0.2-1.3); BLOOD UREA NITROGEN 96 mg/dL (7-20); CALCIUM 8.8 mg/dL (8.4-10.2); GLUCOSE 139 mg/dL (75-110); POTASSIUM 5.4 mmol/L (3.6-5.0); TOTAL PROTEIN 7.9 g/dL (6.3-8.2)
[2019-10-19 09:22] LABS: CARBON DIOXIDE 14 mmol/L (22-30); CHLORIDE 108 mmol/L (98-107)
--- NOTE | 2019-10-19 09:26 | RADIOLOGY REPORT (SQ) ---
EXAM DESCRIPTION: CHEST SINGLE VIEW COMPLETED DATE/TIME: 10/19/2019 9:09 am REASON FOR STUDY: sob COMPARISON: 07/10/2019 EXAM PARAMETERS: NUMBER OF VIEWS: One view. TECHNIQUE: Single frontal radiographic view of the chest acquired. RADIATION DOSE: NA LIMITATIONS: None. FINDINGS: LUNGS AND PLEURA: No opacities, masses or pneumothorax. No pleural effusion. MEDIASTINUM AND HILAR STRUCTURES: No masses. Contour normal. HEART AND VASCULAR STRUCTURES: Enlarged cardiac silhouette, stable. Mild central vascular congestion . BONES: No acute findings. Severe degenerative changes at the right shoulder. HARDWARE: Right internal jugular central venous catheter with tip at right atrium. Left approach car diac pacer with leads overlying right atrium and right ventricle. OTHER: Unchanged metallic density at the level of the proximal right clavicle, etiology uncertain. IMPRESSION: Stable enlarged cardiac silhouette and central vascular congestion. No overt edema. No significant effusion. TECHNICAL DOCUMENTATION: JOB ID: [id number] [email or web address]- All Rights Reserved Reading location - IP/workstation name: [email or web address]
[2019-10-19 09:33] LABS: ANION GAP 20 (5-19)
--- NOTE | 2019-10-19 09:46 | EKG REPORT ---
SEVERITY:- ABNORMAL ECG - A-V DUAL-PACED COMPLEXES W/ SOME INHIBITION : Confirmed by: Santo Anglin MD 19-Oct-2019 09:46:08
--- NOTE | 2019-10-19 11:39 | ER Document Report ---
ED General - General Chief Complaint: Blood Pressure Problem Stated Complaint: BLOOD PRESSURE ISSUES Time Seen by Provider: 10/19/19 08:49 Primary Care Provider: MO SOUZA MD [Primary Care Provider] - Follow up as needed Mode of Arrival: Medic Information source: Patient TRAVEL OUTSIDE OF THE [place] IN LAST 30 DAYS: No - HPI Notes: Patient presents with a history of altered mental status. Patient was apparently at dialysis today when he became somewhat unresponsive per dialysis personnel. They states that his blood pressure was 60 systolic at the time. He had only been undergoing dialysis for about 45 minutes when this happened. Medics state that patient had approximate 1 kg fluid taken off and that 45 minutes. Patient has a brand-new access site in the right chest and was used for the first time today. Upon arrival here patient has no complaints and blood pressure is back to normal. Patient's symptoms included lethargy. It was constant. It was made better by fluids and was worse without the fluids. There is no known radiation symptoms. They were moderate to severe in intensity. Patient has no complaints of pain or nausea. No shortness of breath. - Related Data Allergies/Adverse Reactions: tuberculin, purified protein deriva Allergy (Severe, Verified 10/18/19 10:36) PPD CONVERTER Past Medical History - General Information source: Patient - Social History Smoking Status: Never Smoker Frequency of alcohol use: None Drug Abuse: None Family History: Reviewed & Not Pertinent Patient has suicidal ideation: No Patient has homicidal ideation: No - Past Medical History Cardiac Medical History: Reports: Hx Coronary Artery Disease - STENTS AND PACEMAKER, Hx Heart Attack, Hx Hypercholesterolemia, Hx Hypertension Pulmonary Medical History: Denies: Hx Asthma, Hx Bronchitis, Hx COPD, Hx Pneumonia Neurological Medical History: Reports: Hx Seizures - MORE THAN 2YRS AGO. Denies: Hx Cerebrovascular Accident Endocrine Medical History: Reports: Hx Diabetes Mellitus Type 2, Hx Hypothyroidism Renal/ Medical History: Reports: Hx End Stage Renal Disease, Hx Hemodialysis. Denies: Hx Peritoneal Dialysis GI Medical History: Reports: Hx Gastroesophageal Reflux Disease. Denies: Hx Hepatitis, Hx Hiatal Hernia, Hx Ulcer Musculoskeletal Medical History: Denies Hx Arthritis, Reports Hx Gout Infectious Medical History: Denies: Hx Hepatitis Past Surgical History: Reports: Hx Abdominal Surgery - Hernia, Hx Cardiac Catheterization - Stent placed 02/24/2017 @[facility], Hx Cardiac Surgery - pacemaker, Stent, Hx Oral Surgery, Hx Pacemaker - 3 YEARS AGO, Hx Vascular Surgery - PermCath insertion. Right radiocephalic fistula insertion.Comment Only: Hx Open Heart Surgery - STENT LAST YEAR FEBRUARY - Immunizations Hx Diphtheria, Pertussis, Tetanus Vaccination: Yes Hx Pneumococcal Vaccination: 11/10/12 Review of Systems - Review of Systems Constitutional: denies: Chills, Fever Cardiovascular: denies: Chest pain, Palpitations Respiratory: denies: Cough, Short of breath -: Yes All other systems reviewed and negative Physical Exam - Vital signs Vitals: Temp 97.4 F 10/19/19 08:26 Interpretation: Normal - General General appearance: Appears well, Alert - HEENT Head: Normocephalic, Atraumatic Eyes: Normal Pupils: PERRL - Respiratory Respiratory status: No respiratory distress Chest status: Nontender Breath sounds: Decreased air movement - Decreased bilaterally Chest palpation: Normal - Cardiovascular Rhythm: Regular Heart sounds: Normal auscultation Murmur: No - Abdominal Inspection: Normal Distension: No distension Bowel sounds: Normal Tenderness: Nontender Organomegaly: No organomegaly - Back Back: Normal, Nontender - Extremities General upper extremity: Normal inspection, Nontender, Normal color, Normal ROM, Normal temperature General lower extremity: Normal inspection, Nontender, Edema - 2+ bilaterally, Normal color, Normal ROM, Normal temperature. No: Jono's sign - Neurological Neuro grossly intact: Yes Cognition: Normal Orientation: AAOx4 Jacque Coma Scale Eye Opening: Spontaneous Jacque Coma Scale Verbal: Oriented Jacque Coma Scale Motor: Obeys Commands Jacque Coma Scale Total: 15 Speech: Normal Motor strength normal: LUE, RUE, LLE, RLE Sensory: Normal - Psychological Associated symptoms: Normal affect, Normal mood - Skin Skin Temperature: Warm Skin Moisture: Dry Skin Color: Normal Course - Re-evaluation Re-evalutation: 10/19/19 11:36 Patient had an episode of low blood pressure at dialysis. It appears they removed too much fluid too quickly. They did re-bolused him and by the time the patient arrived here in the emergency department his blood pressure was back to normal and he had no significant complaints. He is alert awake and very talkative currently. I have discussed the case with the patient's hearing impaired itinerant teacher. He will be sent by ambulance back to the dialysis center to finish dialysis today. Patient's blood pressures currently 170 systolic. - Vital Signs Vital signs: Temp Pulse Resp BP Pulse Ox 97.5 F 64 14 134/75 H 98 10/19/19 10:34 10/19/19 08:34 10/19/19 10:01 10/19/19 10:01 10/19/19 10:01 - Laboratory Result Diagrams: 10/19/19 08:34 10/19/19 08:34 Laboratory results interpreted by me: 10/19/19 10/19/19 08:34 08:34 WBC 12.4 H RBC 3.68 L Hgb 11.9 L MCV 103 H MCHC 31.5 L RDW 15.5 H Plt Count 113 L Lymph % (Auto) 8.3 L Absolute Neuts (auto) 10.5 H Seg Neutrophils % 84.6 H Potassium 5.4 H Chloride 108 H Carbon Dioxide 14 L Anion Gap 20 H BUN 96 H Creatinine 12.19 H Est GFR ( Amer) 5 L Est GFR (MDRD) Non-Af 4 L Glucose 139 H Alkaline Phosphatase 529 H - Diagnostic Test Radiology reviewed: Image reviewed, Reports reviewed - EKG Interpretation by Me Rate: Normal - 67 Rhythm: Other - Patient has a dual paced rhythm [place]/QRS: IVCD Voltage: Increased voltage Discharge - Discharge Clinical Impression: Hypotension Qualifiers: Hypotension type: hemodialysis-associated hypotension Qualified Code(s): I95.3 - Hypotension of hemodialysis Condition: Stable Disposition: HOME, SELF-CARE Additional Instructions: Please return to dialysis today to finish her dialysis Referrals: MO SOUZA MD [Primary Care Provider] - Follow up as needed
[2019-10-19 12:25] VITALS: BP 167/88
== END 2019-10-19 12:15 | disposition home or self-care (01) ==
LOC: ER 08:25
DX: I95.3 Hypotension of hemodialysis (principal); R41.82 Altered mental status, unspecified; R53.83 Other fatigue; I25.10 Atherosclerotic heart disease of native coronary artery without angina pectoris; I25.2 Old myocardial infarction; I10 Essential (primary) hypertension; E11.9 Type 2 diabetes mellitus without complications
CPT/HCPCS: 36415; 71045; 80053; 85025; 93005; 93010; 99285

== ENCOUNTER 2019-11-01 12:41 | Day surgery (SDC) | payer MEDICARE, OTHER ==
[~2019-11-01 12:41] MED LIST changes: +BESIFLOXACIN HCL 0.6% OPH SUSP 5 ML BOTTLE OD PRN; +CHONDR SU A NA/HYALUR INTRAOC KIT (SURGICARE) ONE; +CYCLOPENTOLATE 0.2%/PHENYLEPHRINE 1% OPH SOLN 2 ML OD PRN; -DIAZEPAM 5 MG TABLET PO PRN; +DORZOLAMIDE HCL 2%/TIMOLOL MALEAT 0.5% OPH SOLN 10 ML OD PRN; +EPINEPHRINE INJ/PF 1 MG/1 ML AMPULE ONE; +FENTANYL CITRATE INJ/PF 100 MCG/2 ML AMPUL ONE; +KETOROLAC TROMETHAMINE 0.45% 4 DROP/0.4 ML DROPERETTE OD PRN; +LIDOCAINE 1%/PHENYLEPHRINE 1.5% 1 ML VIAL ONE; +MIDAZOLAM 2 MG/2 ML INJ ONE; +ONDANSETRON HCL INJ/PF 4 MG/2 ML SDV ONE; +TETRACAINE HCL 0.5% OPH SOLN 4 ML OD PRN; +TROPICAMIDE 1% OPH SOLN 15 ML OD PRN
[2019-11-01] MEDS: BESIFLOXACIN HCL 0.6% OPH SUSP 5 ML BOTTLE OD PRN ×4 (12:50→13:42)
[2019-11-01] MEDS: CYCLOPENTOLATE 0.2%/PHENYLEPHRINE 1% OPH SOLN 2 ML OD PRN ×4 (12:50→13:10)
[2019-11-01] MEDS: TROPICAMIDE 1% OPH SOLN 15 ML OD PRN ×4 (12:50→13:10)
[2019-11-01] MEDS: TETRACAINE HCL 0.5% OPH SOLN 4 ML OD PRN ×4 (12:51→13:16)
[2019-11-01] MEDS: CHONDR SU A NA/HYALUR INTRAOC KIT (SURGICARE) ONE ×2 (13:25)
[2019-11-01] MEDS: LIDOCAINE 1%/PHENYLEPHRINE 1.5% 1 ML VIAL ONE ×2 (13:25)
[2019-11-01] MEDS: EPINEPHRINE INJ/PF 1 MG/1 ML AMPULE ONE ×2 (13:25)
[2019-11-01] MEDS: DORZOLAMIDE HCL 2%/TIMOLOL MALEAT 0.5% OPH SOLN 10 ML OD PRN ×2 (13:42)
== END 2019-11-01 14:29 | disposition home or self-care (01) ==
LOC: SC 12:41
PROVIDERS: ATTEND Ophthalmology
DX: H25.11 Age-related nuclear cataract, right eye (principal); I25.10 Atherosclerotic heart disease of native coronary artery without angina pectoris; E78.00 Pure hypercholesterolemia, unspecified; E03.9 Hypothyroidism, unspecified; E11.22 Type 2 diabetes mellitus with diabetic chronic kidney disease; I12.0 Hypertensive chronic kidney disease with stage 5 chronic kidney disease or end stage renal disease; N18.6 End stage renal disease; Z99.2 Dependence on renal dialysis; Z95.0 Presence of cardiac pacemaker; I25.2 Old myocardial infarction; Z79.82 Long term (current) use of aspirin; Z79.4 Long term (current) use of insulin; Z79.899 Other long term (current) drug therapy; Z85.46 Personal history of malignant neoplasm of prostate
CPT/HCPCS: 66982; 82962; 00142; V2632; J2250; J3490 ×2; A9270; J0171; J2405; J2370; 142; J3010

== ENCOUNTER 2019-11-11 13:55 | Emergency (ER) | payer MEDICARE, OTHER ==
--- NOTE | 2019-11-11 16:43 | ER Document Report ---
ED General - General Chief Complaint: Weakness Stated Complaint: WEAKNESS Time Seen by Provider: 11/11/19 16:42 Primary Care Provider: MO SOUZA MD [Primary Care Provider] - Follow up as needed Mode of Arrival: Ambulatory Information source: Patient TRAVEL OUTSIDE OF THE [place] IN LAST 30 DAYS: No - HPI Onset: Just prior to arrival Onset/Duration: Gradual Quality of pain: No pain Severity: Moderate Pain Level: 0 Associated symptoms: Weakness, Other Exacerbated by: Walking Relieved by: Other Similar symptoms previously: Yes - Hemodialysis patient is in postdialysis days are usually weak Recently seen / treated by doctor: No Notes: Patient reports that on his dialysis days he usually is weakened by the time he gets home. This occurred today as patient was at home and he has a weak left leg that is a chronic condition and he had trouble lifting his left leg and he h ad to go to the bathroom and sat on the commode. And then he had trouble getting off the commode after having a nonstressful bowel movement. Patient also had a busy schedule as he was supposed to go to another clinic for his cataract postop surgery. Patient felt so weak that he did not go to his second eye appointment today. Therefore family brought him into the emergency room for further evaluation due to his persistent weakness postdialysis today. - Related Data Allergies/Adverse Reactions: tuberculin, purified protein deriva Allergy (Severe, Verified 10/18/19 10:36) PPD CONVERTER Past Medical History - Social History Smoking Status: Former Smoker Lives with: Family Family History: Reviewed & Not Pertinent Patient has suicidal ideation: No Patient has homicidal ideation: No - Past Medical History Cardiac Medical History: Reports: Hx Coronary Artery Disease - STENTS AND PACEMAKER, Hx Heart Attack, Hx Hypercholesterolemia, Hx Hypertension Pulmonary Medical History: Denies: Hx Asthma, Hx Bronchitis, Hx COPD, Hx Pneumonia Neurological Medical History: Reports: Hx Cerebrovascular Accident - ?, 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 Denies: Hx Peritoneal Dialysis GI Medical History: Reports: Hx Gastroesophageal Reflux Disease. Denies: Hx Hepatitis, Hx Hiatal Hernia, Hx Ulcer Musculoskeletal Medical History: Denies Hx Arthritis, Reports Hx Gout Infectious Medical History: Denies: Hx Hepatitis Past Surgical History: Reports: Hx Abdominal Surgery - Hernia, Hx Cardiac Catheterization - Stent placed 02/24/2017 @[facility], Cardiac Surgery - pacemaker, Stent, Hx Oral Surgery, Hx Pacemaker, Hx Vascular Surgery - PermCath insertion. Right radiocephalic fistula insertion.. Denies: Hx Open Heart Surgery - [id number] - Immunizations Hx Diphtheria, Pertussis, Tetanus Vaccination: Yes Hx Pneumococcal Vaccination: 11/10/12 Review of Systems - Review of Systems Constitutional: See HPI Musculoskeletal: See HPI Neurological/Psychological: See HPI Physical Exam - Vital signs Vitals: Resp 16 11/11/19 14:07 Interpretation: Normal - Notes Notes: Obese male in mild to moderate distress. Generalized weakness. - General General appearance: Appears well, Alert, Other - Obese In distress: Mild - HEENT Head: Normocephalic, Atraumatic Eyes: Normal Pupils: PERRL - Respiratory Respiratory status: No respiratory distress Chest status: Nontender Breath sounds: Normal Chest palpation: Normal - Cardiovascular Rhythm: Regular Heart sounds: Normal auscultation Murmur: No - Abdominal Inspection: Normal Distension: No distension Bowel sounds: Normal Tenderness: Nontender Organomegaly: No organomegaly - Back Back: Normal, Nontender - Extremities General upper extremity: Normal inspection, Nontender, Normal color, Normal ROM, Normal temperature General lower extremity: Normal inspection, Nontender, Normal color, Normal ROM, Normal temperature, Normal weight bearing. No: Jono's sign - Neurological Neuro grossly intact: Yes Cognition: Normal Orientation: AAOx4 Hardy Coma Scale Eye Opening: Spontaneous Jacque Coma Scale Verbal: Oriented Hardy Coma Scale Motor: Obeys Commands Jacque Coma Scale Total: 15 Speech: Normal Motor strength normal: LUE, RUE, LLE, RLE Sensory: Normal - Psychological Associated symptoms: Normal affect, Normal mood - Skin Skin Temperature: Warm Skin Moisture: Dry Skin Color: Normal Course - Re-evaluation Re-evalutation: 11/11/19 19:28 Patient resting comfortably. States he has eaten some food while here. States he feels stronger at this time. 11/11/19 21:15 Patient is much more alert active speech is clear without any obtunded or slu rred state. Patient states he is ready to go home and ready to go home and eat some food. Patient is not having any chest discomfort at this time patient and I are waiting for this repeat troponin result is initial troponin showed a level of 0.052 therefore it was necessary to have a repeat study. Oftentimes troponin is elevated and chronic renal failure patient's and we just need to see if this level stays the same or increases. - Vital Signs Vital signs: Temp Pulse Resp BP Pulse Ox 98.4 F 29 H 145/78 H 96 11/11/19 14:08 11/11/19 16:01 11/11/19 16:01 11/11/19 16:01 - Laboratory Result Diagrams: 11/11/19 18:03 11/11/19 18:03 Laboratory results interpreted by me: 11/11/19 11/11/19 18:03 18:03 RBC 3.16 L Hgb 10.4 L Hct 31.5 L MCV 100 H RDW 14.4 H Plt Count 102 L Lymph % (Auto) 11.4 L BUN 37 H Creatinine 7.37 H Est GFR ( Amer) 9 L Est GFR (MDRD) Non-Af 7 L Alkaline Phosphatase 317 H - Diagnostic Test Radiology reviewed: Image reviewed, Reports reviewed - EKG Interpretation by Me Additional EKG results interpreted by me: 11/11/19 19:40 12-lead EKG done at 1934 shows AV dual paced rhythm with without any acute changes. No change from 10/19/2019 - Transfer of Care Care transferred to following provider: Case discussed with Dr. Manuel Joyce who will review the pending troponin. Discharge - Discharge Clinical Impression: End stage renal disease, Generalized weakness Hypertension Qualifiers: Hypertension type: essential hypertension Qualified Code(s): I10 - Essential (primary) hypertension Coronary artery disease Qualifiers: Coronary Disease-Associated Artery/Lesion type: unspecified vessel or lesion type [place] vs. transplanted heart: [place] heart Associated angina: without angina Qualified Code(s): I25.10 - Atherosclerotic heart disease of [place] coronary artery without angina pectoris Disposition: HOME, SELF-CARE Additional Instructions: You have chronic renal failure and on hemodialysis days you have noted that most afternoons after your dialysis mornings you are generally weak and requires rest this occurred to you today after your dialysis treatment and you were unable to attend your second eye doctor's appointment status post cataract to me. You never did have a chance to eat as you normally do and you had a busy schedule. We have not learned that there is any acute problem at this time and you have equilibrated at this point in time to back to your normal self. In the future it is important that you this get your proper rest on day of dialysis and be certain to eat food when she get home each day on your day of dialysis. Chest Referrals: MO SOUZA MD [Primary Care Provider] - Follow up as needed ED NIH Stroke Scale - NIH Stroke Scale When completed:: Protocol *: 1. NIH scale should be completed with appropriate accompanying assessment tools. *: 2. The NIH should reflect what the patient is capable of doing and should not be coached by the clinician. 1a. Level of Consciousness: 0=Alert;keenly responsive -: 1=Drowsy -: 2=Obtunded -: 3=Coma/unresponsive or reflex to noxious stimuli. 1b. Orientation Questions: a. What month is it? -: b. How old are you? -: 0=Answers both questions correctly. -: 1=Answers one question correctly or patient is intubated or has orotracheal trauma. -: 2=Answers neither question correctly. 1b. Responses: 0 1c. Response to commands: a. Open and close eyes? -: b. [employer] and release hand? -: Credit is given despite weakness. Demonstration of task is permitted. Substitute command if hands cannot be used. -: 0=Performs both tasks correctly -: 1=Performs one task correctly -: 2=Performs neither task correctly 1c. Responses: 0 2. Gaze: Establish eye contact and instruct patient to "Follow my finger" -: 0=Normal -: 1=Partial gaze palsy. Gaze is abnormal in one or both eyes, but where forced deviation or total gaze paresis is not present. -: 2=Forced deviation or total gaze paresis. 2. Responses: 0 3. Visual Cruz: Sees fingers in all four quadrants. -: 0=No visual loss. -: 1=Partial hemianopsia. -: 2=Complete hemianopsia. -: 3=Bilateral hemianopsia (including Cortical blindness) 3. Responses: 0 4. Facial Movement: Instruct patient to: -: a. Show me your teeth -: b. Raise your eyebrows -: c. Close your eyes -: d. Smile -: 0=Normal symmetrical movement -: 1=Minor paralysis (flattened nasolabial fold, asymmetry on smiling). -: 2=Partial paralysis (total or near total paralysis of lower face). -: 3=Complete paralysis of upper and lower face 4. Responses: 0 5. Motor functions (left arm): Alternate sides and extend each arm with palms down (90 degrees if sitting or 45 degrees for supine). -: 0=No drift;limb holds for full 10 seconds. -: 1=Drift; limb holds but drifts down before full 10 seconds, but does not hit bed. -: 2=Some effort against gravity; limb cannot get to or maintain position. -: 3=No effort against gravity; limb falls. -: 4=No movement. -: UN=Amputation, joint fusion, explain in comments. 5. Responses (left arm): 0 5. Motor Functions (right arm): Alternate sides and extend each arm with palms down (90 degrees if sitting or 45 degrees for supine). -: 0=No drift;limb holds for full 10 seconds. -: 1=Drift; limb holds but drifts down before full 10 seconds, but does not hit bed. -: 2=Some effort against gravity; limb cannot get to or maintain position. -: 3=No effort against gravity; limb falls. -: 4=No movement. -: UN=Amputation, joint fusion, explain in comments. 5. Responses (right arm): 0 6. Motor Functions (left leg): With patient lying supine, alternate sides and extend each leg (30 degrees always while supine). -: 0=No drift, leg holds position for full 5 seconds -: 1=Drift; leg falls before full 5 seconds but does not hit bed. -: 2=Some effort against gravity, leg falls to bed but some effort against gravity. -: 3=No effort against gravity, leg falls to bed immediately. -: 4=No movement. -: UN=Amputation, joint fusion; explain in comments. 6. Responses (left leg): 1 6. Motor Functions (right leg): With patient lying supine, alternate sides and extend each leg (30 degrees always while supine). -: 0=No drift, leg holds position for full 5 seconds -: 1=Drift; leg falls before full 5 seconds but does not hit bed. -: 2=Some effort against gravity, leg falls to bed but some effort against gravity. -: 3=No effort against gravity, leg falls to bed immediately. -: 4=No movement. -: UN=Amputation, joint fusion; explain in comments. 6. Responses (right leg): 0 7. Limb Ataxia: With eyes open instruct patient to: -: a. "Touch your finger to your nose". -: b. "Touch your heel to your acevedo" -: 0=Absent -: 1=Present in one limb. -: 2=Present in two limbs. -: UN=Amputation or joint fusion; explain in comments. 7. Responses: 0 8. Sensory: Test sensation using pinprick or noxious stimuli. Test as many body parts as possible. -: 0=Normal;no sensory loss -: 1=Mile to moderate sensory loss (patient feels pin prick but is less sharp on affected side). -: 2=Severe or total sensory loss. 8. Responses: 0 9. Best Language: Instruct patient to: -: a. "Describe what you see in this picture." -: b. "Name the items in this picture." -: c. "Read these sentences." -: 0=No aphasia, normal -: 1=Mild to moderate aphasia. -: 2=Severe aphasia -: 3=Mute, global aphasia, no usable speech or auditory comprehension. 9. Responses: 0 10. Articulation, Dysarthia: Instruct patient to: -: "Read these words" or "Repeat these words" -: 0=Normal -: 1=Mild to moderate; patient may slur some words but can be understood without difficulty. -: 2=Severe; patients speech so slurred as to be unintelligible in the absence of dysphasia. -: UN=Intubated or other physical barrier, explain in comments. 10. Responses: 0 - NIH score total 1 which is a low score, low probability of a stroke. 11. Extinction or inattention: 0=No abnormality -: 1= Visual, tactile, auditory, spatial, or personal inattention or extinction to bilateral simulation in one or the sensory modalities. -: 2=Profound radha-inattention or radha-inattention to more than one modality; does not recognize own hand. Total Score: 1 Notes: The left leg weakness is a chronic condition from prior stroke in the past. Patient reports that when he walks he drags his left foot.
--- NOTE | 2019-11-11 17:43 | RADIOLOGY REPORT (SQ) ---
EXAM DESCRIPTION: ACUTE ABDOMEN SERIES COMPLETED DATE/TIME: 11/11/2019 5:25 pm REASON FOR STUDY: sobr/weakness/ COMPARISON: 07/17/2019 NUMBER OF VIEWS: Three views. TECHNIQUE: PA chest, supine abdomen and upright/decubitus abdomen radiographic images acquired. LIMITATIONS: None. FINDINGS: CHEST: Lungs clear of infiltrates. Cardiac pacer. Right tunneled dual-lumen catheter. FREE AIR: None. No abnormal gas collections. BOWEL GAS PATTERN: Few scattered small bowel loops with air fluid levels. No distended large or small bowel loops. CALCIFICATIONS: No suspicious calcifications. HARDWARE: None in the abdomen. SOFT TISSUES: No gross mass or suggestion of organomegaly. BONES: No acute fracture. No worrisome bone lesions. OTHER: No other significant finding. IMPRESSION: NONSPECIFIC BOWEL GAS PATTERN WITHOUT EVIDENCE FOR OBSTRUCTION. TECHNICAL DOCUMENTATION: JOB ID: [id number] [place]-72 2010 [employer]- All Rights Reserved Reading location - IP/workstation name: [email or web address]
--- NOTE | 2019-11-11 17:56 | RADIOLOGY REPORT (SQ) ---
EXAM DESCRIPTION: CT HEAD WITHOUT COMPLETED DATE/TIME: 11/11/2019 5:38 pm REASON FOR STUDY: leg weakness COMPARISON: 08/09/2017 TECHNIQUE: Axial images acquired through the brain without intravenous contrast. Images reviewed wit h bone, brain and subdural windows. Images stored on PACS. All CT scanners at this facility use dose modulation, iterative reconstruction, and/or weight based d osing when appropriate to reduce radiation dose to as low as reasonably achievable (ALARA). [facility]: Dose Right [facility]: CareDose [facility]: Dose Right [facility]: Teradose 4D [facility]: Smart [employer] RADIATION DOSE: CT Rad equipment meets quality standard of care and radiation dose reduction techniq ues were employed. CTDIvol: 23.9 - 53.2 mGy. DLP: 1513 mGy-cm.. LIMITATIONS: None. FINDINGS: VENTRICLES: Normal size and contour. CEREBRUM: No hemorrhage. No midline shift. Stable appearance of the white matter. No evidence for ac [place] infarction. CEREBELLUM: No masses. No hemorrhage. No alteration of density. No evidence for acute infarction. EXTRA-AXIAL SPACES: No fluid collections. ORBITS AND GLOBE: No intra- or extraconal masses. Normal contour of globe without masses. CALVARIUM: No fracture. PARANASAL SINUSES: No fluid or mucosal thickening. SOFT TISSUES: No mass or hematoma. Similar small right temporal superficial metallic foreign body. OTHER: No other significant finding. IMPRESSION: NO ACUTE INTRACRANIAL FINDINGS. EVIDENCE OF ACUTE STROKE: NO. TECHNICAL DOCUMENTATION: JOB ID: [id number] [place]-72 Quality ID # [id number]: Final reports with documentation of one or more dose reduction techniques (e.g., Au tomated exposure control, adjustment of the mA and/or kV according to patient size, use of iterative reconstruction technique) 2010 [employer]- All Rights Reserved Reading location - IP/workstation name: [email or web address]
[2019-11-11 18:29] LABS: ABSOLUTE EOSINOPHILS # (AUTO) 0.1 10^3/uL (0.0-0.6); ABSOLUTE LYMPHOCYTES (AUTO) 0.6 10^3/uL (0.5-4.7); ABSOLUTE MONOCYTES (AUTO) 0.7 10^3/uL (0.1-1.4); BASOPHILS % (AUTO) 0.5 % (0-2); EOSINOPHILS % (AUTO) 2.1 % (0-6); HEMATOCRIT 31.5 % (37.9-51.0); HEMOGLOBIN 10.4 g/dL (13.5-17.0); LYMPHOCYTES % (AUTO) 11.4 % (13-45); MEAN CORPUSCULAR HEMOGLOBIN 32.8 pg (27.0-33.4); MEAN CORPUSCULAR HGB CONC 32.9 g/dL (32.0-36.0); MEAN CORPUSCULAR VOLUME 100 fl (80-97); MONOCYTES % (AUTO) 12.4 % (3-13); PLATELET COUNT 102 10^3/uL (150-450); RED BLOOD COUNT 3.16 10^6/uL (4.35-5.55); RED CELL DISTRIBUTION WIDTH 14.4 % (11.5-14.0); SEGMENTED NEUTROPHILS % (AUTO) 73.6 % (42-78); TOTAL CELLS COUNTED % (AUTO) 100 %; WHITE BLOOD COUNT 5.5 10^3/uL (4.0-10.5)
[2019-11-11 18:55] LABS: ALBUMIN 3.7 g/dL (3.5-5.0); ALKALINE PHOSPHATASE 317 U/L (38-126); ANION GAP 10 (5-19); ASPARTATE AMINO TRANSFERASE 27 U/L (17-59); BLOOD UREA NITROGEN 37 mg/dL (7-20); CALCIUM 8.5 mg/dL (8.4-10.2); CARBON DIOXIDE 28 mmol/L (22-30); CHLORIDE 100 mmol/L (98-107); GLUCOSE 94 mg/dL (75-110); POTASSIUM 4.3 mmol/L (3.6-5.0); TOTAL PROTEIN 6.9 g/dL (6.3-8.2)
[2019-11-11 19:05] LABS: BILIRUBIN,TOTAL 0.6 mg/dL (0.2-1.3)
[2019-11-11 22:25] VITALS: BP 162/84
--- NOTE | 2019-11-12 08:30 | EKG REPORT ---
SEVERITY:- ABNORMAL ECG - A-V DUAL-PACED RHYTHM WITH SOME INHIBITION : Confirmed by: Santo Anglin MD 12-Nov-2019 08:28:50
== END 2019-11-11 22:25 | disposition home or self-care (01) ==
LOC: ER 13:55
DX: I12.0 Hypertensive chronic kidney disease with stage 5 chronic kidney disease or end stage renal disease (principal); E11.22 Type 2 diabetes mellitus with diabetic chronic kidney disease; N18.6 End stage renal disease; Z99.2 Dependence on renal dialysis; R53.1 Weakness; E66.9 Obesity, unspecified; I25.10 Atherosclerotic heart disease of native coronary artery without angina pectoris; Z87.891 Personal history of nicotine dependence; Z95.5 Presence of coronary angioplasty implant and graft; Z88.7 Allergy status to serum and vaccine
CPT/HCPCS: 36415; 70450; 74022; 80053; 84484; 85025; 93005; 93010; 99285

== ENCOUNTER → 2019-11-22 | Outpatient (CLI) | payer MEDICARE, OTHER ==
[~2019-11-22] MED LIST changes: -BESIFLOXACIN HCL 0.6% OPH SUSP 5 ML BOTTLE OD PRN; +CEFAZOLIN 1 GM/D5W RTU 0 GM/0 ML RTUPB IV ONE; +CEFAZOLIN 1 GM/D5W RTU 1 GM/50 ML RTUPB IV ONE; +CEFAZOLIN 1 GM/D5W RTU 1 GM/50 ML RTUPB IV PRN; +CEFAZOLIN SODIUM 1 GM in DEXTROSE 5%-WATER 50 ML IV PRN; -CHONDR SU A NA/HYALUR INTRAOC KIT (SURGICARE) ONE; -CYCLOPENTOLATE 0.2%/PHENYLEPHRINE 1% OPH SOLN 2 ML OD PRN; -DORZOLAMIDE HCL 2%/TIMOLOL MALEAT 0.5% OPH SOLN 10 ML OD PRN; -EPINEPHRINE INJ/PF 1 MG/1 ML AMPULE ONE; -KETOROLAC TROMETHAMINE 0.45% 4 DROP/0.4 ML DROPERETTE OD PRN; +LIDOCAINE 0.5% INJ-PF (5 MG/ML) 50 ML SDV SUBCUT PRN; -LIDOCAINE 1%/PHENYLEPHRINE 1.5% 1 ML VIAL ONE; +NORMAL SALINE 1000 ML (RENAL PATIENTS) IV PRN; +PROPOFOL INJ 200 MG/20 ML VIAL IV ONE; -TETRACAINE HCL 0.5% OPH SOLN 4 ML OD PRN; -TROPICAMIDE 1% OPH SOLN 15 ML OD PRN
[2019-11-22 10:41] LABS: HEMATOCRIT 29.3 % (37.9-51.0); HEMOGLOBIN 9.6 g/dL (13.5-17.0); MEAN CORPUSCULAR HEMOGLOBIN 32.7 pg (27.0-33.4); MEAN CORPUSCULAR HGB CONC 32.6 g/dL (32.0-36.0); MEAN CORPUSCULAR VOLUME 100 fl (80-97); PLATELET COUNT 103 10^3/uL (150-450); RED BLOOD COUNT 2.92 10^6/uL (4.35-5.55); RED CELL DISTRIBUTION WIDTH 14.5 % (11.5-14.0); WHITE BLOOD COUNT 5.2 10^3/uL (4.0-10.5)
[2019-11-22 11:00] LABS: ANION GAP 15 (5-19); BLOOD UREA NITROGEN 60 mg/dL (7-20); CALCIUM 8.6 mg/dL (8.4-10.2); CARBON DIOXIDE 23 mmol/L (22-30); CHLORIDE 106 mmol/L (98-107); GLUCOSE 100 mg/dL (75-110); POTASSIUM 4.7 mmol/L (3.6-5.0)
--- NOTE | 2019-11-22 11:18 | RADIOLOGY REPORT (SQ) ---
EXAM DESCRIPTION: CHEST PA/LATERAL COMPLETED DATE/TIME: 11/22/2019 11:05 am REASON FOR STUDY: PRE-OP COMPARISON: 10/19/2019 EXAM PARAMETERS: NUMBER OF VIEWS: two views TECHNIQUE: Digital Frontal and Lateral radiographic views of the chest acquired. RADIATION DOSE: NA LIMITATIONS: none FINDINGS: LUNGS AND PLEURA: There is bilateral alveolar airspace disease suspicious for pulmonary ed shai. No definite effusions. MEDIASTINUM AND HILAR STRUCTURES: No masses or contour abnormalities. HEART AND VASCULAR STRUCTURES: Heart remains enlarged with central vascular prominence. BONES: No acute findings. HARDWARE: Dialysis catheter is in place along with battery pack and leads. OTHER: No other significant finding. IMPRESSION: Bilateral alveolar airspace disease. Cardiomegaly. Findings are consistent with pulmon sheela edema. TECHNICAL DOCUMENTATION: JOB ID: [id number] [employer]- All Rights Reserved Reading location - IP/workstation name: [email or web address]
--- NOTE | 2019-11-22 17:17 | EKG REPORT ---
SEVERITY:- ABNORMAL ECG - ATRIAL-SENSED VENTRICULAR-PACED COMPLEXES NONSPECIFIC IVCD WITH LAD LVH WITH SECONDARY REPOLARIZATION ABNORMALITY : Confirmed by: Urszula Sutton MD 22-Nov-2019 17:15:44
[2019-12-06 11:22] VITALS: BP 141/70
--- NOTE | 2019-12-06 12:35 | RADIOLOGY REPORT (SQ) ---
EXAM DESCRIPTION: CHEST SINGLE VIEW COMPLETED DATE/TIME: 12/06/2019 12:16 pm REASON FOR STUDY: PRE OP COMPARISON: 11/22/2019 EXAM PARAMETERS: NUMBER OF VIEWS: One view. TECHNIQUE: Single frontal radiographic view of the chest acquired. RADIATION DOSE: NA LIMITATIONS: None. FINDINGS: LUNGS AND PLEURA: No opacities, masses or pneumothorax. No pleural effusion. MEDIASTINUM AND HILAR STRUCTURES: No masses. Contour normal. HEART AND VASCULAR STRUCTURES: Heart is enlarged with central vascular prominence. BONES: No acute findings. HARDWARE: Battery pack and leads are in place along with dialysis catheter. OTHER: No other significant finding. IMPRESSION: Cardiomegaly and central vascular congestion. No focal consolidation. TECHNICAL DOCUMENTATION: JOB ID: [id number] [employer]- All Rights Reserved Reading location - IP/workstation name: [email or web address]
== END ==
LOC: OD 10:12 → OROUT 12-06 10:06 → EDSTATUS 12-06 12:00
PROVIDERS: ATTEND Surgery
DX: N18.6 End stage renal disease (principal); Z01.818 Encounter for other preprocedural examination; Z53.8 Procedure and treatment not carried out for other reasons; I12.0 Hypertensive chronic kidney disease with stage 5 chronic kidney disease or end stage renal disease; E11.22 Type 2 diabetes mellitus with diabetic chronic kidney disease; Z85.46 Personal history of malignant neoplasm of prostate; E73.9 Lactose intolerance, unspecified; Z99.89 Dependence on other enabling machines and devices; I51.7 Cardiomegaly; J81.1 Chronic pulmonary edema; R94.31 Abnormal electrocardiogram [ECG] [EKG]
CPT/HCPCS: 36415; 71045; 71046; 80048; 82962; 84132; 85027; 93005; 93010; J0690; J2250; J2405; J2704; J3010

== ENCOUNTER 2019-12-25 03:58 | Emergency (ER) | payer MEDICARE, OTHER ==
--- NOTE | 2019-12-25 07:48 | RADIOLOGY REPORT (SQ) ---
EXAM: XR Right Shoulder Complete, 3 Views EXAM DATE/TIME: 12/25/2019 7:17 AM CLINICAL HISTORY: The patient is 84 years old and is Male; injury TECHNIQUE: 3 views of the right shoulder. COMPARISON: PET/CT from 01/11/2018 FINDINGS: BONES/JOINTS: No obvious acute fracture. No dislocation. The humeral head is ill-defined and decreased in density. There is also remodeling of the glenoid. There is some apparent heterotopic ossification about the inferior aspect of the glenohumeral joint. Findings appear chronic. No focal lesion identified. SOFT TISSUES: Scattered small metallic foci again visualized projecting over the right chest and lateral aspect of the right upper extremity, compatible with chronic foreign bodies. TUBES, LINES AND DEVICES: Right internal jugular dialysis catheter in place, terminating below the imaged level. IMPRESSION: Extensive chronic changes of the shoulder. No obvious acute findings.
--- NOTE | 2019-12-25 08:40 | ER Document Report ---
ED Extremity Problem, Upper - General Chief Complaint: Shoulder Pain Stated Complaint: SHOULDER PAIN Time Seen by Provider: 12/25/19 06:00 Primary Care Provider: MO SOUZA MD [Primary Care Provider] - Follow up as needed Mode of Arrival: Ambulatory Information source: Patient Notes: 84-year-old man presents to the emergency department with a complaint of pain in the right upper trapezius/shoulder area. States the pain is been ongoing for the past few days. He denies any injury that preceded the onset of pain. He has a history of insulin-dependent diabetes mellitus, hypertension, constipation, and renal failure. Patient is being prepared for onset of dialysis. TRAVEL OUTSIDE OF THE [place] IN LAST 30 DAYS: No - Related Data Allergies/Adverse Reactions: tuberculin, purified protein deriva Allergy (Severe, Verified 10/18/19 10:36) PPD CONVERTER Home Medications: clonidine Past Medical History - General Information source: Patient - Social History Smoking Status: Unknown if Ever Smoked Chew tobacco use (# tins/day): No Drug Abuse: None Family History: Reviewed & Not Pertinent Patient has suicidal ideation: No Patient has homicidal ideation: No - Past Medical History Cardiac Medical History: Reports: Hx Coronary Artery Disease - STENTS AND PACEMAKER, Hx Heart Attack, Hx Hypercholesterolemia, Hx Hypertension Pulmonary Medical History: Denies: Hx Asthma, Hx Bronchitis, Hx COPD, Hx Pneumonia Neurological Medical History: Reports: Hx Cerebrovascular Accident - ?, 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 Denies: Hx Peritoneal Dialysis GI Medical History: Reports: Hx Gastroesophageal Reflux Disease. Denies: Hx Hepatitis, Hx Hiatal Hernia, Hx Ulcer Musculoskeletal Medical History: Reports Hx Arthritis - gout, Reports Hx Gout Infectious Medical History: Denies: Hx Hepatitis Past Surgical History: Reports: Hx Abdominal Surgery - Hernia, Hx Cardiac Catheterization - Stent placed 02/24/2017 @[facility], Hx Cardiac Surgery - pacemaker, Stent, Hx Oral Surgery, Hx Pacemaker, Hx Vascular Surgery - PermCath insertion. Right radiocephalic fistula insertion.. Denies: Hx Open Heart Surgery - [id number] - Immunizations Hx Diphtheria, Pertussis, Tetanus Vaccination: Yes Hx Pneumococcal Vaccination: 11/10/12 Review of Systems - Review of Systems Notes: Constitutional: Negative for fever. HENT: Negative for sore throat. Eyes: Negative for visual changes. Cardiovascular: Negative for chest pain. Respiratory: Negative for shortness of breath. Gastrointestinal: Negative for abdominal pain, vomiting or diarrhea. Genitourinary: Negative for dysuria. Musculoskeletal: + Left shoulder pain Skin: Negative for rash. Neurological: Negative for headaches, weakness or numbness. 10 point ROS negative except as marked above and in HPI. Physical Exam - Vital signs Vitals: Temp Resp BP Pulse Ox 98.4 F 16 167/75 H 97 12/25/19 04:13 12/25/19 04:13 12/25/19 04:13 12/25/19 04:13 - Notes Notes: PHYSICAL EXAMINATION: Physical Exam: General: Elderly male in no acute distress except for left shoulder pain. HEENT: NC/AT, pupils equal round and reactive to light, MM moist,nares clear, oropharynx clear, poor dentition Neck: supple, no adenopathy, no masses. Lungs: clear, no wheezing, no rales no rhonchi CVS: Regular rate and rhythm no murmur gallop or rub Abdomen: Soft active nontender, no masses, no hepatosplenomegaly Ext: + Tenderness in the left upper trapezius muscle group, anterior shoulder + tenderness, Neuro: Alert and responsive, moving all 4 extremities on command, cranial nerves intact. Skin: Intact no open lesions, no rash PSYCH: Normal mood, normal affect. Course - Re-evaluation Re-evalutation: 12/25/19 08:40 After x-ray is apparent that the patient does have degenerative changes in the left shoulder with chronic changes related to osteoarthritis. He is given acetaminophen the emergency department. I have asked the patient to continue ibuprofen as needed use a cold compress to the area of pain and swelling and to follow-up with his doctors as needed. They acknowledge an understanding of this plan and are being discharged home. 12/25/19 08:45 - Vital Signs Vital signs: Temp Pulse Resp BP Pulse Ox 97.5 F 72 16 175/88 H 98 12/25/19 08:06 12/25/19 08:06 12/25/19 08:06 12/25/19 08:06 12/25/19 08:06 - Diagnostic Test Radiology reviewed: Image reviewed, Reports reviewed - Left shoulder x-ray: Degenerative changes in the left shoulder compatible with osteoarthritis degenerative arthritis. Discharge - Discharge Clinical Impression: Trapezius muscle spasm Left shoulder pain Qualifiers: Chronicity: unspecified Qualified Code(s): M25.512 - Pain in left shoulder Condition: Good Disposition: HOME, SELF-CARE Additional Instructions: You were diagnosed with degenerative changes in your left shoulder likely arthritic, using Tylenol for pain, cold compress to the area of discomfort in the upper shoulder should allow some relief. Please follow-up with your primary care doctor or return to the emergency department if the pain is completely uncontrolled. Referrals: MO SOUZA MD [Primary Care Provider] - Follow up as needed
[2019-12-25] MEDS ORDERED: ACETAMINOPHEN 325 MG TABLET PO ONE (08:44)
[2019-12-25 09:30] VITALS: BP 173/78
== END 2019-12-25 09:33 | disposition home or self-care (01) ==
LOC: ER 03:58
DX: M19.012 Primary osteoarthritis, left shoulder (principal); M62.830 Muscle spasm of back; M25.511 Pain in right shoulder; I12.0 Hypertensive chronic kidney disease with stage 5 chronic kidney disease or end stage renal disease; E11.22 Type 2 diabetes mellitus with diabetic chronic kidney disease; N18.6 End stage renal disease; Z79.899 Other long term (current) drug therapy; I25.10 Atherosclerotic heart disease of native coronary artery without angina pectoris; Z88.7 Allergy status to serum and vaccine
CPT/HCPCS: 99283; 73030; A9270

== ENCOUNTER → 2020-01-27 | Outpatient (CLI) | payer MEDICARE, OTHER ==
[2020-01-27 08:58] LABS: ALBUMIN 3.9 g/dL (3.5-5.0); ALKALINE PHOSPHATASE 374 U/L (38-126); ASPARTATE AMINO TRANSFERASE 22 U/L (17-59); BILIRUBIN,TOTAL 0.5 mg/dL (0.2-1.3); CHOLESTEROL 142.89 mg/dL (0-200); TOTAL PROTEIN 7.4 g/dL (6.3-8.2); TRIGLYCERIDES 139 mg/dL (<150)
[2020-01-27 09:08] LABS: DIRECT LDL 64 mg/dL (<100)
== END ==
LOC: OD 07:38
PROVIDERS: ATTEND Physician Assistant
DX: E78.2 Mixed hyperlipidemia (principal); Z79.899 Other long term (current) drug therapy
CPT/HCPCS: 36415; 80061; 80076

== ENCOUNTER 2020-02-01 17:31 | Emergency (ER) | payer MEDICARE, OTHER ==
[2020-02-01 18:50] LABS: HEMATOCRIT 33.3 % (37.9-51.0); HEMOGLOBIN 10.7 g/dL (13.5-17.0); MEAN CORPUSCULAR HEMOGLOBIN 33.1 pg (27.0-33.4); MEAN CORPUSCULAR HGB CONC 32.1 g/dL (32.0-36.0); MEAN CORPUSCULAR VOLUME 103 fl (80-97); PLATELET COUNT 128 10^3/uL (150-450); RED BLOOD COUNT 3.23 10^6/uL (4.35-5.55); RED CELL DISTRIBUTION WIDTH 15.3 % (11.5-14.0); WHITE BLOOD COUNT 7.4 10^3/uL (4.0-10.5)
[2020-02-01 18:58] LABS: ALBUMIN 4.2 g/dL (3.5-5.0); ALKALINE PHOSPHATASE 320 U/L (38-126); ANION GAP 16 (5-19); ASPARTATE AMINO TRANSFERASE 25 U/L (17-59); BILIRUBIN,TOTAL 0.6 mg/dL (0.2-1.3); BLOOD UREA NITROGEN 60 mg/dL (7-20); CALCIUM 9.3 mg/dL (8.4-10.2); CARBON DIOXIDE 24 mmol/L (22-30); CHLORIDE 99 mmol/L (98-107); CREATINE KINASE 73 U/L (55-170); GLUCOSE 90 mg/dL (75-110); POTASSIUM 3.9 mmol/L (3.6-5.0); TOTAL PROTEIN 7.8 g/dL (6.3-8.2)
[2020-02-01 19:09] VITALS: BP 173/82
[2020-02-01 19:10] LABS: CREATINE KINASE MB 3.03 ng/mL (<4.55)
[2020-02-01 19:14] LABS: TROPONIN I 0.073 ng/mL
--- NOTE | 2020-02-01 19:15 | ER Document Report ---
ED General - General Chief Complaint: General Weakness Stated Complaint: GENERAL WEAKNESS Time Seen by Provider: 02/01/20 18:37 Primary Care Provider: MO SOUZA MD [Primary Care Provider] - Follow up as needed Mode of Arrival: Medic Information source: Patient TRAVEL OUTSIDE OF THE [place] IN LAST 30 DAYS: No - HPI Onset: Just prior to arrival Onset/Duration: Gradual Quality of pain: No pain Severity: Mild Pain Level: Denies Associated symptoms: Weakness Exacerbated by: Denies Relieved by: Denies Similar symptoms previously: No Recently seen / treated by doctor: Yes - patient had full dialysis today Notes: 85 year old male with a history of ESRD (fully dialyzed today), HTN, HLD, CAD, CVA, DM, GERD, Seizures, Hypothyroidism here in the ER for generalized weakness after a dialysis session today. The patient says he had a full dialysis but when he was waiting for his ride from dialysis he felt somewhat weak. The patient denies fevers, chills, sweats, nausea, vomiting, chest pain, abdominal pain, diarrhea, urinary symptoms. The patient says the sensation of weakness has since passed and he now feels fine. - Related Data Allergies/Adverse Reactions: tuberculin, purified protein deriva Allergy (Severe, Verified 10/18/19 10:36) PPD CONVERTER Past Medical History - General Information source: Patient - Social History Smoking Status: Never Smoker Frequency of alcohol use: None Drug Abuse: None Lives with: Alone Family History: Reviewed & Not Pertinent Patient has suicidal ideation: No Patient has homicidal ideation: No - Past Medical History Cardiac Medical History: Reports: Hx Coronary Artery Disease - STENTS AND PACE MAKER, Hx Heart Attack, Hx Hypercholesterolemia, Hx Hypertension Pulmonary Medical History: Denies: Hx Asthma, Hx Bronchitis, Hx COPD, Hx Pneumonia Neurological Medical History: Reports: Hx Cerebrovascular Accident - ?, 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 Denies: Hx Peritoneal Dialysis GI Medical History: Reports: Hx Gastroesophageal Reflux Disease. Denies: Hx Hepatitis, Hx Hiatal Hernia, Hx Ulcer Musculoskeletal Medical History: Reports Hx Arthritis - gout, Reports Hx Gout Infectious Medical History: Denies: Hx Hepatitis Past Surgical History: Reports: Hx Abdominal Surgery - Hernia, Hx Cardiac Catheterization - Stent placed 02/24/2017 @[facility], Cardiac Surgery - pacemaker, Stent, Hx Oral Surgery, Hx Pacemaker, Hx Vascular Surgery - PermCath insertion. Right radiocephalic fistula insertion.. Denies: Hx Open Heart Surgery - [id number] - Immunizations Hx Diphtheria, Pertussis, Tetanus Vaccination: Yes Hx Pneumococcal Vaccination: 11/10/12 Review of Systems - Review of Systems Constitutional: Weakness EENT: No symptoms reported Cardiovascular: No symptoms reported Respiratory: No symptoms reported Gastrointestinal: No symptoms reported Genitourinary: No symptoms reported Male Genitourinary: No symptoms reported Musculoskeletal: No symptoms reported Skin: No symptoms reported Hematologic/Lymphatic: No symptoms reported Neurological/Psychological: No symptoms reported -: Yes All other systems reviewed and negative Physical Exam - Vital signs Vitals: Temp Resp BP Pulse Ox 97.7 F 26 H 161/83 H 99 02/01/20 17:42 02/01/20 17:42 02/01/20 17:42 02/01/20 17:42 - Notes Notes: GENERAL: Well-appearing, well-nourished and in no acute distress. HEAD: Atraumatic, normocephalic. EYES: Pupils equal round and reactive to light, extraocular movements intact, sclera anicteric, conjunctiva are normal. ENT: Nares patent, oropharynx clear without exudates. Moist mucous membranes. NECK: Normal range of motion, supple without lymphadenopathy or JVD. LUNGS: Breath sounds clear to auscultation bilaterally and equal. No wheezes rales or rhonchi. HEART: Regular rate and rhythm without murmurs, rubs or gallops. ABDOMEN: Soft, nontender, normoactive bowel sounds. No guarding, no rebound. No masses appreciated. EXTREMITIES: Normal range of motion, no pitting or edema. No clubbing or cyanosis. NEUROLOGICAL: Cranial nerves II through XII grossly intact. Normal speech, normal gait. PSYCH: Normal mood, normal affect. SKIN: Warm, Dry, normal turgor, no rashes or lesions noted. Course - Re-evaluation Re-evalutation: 02/01/20 19:33 The patient came to the ER for generalized weakness after a dialysis session today. The sensation of weakness has since passed. The patient feels totally back to normal. Patient's labs are baseline for him. Patient has not been having any recent fevers, chills, sweats, cough, sore throat, shortness of breath making him low risk for COVID19. Patient told to follow up with his PCP. - Vital Signs Vital signs: Temp Pulse Resp BP Pulse Ox 97.7 F 23 H 173/82 H 100 02/01/20 17:42 02/01/20 19:01 02/01/20 19:01 02/01/20 19:01 - Laboratory Result Diagrams: 02/01/20 18:09 02/01/20 18:09 Laboratory results interpreted by me: 02/01/20 02/01/20 02/01/20 18:09 18:09 18:09 RBC 3.23 L Hgb 10.7 L Hct 33.3 L MCV 103 H RDW 15.3 H Plt Count 128 L Seg Neuts % (Manual) 86 H Band Neutrophils % 2 L Lymphocytes % (Manual) 6 L Abs Lymphs (Manual) 0.4 L BUN 60 H Creatinine 9.16 H Est GFR ( Amer) 7 L Est GFR (MDRD) Non-Af 6 L Alkaline Phosphatase 320 H NT-Pro-B Natriuret Pep 10612 H Discharge - Discharge Clinical Impression: Weakness Condition: Stable Disposition: HOME, SELF-CARE Instructions: Weakness ([facility]) Additional Instructions: Follow up with your primary care doctor. Tell your doctor you felt weak after dialysis today and that you came to the ER. Referrals: MO SOUZA MD [Primary Care Provider] - Follow up as needed
[2020-02-01 19:16] LABS: ABSOLUTE LYMPHOCYTES# (MANUAL) 0.4 10^3/uL (0.5-4.7); ABSOLUTE MONOCYTES # (MANUAL) 0.4 10^3/uL (0.1-1.4); BAND NEUTROPHILS % (MANUAL) 2 % (3-5); BASOPHILS % (MANUAL) 0 % (0-2); EOSINOPHILS % (MANUAL) 1 % (0-6); LYMPHOCYTES % (MANUAL) 6 % (13-45); MONOCYTES % (MANUAL) 5 % (3-13); SEGMENTED NEUTROPHILS % (MAN) 86 % (42-78); TOTAL CELLS COUNTED 100
[2020-02-01 19:18] LABS: ANISOCYTOSIS SLIGHT; PLATELET COMMENT ADEQUATE; POIKILOCYTOSIS SLIGHT; TARGET CELLS SLIGHT
== END 2020-02-01 20:18 | disposition home or self-care (01) ==
LOC: ER 17:31
DX: R53.1 Weakness (principal); I10 Essential (primary) hypertension; E78.5 Hyperlipidemia, unspecified; I25.10 Atherosclerotic heart disease of native coronary artery without angina pectoris; Z86.73 Personal history of transient ischemic attack (TIA), and cerebral infarction without residual deficits; E11.9 Type 2 diabetes mellitus without complications; Z99.2 Dependence on renal dialysis; Z88.8 Allergy status to other drugs, medicaments and biological substances; I25.2 Old myocardial infarction
CPT/HCPCS: 36415; 80053; 82550; 82553; 83880; 84484; 85025; 99285

== ENCOUNTER 2020-03-21 17:17 | Emergency (ER) | payer MEDICARE, OTHER ==
--- NOTE | 2020-03-21 17:29 | ER Document Report ---
ED Medical Screen (RME) - General Chief Complaint: Altered Mental Status Stated Complaint: POSSIBLE AMS Time Seen by Provider: 03/21/20 17:25 Primary Care Provider: MO SOUZA MD [Primary Care Provider] - Follow up as needed Information source: Patient, Relative Notes: Patient presents with altered mental status. Family member states that patient last known well was at 1 PM. Patient was at dialysis today and whenever patient returned from dialysis he was weak, his blood pressure was low and he has been talking occasionally confused. Family states that this is not patient's normal baseline. Patient with somewhat labored respiratory pattern that family states is a typical breathing pattern for the patient. Patient does have a known history of hypertension, renal failure which she dialyzes on Friday CAD, diabetes and prostate cancer. Patient did do a full session of dialysis today. I have greeted and performed a rapid initial assessment of this patient. A comprehensive ED assessment and evaluation of the patient, analysis of test results and completion of the medical decision making process will be conducted by additional ED providers. TRAVEL OUTSIDE OF THE [place] 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 Denies: Hx Peritoneal Dialysis GI Medical History: Reports: Hx Gastroesophageal Reflux Disease. Denies: Hx Hepatitis, Hx Hiatal Hernia, Hx Ulcer Musculoskeltal Medical History: Reports Hx Arthritis - gout, Reports Hx Gout Infectious Medical History: Denies: Hx Hepatitis Past Surgical History: Reports: Hx Abdominal Surgery - Hernia, Hx Cardiac Catheterization - Stent placed 02/24/2017 @[facility], Hx Cardiac Surgery - pacemaker, Stent, Hx Oral Surgery, Hx Pacemaker, Hx Vascular Surgery - PermCath insertion. Right radiocephalic fistula insertion.. Denies: Hx Open Heart Surgery - [id number] - Immunizations Hx Diphtheria, Pertussis, Tetanus Vaccination: Yes Physical Exam - Neurological [place] Coma Scale Eye Opening: Spontaneous [place] Coma Scale Verbal: Confused - Occasionally per family [place] Coma Scale Motor: Obeys Commands [place] Coma Scale Total: 14 Doctor's Discharge - Discharge Referrals: MO SOUZA MD [Primary Care Provider] - Follow up as needed
--- NOTE | 2020-03-21 18:10 | RADIOLOGY REPORT (SQ) ---
EXAM DESCRIPTION: CT HEAD WITHOUT IMAGES COMPLETED DATE/TIME: 03/21/2020 4:52 pm REASON FOR STUDY: AMS COMPARISON: None. TECHNIQUE: Axial images acquired through the brain without intravenous contrast. Images reviewed wi th bone, brain and subdural windows. Additional sagittal and coronal reconstructions were generated. Images stored on PACS. All CT scanners at this facility use dose modulation, iterative reconstruction, and/or weight based d osing when appropriate to reduce radiation dose to as low as reasonably achievable (ALARA). [facility]: Dose Right [facility]: CareDose [facility]: Dose Right [facility]: Teradose 4D [facility]: [employer] RADIATION DOSE: CT Rad equipment meets quality standard of care and radiation dose reduction techniq ues were employed. CTDIvol: 23.9 mGy. DLP: 505 mGy-cm. mGy. LIMITATIONS: None. FINDINGS: VENTRICLES: Normal size and contour. CEREBRUM: No masses. No hemorrhage. No midline shift. No evidence for acute infarction. Normal gra y/white matter differentiation. No areas of low density in the white matter. CEREBELLUM: No masses. No hemorrhage. No alteration of density. No evidence for acute infarction. EXTRAAXIAL SPACES: No fluid collections. No masses. ORBITS AND GLOBE: No intra- or extraconal masses. Normal contour of globe without masses. CALVARIUM: No fracture. PARANASAL SINUSES: Paranasal sinuses are clear. SOFT TISSUES: No mass or hematoma. OTHER: No other significant finding. IMPRESSION: No acute intracranial hemorrhage, mass, or evidence of acute territorial infarct. EVIDENCE OF ACUTE STROKE: NO. COMMENT: Quality ID # [id number]: Final reports with documentation of one or more dose reduction techniques (e.g., Automated exposure control, adjustment of the mA and/or kV according to patient size, use of iterative reconstruction technique) TECHNICAL DOCUMENTATION: JOB ID: [id number] 2010 [employer]- All Rights Reserved Reading location - IP/workstation name: [email or web address]
--- NOTE | 2020-03-21 18:11 | RADIOLOGY REPORT (SQ) ---
EXAM DESCRIPTION: CHEST SINGLE VIEW IMAGES COMPLETED DATE/TIME: 120 REASON FOR STUDY: AMS COMPARISON: 12/06/2019 EXAM PARAMETERS: NUMBER OF VIEWS: One view. TECHNIQUE: Single frontal radiographic view of the chest acquired. RADIATION DOSE: NA LIMITATIONS: None. FINDINGS: LUNGS AND PLEURA: No opacities, masses or pneumothorax. No pleural effusion. MEDIASTINUM AND HILAR STRUCTURES: No masses. Contour normal. HEART AND VASCULAR STRUCTURES: Heart is moderately enlarged. No pulmonary vascular congestion. BONES: No acute findings. HARDWARE: Right large-bore central venous catheter with tip in the right atrium is unchanged. Left i nfraclavicular pacemaker unchanged. OTHER: No other significant finding. IMPRESSION: No significant interval change. No acute cardiopulmonary disease. TECHNICAL DOCUMENTATION: JOB ID: [id number] 2010 [employer]- All Rights Reserved Reading location - IP/workstation name: [email or web address]
[2020-03-21 18:28] LABS: ABSOLUTE EOSINOPHILS # (AUTO) 0.1 10^3/uL (0.0-0.6); ABSOLUTE LYMPHOCYTES (AUTO) 0.6 10^3/uL (0.5-4.7); ABSOLUTE MONOCYTES (AUTO) 0.7 10^3/uL (0.1-1.4); ABSOLUTE NEUT (AUTO) 5.5 10^3/uL (1.7-8.2); BASOPHILS % (AUTO) 0.5 % (0-2); EOSINOPHILS % (AUTO) 1.2 % (0-6); HEMATOCRIT 31.7 % (37.9-51.0); HEMOGLOBIN 10.5 g/dL (13.5-17.0); MEAN CORPUSCULAR HEMOGLOBIN 33.2 pg (27.0-33.4); MEAN CORPUSCULAR HGB CONC 33.1 g/dL (32.0-36.0); MEAN CORPUSCULAR VOLUME 101 fl (80-97); MONOCYTES % (AUTO) 9.6 % (3-13); PLATELET COUNT 123 10^3/uL (150-450); RED BLOOD COUNT 3.15 10^6/uL (4.35-5.55); RED CELL DISTRIBUTION WIDTH 14.3 % (11.5-14.0); SEGMENTED NEUTROPHILS % (AUTO) 79.7 % (42-78); TOTAL CELLS COUNTED % (AUTO) 100 %; WHITE BLOOD COUNT 6.8 10^3/uL (4.0-10.5)
[2020-03-21 18:35] LABS: INTERNATIONAL RATION (INR) 1.15; PROTHROMBIN TIME 14.8 SEC (11.4-15.4)
[2020-03-21 18:36] LABS: PARTIAL THROMBOPLASTIN TIME 29.7 SEC (23.5-35.8)
[2020-03-21] MEDS ORDERED: ASPIRIN 81 MG TABLET, CHEWABLE PO ONE (18:39)
[2020-03-21 18:47] LABS: BILIRUBIN,TOTAL 0.8 mg/dL (0.2-1.3); BLOOD UREA NITROGEN 41 mg/dL (7-20); POTASSIUM 3.9 mmol/L (3.6-5.0); TOTAL PROTEIN 7.4 g/dL (6.3-8.2)
--- NOTE | 2020-03-21 18:47 | ER Document Report ---
ED General - General Chief Complaint: Altered Mental Status Stated Complaint: POSSIBLE AMS Time Seen by Provider: 03/21/20 17:25 Primary Care Provider: NED SOUZA MD [Primary Care Provider] - Follow up as needed TRAVEL OUTSIDE OF THE [place] IN LAST 30 DAYS: No - HPI Notes: Chief complaint: Possible stroke HPI: 85-year-old male followed with Dr. 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 Family members report that he was at his baseline neurologic status last at 1:10 PM today when he went on dialysis. He ran dialysis for 4 hours and upon coming off dialysis at 5:10 PM he was noted to have these deficits which persist. Patient is unable to relate his own history. Information is primarily obtained from his daughter at the bedside as well as review of old medical records here. - Related Data Allergies/Adverse Reactions: tuberculin, purified protein deriva Allergy (Severe, Verified 03/21/20 19:28) PPD CONVERTER Past Medical History - General Information source: Patient, Relative - Social History Smoking Status: Unknown if Ever Smoked Chew tobacco use (# tins/day): No Frequency of alcohol use: None Drug Abuse: None Family History: Reviewed & Not Pertinent Patient has homicidal ideation: No - Past Medical History Cardiac Medical History: Reports: Hx Coronary Artery Disease - STENTS AND PACEMAKER, Hx Heart Attack, Hx Hypercholesterolemia, Hx Hypertension Pulmonary Medical History: Denies: Hx Asthma, Hx Bronchitis, Hx COPD, Hx Pneumonia Neurological Medical History: Reports: Hx Cerebrovascular Accident - ?, 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 Denies: Hx Peritoneal Dialysis GI Medical History: Reports: Hx Gastroesophageal Reflux Disease. Denies: Hx Hepatitis, Hx Hiatal Hernia, Hx Ulcer Musculoskeletal Medical History: Reports Hx Arthritis - gout, Reports Hx Gout Infectious Medical History: Denies: Hx Hepatitis Past Surgical History: Reports: Hx Abdominal Surgery - Hernia, Hx Cardiac Catheterization - Stent placed 02/24/2017 @[facility], Hx Cardiac Surgery - pacemaker, Stent, Hx Oral Surgery, Hx Pacemaker, Hx Vascular Surgery - PermCath insertion. Right radiocephalic fistula insertion.. Denies: Hx Open Heart Surgery - [id number] - Immunizations Hx Diphtheria, Pertussis, Tetanus Vaccination: Yes Hx Pneumococcal Vaccination: 11/10/12 Review of Systems - Review of Systems -: Yes ROS unobtainable due to patient's medical condition Physical Exam - Vital signs Vitals: Temp Pulse Resp BP Pulse Ox 97.5 F 93 18 121/77 97 03/21/20 17:23 03/21/20 17:23 03/21/20 17:23 03/21/20 17:23 03/21/20 17:23 Notes: GENERAL: Elderly man who is a aphasic with obvious left-sided facial ptosis and deviation of his tongue to the left. SKIN: Good turgor no rashes. HEAD: Normocephalic atraumatic. EYES: PERRLA. EOMI. Conjunctivae and sclerae clear. EARS: CANALS AND TMS CLEAR. NOSE: CLEAR. MOUTH: Moist mucosa. Good dentition. No stridor or edema. No drooling. NECK: Supple. No masses or thyromegaly. No adenopathy. Carotids 2+ without bruits. No JVD. BACK: Symmetrical without tenderness. CHEST: Pacemaker left anterior chest wall. Respirations unlabored. Breath sounds clear and symmetrical. HEART: Irregular rhythm. No murmur gallop or rub. ABDOMEN: Soft nontender without masses, organomegaly or rebound. Bowel sounds normally active. No bruits. GENITALIA: Deferred. EXTREMITIES: AV fistula left upper extremity with positive thrill and bruit. No edema. No calf tenderness. Cap refill less than 1.5 seconds. Dorsalis pedis and posterior tibial pulses 3+ and symmetrical. NEUROLOGICAL: Patient is alert but unable to stand. Difficulty following commands. He is completely aphasic. Deviation of his tongue to the left side. Left facial ptosis present. Difficulty in getting to hold his arms up but there is no predominant drift appreciated. I am unable to get him to cooperate for detailed sensory exam or cerebellar testing. Unable to get cooperation for adequate motor testing of lower extremities. PSYCHIATRIC: Appropriate affect. Course - Re-evaluation Re-evalutation: 03/21/20 18:47 Accu-Chek 97. Noncontrast head CT normal per radiologist. EKG shows paced rhythm present. Clinically this man appears to have a large vessel occlusion with a normal head CT, persistent deficit and last known well time greater than 5 hours prior to my evaluation. I have discussed case with Dr. Aguilar the on- call stroke attending at [facility] in [facility]. Per his recommendation I am giving this man aspirin 324 mg p.o. now and I have also ordered a stat CTA head and neck. I will communicate with Dr. Aguilar as soon as these results are available in anticipation of probable transfer of this patient for consideration of a revascularization procedure. 03/21/20 20:37 Patient's blood pressure is up 210/110 with clinical findings otherwise unchanged. CTA head and neck reported by radiologist as showing some scattered plaques with no focal occlusion. Images have been pushed to Dr. Aguilar on the stroke service at [facility] and I am awaiting his call back at this time. In the meantime I am going to give this man some IV hydralazine to gently lower blood pressure below 180. 03/21/20 21:51 Further consultation by telephone with Dr. Aguilar from the stroke service at [facility]. He agrees there are no focal vascular lesions amenable to interventional radiology procedure. He recommends routine admission for PT evaluation and improved control blood pressure with initiation of re habilitation. This man will need dialysis within the next 24 hours because the dye load he is received this afternoon. [facility] in [place] currently does not have a general med/dialysis bed available for this patient and we do not have any dialysis capability here within the next 24 hours. Family was present of these options and have requested transfer to [facility]. I have made initial contact with that facility and we are awaiting final disposition pending their acceptance of the patient. 03/21/20 22:31 Patient has been accepted for transfer to [facility] by Dr. Eaton. - Vital Signs Vital signs: Temp Pulse Resp BP Pulse Ox 97.5 F 82 20 194/97 H 94 03/21/20 17:23 03/21/20 18:27 03/21/20 22:17 03/21/20 22:18 03/21/20 22:18 - Laboratory Result Diagrams: 03/21/20 18:01 03/21/20 18:01 Laboratory results interpreted by me: 03/21/20 03/21/20 18:01 18:01 RBC 3.15 L Hgb 10.5 L Hct 31.7 L MCV 101 H RDW 14.3 H Plt Count 123 L Lymph % (Auto) 9.0 L Seg Neutrophils % 79.7 H Sodium 135.1 L Carbon Dioxide 21 L BUN 41 H Creatinine 6.06 H Est GFR ( Amer) 11 L Est GFR (MDRD) Non-Af 9 L Alkaline Phosphatase 279 H Critical Care Note - Critical Care Note Total time excluding time spent on procedures (mins): 65 - Acute stroke protocol/LVO Discharge - Discharge Clinical Impression: Acute CVA (cerebrovascular accident), End-stage renal disease on hemodialysis Hypertension Qualifiers: Hypertension type: unspecified Qualified Code(s): I10 - Essential (primary) hypertension Condition: Fair Disposition: [facility] Referrals: NED SOUZA MD [Primary Care Provider] - Follow up as needed
[2020-03-21 18:59] LABS: CREATINE KINASE MB 1.96 ng/mL (<4.55)
[2020-03-21 19:07] LABS: TROPONIN I 0.045 ng/mL
[2020-03-21 19:51] LABS: ALBUMIN 4.1 g/dL (3.5-5.0); ALKALINE PHOSPHATASE 279 U/L (38-126); ANION GAP 16 (5-19); ASPARTATE AMINO TRANSFERASE 32 U/L (17-59); CALCIUM 9.3 mg/dL (8.4-10.2); CARBON DIOXIDE 21 mmol/L (22-30); CHLORIDE 98 mmol/L (98-107); CREATINE KINASE 82 U/L (55-170); GLUCOSE 98 mg/dL (75-110)
--- NOTE | 2020-03-21 20:06 | RADIOLOGY REPORT (SQ) ---
EXAM DESCRIPTION: CTA HEAD IMAGES COMPLETED DATE/TIME: 03/21/2020 7:24 pm REASON FOR STUDY: cva COMPARISON: None. TECHNIQUE: Post IV contrast scanning, thin section axial imaging through the brain to evaluate the a rterial structures. Source and MIP images are saved and reviewed on PACS. Advanced 3D imaging as volume-rendering, MIPs, SSD performed? yes All CT scanners at this facility use dose modulation, iterative reconstruction, and/or weight based d osing when appropriate to reduce radiation dose to as low as reasonably achievable (ALARA). [facility]: Dose Right [facility]: CareDose [facility]: Dose Right [facility]: Teradose 4D [facility]: [employer] CONTRAST TYPE AND DOSE: contrast/concentration: Isovue 350.00 mg/ml; Total Contrast Delivered: 70.0 ml; Total Saline Delivered: 62.0 ml RENAL FUNCTION: Dialysis patient. LIMITATIONS: None. FINDINGS: POARCH OF BRIAN: The anterior, middle, posterior cerebral arteries are all patent. No ev idence of aneurysm or focal stenosis. POSTERIOR CIRCULATION: The distal vertebral arteries are patent as is the basilar artery. No aneurysm . BRAIN: No gross enhancing lesions as visualized. The superior cerebral hemispheres are not included in the field of view. BONES: Intact as visualized. SINUSES: No fluid or mucosal thickening. OTHER: No other significant finding. IMPRESSION: NO CTA EVIDENCE OF STENOSIS OR ANEURYSM OF THE POARCH OF BRIAN. TECHNICAL DOCUMENTATION: JOB ID: [id number] Quality ID # 436: Final reports with documentation of one or more dose reduction techniques (e.g., Au tomated exposure control, adjustment of the mA and/or kV according to patient size, use of iterative reconstruction technique) 2010 [employer]- All Rights Reserved Reading location - IP/workstation name: [email or web address]
--- NOTE | 2020-03-21 20:10 | RADIOLOGY REPORT (SQ) ---
EXAM DESCRIPTION: CTA NECK IMAGES COMPLETED DATE/TIME: 03/21/2020 7:24 pm REASON FOR STUDY: cva COMPARISON: None. TECHNIQUE: Axial dynamic scanning technique with dynamic contrast enhancement through the extra-crab catcher nial carotid and vertebral arteries. Multiplanar reconstruction. 3-D MIPS and Volume-rendered imag es acquired at the workstation and saved to PACS. Images are reviewed in soft tissue, bone, lung w indows. All CT scanners at this facility use dose modulation, iterative reconstruction, and/or weight based d osing when appropriate to reduce radiation dose to as low as reasonably achievable (ALARA). [facility]: Dose Right [facility]: CareDose [facility]: Dose Right [facility]: Teradose 4D [facility]: [employer] CONTRAST TYPE AND DOSE: See CTA of the head RENAL FUNCTION: Dialysis patient LIMITATIONS: None. FINDINGS: AORTIC ARCH: Normal three-vessel origin. Bilateral subclavian arteries are patent. No d issection. RIGHT CAROTIDS: Tortuous ICA. Patent common, internal, and external carotid arteries. There are aicha e atherosclerotic plaques but there does not appear to be significant stenosis. RIGHT VERTEBRAL: Thin but patent. LEFT CAROTIDS: Tortuous ICA. Vessels are patent. There are some atherosclerotic plaques but no sign ificant stenosis. LEFT VERTEBRAL: Patent. No dissection. OTHER: No other significant finding. OTHER: 3-D reconstructions confirm findings. IMPRESSION: Atherosclerotic plaques with no significant stenosis. Tortuous ICAs. COMMENT: Quality ID #[id number]: Measurements of distal internal carotid diameter were used as the denomina tor for stenosis measurement. TECHNICAL DOCUMENTATION: JOB ID: [id number] Quality ID # 436: Final reports with documentation of one or more dose reduction techniques (e.g., Au tomated exposure control, adjustment of the mA and/or kV according to patient size, use of iterative reconstruction technique) 2010 [employer]- All Rights Reserved Reading location - IP/workstation name: [email or web address]
[2020-03-21] MEDS ORDERED: HYDRALAZINE HCL INJ/PF 20 MG/1 ML SDV IV ONE (20:36)
[2020-03-21 23:20] VITALS: BP 181/83
--- NOTE | 2020-03-22 08:36 | EKG REPORT ---
SEVERITY:- ABNORMAL ECG - AFIB/FLUT WITH LBBB VS V-PACED COMPLEXES LVH WITH IVCD, LAD AND SECONDARY REPOL ABNRM : Confirmed by: Roz Cantu 22-Mar-2020 08:35:45
== END 2020-03-21 23:34 | disposition short-term general hospital (02) ==
LOC: ER 17:17
DX: I63.9 Cerebral infarction, unspecified (principal); I12.0 Hypertensive chronic kidney disease with stage 5 chronic kidney disease or end stage renal disease; E11.22 Type 2 diabetes mellitus with diabetic chronic kidney disease; N18.6 End stage renal disease; Z99.2 Dependence on renal dialysis; R41.0 Disorientation, unspecified; H02.402 Unspecified ptosis of left eyelid; Z88.8 Allergy status to other drugs, medicaments and biological substances; I25.10 Atherosclerotic heart disease of native coronary artery without angina pectoris
CPT/HCPCS: 93005; 99291; 96374; 36415; 82553; 82962; 82550; 85025; 85610; 85730; 80053; 84484; 71045; 70450; 70496; 70498; 93010; J0360

== ENCOUNTER 2020-08-19 11:11 | Emergency (ER) | payer MEDICARE ==
--- NOTE | 2020-08-19 11:44 | ER Document Report ---
ED Medical Screen (RME) - General Stated Complaint: SWELLING AROUND STINT Time Seen by Provider: 08/19/20 11:38 Primary Care Provider: MO SOUZA MD [Primary Care Provider] - Follow up as needed Notes: HPI: 85-year-old male who is a dialysis patient of Dr. Vuong who goes to dialysis Friday and Friday and last went but not today presenting for pain at the site of his right chest port as well as pain in the right arm. States that they did recently do a procedure on the right upper bicep region as they are prepping it to move his dialysis port over. Denies shortness of breath. Denies fever cough or recent illness PHYSICAL EXAMINATION: Dialysis port is noted in the right chest wall. There is some tenderness around the port but no visible erythema. There is mild tenderness on palpation of the biceps but brachial radial and ulnar pulses in the right upper extremity are intact I have greeted and performed a rapid initial assessment of this patient. A comprehensive ED assessment and evaluation of the patient, analysis of test results and completion of medical decision making process will be conducted by an additional ED providers. TRAVEL OUTSIDE OF THE [place] 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 Denies: Hx Peritoneal Dialysis GI Medical History: Reports: Hx Gastroesophageal Reflux Disease. Denies: Hx Hepatitis, Hx Hiatal Hernia, Hx Ulcer Musculoskeltal Medical History: Reports Hx Arthritis - gout, Reports Hx Gout Infectious Medical History: Denies: Hx Hepatitis Past Surgical History: Reports: Hx Abdominal Surgery - Hernia, Hx Cardiac Catheterization - Stent placed 02/24/2017 @[facility], Hx Cardiac Surgery - pacemaker, Stent, Hx Oral Surgery, Hx Pacemaker, Hx Vascular Surgery - PermCath insertion. Right radiocephalic fistula insertion.. Denies: Hx Open Heart Surgery - [id number] - Immunizations Hx Diphtheria, Pertussis, Tetanus Vaccination: Yes Physical Exam - Vital signs Vitals: Temp Pulse Resp BP Pulse Ox 98.3 F 76 16 134/69 H 100 08/19/20 11:19 08/19/20 11:19 08/19/20 11:19 08/19/20 11:19 08/19/20 11:19 Course - Vital Signs Vital signs: Temp Pulse Resp BP Pulse Ox 98.3 F 76 16 134/69 H 100 08/19/20 11:19 08/19/20 11:19 08/19/20 11:19 08/19/20 11:19 08/19/20 11:19 Doctor's Discharge - Discharge Referrals: MO SOUZA MD [Primary Care Provider] - Follow up as needed
--- NOTE | 2020-08-19 12:17 | RADIOLOGY REPORT (SQ) ---
EXAM DESCRIPTION: CHEST 2 VIEWS IMAGES COMPLETED DATE/TIME: 08/19/2020 12:03 pm REASON FOR STUDY: pain left chest port COMPARISON: 03/21/2020 TECHNIQUE: Single frontal radiographic view of the chest acquired. NUMBER OF VIEWS: One view. LIMITATIONS: None. FINDINGS: LUNGS AND PLEURA: No pneumothorax. No consolidation or pleural effusion. MEDIASTINUM AND HILAR STRUCTURES: Stable. HEART AND VASCULAR STRUCTURES: Stable. BONES: No acute findings. HARDWARE: Cardiac pacer. Right IJ tunneled central venous catheter. OTHER: No other significant finding. IMPRESSION: NO ACUTE FINDINGS. TECHNICAL DOCUMENTATION: JOB ID: [id number] [place]-72 2010 [employer]- All Rights Reserved Reading location - IP/workstation name: [email or web address]
[2020-08-19 12:45] LABS: ABSOLUTE EOSINOPHILS # (AUTO) 0.1 10^3/uL (0.0-0.6); ABSOLUTE LYMPHOCYTES (AUTO) 0.7 10^3/uL (0.5-4.7); ABSOLUTE MONOCYTES (AUTO) 0.8 10^3/uL (0.1-1.4); ABSOLUTE NEUT (AUTO) 4.9 10^3/uL (1.7-8.2); BASOPHILS % (AUTO) 0.4 % (0-2); EOSINOPHILS % (AUTO) 1.9 % (0-6); HEMATOCRIT 29.1 % (37.9-51.0); HEMOGLOBIN 9.5 g/dL (13.5-17.0); LYMPHOCYTES % (AUTO) 10.9 % (13-45); MEAN CORPUSCULAR HEMOGLOBIN 33.8 pg (27.0-33.4); MEAN CORPUSCULAR HGB CONC 32.6 g/dL (32.0-36.0); MEAN CORPUSCULAR VOLUME 104 fl (80-97); MONOCYTES % (AUTO) 12.2 % (3-13); PLATELET COUNT 146 10^3/uL (150-450); RED CELL DISTRIBUTION WIDTH 16.1 % (11.5-14.0); SEGMENTED NEUTROPHILS % (AUTO) 74.6 % (42-78); TOTAL CELLS COUNTED % (AUTO) 100 %; WHITE BLOOD COUNT 6.6 10^3/uL (4.0-10.5)
[2020-08-19 12:50] LABS: INTERNATIONAL RATION (INR) 1.17; PROTHROMBIN TIME 15.1 SEC (11.4-15.4)
[2020-08-19 13:01] LABS: ALBUMIN 3.8 g/dL (3.5-5.0); ALKALINE PHOSPHATASE 352 U/L (38-126); ANION GAP 16 (5-19); ASPARTATE AMINO TRANSFERASE 31 U/L (17-59); BILIRUBIN,TOTAL 0.5 mg/dL (0.2-1.3); BLOOD UREA NITROGEN 57 mg/dL (7-20); CALCIUM 8.7 mg/dL (8.4-10.2); CARBON DIOXIDE 24 mmol/L (22-30); CHLORIDE 103 mmol/L (98-107); GLUCOSE 107 mg/dL (75-110); POTASSIUM 4.4 mmol/L (3.6-5.0); TOTAL PROTEIN 6.8 g/dL (6.3-8.2)
[2020-08-19 13:24] VITALS: BP 129/67
--- NOTE | 2020-08-19 17:32 | ER Document Report ---
Entered by ERLINDA CANTU SCRIBE 08/19/20 1230 Acting as scribe for:FANY PHAN MD ED Dialysis Cath/Shunt Problem - General Chief Complaint: Dialysis Catheter Problem Stated Complaint: SWELLING AROUND STINT Time Seen by Provider: 08/19/20 11:38 Primary Care Provider: MO SOUZA MD [Primary Care Provider] - Follow up as needed Information source: Patient Notes: This 85 year old male patient presents to the emergency department today with complaints of pain in his right upper chest where he recently had a PermCath placed. Patient also mentions that he has felt something "moving" over his dialysis fistula in the RUE. Patient came here instead of going to dialysis today. TRAVEL OUTSIDE OF THE [place] 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 Denies: Hx Peritoneal Dialysis GI Medical History: Reports: Hx Gastroesophageal Reflux Disease. Denies: Hx Hepatitis, Hx Hiatal Hernia, Hx Ulcer Musculoskeletal Medical History: Reports Hx Arthritis - gout, Reports Hx Gout Infectious Medical History: Denies: Hx Hepatitis Past Surgical History: Reports: Hx Abdominal Surgery - Hernia, Hx Cardiac Cathet erization - Stent placed 02/24/2017 @[facility], Hx Cardiac Surgery - pacemaker, Stent, Hx Oral Surgery, Hx Pacemaker, Hx Vascular Surgery - PermCath insertion. Right radiocephalic fistula insertion.. Denies: Hx Open Heart Surgery - [id number] - Immunizations Hx Diphtheria, Pertussis, Tetanus Vaccination: Yes Hx Pneumococcal Vaccination: 11/10/12 Physical Exam - Vital signs Vitals: Temp Pulse Resp BP Pulse Ox 98.3 F 76 16 134/69 H 100 08/19/20 11:19 08/19/20 11:19 08/19/20 11:19 08/19/20 11:19 08/19/20 11:19 - Notes Notes: Physical Exam: General: Alert, appears well. HEENT: Normocephalic. Atraumatic. PERRL. Extraocular movements intact. Oropharynx clear. Neck: Supple. Non-tender. Respiratory: No respiratory distress. Clear and equal breath sounds bilaterally. There is a right sided subclavian PermCath that runs over the clavicle and it is normal in appearance. There is no swelling appreciated. Cardiovascular: Regular rate and rhythm. Abdominal: Normal Inspection. Non-tender. No distension. Normal Bowel Sounds. Back: No gross abnormalities. Extremities: Moves all four extremities. Upper extremities: Normal inspection. Normal ROM. Good thrill in RUE fistula. Lower extremities: Normal inspection. No edema. Normal ROM. Neurological: Normal cognition. AAOx4. Normal speech. Psychological: Normal affect. Normal Mood. Skin: Warm. Dry. Normal color. Course - Vital Signs Vital signs: Temp Pulse Resp BP Pulse Ox 98.2 F 71 20 129/67 H 97 08/19/20 13:11 08/19/20 13:11 08/19/20 13:11 08/19/20 13:11 08/19/20 13:11 - Laboratory Result Diagrams: 08/19/20 12:20 08/19/20 12:20 Laboratory results interpreted by me: 08/19/20 08/19/20 12:20 12:20 RBC 2.80 L Hgb 9.5 L Hct 29.1 L MCV 104 H MCH 33.8 H RDW 16.1 H Plt Count 146 L Lymph % (Auto) 10.9 L BUN 57 H Creatinine 7.02 H Est GFR ( Amer) 9 L Est GFR (MDRD) Non-Af 7 L Alkaline Phosphatase 352 H Discharge - Discharge Clinical Impression: Subclavian Dialysis catheter check, Right upper arm dialysis shunt Condition: Stable Disposition: HOME, SELF-CARE Additional Instructions: I think you are feeling the dialysis catheter is it runs up over your clavicle before it enters your chest. Your right forearm dialysis graft has a good thrill and should be evaluated by your kidney doctor to see when it would be ready to use. Go to dialysis now. Referrals: MO SOUZA MD [Primary Care Provider] - Follow up as needed I personally performed the services described in the documentation, reviewed and edited the documentation which was dictated to the scribe in my presence, and it accurately records my words and actions.
== END 2020-08-19 13:11 | disposition home or self-care (01) ==
LOC: ER 11:11
DX: Z49.01 Encounter for fitting and adjustment of extracorporeal dialysis catheter (principal); I12.0 Hypertensive chronic kidney disease with stage 5 chronic kidney disease or end stage renal disease; E11.22 Type 2 diabetes mellitus with diabetic chronic kidney disease; N18.6 End stage renal disease; R07.9 Chest pain, unspecified; I25.10 Atherosclerotic heart disease of native coronary artery without angina pectoris; Z95.5 Presence of coronary angioplasty implant and graft; Z95.0 Presence of cardiac pacemaker; Z88.7 Allergy status to serum and vaccine
CPT/HCPCS: 36415; 71046; 80053; 85025; 85610; 99284

== ENCOUNTER 2020-09-21 16:12 | Emergency (ER) | payer MEDICARE, OTHER ==
[2020-09-21 16:36] VITALS: BP 126/78
--- NOTE | 2020-09-21 17:38 | RADIOLOGY REPORT (SQ) ---
EXAM DESCRIPTION: CHEST SINGLE VIEW IMAGES COMPLETED DATE/TIME: 09/21/2020 4:13 pm REASON FOR STUDY: cp COMPARISON: 08/19/2020 EXAM PARAMETERS: NUMBER OF VIEWS: One view. TECHNIQUE: Single frontal radiographic view of the chest acquired. RADIATION DOSE: NA LIMITATIONS: None. FINDINGS: LUNGS AND PLEURA: The lungs are hyperinflated. No focal consolidation or pleural effusion . No pneumothorax. MEDIASTINUM AND HILAR STRUCTURES: No masses. Contour normal. HEART AND VASCULAR STRUCTURES: Heart normal in size. Normal vasculature. BONES: No acute findings. HARDWARE: Right central venous catheter with tip in the right atrium unchanged. Left infraclavicular pacemaker with intact lead wires. OTHER: No other significant finding. IMPRESSION: No significant interval change. No acute cardiopulmonary disease. TECHNICAL DOCUMENTATION: JOB ID: [id number] 2010 [email or web address]- All Rights Reserved Reading location - IP/workstation name: [email or web address]
--- NOTE | 2020-09-21 18:48 | ER Document Report ---
Entered by JOVANA CEDENO SCRIBE 09/21/20 1809 Acting as scribe for:FANY PHAN MD ED General - General Chief Complaint: Breathing Difficulty Stated Complaint: CHEST PAIN Time Seen by Provider: 09/21/20 18:04 Primary Care Provider: MO SOUZA MD [Primary Care Provider] - Follow up as needed Mode of Arrival: Medic Information source: Patient, Relative, Emergency Med Personnel Notes: This 85 year old male patient with a history of HTN, CAD s/p pacemaker and stents, and ESRD on HD presents to the ED today via EMS with complaints of chest pain near his PermCath insertion site; unknown how long the patient has had this pain. Family at bedside mentions that the patient has also been complaining of feeling cold for the past x3-4 days. Patient did dialyze this morning. Patient was here on 08/19/2020 for the same complaint. It was determined that the discomfort was from the PermCath tunneling under the skin and going up over the clavicle. That appears to be the same problem today. TRAVEL OUTSIDE OF THE [place] IN LAST 30 DAYS: No - Related Data Allergies/Adverse Reactions: tuberculin, purified protein deriva Allergy (Severe, Verified 09/21/20 16:29) PPD CONVERTER Past Medical History - General Information source: [facility] Records - Social History Smoking Status: Former Smoker Cigarette use (# per day): No Chew tobacco use (# tins/day): No Smoking Education Provided: No Frequency of alcohol use: None Drug Abuse: None Lives with: Family Family History: Reviewed & Not Pertinent Patient has homicidal ideation: No - Past Medical History Cardiac Medical History: Reports: Hx Coronary Artery Disease - STENTS AND PACEMAKER, Hx Heart Attack, Hx Hypercholesterolemia, Hx Hypertension Neurological Medical History: Reports: Hx Cerebrovascular Accident - ?, 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 Right radiocephalic fistula insertion. - Immunizations Hx Diphtheria, Pertussis, Tetanus Vaccination: Yes Hx Pneumococcal Vaccination: 11/10/12 Review of Systems - Review of Systems Constitutional: See HPI EENT: No symptoms reported Cardiovascular: See HPI Respiratory: No symptoms reported Gastrointestinal: No symptoms reported Genitourinary: No symptoms reported Male Genitourinary: No symptoms reported Musculoskeletal: No symptoms reported Skin: No symptoms reported Hematologic/Lymphatic: No symptoms reported Neurological/Psychological: No symptoms reported -: Yes All other systems reviewed and negative Physical Exam - Vital signs Vitals: Temp Pulse Resp BP Pulse Ox 97.9 F 89 19 126/78 H 98 09/21/20 16:29 09/21/20 16:29 09/21/20 16:29 09/21/20 16:29 09/21/20 16:29 - General General appearance: Alert In distress: None - HEENT Head: Normocephalic, Atraumatic Eyes: Normal Pupils: PERRL Neck: Normal, Supple - Respiratory Respiratory status: No respiratory distress Chest status: Tender - Tenderness to palpation around PermCath located in right upper chest wall. No swelling or redness appreciated. The permacath travels subcutaneously up over the clavicle and then into the superior vena cava. There is no swelling or redness along the course of the catheter. The exam is really no different than what I found on 08/19/2020 when he came in with the same complaint. Breath sounds: Normal Chest palpation: Normal - Cardiovascular Rhythm: Regular Heart sounds: Normal auscultation Murmur: No Friction rub: No Gallop: None auscultated - Abdominal Inspection: Obese Distension: No distension Bowel sounds: Normal Tenderness: Nontender - Abdomen soft Organomegaly: No organomegaly - Back Back: Normal, Nontender - Extremities General lower extremity: Normal inspection. No: Edema Forearm: Other - There is a dialysis shunt in the right proximal forearm. Palpable thrill appreciated. - Neurological Neuro grossly intact: Yes Speech: Other - Slurred - Psychological Associated symptoms: Normal affect, Normal mood - Skin Skin Temperature: Warm Skin Moisture: Dry Skin Color: Normal Course - Re-evaluation Re-evalutation: 09/21/20 18:56 The patient was seen here on 08/19/2020 with the identical complaint of pain around the permacath insertion and pain going up over the clavicle where the catheter traverses. Remainder the patient's physical exam today is unremarkable. 09/21/20 20:21 The patient's white blood cell count is elevated with a shift. There are no signs of infection found looking at the skin, examining the abdomen and chest. No abnormalities in the chest x-ray. The patient does not make urine so that can't be evaluated. He feels well and his real complaint was just the subclavian catheter. He does seem to have some dementia. He had been complaining of feeling cold for the past 3 to 4 days. He also reports a slight cough at night, but that is not a new problem. Blood cultures were done and the patient will be discharged home to follow-up with his primary care provider or return if his symptoms worsen. - Vital Signs Vital signs: Temp Pulse Resp BP Pulse Ox 97.9 F 89 19 126/78 H 97 09/21/20 16:29 09/21/20 16:29 09/21/20 16:29 09/21/20 16:29 09/21/20 16:36 - Laboratory Result Diagrams: 09/21/20 18:15 09/21/20 18:15 Laboratory results interpreted by me: 09/21/20 09/21/20 18:15 18:15 WBC 14.1 H RBC 2.93 L Hgb 9.5 L Hct 29.7 L MCV 102 H MCHC 31.9 L RDW 15.2 H Plt Count 118 L Seg Neuts % (Manual) 92 H Band Neutrophils % 1 L Lymphocytes % (Manual) 3 L Abs Neuts (Manual) 13.1 H Abs Lymphs (Manual) 0.4 L BUN 59 H Creatinine 8.38 H Est GFR ( Amer) 7 L Est GFR (MDRD) Non-Af 6 L Alkaline Phosphatase 312 H - Diagnostic Test Radiology reviewed: Image reviewed, Reports reviewed - This x-ray does not show interval change, and there is no acute cardiopulmonary process. - EKG Interpretation by Me EKG shows normal: Sinus rhythm, [place], Intervals, ST-T Waves. abnormal: QRS Complexes Rate: Normal - 82 Rhythm: NSR, APC's [place]/QRS: Left axis deviation, IVCD Voltage: Consistent with LVH When compared to previous EKG there are: No significant change Discharge - Discharge Clinical Impression: End-stage renal disease on hemodialysis, Subclavian dialysis catheter pain Chest pain Qualifiers: Chest pain type: unspecified Qualified Code(s): R07.9 - Chest pain, unspecified Leukocytosis Qualifiers: Leukocytosis type: bandemia Qualified Code(s): D72.825 - Bandemia Condition: Stable Disposition: HOME, SELF-CARE Additional Instructions: Your evaluation today showed that you seem to have continued tenderness around your permacath. There is no signs of infection noted on exam. Your blood work today did show an elevated white blood cell count, but we did not find any obvious source of infection. Blood cultures were done to look for occult infection. You should follow-up with Dr. Osborne tomorrow if you are not feeling better and let him recheck you. RETURN TO THE EMERGENCY ROOM IF ANY NEW OR WORSENING SYMPTOMS. Referrals: MO SOUZA MD [Primary Care Provider] - Follow up tomorrow I personally performed the services described in the documentation, reviewed and edited the documentation which was dictated to the scribe in my presence, and it accurately records my words and actions.
[2020-09-21 18:57] LABS: ALBUMIN 3.8 g/dL (3.5-5.0); ALKALINE PHOSPHATASE 312 U/L (38-126); ANION GAP 16 (5-19); ASPARTATE AMINO TRANSFERASE 32 U/L (17-59); BILIRUBIN,TOTAL 0.7 mg/dL (0.2-1.3); BLOOD UREA NITROGEN 59 mg/dL (7-20); CALCIUM 8.4 mg/dL (8.4-10.2); CARBON DIOXIDE 24 mmol/L (22-30); CHLORIDE 100 mmol/L (98-107); CREATINE KINASE 56 U/L (55-170); GLUCOSE 107 mg/dL (75-110); POTASSIUM 4.3 mmol/L (3.6-5.0); TOTAL PROTEIN 6.8 g/dL (6.3-8.2)
[2020-09-21 18:59] LABS: HEMATOCRIT 29.7 % (37.9-51.0); HEMOGLOBIN 9.5 g/dL (13.5-17.0); MEAN CORPUSCULAR HEMOGLOBIN 32.4 pg (27.0-33.4); MEAN CORPUSCULAR HGB CONC 31.9 g/dL (32.0-36.0); MEAN CORPUSCULAR VOLUME 102 fl (80-97); PLATELET COUNT 118 10^3/uL (150-450); RED BLOOD COUNT 2.93 10^6/uL (4.35-5.55); RED CELL DISTRIBUTION WIDTH 15.2 % (11.5-14.0); WHITE BLOOD COUNT 14.1 10^3/uL (4.0-10.5)
[2020-09-21 19:15] LABS: CREATINE KINASE MB 1.18 ng/mL (<4.55); TROPONIN I 0.014 ng/mL
[2020-09-21 19:30] LABS: ABSOLUTE LYMPHOCYTES# (MANUAL) 0.4 10^3/uL (0.5-4.7); ABSOLUTE MONOCYTES # (MANUAL) 0.6 10^3/uL (0.1-1.4); BAND NEUTROPHILS % (MANUAL) 1 % (3-5); BASOPHILS % (MANUAL) 0 % (0-2); EOSINOPHILS % (MANUAL) 0 % (0-6); LYMPHOCYTES % (MANUAL) 3 % (13-45); MONOCYTES % (MANUAL) 4 % (3-13); SEGMENTED NEUTROPHILS % (MAN) 92 % (42-78); TOTAL CELLS COUNTED 100
[2020-09-21 19:33] LABS: ANISOCYTOSIS SLIGHT; PLATELET COMMENT DECREASED; TARGET CELLS SLIGHT
== END 2020-09-21 21:05 | disposition home or self-care (01) ==
LOC: ER 16:12
DX: I12.0 Hypertensive chronic kidney disease with stage 5 chronic kidney disease or end stage renal disease (principal); N18.6 End stage renal disease; E11.22 Type 2 diabetes mellitus with diabetic chronic kidney disease; R07.9 Chest pain, unspecified; D72.825 Bandemia; I25.10 Atherosclerotic heart disease of native coronary artery without angina pectoris; E78.5 Hyperlipidemia, unspecified; Z88.8 Allergy status to other drugs, medicaments and biological substances; Z87.891 Personal history of nicotine dependence; Z99.2 Dependence on renal dialysis
CPT/HCPCS: 36415; 71045; 80053; 82550; 82553; 84484; 85025; 87040; 99284

== ENCOUNTER 2020-10-01 07:35 | Emergency (ER) | payer MEDICARE, OTHER ==
[2020-10-01 09:02] LABS: ABSOLUTE EOSINOPHILS # (AUTO) 0.2 10^3/uL (0.0-0.6); ABSOLUTE LYMPHOCYTES (AUTO) 0.7 10^3/uL (0.5-4.7); ABSOLUTE MONOCYTES (AUTO) 0.9 10^3/uL (0.1-1.4); ABSOLUTE NEUT (AUTO) 6.6 10^3/uL (1.7-8.2); BASOPHILS % (AUTO) 0.5 % (0-2); EOSINOPHILS % (AUTO) 1.9 % (0-6); HEMATOCRIT 30.8 % (37.9-51.0); HEMOGLOBIN 9.9 g/dL (13.5-17.0); LYMPHOCYTES % (AUTO) 8.3 % (13-45); MEAN CORPUSCULAR HGB CONC 32.1 g/dL (32.0-36.0); MEAN CORPUSCULAR VOLUME 103 fl (80-97); MONOCYTES % (AUTO) 10.7 % (3-13); PLATELET COUNT 169 10^3/uL (150-450); RED BLOOD COUNT 3.01 10^6/uL (4.35-5.55); RED CELL DISTRIBUTION WIDTH 15.6 % (11.5-14.0); SEGMENTED NEUTROPHILS % (AUTO) 78.6 % (42-78); TOTAL CELLS COUNTED % (AUTO) 100 %; WHITE BLOOD COUNT 8.3 10^3/uL (4.0-10.5)
[2020-10-01 09:33] LABS: ALBUMIN 3.9 g/dL (3.5-5.0); ALKALINE PHOSPHATASE 371 U/L (38-126); ANION GAP 15 (5-19); ASPARTATE AMINO TRANSFERASE 31 U/L (17-59); BILIRUBIN,TOTAL 0.5 mg/dL (0.2-1.3); BLOOD UREA NITROGEN 38 mg/dL (7-20); CALCIUM 8.4 mg/dL (8.4-10.2); CARBON DIOXIDE 27 mmol/L (22-30); CHLORIDE 100 mmol/L (98-107); GLUCOSE 134 mg/dL (75-110); POTASSIUM 3.5 mmol/L (3.6-5.0); TOTAL PROTEIN 7.1 g/dL (6.3-8.2)
[2020-10-01 10:10] LABS: INTERNATIONAL RATION (INR) 1.19; PROTHROMBIN TIME 15.3 SEC (11.4-15.4)
--- NOTE | 2020-10-01 10:39 | RADIOLOGY REPORT (SQ) ---
EXAM DESCRIPTION: CT HEAD WITHOUT IMAGES COMPLETED DATE/TIME: 10/01/2020 10:21 am REASON FOR STUDY: gen weakness/unable to walk COMPARISON: 03/21/2020 TECHNIQUE: Axial images acquired through the brain without intravenous contrast. Images reviewed wit h bone, brain and subdural windows. Images stored on PACS. All CT scanners at this facility use dose modulation, iterative reconstruction, and/or weight based d osing when appropriate to reduce radiation dose to as low as reasonably achievable (ALARA). [facility]: Dose Right [facility]: CareDose [facility]: Dose Right [facility]: Teradose 4D [facility]: Anagear RADIATION DOSE: CT Rad equipment meets quality standard of care and radiation dose reduction techniq ues were employed. CTDIvol: 53.2 mGy. DLP: 1124 mGy-cm.. LIMITATIONS: None. FINDINGS: VENTRICLES: Normal size and contour. CEREBRUM: No masses. No hemorrhage. No midline shift. Age appropriate white matter. No evidence for a cute infarction. CEREBELLUM: No masses. No hemorrhage. No alteration of density. No evidence for acute infarction. EXTRA-AXIAL SPACES: No fluid collections. ORBITS AND GLOBE: No intra- or extraconal masses. Normal contour of globe without masses. CALVARIUM: No fracture. PARANASAL SINUSES: Small air-fluid levels in the maxillary and sphenoid sinuses bilaterally. SOFT TISSUES: No mass or hematoma. OTHER: No other significant finding. IMPRESSION: NO ACUTE INTRACRANIAL FINDINGS. Acute maxillary and sphenoid sinusitis. EVIDENCE OF ACUTE STROKE: NO. TECHNICAL DOCUMENTATION: JOB ID: [id number] [place]-72 Quality ID # [id number]: Final reports with documentation of one or more dose reduction techniques (e.g., Au tomated exposure control, adjustment of the mA and/or kV according to patient size, use of iterative reconstruction technique) 2010 [employer]- All Rights Reserved Reading location - IP/workstation name: [email or web address]
--- NOTE | 2020-10-01 10:42 | RADIOLOGY REPORT (SQ) ---
EXAM DESCRIPTION: ACUTE ABDOMEN SERIES IMAGES COMPLETED DATE/TIME: 10/01/2020 10:25 am REASON FOR STUDY: abd distension/ hemodialysis patient COMPARISON: 08/19/2020 and 06/23/2020 NUMBER OF VIEWS: Three views. TECHNIQUE: Frontal chest, supine abdomen and upright/decubitus abdomen radiographic images acquired. LIMITATIONS: None. FINDINGS: CHEST: Lungs clear of infiltrates. No significant changes. FREE AIR: None. No abnormal gas collections. BOWEL GAS PATTERN: Nonobstructive pattern. No dilated loops or air fluid levels. CALCIFICATIONS: No suspicious calcifications. HARDWARE: None in the abdomen. SOFT TISSUES: No gross mass or suggestion of organomegaly. BONES: No acute fracture. No worrisome bone lesions. OTHER: No other significant finding. IMPRESSION: NO RADIOGRAPHIC EVIDENCE FOR ACUTE DISEASE. TECHNICAL DOCUMENTATION: JOB ID: [id number] [place]-72 2010 [employer]- All Rights Reserved Reading location - IP/workstation name: [email or web address]
--- NOTE | 2020-10-01 15:08 | ER Document Report ---
Entered by JOVANA CEDENO SCRIBE 10/01/20 0905 Acting as scribe for:HERIBERTO MCCRAY MD ED General - General Chief Complaint: Black/Tarry Stools Stated Complaint: ABDOMINAL PAIN Time Seen by Provider: 10/01/20 08:25 Primary Care Provider: MO SOUZA MD [Primary Care Provider] - Follow up as needed Mode of Arrival: Wheelchair Information source: Patient Notes: This 85 year old male patient with a history of HTN, CAD s/p pacemaker and stents, ESRD on HD (last dialyzed yesterday), and CVA in 03/2020 presents to the ED today for evaluation. Patient reports generalized weakness and difficulty ambulating for the past x2 weeks. He states that after his stroke, he was sent to rehab and was able to tolerate ambulating with his cane, but now his legs feel weak and heavy. He reports black stools for the past x1 year and was told during his last visit here on 09/21 that it was due to his iron pills. He also notes weight loss and poor appetite. He does not make any urine. TRAVEL OUTSIDE OF THE [place] IN LAST 30 DAYS: No - Related Data Allergies/Adverse Reactions: tuberculin, purified protein deriva Allergy (Severe, Verified 10/01/20 08:26) PPD CONVERTER Home Medications: esperanza miguel 1mg qd. clonidine hcl 0.1 mg bid. nitro spray. flutamide 125 mg 2 tid. asa 81 mg. toprol xl 25mg daily. allopurinol 100 mg daily. hydralazine 50 mg tid. synthroid 112 mcg daily. 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 Right radiocephalic fistula insertion. - Immunizations Hx Diphtheria, Pertussis, Tetanus Vaccination: Yes Hx Pneumococcal Vaccination: 11/10/12 Review of Systems - Review of Systems Constitutional: See HPI, Weakness, Weight loss EENT: No symptoms reported Cardiovascular: No symptoms reported Respiratory: No symptoms reported Gastrointestinal: See HPI, Abdominal pain, Poor appetite, Black stools Genitourinary: No symptoms reported Male Genitourinary: No symptoms reported Musculoskeletal: No symptoms reported Skin: No symptoms reported Hematologic/Lymphatic: No symptoms reported Neurological/Psychological: No symptoms reported -: Yes All other systems reviewed and negative Physical Exam - Vital signs Vitals: Temp Pulse BP Pulse Ox 98.0 F 64 124/45 L 95 10/01/20 07:54 10/01/20 07:54 10/01/20 07:54 10/01/20 07:54 - General General appearance: Alert In distress: None - HEENT Head: Normocephalic, Atraumatic Eyes: Normal Pupils: PERRL - Respiratory Respiratory status: No respiratory distress Chest status: Nontender Breath sounds: Normal Chest palpation: Normal - Cardiovascular Rhythm: Regular Heart sounds: Normal auscultation Murmur: Yes Systolic murmur grade 1-6: 3 Friction rub: No Gallop: None auscultated - Abdominal Inspection: Other - Periumbilical hernia Distension: Distended Tenderness: Nontender Organomegaly: No organomegaly - Back Back: Other - Large lipoma noted over left thoracic region - Extremities General upper extremity: Normal inspection General lower extremity: Normal inspection. No: Edema - Neurological Neuro grossly intact: Yes - Psychological Associated symptoms: Normal affect, Normal mood - Skin Skin Temperature: Warm Skin Moisture: Dry Skin Color: Normal Course - Re-evaluation Re-evalutation: 10/01/20 15:36 Patient reports that he is feeling better and has good strength in his lower extremities at this time. Patient is noted to be wearing heavy shoes that may be too heavy for his strength to lift his legs as much as he can can without the shoes on patient is a chronic renal failure patient on hemodialysis and is due for dialysis Friday. - Vital Signs Vital signs: Temp Pulse Resp BP Pulse Ox 98.0 F 64 19 130/55 H 100 10/01/20 07:54 10/01/20 07:54 10/01/20 15:01 10/01/20 15:01 10/01/20 15:01 10/01/20 15:37 Vital signs are stable. - Laboratory Result Diagrams: 10/01/20 08:45 10/01/20 08:45 Laboratory results interpreted by me: 10/01/20 10/01/20 10/01/20 08:45 08:45 08:45 RBC 3.01 L Hgb 9.9 L Hct 30.8 L MCV 103 H RDW 15.6 H Lymph % (Auto) 8.3 L Seg Neutrophils % 78.6 H APTT 40.2 H Potassium 3.5 L BUN 38 H Creatinine 6.30 H Est GFR ( Amer) 10 L Est GFR (MDRD) Non-Af 8 L Glucose 134 H Alkaline Phosphatase 371 H 10/01/20 15:37 10/01/20 08:45 10/01/20 08:45 MCV 103 fl (80-97) H 10/01/20 08:45 MCH 33.0 pg (27.0-33.4) 10/01/20 08:45 MCHC 32.1 g/dL (32.0-36.0) 10/01/20 08:45 RDW 15.6 % (11.5-14.0) H 10/01/20 08:45 Seg Neutrophils % 78.6 % (42-78) H 10/01/20 08:45 Chloride 100 mmol/L (98-107) 10/01/20 08:45 Carbon Dioxide 27 mmol/L (22-30) 10/01/20 08:45 Anion Gap 15 (5-19) 10/01/20 08:45 Est GFR ( Amer) 10 (>60) L 10/01/20 08:45 Glucose 134 mg/dL (75-110) H 10/01/20 08:45 Calcium 8.4 mg/dL (8.4-10.2) 10/01/20 08:45 Total Bilirubin 0.5 mg/dL (0.2-1.3) 10/01/20 08:45 AST 31 U/L (17-59) 10/01/20 08:45 Alkaline Phosphatase 371 U/L (38-126) H 10/01/20 08:45 Total Protein 7.1 g/dL (6.3-8.2) 10/01/20 08:45 Albumin 3.9 g/dL (3.5-5.0) 10/01/20 08:45 Lipase 242.4 U/L (23-300) 10/01/20 08:45 10/01/20 10/01/20 08:45 14:14 Troponin I 0.030 0.027 Laboratory results shows chronic renal failure with elevated BUN and creatinine also noted a troponin of 0.030 and 0.027 on repeat test. Patient denies any chest pain the entire time he has been in the department. There is no EKG changes to suggest a STEMI. - Diagnostic Test Radiology reviewed: Image reviewed, Reports reviewed Radiology results interpreted by me: 10/01/20 15:38 Acute Abdomen Series 10/01/20 09:26 IMPRESSION: NO RADIOGRAPHIC EVIDENCE FOR ACUTE DISEASE. Head CT 10/01/20 09:36 IMPRESSION: NO ACUTE INTRACRANIAL FINDINGS. Acute maxillary and sphenoid sinusitis. EVIDENCE OF ACUTE STROKE: NO. Acute abdominal series shows no radiographic evidence for an acute disease. Head CT shows no acute intracranial findings patient does have maxillary and sphenoid sinusitis this acute no evidence of stroke. - EKG Interpretation by Me Additional EKG results interpreted by me: 10/01/20 15:41 Twelve-lead EKG shows AV dual paced rhythm with some inhibition. Heart rate 71. left axis deviation normal FL interval widened QRS complex borderline QT prolongation no acute STEMI. 10/01/20 15:42 Discharge - Discharge Clinical Impression: Generalized weakness, Diabetes mellitus type II, controlled, Coronary artery disease, End-stage renal disease on hemodialysis, Dark stool due to iron tablets Condition: Stable Disposition: HOME, SELF-CARE Additional Instructions: Kidney Failure When your kidneys no longer filter the blood adequately, we call this "kidney failure." While kidney failure can happen suddenly, usually it's the result of many years of slow damage. Kidneys can be injured by many different medical problems including infections, diabetes, high blood pressure, kidney stones, drug toxicity, and immune reactions. The symptoms of kidney failure do not develop until most of the normal kidney tissue has been lost. Early kidney failure usually has no symptoms. As it gets worse, symptoms can include weakness, confusion, high blood pressure, swelling, nausea, anemia, and itching. The seriousness of kidney failure is determined by measuring kidney function tests such as BUN or creatinine. The cause of kidney failure may be obvious from the medical history, but occasionally requires special tests such as an angiogram or kidney biopsy. Kidney failure can cause high blood pressure, and uncontrolled hypertension damages kidneys. Good control of blood pressure is important. If you have diabetes, good blood sugar control helps prevent further kidney damage. Fluid retention can be monitored by checking your weight daily. It's best to eat a diet low in protein, potassium, and salt. When kidney failure becomes severe, dialysis or kidney transplant may be required. Call the doctor or return if you develop significant weakness, repeated vomiting, severe lightheadedness, confusion, severe headache, or other serious change in your health. Referrals: MO SOUZA MD [Primary Care Provider] - Follow up as needed I personally performed the services described in the documentation, reviewed and edited the documentation which was dictated to the scribe in my presence, and it accurately records my words and actions.
[2020-10-01 16:36] VITALS: BP 132/63
--- NOTE | 2020-10-01 18:59 | EKG REPORT ---
SEVERITY:- ABNORMAL ECG - A-V DUAL-PACED RHYTHM WITH SOME INHIBITION : Confirmed by: Urszula Sutton MD 01-Oct-2020 18:58:06
== END 2020-10-01 16:36 | disposition home or self-care (01) ==
LOC: ER 07:35
DX: I12.0 Hypertensive chronic kidney disease with stage 5 chronic kidney disease or end stage renal disease (principal); E11.22 Type 2 diabetes mellitus with diabetic chronic kidney disease; N18.6 End stage renal disease; Z99.2 Dependence on renal dialysis; J01.00 Acute maxillary sinusitis, unspecified; J01.30 Acute sphenoidal sinusitis, unspecified; R53.1 Weakness; R63.4 Abnormal weight loss; R63.0 Anorexia; K42.9 Umbilical hernia without obstruction or gangrene; R10.9 Unspecified abdominal pain; R26.2 Difficulty in walking, not elsewhere classified; D17.1 Benign lipomatous neoplasm of skin and subcutaneous tissue of trunk; I25.10 Atherosclerotic heart disease of native coronary artery without angina pectoris; E03.9 Hypothyroidism, unspecified; Z79.899 Other long term (current) drug therapy; Z79.82 Long term (current) use of aspirin; Z95.5 Presence of coronary angioplasty implant and graft; Z88.7 Allergy status to serum and vaccine
CPT/HCPCS: 36415; 70450; 74022; 80053; 83690; 84484; 85025; 85610; 85730; 93005; 93010; 99285

== ENCOUNTER → 2020-12-04 | Outpatient (CLI) | payer MEDICARE, OTHER ==
[2020-12-04 08:54] LABS: ALKALINE PHOSPHATASE 455 U/L (38-126); ANION GAP 16 (5-19); ASPARTATE AMINO TRANSFERASE 41 U/L (17-59); BILIRUBIN,TOTAL 0.7 mg/dL (0.2-1.3); BLOOD UREA NITROGEN 83 mg/dL (7-20); CALCIUM 8.8 mg/dL (8.4-10.2); CARBON DIOXIDE 21 mmol/L (22-30); CHLORIDE 105 mmol/L (98-107); CHOLESTEROL 133.02 mg/dL (0-200); GLUCOSE 101 mg/dL (75-110); POTASSIUM 4.7 mmol/L (3.6-5.0); TOTAL PROTEIN 7.2 g/dL (6.3-8.2); TRIGLYCERIDES 102 mg/dL (<150)
[2020-12-04 09:05] LABS: DIRECT LDL 36 mg/dL (<100)
== END ==
LOC: OD 07:34
PROVIDERS: ATTEND Physician Assistant
DX: E78.2 Mixed hyperlipidemia (principal); I10 Essential (primary) hypertension; Z79.899 Other long term (current) drug therapy
CPT/HCPCS: 36415; 80048; 80061; 80076; 82550